=== PATIENT | male | born 1960 | race Caucasian/White ===

== ENCOUNTER 2017-10-24 06:40 | Inpatient (IN) | payer MEDICAID ==
--- NOTE | 2017-10-24 07:06 | EDM.PDOC ---
ED HPI GENERAL MEDICAL PROBLEM - General Chief Complaint: Abdominal Pain Stated Complaint: INFECTION ON LEFT FOOT Time Seen by Provider: 10/24/17 06:55 Source of Information: Reports: Patient History Limitations: Reports: No Limitations - History of Present Illness INITIAL COMMENTS - FREE TEXT/NARRATIVE: History of present illness: []Patient was started on Augmentin for diabetic foot ulcer one week ago he days he developed severe abdominal pain, diarrhea and vomiting and stopped all his meds. Foot ulcer is now worse when he feels hot and cold intermittently. He has not measured a fever. Patient was scheduled for surgery on his foot tomorrow. Review of systems: As per history of present illness and below otherwise all systems reviewed and negative. Past medical history: As per history of present illness and as reviewed below otherwise noncontributory. Surgical history: As per history of present illness and as reviewed below otherwise noncontributory. Social history: No reported history of drug or alcohol abuse. Family history: As per history of present illness and as reviewed below otherwise noncontributory. Physical exam: General: Well developed, well nourished in NAD HEENT: Atraumatic, normocephalic, pupils reactive, negative for conjunctival pallor or scleral icterus, mucous membranes dry, throat clear, neck supple, nontender, trachea midline. Lungs: Clear to auscultation, breath sounds equal bilaterally, chest nontender. Heart: S1S2, regular, negative for clicks, rubs, or JVD. Abdomen: Soft, nondistended, diffuse tenderness without rebound or guarding. Negative for masses or hepatosplenomegaly. Negative for costovertebral tenderness. Pelvis: Stable nontender. Genitourinary: Deferred. Rectal: Deferred. Extremities: Left foot-with 2 ulcerations on the dorsal and plantar surfaces the plantar surface has purulent drainage, approximately 2 cm x 1 cm in size, the dorsal ulceration of the base of the second toe is approximately 2 cm x 2 cm and is erythematous with skin erythema spreading proximally to the ankle. negative for cords or calf pain. Neurovascular unremarkable. Neuro: Awake, alert, oriented. Cranial nerves II through XII unremarkable. Cerebellum unremarkable. Motor and sensory unremarkable throughout. Exam nonfocal. Diagnostics: []CBC shows white count of 19,000 with a shift, chemistry shows BUN/creatinine of 61 and 2.6, CO2 is 26, lactate is 1.9, blood cultures drawn, Therapeutics: []IV hydrated, vancomycin given after blood cultures, Protonix bolus and drip started in the ED Impression: []Diabetic foot ulcer, uncontrolled diabetes, GI bleed, Plan: []Admit to ICU to Dr. Ferro Definitive disposition and diagnosis as appropriate pending reevaluation and review of above. Abdomen Pain Score (Numeric/FACES): 8 Left Feet Pain Score (Numeric/FACES): 7 - Related Data Allergies Allergy/AdvReac Type Severity Reaction Status Date / Time No Known Allergies Allergy Verified 10/24/17 06:51 Home Meds: Home Meds oxyCODONE HCl/Acetaminophen [Percocet 5-325 mg Tablet] 1 each PO Q4HR PRN [History] Acetaminophen [Tylenol] 650 mg PO Q4H PRN #30 tablet 02/01/16 [Rx] Amoxicillin/Clavulanate K [Augmentin 875 MG/125 MG] 1 tab PO Q12HR #28 tablet [Rx] Ibuprofen [Advil] 2 tab PO ASDIRECTED PRN 02/24/16 [History] Insulin Aspart [NovoLOG] See Protocol SUBCUT ASDIRECTED PRN 02/24/16 [History] Insulin Glargine,Hum.Rec.Anlog [Lantus Solostar] 38 unit SQ BEDTIME 02/24/16 [ History] Past Medical History - Past Health History Medical/Surgical History: Denies Medical/Surgical History HEENT History: Reports: Cataract, Other (See Below) Other HEENT History: Wears prescribed eyeglasses. Has cataract to the left eye. Cardiovascular History: Reports: None Respiratory History: Reports: None Gastrointestinal History: Reports: None Genitourinary History: Reports: None Musculoskeletal History: Reports: None Neurological History: Reports: None Psychiatric History: Reports: None Endocrine/Metabolic History: Reports: Diabetes, Type II Other Endocrine/Metabolic History: Ankit Miranda MD pt is a non compliant type 2 diabetic Hematologic History: Reports: None Immunologic History: Reports: None Oncologic (Cancer) History: Reports: None Dermatologic History: Reports: None - Infectious Disease History Infectious Disease History: Reports: None - Past Surgical History Head Surgeries/Procedures: Reports: None Cardiovascular Surgical History: Reports: None Respiratory Surgical History: Reports: None GI Surgical History: Reports: None Male Surgical History: Reports: None Neurological Surgical History: Reports: None Musculoskeletal Surgical History: Reports: Other (See Below) Other Musculoskeletal Surgeries/Procedures:: ankle surgery Oncologic Surgical History: Reports: None Dermatological Surgical History: Reports: None Social & Family History - Family History Family Medical History: Noncontributory HEENT: Reports: None Cardiac: Reports: None Respiratory: Reports: None GI: Reports: None : Reports: None OBGYN: Reports: None Musculoskeletal: Reports: None Neurological: Reports: None Psychiatric: Reports: None Endocrine/Metabolic: Reports: Diabetes, type II Hematologic: Reports: None Immunologic: Reports: None Dermatologic: Reports: None Oncologic: Reports: None - Tobacco Use Smoking Status *Q: Never Smoker - Caffeine Use Caffeine Use: Reports: None - Recreational Drug Use Recreational Drug Use: No ED ROS GENERAL - Review of Systems Review Of Systems: See Below (See history of present illness) ED EXAM, GI/ABD - Physical Exam Exam: See Below (See history of present illness) Course - Vital Signs Last Recorded V/S: Last Vital Signs Temp 97.2 F 10/24/17 12:00 Pulse 71 10/24/17 13:00 Resp 20 10/24/17 13:00 BP 105/57 L 10/24/17 13:00 Pulse Ox 96 10/24/17 13:00 - Orders/Labs/Meds Orders: Active Orders 24 hr Category Date Time Status CULTURE BLOOD [BC] Stat Lab 10/24/17 Ordered CULTURE BLOOD [BC] Stat Lab 10/24/17 Ordered Clostridium Difficile [CDIFF TOX A+B] [OP] Stat Lab 10/24/17 07:20 Ordered Sodium Chloride 0.9% [Saline Flush] Med 10/24/17 07:07 Active 10 ml FLUSH ASDIRECTED PRN Sodium Chloride 0.9% [Saline Flush] Med 10/24/17 07:07 Active 2.5 ml FLUSH ASDIRECTED PRN Blood Culture x2 Reflex Set [OM.PC] Stat Oth 10/24/17 07:07 Ordered Saline Lock Insert [OM.PC] Stat Oth 10/24/17 07:07 Ordered Medication Orders Albuterol/Ipratropium (Duoneb 3.0-0.5 Mg/3 Ml) 3 ml NEB Q4HRRT PRN PRN Reason: Shortness Of Breath/wheezing Lactated Ringer's (Ringers, Lactated) 1,000 mls @ 150 mls/hr IV ASDIRECTED [facility] Vancomycin HCl 500 mg/ Sodium (Chloride) 100 mls @ 100 mls/hr IV ONETIME [facility] Last Admin: 10/24/17 12:11 Dose: 100 mls/hr Vancomycin HCl 1,500 mg/ (Sodium Chloride) 500 mls @ 333.333 mls/hr IV Q24H [facility] Sodium Chloride (Normal Saline) 1,000 mls @ 999 mls/hr IV ASDIRECTED [facility] Last Admin: 10/24/17 11:09 Dose: 999 mls/hr Piperacillin Sod/Tazobactam (Sod 4.5 gm/ Sodium Chloride) 100 mls @ 100 mls/hr IV Q6H [facility] Insulin Aspart (Novolog) 0 unit SUBCUT Q6H [facility]; Protocol Last Admin: 10/24/17 11:10 Dose: 8 units Metoclopramide HCl (Reglan) 5 mg IVPUSH Q6H PRN PRN Reason: nausea and vomiting Morphine Sulfate (Morphine) 2 mg IVPUSH Q2H PRN PRN Reason: Pain (severe 7-10) Stop: 10/25/17 10:42 Last Admin: 10/24/17 11:01 Dose: 2 mg Pantoprazole Sodium (Protonix Iv) 40 mg IV Q12H [facility] Last Admin: 10/24/17 11:10 Dose: 40 mg Sodium Chloride (Saline Flush) 10 ml FLUSH ASDIRECTED PRN PRN Reason: Keep Vein Open Sodium Chloride (Saline Flush) 2.5 ml FLUSH ASDIRECTED PRN PRN Reason: Keep Vein Open Sodium Chloride (Saline Flush) 10 ml FLUSH ASDIRECTED PRN PRN Reason: Keep Vein Open Sodium Chloride (Saline Flush) 2.5 ml FLUSH ASDIRECTED PRN PRN Reason: Keep Vein Open Sucralfate (Carafate) 1 gm PO Q6H [facility] Last Admin: 10/24/17 11:39 Dose: 1 gm Temazepam (Restoril) 15 mg PO BEDTIME PRN PRN Reason: Sleep Vancomycin HCl (Pharmacy To Dose - Vancomycin) 0 dose .XX ASDIRECTED [facility] Labs: Laboratory Tests 10/24/17 10/24/17 10/24/17 Range/Units 07:13 07:13 07:13 WBC 19.80 H (4.0-11.0) K/uL RBC 4.62 (4.50-5.90) M/uL Hgb 13.3 (13.0-17.0) g/dL Hct 38.1 (38.0-50.0) % MCV 82.5 (80.0-98.0) fL MCH 28.8 (27.0-32.0) pg MCHC 34.9 (31.0-37.0) g/dL RDW Std Deviation 37.9 (28.0-62.0) fl RDW Coeff of Krunal 13 (11.0-15.0) % Plt Count 410 H (150-400) K/uL MPV 10.50 (7.40-12.00) fL Neut % (Auto) 88.9 H (48.0-80.0) % Lymph % (Auto) 5.6 L (16.0-40.0) % [place] % (Auto) 5.1 (0.0-15.0) % Eos % (Auto) 0.3 (0.0-7.0) % Baso % (Auto) 0.1 (0.0-1.5) % Neut # (Auto) 17.6 H (1.4-5.7) K/uL Lymph # (Auto) 1.1 (0.6-2.4) K/uL [place] # (Auto) 1.0 H (0.0-0.8) K/uL Eos # (Auto) 0.1 (0.0-0.7) K/uL Baso # (Auto) 0.0 (0.0-0.1) K/uL Nucleated RBC % 0.0 /100WBC Nucleated RBCs # 0 K/uL Lactate 1.9 (0.20-2.00) mmol/L Sodium 132 L (136-148) mmol/L Potassium 4.5 (3.5-5.1) mmol/L Chloride 93 L (98-107) mmol/L Carbon Dioxide 25.6 (21.0-32.0) mmol/L BUN 61 H (7.0-18.0) mg/dL Creatinine 2.6 H (0.8-1.3) mg/dL Est Cr Clr Drug Dosing 33.39 mL/min Estimated GFR (MDRD) 25.6 ml/min Glucose 326 H (74-106) mg/dL Calcium 8.1 L (8.5-10.1) mg/dL Total Bilirubin 0.5 (0.2-1.0) mg/dL AST 8 L (15-37) IU/L ALT 11 L (14-63) IU/L Alkaline Phosphatase 125 H (46-116) U/L Total Protein 6.5 (6.4-8.2) g/dL Albumin 2.4 L (3.4-5.0) g/dL Globulin 4.1 H (2.0-3.5) g/dL Albumin/Globulin Ratio 0.6 L (1.3-2.8) Lipase 58 L (73-393) U/L Meds: Medications Generic Name Dose Route Start Last Admin Trade Name Freq PRN Reason Stop Dose Admin Albuterol/Ipratropium 3 ml 10/24/17 10:39 Duoneb 3.0-0.5 Mg/3 Ml NEB Q4HRRT PRN Shortness Of Breath/wheezing Lactated Ringer's 1,000 mls @ 150 mls/hr 10/24/17 10:45 Ringers, Lactated IV ASDIRECTED [facility] Vancomycin HCl 500 mg/ Sodium 100 mls @ 100 mls/hr 10/24/17 12:00 10/24/17 12 :11 Chloride IV 100 mls/hr ONETIME [facility] Administration Vancomycin HCl 1,500 mg/ 500 mls @ 333.333 mls/hr 10/25/17 09:00 Sodium Chloride IV Q24H [facility] Sodium Chloride 1,000 mls @ 999 mls/hr 10/24/17 11:15 10/24/17 11:09 Normal Saline IV 999 mls/hr ASDIRECTED [facility] Administration Piperacillin Sod/Tazobactam 100 mls @ 100 mls/hr 10/24/17 15:00 Sod 4.5 gm/ Sodium Chloride IV Q6H [facility] Insulin Aspart 0 unit 10/24/17 11:00 10/24/17 11:10 Novolog SUBCUT 8 units Q6H [facility] Administration Protocol Metoclopramide HCl 5 mg 10/24/17 11:01 Reglan IVPUSH Q6H PRN nausea and vomiting Morphine Sulfate 2 mg 10/24/17 10:39 10/24/17 11:01 Morphine IVPUSH 10/25/17 10:42 2 mg Q2H PRN Administration Pain (severe 7-10) Pantoprazole Sodium 40 mg 10/24/17 11:00 10/24/17 11:10 Protonix Iv IV 40 mg Q12H [facility] Administration Sodium Chloride 10 ml 10/24/17 07:07 Saline Flush FLUSH ASDIRECTED PRN Keep Vein Open Sodium Chloride 2.5 ml 10/24/17 07:07 Saline Flush FLUSH ASDIRECTED PRN Keep Vein Open Sodium Chloride 10 ml 10/24/17 10:39 Saline Flush FLUSH ASDIRECTED PRN Keep Vein Open Sodium Chloride 2.5 ml 10/24/17 10:39 Saline Flush FLUSH ASDIRECTED PRN Keep Vein Open Sucralfate 1 gm 10/24/17 11:15 10/24/17 11:39 Carafate PO 1 gm Q6H [facility] Administration Temazepam 15 mg 10/24/17 10:39 Restoril PO BEDTIME PRN Sleep Vancomycin HCl 0 dose 10/24/17 11:00 Pharmacy To Dose - Vancomycin .XX ASDIRECTED [facility] Discontinued Medications Generic Name Dose Route Start Last Admin Trade Name Freq PRN Reason Stop Dose Admin Sodium Chloride 1,000 mls @ 999 mls/hr 10/24/17 07:08 10/24/17 08:22 Normal Saline IV 10/24/17 08:08 Infused .Bolus ONE Infusion Vancomycin HCl 1 gm/ Sodium 250 mls @ 250 mls/hr 10/24/17 08:09 10/24/17 08: 14 Chloride IV 10/24/17 09:08 250 mls/hr ONETIME ONE Administration Sodium Chloride 1,000 mls @ 999 mls/hr 10/24/17 09:00 10/24/17 09:31 Normal Saline IV 10/24/17 10:00 999 mls/hr .Bolus ONE Infusion Piperacillin Sod/Tazobactam 50 mls @ 100 mls/hr 10/24/17 10:50 10/24/17 11:08 Sod 3.375 gm/ Sodium Chloride IV 10/24/17 11:19 100 mls/hr ONETIME ONE Administration Insulin Glargine 10 units 10/24/17 12:00 10/24/17 12:51 Lantus Solostar SUBCUT 10/24/17 12:01 10 units ONETIME ONE Administration Morphine Sulfate 4 mg 10/24/17 07:15 10/24/17 07:42 Morphine IVPUSH 10/24/17 07:16 Not Given ONETIME ONE Morphine Sulfate Confirm 10/24/17 07:19 10/24/17 07:33 Morphine Administered 10/24/17 07:20 Not Given Dose 4 mg .ROUTE .STK-MED ONE Morphine Sulfate 4 mg 10/24/17 07:20 10/24/17 07:33 Morphine IVPUSH 10/24/17 07:21 4 mg ONETIME ONE Administration Ondansetron HCl 4 mg 10/24/17 07:15 10/24/17 07:21 Zofran IVPUSH 10/24/17 07:16 4 mg ONETIME ONE Administration Pantoprazole Sodium 80 mg 10/24/17 07:40 10/24/17 07:57 Protonix Iv IVPUSH 10/24/17 07:41 80 mg .BOLUS ONE Administration Departure - Departure Time of Disposition: 09:35 Disposition: Admitted As Inpatient 66 Condition: Fair Clinical Impression: Diabetic foot ulcer Qualifiers: Diabetic foot ulcer location: midfoot Diabetes mellitus type: type 2 Laterality : unspecified laterality Non-pressure ulcer stage: unspecified non-pressure ulcer stage Qualified Code(s): E11.621 - Type 2 diabetes mellitus with foot ulcer; L97.409 - Non-pressure chronic ulcer of unspecified heel and midfoot with unspecified severity GI bleed Qualifiers: GI bleed type/associated pathology: unspecified gastrointestinal hemorrhage type Qualified Code(s): K92.2 - Gastrointestinal hemorrhage, unspecified - Discharge Information - My Orders Last 24 Hours: My Active Orders 10/24/17 CULTURE BLOOD [BC] Stat CULTURE BLOOD [BC] Stat 10/24/17 07:07 Sodium Chloride 0.9% [Saline Flush] 10 ml FLUSH ASDIRECTED PRN Sodium Chloride 0.9% [Saline Flush] 2.5 ml FLUSH ASDIRECTED PRN Blood Culture x2 Reflex Set [OM.PC] Stat Saline Lock Insert [OM.PC] Stat 10/24/17 07:20 Clostridium Difficile [CDIFF TOX A+B] [OP] Stat - Assessment/Plan Last 24 Hours: My Active Orders 10/24/17 CULTURE BLOOD [BC] Stat CULTURE BLOOD [BC] Stat 10/24/17 07:07 Sodium Chloride 0.9% [Saline Flush] 10 ml FLUSH ASDIRECTED PRN Sodium Chloride 0.9% [Saline Flush] 2.5 ml FLUSH ASDIRECTED PRN Blood Culture x2 Reflex Set [OM.PC] Stat Saline Lock Insert [OM.PC] Stat 10/24/17 07:20 Clostridium Difficile [CDIFF TOX A+B] [OP] Stat
[2017-10-24] MEDS ORDERED: Sodium Chloride 0.9% 2.5 ML Syringe FLUSH PRN ×2 (07:07→10:39)
[2017-10-24] MEDS ORDERED: Sodium Chloride 0.9% 10 ML Syringe FLUSH PRN ×2 (07:07→10:39)
[2017-10-24] MEDS ORDERED: Sodium Chloride 0.9% 1,000 ML IV ONE ×2 (07:08→09:00)
[2017-10-24] MEDS ORDERED: Ondansetron 4 MG/2 ML SDV IVPUSH ONE (07:15)
[2017-10-24] MEDS ORDERED: Morphine 4 MG/ML Syringe IVPUSH ONE (07:15)
[2017-10-24] MEDS ORDERED: Morphine 2 MG/ML Syringe ONE (07:19)
[2017-10-24] MEDS ORDERED: Morphine 2 MG/ML Syringe IVPUSH ONE (07:20)
[2017-10-24] MEDS ORDERED: Pantoprazole 40 MG Vial IVPUSH ONE (07:40)
[2017-10-24] MEDS ORDERED: Pantoprazole 80 MG in Sodium Chloride 0.9% 100 ML IV SCH (07:45)
[2017-10-24] MEDS ORDERED: Albuterol/Ipratropium 3.0-0.5 MG/3 ML Neb Soln NEB PRN (10:39)
[2017-10-24] MEDS ORDERED: Piperacillin/Tazobactam 3.375 GM in Sodium Chloride 0.9% 50 ML IV ONE (10:50)
[2017-10-24] MEDS: Morphine 2 MG/ML Syringe IVPUSH PRN (11:01)
[2017-10-24] MEDS: Pantoprazole 40 MG Vial IV SCH (11:10)
[2017-10-24] MEDS: Insulin Aspart 100 Units/ML 3 ML Pen SUBCUT SCH ×2 (11:10→17:01)
[2017-10-24] MEDS ORDERED: Sodium Chloride 0.9% 1,000 ML IV SCH (11:15)
[2017-10-24] MEDS: Sucralfate Suspension 1 GM/10 ML Cup PO SCH ×2 (11:39→17:01)
[2017-10-24] MEDS ORDERED: Insulin Glargine,Human Rec. Analog 100 Units/ML 3 ML Pen SUBCUT ONE (12:00)
[2017-10-24] MEDS: Lactated Ringers 1,000 ML IV SCH ×2 (13:36→21:44)
[2017-10-24] MEDS: Metoclopramide 10 MG/2 ML SDV IVPUSH PRN (15:47)
--- NOTE | 2017-10-24 15:48 | PCM.HP ---
H&P History of Present Illness - General Date of Service: 10/24/17 Admit Problem/Dx: Admission Diagnosis/Problem Admission Diagnosis/Problem Diabetic foot infection, nausea , coffee ground vomiting , abdominal pain , black diarrhea - History of Present Illness Onset of Symptoms: Reports: Gradual Abdomen Pain Score (Numeric/FACES): 8 Left Feet Pain Score (Numeric/FACES): 7 - Related Data Allergies/Adverse Reactions: Allergies Allergy/AdvReac Type Severity Reaction Status Date / Time No Known Allergies Allergy Verified 10/24/17 06:51 Home Medications: Home Meds oxyCODONE HCl/Acetaminophen [Percocet 5-325 mg Tablet] 1 each PO Q4HR PRN [History] Acetaminophen [Tylenol] 650 mg PO Q4H PRN #30 tablet 02/01/16 [Rx] Amoxicillin/Clavulanate K [Augmentin 875 MG/125 MG] 1 tab PO Q12HR #28 tablet [Rx] Ibuprofen [Advil] 2 tab PO ASDIRECTED PRN 02/24/16 [History] Insulin Aspart [NovoLOG] See Protocol SUBCUT ASDIRECTED PRN 02/24/16 [History] Insulin Glargine,Hum.Rec.Anlog [Lantus Solostar] 38 unit SQ BEDTIME 02/24/16 [ History] Past Medical History - Past Health History Medical/Surgical History: Denies Medical/Surgical History HEENT History: Reports: Cataract, Other (See Below) Other HEENT History: Wears prescribed eyeglasses. Has cataract to the left eye. Cardiovascular History: Reports: None Respiratory History: Reports: None Gastrointestinal History: Reports: None Genitourinary History: Reports: None Musculoskeletal History: Reports: None Neurological History: Reports: None Psychiatric History: Reports: None Endocrine/Metabolic History: Reports: Diabetes, Type II Other Endocrine/Metabolic History: Per Ruben BRUNER pt is a non compliant type 2 diabetic Hematologic History: Reports: None Immunologic History: Reports: None Oncologic (Cancer) History: Reports: None Dermatologic History: Reports: None - Infectious Disease History Infectious Disease History: Reports: None - Past Surgical History Head Surgeries/Procedures: Reports: None Cardiovascular Surgical History: Reports: None Respiratory Surgical History: Reports: None GI Surgical History: Reports: None Male Surgical History: Reports: None Neurological Surgical History: Reports: None Musculoskeletal Surgical History: Reports: Other (See Below) Other Musculoskeletal Surgeries/Procedures:: ankle surgery Oncologic Surgical History: Reports: None Dermatological Surgical History: Reports: None Social & Family History - Family History Family Medical History: Noncontributory HEENT: Reports: None Cardiac: Reports: None Respiratory: Reports: None GI: Reports: None : Reports: None OBGYN: Reports: None Musculoskeletal: Reports: None Neurological: Reports: None Psychiatric: Reports: None Endocrine/Metabolic: Reports: Diabetes, type II Hematologic: Reports: None Immunologic: Reports: None Dermatologic: Reports: None Oncologic: Reports: None - Tobacco Use Smoking Status *Q: Never Smoker - Caffeine Use Caffeine Use: Reports: None - Recreational Drug Use Recreational Drug Use: No Exam - Vital Signs Vital Signs: Last Vital Signs Temp 97.2 F 10/24/17 12:00 Pulse 81 10/24/17 15:00 Resp 18 10/24/17 15:00 BP 98/68 10/24/17 15:00 Pulse Ox 98 10/24/17 15:00 Weight: 214 lb 4 oz - Patient Data Lab Results Last 24 hrs: Laboratory Results - last 24 hr 10/24/17 10/24/17 10/24/17 Range/Units 07:13 07:13 07:13 WBC 19.80 H (4.0-11.0) K/uL RBC 4.62 (4.50-5.90) M/uL Hgb 13.3 (13.0-17.0) g/dL Hct 38.1 (38.0-50.0) % MCV 82.5 (80.0-98.0) fL MCH 28.8 (27.0-32.0) pg MCHC 34.9 (31.0-37.0) g/dL RDW Std Deviation 37.9 (28.0-62.0) fl RDW Coeff of Krunal 13 (11.0-15.0) % Plt Count 410 H (150-400) K/uL MPV 10.50 (7.40-12.00) fL Neut % (Auto) 88.9 H (48.0-80.0) % Lymph % (Auto) 5.6 L (16.0-40.0) % [place]ie % (Auto) 5.1 (0.0-15.0) % Eos % (Auto) 0.3 (0.0-7.0) % Baso % (Auto) 0.1 (0.0-1.5) % Neut # (Auto) 17.6 H (1.4-5.7) K/uL Lymph # (Auto) 1.1 (0.6-2.4) K/uL [place] # (Auto) 1.0 H (0.0-0.8) K/uL Eos # (Auto) 0.1 (0.0-0.7) K/uL Baso # (Auto) 0.0 (0.0-0.1) K/uL Nucleated RBC % 0.0 /100WBC Nucleated RBCs # 0 K/uL ESR (0-19) mm/hr ABG pH (7.35-7.45) ABG pCO2 (35-45) mmHG ABG pO2 (75-100) mmHG ABG HCO3 (22-26) mEq/L ABG Total CO2 ABG Base Excess (-2.0-2.0) Lactate 1.9 (0.20-2.00) mmol/L Sodium 132 L (136-148) mmol/L Potassium 4.5 (3.5-5.1) mmol/L Chloride 93 L (98-107) mmol/L Carbon Dioxide 25.6 (21.0-32.0) mmol/L BUN 61 H (7.0-18.0) mg/dL Creatinine 2.6 H (0.8-1.3) mg/dL Est Cr Clr Drug Dosing 33.39 mL/min Estimated GFR (MDRD) 25.6 ml/min Glucose 326 H (74-106) mg/dL POC Glucose (60-110) mg/dL Hemoglobin A1c (4.5-6.2) % Calcium 8.1 L (8.5-10.1) mg/dL Total Bilirubin 0.5 (0.2-1.0) mg/dL AST 8 L (15-37) IU/L ALT 11 L (14-63) IU/L Alkaline Phosphatase 125 H (46-116) U/L C-Reactive Protein (0.00-0.90) mg/dL Total Protein 6.5 (6.4-8.2) g/dL Albumin 2.4 L (3.4-5.0) g/dL Globulin 4.1 H (2.0-3.5) g/dL Albumin/Globulin Ratio 0.6 L (1.3-2.8) Lipase 58 L (73-393) U/L Blood Type Antibody Screen 10/24/17 10/24/17 10/24/17 Range/Units 08:20 09:12 10:01 WBC (4.0-11.0) K/uL RBC (4.50-5.90) M/uL Hgb (13.0-17.0) g/dL Hct (38.0-50.0) % MCV (80.0-98.0) fL MCH (27.0-32.0) pg MCHC (31.0-37.0) g/dL RDW Std Deviation (28.0-62.0) fl RDW Coeff of Krunla (11.0-15.0) % Plt Count (150-400) K/uL MPV (7.40-12.00) fL Neut % (Auto) (48.0-80.0) % Lymph % (Auto) (16.0-40.0) % [place]ie % (Auto) (0.0-15.0) % Eos % (Auto) (0.0-7.0) % Baso % (Auto) (0.0-1.5) % Neut # (Auto) (1.4-5.7) K/uL Lymph # (Auto) (0.6-2.4) K/uL [place] # (Auto) (0.0-0.8) K/uL Eos # (Auto) (0.0-0.7) K/uL Baso # (Auto) (0.0-0.1) K/uL Nucleated RBC % /100WBC Nucleated RBCs # K/uL ESR (0-19) mm/hr ABG pH 7.366 (7.35-7.45) ABG pCO2 35 (35-45) mmHG ABG pO2 72 L (75-100) mmHG ABG HCO3 20 L (22-26) mEq/L ABG Total CO2 18.3 ABG Base Excess -4.7 L (-2.0-2.0) Lactate (0.20-2.00) mmol/L Sodium (136-148) mmol/L Potassium (3.5-5.1) mmol/L Chloride (98-107) mmol/L Carbon Dioxide (21.0-32.0) mmol/L BUN (7.0-18.0) mg/dL Creatinine (0.8-1.3) mg/dL Est Cr Clr Drug Dosing mL/min Estimated GFR (MDRD) ml/min Glucose (74-106) mg/dL POC Glucose 330 H (60-110) mg/dL Hemoglobin A1c (4.5-6.2) % Calcium (8.5-10.1) mg/dL Total Bilirubin (0.2-1.0) mg/dL AST (15-37) IU/L ALT (14-63) IU/L Alkaline Phosphatase (46-116) U/L C-Reactive Protein (0.00-0.90) mg/dL Total Protein (6.4-8.2) g/dL Albumin (3.4-5.0) g/dL Globulin (2.0-3.5) g/dL Albumin/Globulin Ratio (1.3-2.8) Lipase (73-393) U/L Blood Type O POSITIVE Antibody Screen NEGATIVE 10/24/17 10/24/17 10/24/17 Range/Units 11:03 11:03 11:03 WBC 17.35 H (4.0-11.0) K/uL RBC 3.91 L (4.50-5.90) M/uL Hgb 11.2 L (13.0-17.0) g/dL Hct 32.7 L (38.0-50.0) % MCV 83.6 (80.0-98.0) fL MCH 28.6 (27.0-32.0) pg MCHC 34.3 (31.0-37.0) g/dL RDW Std Deviation 38.5 (28.0-62.0) fl RDW Coeff of Krunal 13 (11.0-15.0) % Plt Count 337 (150-400) K/uL MPV 10.20 (7.40-12.00) fL Neut % (Auto) (48.0-80.0) % Lymph % (Auto) (16.0-40.0) % [place] % (Auto) (0.0-15.0) % Eos % (Auto) (0.0-7.0) % Baso % (Auto) (0.0-1.5) % Neut # (Auto) (1.4-5.7) K/uL Lymph # (Auto) (0.6-2.4) K/uL [place] # (Auto) (0.0-0.8) K/uL Eos # (Auto) (0.0-0.7) K/uL Baso # (Auto) (0.0-0.1) K/uL Nucleated RBC % 0.0 /100WBC Nucleated RBCs # 0 K/uL ESR 36 H (0-19) mm/hr ABG pH (7.35-7.45) ABG pCO2 (35-45) mmHG ABG pO2 (75-100) mmHG ABG HCO3 (22-26) mEq/L ABG Total CO2 ABG Base Excess (-2.0-2.0) Lactate (0.20-2.00) mmol/L Sodium 132 L (136-148) mmol/L Potassium 4.7 (3.5-5.1) mmol/L Chloride 99 (98-107) mmol/L Carbon Dioxide 23.7 (21.0-32.0) mmol/L BUN 59 H (7.0-18.0) mg/dL Creatinine 2.1 H (0.8-1.3) mg/dL Est Cr Clr Drug Dosing 41.34 mL/min Estimated GFR (MDRD) 32.7 ml/min Glucose 305 H (74-106) mg/dL POC Glucose (60-110) mg/dL Hemoglobin A1c (4.5-6.2) % Calcium 7.3 L (8.5-10.1) mg/dL Total Bilirubin (0.2-1.0) mg/dL AST (15-37) IU/L ALT (14-63) IU/L Alkaline Phosphatase (46-116) U/L C-Reactive Protein 15.90 H (0.00-0.90) mg/dL Total Protein (6.4-8.2) g/dL Albumin (3.4-5.0) g/dL Globulin (2.0-3.5) g/dL Albumin/Globulin Ratio (1.3-2.8) Lipase (73-393) U/L Blood Type Antibody Screen 10/24/17 10/24/17 Range/Units 11:03 14:15 WBC (4.0-11.0) K/uL RBC (4.50-5.90) M/uL Hgb 10.8 L (13.0-17.0) g/dL Hct 31.6 L (38.0-50.0) % MCV (80.0-98.0) fL MCH (27.0-32.0) pg MCHC (31.0-37.0) g/dL RDW Std Deviation (28.0-62.0) fl RDW Coeff of Krunal (11.0-15.0) % Plt Count (150-400) K/uL MPV (7.40-12.00) fL Neut % (Auto) (48.0-80.0) % Lymph % (Auto) (16.0-40.0) % [place] % (Auto) (0.0-15.0) % Eos % (Auto) (0.0-7.0) % Baso % (Auto) (0.0-1.5) % Neut # (Auto) (1.4-5.7) K/uL Lymph # (Auto) (0.6-2.4) K/uL [place] # (Auto) (0.0-0.8) K/uL Eos # (Auto) (0.0-0.7) K/uL Baso # (Auto) (0.0-0.1) K/uL Nucleated RBC % /100WBC Nucleated RBCs # K/uL ESR (0-19) mm/hr ABG pH (7.35-7.45) ABG pCO2 (35-45) mmHG ABG pO2 (75-100) mmHG ABG HCO3 (22-26) mEq/L ABG Total CO2 ABG Base Excess (-2.0-2.0) Lactate (0.20-2.00) mmol/L Sodium (136-148) mmol/L Potassium (3.5-5.1) mmol/L Chloride (98-107) mmol/L Carbon Dioxide (21.0-32.0) mmol/L BUN (7.0-18.0) mg/dL Creatinine (0.8-1.3) mg/dL Est Cr Clr Drug Dosing mL/min Estimated GFR (MDRD) ml/min Glucose (74-106) mg/dL POC Glucose (60-110) mg/dL Hemoglobin A1c 9.3 H (4.5-6.2) % Calcium (8.5-10.1) mg/dL Total Bilirubin (0.2-1.0) mg/dL AST (15-37) IU/L ALT (14-63) IU/L Alkaline Phosphatase (46-116) U/L C-Reactive Protein (0.00-0.90) mg/dL Total Protein (6.4-8.2) g/dL Albumin (3.4-5.0) g/dL Globulin (2.0-3.5) g/dL Albumin/Globulin Ratio (1.3-2.8) Lipase (73-393) U/L Blood Type Antibody Screen Result Diagrams: 10/24/17 14:15 10/24/17 11:03 Robert Results Last 24 hrs: Microbiology 10/24/17 07:20 Stool for WBCs - Final Stool / Feces POSITIVE FOR WBC'S 10/24/17 07:20 Campylobacter Antigen Assay - Final Stool / Feces NEGATIVE CAMPYLOBACTER AG 10/24/17 07:20 Clostridium difficile Toxin A & B - Final Stool / Feces Negative for C.Diff Toxin/AG Orders Last 24hrs: Active Orders 24 hr Category Date Time Status Patient Status [ADT] Stat ADT 10/24/17 08:09 Active Blood Glucose Check, Bedside [RC] Q6HR Care 10/24/17 17:00 Active Fecal Occult Blood Collection [RC] ASDIRECTED Care 10/24/17 15:23 Active Oxygen Therapy [RC] PRN Care 10/24/17 10:33 Active RT Aerosol Therapy [RC] ASDIRECTED Care 10/24/17 10:46 Active Up ad Ramonita [RC] ASDIRECTED Care 10/24/17 10:33 Active VTE/DVT Education [RC] PER UNIT ROUTINE Care 10/24/17 10:33 Active Vital Signs [RC] Q1H Care 10/24/17 10:33 Active Consult to Wound Care Services [CONS] Routine Cons 10/24/17 11:04 Active Nothing per Oral Now Diet [DIET] Diet 10/24/17 Breakfast Active Foot Comp Min 3V Lt [CR] Routine Exams 10/24/17 10:57 Taken Foot wo Cont Lt [MR] Routine Exams 10/24/17 10:59 Ordered BASIC METABOLIC PANEL,BMP [CHEM] AM Lab 10/25/17 05:11 Ordered BASIC METABOLIC PANEL,BMP [CHEM] AM Lab 10/26/17 05:11 Ordered BASIC METABOLIC PANEL,BMP [CHEM] AM Lab 10/27/17 05:11 Ordered BASIC METABOLIC PANEL,BMP [CHEM] AM Lab 10/28/17 05:11 Ordered BASIC METABOLIC PANEL,BMP [CHEM] AM Lab 10/29/17 05:11 Ordered CULTURE BLOOD [BC] Stat Lab 10/24/17 Ordered CULTURE BLOOD [BC] Stat Lab 10/24/17 Ordered CULTURE STOOL + CAMPY+SHIGATOX [RM] Routine Lab 10/24/17 07:20 Ordered CULTURE WOUND [RM] Routine Lab 10/24/17 12:15 Received Clostridium Difficile [CDIFF TOX A+B] [OP] Stat Lab 10/24/17 07:20 Ordered HEMOGLOBIN/HEMATOCRIT,HH [HEME] Q6H Lab 10/24/17 20:05 Ordered MAGNESIUM [CHEM] AM Lab 10/25/17 05:11 Ordered Albuterol/Ipratropium [DuoNeb 3.0-0.5 MG/3 ML] Med 10/24/17 10:39 Active 3 ml NEB Q4HRRT PRN Insulin Aspart [NovoLOG] Med 10/24/17 11:00 Active See Protocol SUBCUT Q6H Lactated Ringers [Ringers, Lactated] 1,000 ml Med 10/24/17 10:45 Active IV ASDIRECTED Metoclopramide [Reglan] Med 10/24/17 11:01 Active 5 mg IVPUSH Q6H PRN Morphine Med 10/24/17 10:39 Active 2 mg IVPUSH Q2H PRN Pantoprazole [ProTONIX IV] Med 10/24/17 11:00 Active 40 mg IV Q12H Piperacillin/Tazobactam [Piperacil-Tazobact] 4.5 gm Med 10/24/17 17:00 Active Sodium Chloride 0.9% [Normal Saline] 100 ml IV Q6H Sodium Chloride 0.9% [Normal Saline] 1,000 ml Med 10/24/17 11:15 Active IV ASDIRECTED Sodium Chloride 0.9% [Saline Flush] Med 10/24/17 07:07 Active 10 ml FLUSH ASDIRECTED PRN Sodium Chloride 0.9% [Saline Flush] Med 10/24/17 10:39 Active 10 ml FLUSH ASDIRECTED PRN Sodium Chloride 0.9% [Saline Flush] Med 10/24/17 07:07 Active 2.5 ml FLUSH ASDIRECTED PRN Sodium Chloride 0.9% [Saline Flush] Med 10/24/17 10:39 Active 2.5 ml FLUSH ASDIRECTED PRN Sucralfate [Carafate] Med 10/24/17 11:15 Active 1 gm PO Q6H Temazepam [Restoril] Med 10/24/17 10:39 Active 15 mg PO BEDTIME PRN Vancomycin 1,500 mg Med 10/25/17 09:00 Active Sodium Chloride 0.9% [Normal Saline] 500 ml IV Q24H Vancomycin 500 mg Med 10/24/17 12:00 Active Sodium Chloride 0.9% [Normal Saline] 100 ml IV ONETIME Vancomycin Pharmacy to Dose [Pharmacy to Dose - Med 10/24/17 11:00 Active Vancomycin] See Dose Instructions .XX ASDIRECTED Blood Culture x2 Reflex Set [OM.PC] Stat Ot 10/24/17 07:07 Ordered Peripheral IV Insertion Adult [OM.PC] Routine Ot 10/24/17 10:39 Ordered Saline Lock Insert [OM.PC] Stat Ot 10/24/17 07:07 Ordered Resuscitation Status Routine Resus Stat 10/24/17 10:33 Ordered Medication Orders Albuterol/Ipratropium (Duoneb 3.0-0.5 Mg/3 Ml) 3 ml NEB Q4HRRT PRN PRN Reason: Shortness Of Breath/wheezing Lactated Ringer's (Ringers, Lactated) 1,000 mls @ 150 mls/hr IV ASDIRECTED BOB Last Admin: 10/24/17 13:36 Dose: 150 mls/hr Vancomycin HCl 500 mg/ Sodium (Chloride) 100 mls @ 100 mls/hr IV ONETIME BOB Last Admin: 10/24/17 12:11 Dose: 100 mls/hr Vancomycin HCl 1,500 mg/ (Sodium Chloride) 500 mls @ 333.333 mls/hr IV Q24H BOB Sodium Chloride (Normal Saline) 1,000 mls @ 999 mls/hr IV ASDIRECTED BOB Last Admin: 10/24/17 11:09 Dose: 999 mls/hr Piperacillin Sod/Tazobactam (Sod 4.5 gm/ Sodium Chloride) 100 mls @ 100 mls/hr IV Q6H [facility] Insulin Aspart (Novolog) 0 unit SUBCUT Q6H [facility]; Protocol Last Admin: 10/24/17 11:10 Dose: 8 units Metoclopramide HCl (Reglan) 5 mg IVPUSH Q6H PRN PRN Reason: nausea and vomiting Morphine Sulfate (Morphine) 2 mg IVPUSH Q2H PRN PRN Reason: Pain (severe 7-10) Stop: 10/25/17 10:42 Last Admin: 10/24/17 11:01 Dose: 2 mg Pantoprazole Sodium (Protonix Iv) 40 mg IV Q12H [facility] Last Admin: 10/24/17 11:10 Dose: 40 mg Sodium Chloride (Saline Flush) 10 ml FLUSH ASDIRECTED PRN PRN Reason: Keep Vein Open Sodium Chloride (Saline Flush) 2.5 ml FLUSH ASDIRECTED PRN PRN Reason: Keep Vein Open Sodium Chloride (Saline Flush) 10 ml FLUSH ASDIRECTED PRN PRN Reason: Keep Vein Open Sodium Chloride (Saline Flush) 2.5 ml FLUSH ASDIRECTED PRN PRN Reason: Keep Vein Open Sucralfate (Carafate) 1 gm PO Q6H [facility] Last Admin: 10/24/17 11:39 Dose: 1 gm Temazepam (Restoril) 15 mg PO BEDTIME PRN PRN Reason: Sleep Vancomycin HCl (Pharmacy To Dose - Vancomycin) 0 dose .XX ASDIRECTED [facility]
--- NOTE | 2017-10-24 16:10 | PCM.SN ---
- Free Text/Narrative Note: Anne Marie Copeland dictated#[id number]
[2017-10-24] MEDS: Piperacillin/Tazobactam 4.5 GM in Sodium Chloride 0.9% 100 ML IV SCH (17:01)
--- NOTE | 2017-10-24 19:26 | PCM.SN ---
- Free Text/Narrative Note: Patient with no more active hematemesis in the past 12 h , was downgraded to telemetry
--- NOTE | 2017-10-24 23:08 | HP ---
DATE OF : 1960 PRIMARY CARE PHYSICIAN: None PCP CHIEF COMPLAINT: Abdominal pain, nausea, vomiting, diarrhea, and coffee-ground vomiting, and streaks of red blood, also black and red diarrhea, and left foot pain, unable to tolerate p.o. HISTORY OF PRESENT ILLNESS: The patient is a 57-year-old man presented to emergency room today because of nausea, vomiting, and bloody diarrhea. This started on , three days ago, and today he had coffee-ground vomiting, and also he has vomit was streaked with blood. He had black diarrhea that started since . He had an infection in the left foot that started two weeks ago as a sore, and on Wednesday this week, he so Dr. Indio Toribio, [employer] C[employer] Attendant, who recommended him to start Augmentin 1 tab p.o. b.i.d. On Wednesday, he saw his primary care physician, Dr. Miranda, and he had blood work done. His blood work was good and soon after he started having fever and chills. The chills were throughout the next three days. The patient has diabetes mellitus and he is insulin dependent, complicated with neuropathy. His diabetes is not well controlled. His last hemoglobin A1c was 10, and today on his blood work his hemoglobin A1c was 9.3. He had a previous foot ulcer on the right foot about a year ago and was treated by the sales technician home theater. On Wednesday, Dr. Toribio removed a piece of glass from his left foot and the patient was told that he stepped on a glass which he was not aware. PAST MEDICAL HISTORY: The patient has diabetes mellitus, insulin dependent, uncontrolled with complication of neuropathy. Hx of right foot ulcer PAST SURGICAL HISTORY: The patient had 5 surgeries on the right ankle. Also, he had surgery of the left hand. SOCIAL HISTORY: The patient never smoked. Alcohol use occasionally, little amount. No drug use. 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 FAMILY HISTORY: His mom of old age at 92. Father at age 72 because he had a motor vehicle accident. He has one brother who has diabetes. VITAL SIGNS: At admission, his temperature 97.5, pulse 92, blood pressure 112/74, and oxygen saturation 98%. PHYSICAL EXAMINATION: HEENT: His head is atraumatic and normocephalic. Pupils equal, round, reactive to light. NECK: Supple. No thyromegaly. No lymphadenopathy. Dry oral mucosa. HEART: S1 and S2. Regular rhythm and rate. No murmurs. LUNGS: Clear to auscultation bilaterally. ABDOMEN: Soft. Tenderness to palpation in the left lower quadrant. Positive bowel sounds. No masses felt. No guarding or rebound. EXTREMITIES: There is a plantar ulceration on the left foot which is about to 1 inch surrounded by a denudation of skin plantar and dorsal aspect of the forefoot The second toe, it is blue in color, and there is redness on the dorsal aspect of the left forefoot. No drainage observed. Palpable pulses dorsalis pedis b/l LABORATORY DATA: At admission WBC 19.8, hemoglobin 13.3, hematocrit 38.1, and platelet count 410. Neutrophils 38.9, lymphocytes 5.6. ESR 36. ABGs show a pH of 7.36 pCO2 of 35, pO2 of 72, and bicarb 20, lactate 1.9. Sodium is 132, potassium 4.5, chloride 93, CO2 of 25.6, BUN 61, creatinine 2.6. Estimated GFR 33.39. Glucose 326, calcium 8.1, total bilirubin 0.5. AST 8, ALT 11, alkaline phosphatase is 125. C-reactive protein 15.9, total protein 6.5, albumin 2.4, globulin 4.1, lipase 58. Repeat blood work after 3 hours, his creatinine clearance improved to 41.34. ASSESSMENT: 1. Hematemesis. 2. Intractable vomiting. 3. Diarrhea. 4. Melena. 5. Sepsis secondary to infected left foot ulcer with toe necrosis. 6. Diabetes mellitus, uncontrolled, insulin dependent. 7. Left lower abdominal pain- probable secondary to colitis/diarrhea PLAN: For Gi bleed: We will admit patient to ICU, and we will start the patient on Protonix 40 mg IV q.12 hours, Carafate 1 g p.o. q.6 hours, and make the patient n.p.o. For diabetes mellitus, uncontrolled, we will give the patient Lantus 10 units one dose and we will put patient on insulin sliding scale medium coverage every 6 hours. We will continue patient with IV fluids, Ringer's lactate is 150 mL/h . We will monitor hemoglobin and hematocrit every 6 hours and we will transfuse if hemoglobin and hematocrit less than 8. We will order a type and cross, and we will call Surgery consult to evaluate for EGD/Colonoscopy. For bloody diarrhea and infected foot ulcer,left lower quadrant pain we will start the patient on Zosyn 4.5 g q.6 hours and coverage with vancomycin for foot infection , Stool culture , stool for wbc , stool for occult blood. dosing as per pharmacy. We will order wound culture. Blood culture was done in the emergency room, and we will consult Podiatry tomorrow. Also, we will order MRI and x-ray, three views of the left foot. For DVT prophylaxis, the patient cannot have heparin because he has a GI bleed, and we will put patient on SCDs. Stool for C. diff was done in emergency room and it was negative. GÓMEZ / TITO /[id number] MTDD
[2017-10-25] MEDS: Piperacillin/Tazobactam 4.5 GM in Sodium Chloride 0.9% 100 ML IV SCH ×5 (00:05→22:26)
[2017-10-25] MEDS: Sucralfate Suspension 1 GM/10 ML Cup PO SCH ×5 (00:10→22:28)
[2017-10-25] MEDS: Metoclopramide 10 MG/2 ML SDV IVPUSH PRN ×2 (03:20→09:29)
[2017-10-25] MEDS: Morphine 2 MG/ML Syringe IVPUSH PRN ×2 (03:22→09:42)
[2017-10-25] MEDS: Lactated Ringers 1,000 ML IV SCH ×2 (05:47→18:33)
[2017-10-25] MEDS: Insulin Aspart 100 Units/ML 3 ML Pen SUBCUT SCH ×4 (05:50→17:41)
--- NOTE | 2017-10-25 07:43 | PCM.PN ---
Addendum entered and electronically signed by Augusta Tatum NP 10/25/17 10:15 : Spoke with Dr Reese. Continue Protonix and Carafate. Due to sepsis and bacteremia and stable hgb he advises outpatient evaluation for EGD and colonoscopy. Will arrange outpatient follow up with Dr Reese. Original Note: <Augusta Tatum - Last Filed: 10/25/17 09:35> - General Info Date of Service: 10/25/17 Admission Dx/Problem (Free Text): N/V, foot pain, sepsis Subjective Update: Feel blah this morning, having some lower abdominal pain. No further diarrhea or black or bloody BMs. He is passing gas, pain is cramping in nature. Starting to feel hungry. NO chest pain or SOB. Pain to foot is tolerable. Hoping to speak with Dr Toribio today. Functional Status: Reports: Pain Controlled, Ambulating, Urinating - Review of Systems General: Reports: Weakness (generalized), Malaise. Denies: Fever HEENT: Reports: No Symptoms. Denies: Glasses, Headaches, Sore Throat, Visual Changes Pulmonary: Reports: No Symptoms. Denies: Shortness of Breath, Cough, Sputum Cardiovascular: Reports: No Symptoms. Denies: Chest Pain, Orthopnea, Edema Gastrointestinal: Reports: Abdominal Pain, Flatus, Nausea. Denies: Melena, Vomiting Genitourinary: Reports: No Symptoms. Denies: Dysuria, Frequency, Burning, Pain Musculoskeletal: Reports: Foot Pain (L foot pain, tolerable. ) Skin: Reports: Other (ulcer to L foot ) Neurological: Reports: No Symptoms Psychiatric: Reports: No Symptoms - Patient Data Vitals - Most Recent: Last Vital Signs Temp 97.4 F 10/25/17 03:32 Pulse 79 10/25/17 03:32 Resp 18 10/25/17 03:32 BP 122/59 L 10/25/17 03:32 Pulse Ox 97 10/25/17 03:32 Weight - Most Recent: 214 lb 4 oz I&O - Last 24 Hours: Intake & Output 10/24/17 10/25/17 10/25/17 22:59 06:59 14:59 Intake Total 1150 1210 Output Total 400 750 Balance 750 460 Lab Results Last 24 Hours: Laboratory Results - last 24 hr 10/24/17 10/24/1718 Range/Units 07:13 07:13 08:20 WBC (4.0-11.0) K/uL RBC (4.50-5.90) M/uL Hgb (13.0-17.0) g/dL Hct (38.0-50.0) % MCV (80.0-98.0) fL MCH (27.0-32.0) pg MCHC (31.0-37.0) g/dL RDW Std Deviation (28.0-62.0) fl RDW Coeff of Krunal (11.0-15.0) % Plt Count (150-400) K/uL MPV (7.40-12.00) fL Neut % (Auto) (48.0-80.0) % Lymph % (Auto) (16.0-40.0) % [place] % (Auto) (0.0-15.0) % Eos % (Auto) (0.0-7.0) % Baso % (Auto) (0.0-1.5) % Neut # (Auto) (1.4-5.7) K/uL Lymph # (Auto) (0.6-2.4) K/uL [place] # (Auto) (0.0-0.8) K/uL Eos # (Auto) (0.0-0.7) K/uL Baso # (Auto) (0.0-0.1) K/uL Nucleated RBC % /100WBC Nucleated RBCs # K/uL ESR (0-19) mm/hr ABG pH 7.366 (7.35-7.45) ABG pCO2 35 (35-45) mmHG ABG pO2 72 L (75-100) mmHG ABG HCO3 20 L (22-26) mEq/L ABG Total CO2 18.3 ABG Base Excess -4.7 L (-2.0-2.0) Lactate 1.9 (0.20-2.00) mmol/L Sodium 132 L (136-148) mmol/L Potassium 4.5 (3.5-5.1) mmol/L Chloride 93 L (98-107) mmol/L Carbon Dioxide 25.6 (21.0-32.0) mmol/L BUN 61 H (7.0-18.0) mg/dL Creatinine 2.6 H (0.8-1.3) mg/dL Est Cr Clr Drug Dosing 33.39 mL/min Estimated GFR (MDRD) 25.6 ml/min Glucose 326 H (74-106) mg/dL POC Glucose (60-110) mg/dL Hemoglobin A1c (4.5-6.2) % Calcium 8.1 L (8.5-10.1) mg/dL Magnesium (1.8-2.4) mg/dL Total Bilirubin 0.5 (0.2-1.0) mg/dL AST 8 L (15-37) IU/L ALT 11 L (14-63) IU/L Alkaline Phosphatase 125 H (46-116) U/L C-Reactive Protein (0.00-0.90) mg/dL Total Protein 6.5 (6.4-8.2) g/dL Albumin 2.4 L (3.4-5.0) g/dL Globulin 4.1 H (2.0-3.5) g/dL Albumin/Globulin Ratio 0.6 L (1.3-2.8) Lipase 58 L (73-393) U/L Blood Type Antibody Screen 10/24/17 10/24/17 10/24/17 Range/Units 09:12 10:01 11:03 WBC (4.0-11.0) K/uL RBC (4.50-5.90) M/uL Hgb (13.0-17.0) g/dL Hct (38.0-50.0) % MCV (80.0-98.0) fL MCH (27.0-32.0) pg MCHC (31.0-37.0) g/dL RDW Std Deviation (28.0-62.0) fl RDW Coeff of Krunal (11.0-15.0) % Plt Count (150-400) K/uL MPV (7.40-12.00) fL Neut % (Auto) (48.0-80.0) % Lymph % (Auto) (16.0-40.0) % [place] % (Auto) (0.0-15.0) % Eos % (Auto) (0.0-7.0) % Baso % (Auto) (0.0-1.5) % Neut # (Auto) (1.4-5.7) K/uL Lymph # (Auto) (0.6-2.4) K/uL [place] # (Auto) (0.0-0.8) K/uL Eos # (Auto) (0.0-0.7) K/uL Baso # (Auto) (0.0-0.1) K/uL Nucleated RBC % /100WBC Nucleated RBCs # K/uL ESR (0-19) mm/hr ABG pH (7.35-7.45) ABG pCO2 (35-45) mmHG ABG pO2 (75-100) mmHG ABG HCO3 (22-26) mEq/L ABG Total CO2 ABG Base Excess (-2.0-2.0) Lactate (0.20-2.00) mmol/L Sodium 132 L (136-148) mmol/L Potassium 4.7 (3.5-5.1) mmol/L Chloride 99 (98-107) mmol/L Carbon Dioxide 23.7 (21.0-32.0) mmol/L BUN 59 H (7.0-18.0) mg/dL Creatinine 2.1 H (0.8-1.3) mg/dL Est Cr Clr Drug Dosing 41.34 mL/min Estimated GFR (MDRD) 32.7 ml/min Glucose 305 H (74-106) mg/dL POC Glucose 330 H (60-110) mg/dL Hemoglobin A1c (4.5-6.2) % Calcium 7.3 L (8.5-10.1) mg/dL Magnesium (1.8-2.4) mg/dL Total Bilirubin (0.2-1.0) mg/dL AST (15-37) IU/L ALT (14-63) IU/L Alkaline Phosphatase (46-116) U/L C-Reactive Protein 15.90 H (0.00-0.90) mg/dL Total Protein (6.4-8.2) g/dL Albumin (3.4-5.0) g/dL Globulin (2.0-3.5) g/dL Albumin/Globulin Ratio (1.3-2.8) Lipase (73-393) U/L Blood Type O POSITIVE Antibody Screen NEGATIVE 06/24/18 06/24/18 06/24/18 Range/Units 11:03 11:03 11:03 WBC 17.35 H (4.0-11.0) K/uL RBC 3.91 L (4.50-5.90) M/uL Hgb 11.2 L (13.0-17.0) g/dL Hct 32.7 L (38.0-50.0) % MCV 83.6 (80.0-98.0) fL MCH 28.6 (27.0-32.0) pg MCHC 34.3 (31.0-37.0) g/dL RDW Std Deviation 38.5 (28.0-62.0) fl RDW Coeff of Krunal 13 (11.0-15.0) % Plt Count 337 (150-400) K/uL MPV 10.20 (7.40-12.00) fL Neut % (Auto) (48.0-80.0) % Lymph % (Auto) (16.0-40.0) % [place] % (Auto) (0.0-15.0) % Eos % (Auto) (0.0-7.0) % Baso % (Auto) (0.0-1.5) % Neut # (Auto) (1.4-5.7) K/uL Lymph # (Auto) (0.6-2.4) K/uL [place] # (Auto) (0.0-0.8) K/uL Eos # (Auto) (0.0-0.7) K/uL Baso # (Auto) (0.0-0.1) K/uL Nucleated RBC % 0.0 /100WBC Nucleated RBCs # 0 K/uL ESR 36 H (0-19) mm/hr ABG pH (7.35-7.45) ABG pCO2 (35-45) mmHG ABG pO2 (75-100) mmHG ABG HCO3 (22-26) mEq/L ABG Total CO2 ABG Base Excess (-2.0-2.0) Lactate (0.20-2.00) mmol/L Sodium (136-148) mmol/L Potassium (3.5-5.1) mmol/L Chloride (98-107) mmol/L Carbon Dioxide (21.0-32.0) mmol/L BUN (7.0-18.0) mg/dL Creatinine (0.8-1.3) mg/dL Est Cr Clr Drug Dosing mL/min Estimated GFR (MDRD) ml/min Glucose (74-106) mg/dL POC Glucose (60-110) mg/dL Hemoglobin A1c 9.3 H (4.5-6.2) % Calcium (8.5-10.1) mg/dL Magnesium (1.8-2.4) mg/dL Total Bilirubin (0.2-1.0) mg/dL AST (15-37) IU/L ALT (14-63) IU/L Alkaline Phosphatase (46-116) U/L C-Reactive Protein (0.00-0.90) mg/dL Total Protein (6.4-8.2) g/dL Albumin (3.4-5.0) g/dL Globulin (2.0-3.5) g/dL Albumin/Globulin Ratio (1.3-2.8) Lipase (73-393) U/L Blood Type Antibody Screen 10/24/17 10/24/17 10/24/17 Range/Units 14:15 16:51 20:09 WBC (4.0-11.0) K/uL RBC (4.50-5.90) M/uL Hgb 10.8 L 11.2 L (13.0-17.0) g/dL Hct 31.6 L 32.7 L (38.0-50.0) % MCV (80.0-98.0) fL MCH (27.0-32.0) pg MCHC (31.0-37.0) g/dL RDW Std Deviation (28.0-62.0) fl RDW Coeff of Krunal (11.0-15.0) % Plt Count (150-400) K/uL MPV (7.40-12.00) fL Neut % (Auto) (48.0-80.0) % Lymph % (Auto) (16.0-40.0) % [place] % (Auto) (0.0-15.0) % Eos % (Auto) (0.0-7.0) % Baso % (Auto) (0.0-1.5) % Neut # (Auto) (1.4-5.7) K/uL Lymph # (Auto) (0.6-2.4) K/uL [place] # (Auto) (0.0-0.8) K/uL Eos # (Auto) (0.0-0.7) K/uL Baso # (Auto) (0.0-0.1) K/uL Nucleated RBC % /100WBC Nucleated RBCs # K/uL ESR (0-19) mm/hr ABG pH (7.35-7.45) ABG pCO2 (35-45) mmHG ABG pO2 (75-100) mmHG ABG HCO3 (22-26) mEq/L ABG Total CO2 ABG Base Excess (-2.0-2.0) Lactate (0.20-2.00) mmol/L Sodium (136-148) mmol/L Potassium (3.5-5.1) mmol/L Chloride (98-107) mmol/L Carbon Dioxide (21.0-32.0) mmol/L BUN (7.0-18.0) mg/dL Creatinine (0.8-1.3) mg/dL Est Cr Clr Drug Dosing mL/min Estimated GFR (MDRD) ml/min Glucose (74-106) mg/dL POC Glucose 204 H (60-110) mg/dL Hemoglobin A1c (4.5-6.2) % Calcium (8.5-10.1) mg/dL Magnesium (1.8-2.4) mg/dL Total Bilirubin (0.2-1.0) mg/dL AST (15-37) IU/L ALT (14-63) IU/L Alkaline Phosphatase (46-116) U/L C-Reactive Protein (0.00-0.90) mg/dL Total Protein (6.4-8.2) g/dL Albumin (3.4-5.0) g/dL Globulin (2.0-3.5) g/dL Albumin/Globulin Ratio (1.3-2.8) Lipase (73-393) U/L Blood Type Antibody Screen 10/25/17 10/25/17 10/25/17 Range/Units 00:02 03:41 05:41 WBC 13.84 H (4.0-11.0) K/uL RBC 3.64 L (4.50-5.90) M/uL Hgb 10.4 L (13.0-17.0) g/dL Hct 30.6 L (38.0-50.0) % MCV 84.1 (80.0-98.0) fL MCH 28.6 (27.0-32.0) pg MCHC 34.0 (31.0-37.0) g/dL RDW Std Deviation 39.2 (28.0-62.0) fl RDW Coeff of Krunal 13 (11.0-15.0) % Plt Count 328 (150-400) K/uL MPV 10.00 (7.40-12.00) fL Neut % (Auto) 85.2 H (48.0-80.0) % Lymph % (Auto) 7.8 L (16.0-40.0) % [place] % (Auto) 5.7 (0.0-15.0) % Eos % (Auto) 1.2 (0.0-7.0) % Baso % (Auto) 0.1 (0.0-1.5) % Neut # (Auto) 11.8 H (1.4-5.7) K/uL Lymph # (Auto) 1.1 (0.6-2.4) K/uL [place] # (Auto) 0.8 (0.0-0.8) K/uL Eos # (Auto) 0.2 (0.0-0.7) K/uL Baso # (Auto) 0.0 (0.0-0.1) K/uL Nucleated RBC % 0.0 /100WBC Nucleated RBCs # 0 K/uL ESR (0-19) mm/hr ABG pH (7.35-7.45) ABG pCO2 (35-45) mmHG ABG pO2 (75-100) mmHG ABG HCO3 (22-26) mEq/L ABG Total CO2 ABG Base Excess (-2.0-2.0) Lactate (0.20-2.00) mmol/L Sodium 138 (136-148) mmol/L Potassium 3.9 (3.5-5.1) mmol/L Chloride 105 (98-107) mmol/L Carbon Dioxide 25.9 (21.0-32.0) mmol/L BUN 41 H (7.0-18.0) mg/dL Creatinine 1.5 H (0.8-1.3) mg/dL Est Cr Clr Drug Dosing 57.87 mL/min Estimated GFR (MDRD) 48.2 ml/min Glucose 146 H (74-106) mg/dL POC Glucose 134 H (60-110) mg/dL Hemoglobin A1c (4.5-6.2) % Calcium 7.4 L (8.5-10.1) mg/dL Magnesium 2.2 (1.8-2.4) mg/dL Total Bilirubin (0.2-1.0) mg/dL AST (15-37) IU/L ALT (14-63) IU/L Alkaline Phosphatase (46-116) U/L C-Reactive Protein (0.00-0.90) mg/dL Total Protein (6.4-8.2) g/dL Albumin (3.4-5.0) g/dL Globulin (2.0-3.5) g/dL Albumin/Globulin Ratio (1.3-2.8) Lipase (73-393) U/L Blood Type Antibody Screen 10/25/17 Range/Units 05:45 WBC (4.0-11.0) K/uL RBC (4.50-5.90) M/uL Hgb (13.0-17.0) g/dL Hct (38.0-50.0) % MCV (80.0-98.0) fL MCH (27.0-32.0) pg MCHC (31.0-37.0) g/dL RDW Std Deviation (28.0-62.0) fl RDW Coeff of Krunal (11.0-15.0) % Plt Count (150-400) K/uL MPV (7.40-12.00) fL Neut % (Auto) (48.0-80.0) % Lymph % (Auto) (16.0-40.0) % [place] % (Auto) (0.0-15.0) % Eos % (Auto) (0.0-7.0) % Baso % (Auto) (0.0-1.5) % Neut # (Auto) (1.4-5.7) K/uL Lymph # (Auto) (0.6-2.4) K/uL [place] # (Auto) (0.0-0.8) K/uL Eos # (Auto) (0.0-0.7) K/uL Baso # (Auto) (0.0-0.1) K/uL Nucleated RBC % /100WBC Nucleated RBCs # K/uL ESR (0-19) mm/hr ABG pH (7.35-7.45) ABG pCO2 (35-45) mmHG ABG pO2 (75-100) mmHG ABG HCO3 (22-26) mEq/L ABG Total CO2 ABG Base Excess (-2.0-2.0) Lactate (0.20-2.00) mmol/L Sodium (136-148) mmol/L Potassium (3.5-5.1) mmol/L Chloride (98-107) mmol/L Carbon Dioxide (21.0-32.0) mmol/L BUN (7.0-18.0) mg/dL Creatinine (0.8-1.3) mg/dL Est Cr Clr Drug Dosing mL/min Estimated GFR (MDRD) ml/min Glucose (74-106) mg/dL POC Glucose 136 H (60-110) mg/dL Hemoglobin A1c (4.5-6.2) % Calcium (8.5-10.1) mg/dL Magnesium (1.8-2.4) mg/dL Total Bilirubin (0.2-1.0) mg/dL AST (15-37) IU/L ALT (14-63) IU/L Alkaline Phosphatase (46-116) U/L C-Reactive Protein (0.00-0.90) mg/dL Total Protein (6.4-8.2) g/dL Albumin (3.4-5.0) g/dL Globulin (2.0-3.5) g/dL Albumin/Globulin Ratio (1.3-2.8) Lipase (73-393) U/L Blood Type Antibody Screen Robert Results Last 24 Hours: Microbiology 10/24/17 07:42 Anaerobic Blood Culture - Preliminary Blood - Venous 10/24/17 07:52 Anaerobic Blood Culture - Preliminary Blood - Venous - Lab Draw 10/24/17 07:20 Stool Occult Blood (ROBERT) - Final Stool / Feces POSITIVE OCCULT BLOOD 10/24/17 07:20 Stool for WBCs - Final Stool / Feces POSITIVE FOR WBC'S 10/24/17 07:20 Campylobacter Antigen Assay - Final Stool / Feces NEGATIVE CAMPYLOBACTER AG 10/24/17 07:20 Clostridium difficile Toxin A & B - Final Stool / Feces Negative for C.Diff Toxin/AG Med Orders - Current: Current Medications Albuterol/Ipratropium (Duoneb 3.0-0.5 Mg/3 Ml) 3 ml NEB Q4HRRT PRN PRN Reason: Shortness Of Breath/wheezing Lactated Ringer's (Ringers, Lactated) 1,000 mls @ 150 mls/hr IV ASDIRECTED [facility] Last Admin: 10/25/17 05:47 Dose: 150 mls/hr Vancomycin HCl 500 mg/ Sodium (Chloride) 100 mls @ 100 mls/hr IV ONETIME [facility] Last Admin: 10/24/17 12:11 Dose: 100 mls/hr Vancomycin HCl 1,500 mg/ (Sodium Chloride) 500 mls @ 333.333 mls/hr IV Q24H [facility] Piperacillin Sod/Tazobactam (Sod 4.5 gm/ Sodium Chloride) 100 mls @ 100 mls/hr IV Q6H [facility] Last Infusion: 10/25/17 06:50 Dose: Infused Insulin Aspart (Novolog) 0 unit SUBCUT Q6H [facility]; Protocol Last Admin: 10/25/17 05:50 Dose: Not Given Metoclopramide HCl (Reglan) 5 mg IVPUSH Q6H PRN PRN Reason: nausea and vomiting Last Admin: 10/25/17 03:20 Dose: 5 mg Morphine Sulfate (Morphine) 2 mg IVPUSH Q2H PRN PRN Reason: Pain (severe 7-10) Stop: 10/25/17 10:42 Last Admin: 10/25/17 03:22 Dose: 2 mg Pantoprazole Sodium (Protonix Iv) 40 mg IV Q12H [facility] Last Admin: 10/25/17 00:00 Dose: 40 mg Sodium Chloride (Saline Flush) 10 ml FLUSH ASDIRECTED PRN PRN Reason: Keep Vein Open Sodium Chloride (Saline Flush) 2.5 ml FLUSH ASDIRECTED PRN PRN Reason: Keep Vein Open Sucralfate (Carafate) 1 gm PO Q6H [facility] Last Admin: 10/25/17 05:48 Dose: 1 gm Temazepam (Restoril) 15 mg PO BEDTIME PRN PRN Reason: Sleep Vancomycin HCl (Pharmacy To Dose - Vancomycin) 0 dose .XX ASDIRECTED BOB Discontinued Medications Sodium Chloride (Normal Saline) 1,000 mls @ 999 mls/hr IV .Bolus ONE Stop: 10/24/17 08:08 Last Infusion: 10/24/17 08:22 Dose: Infused Vancomycin HCl 1 gm/ Sodium (Chloride) 250 mls @ 250 mls/hr IV ONETIME ONE Stop: 10/24/17 09:08 Last Admin: 10/24/17 08:14 Dose: 250 mls/hr Sodium Chloride (Normal Saline) 1,000 mls @ 999 mls/hr IV .Bolus ONE Stop: 10/24/17 10:00 Last Infusion: 10/24/17 09:31 Dose: 999 mls/hr Piperacillin Sod/Tazobactam (Sod 3.375 gm/ Sodium Chloride) 50 mls @ 100 mls/ hr IV ONETIME ONE Stop: 10/24/17 11:19 Last Admin: 10/24/17 11:08 Dose: 100 mls/hr Sodium Chloride (Normal Saline) 1,000 mls @ 999 mls/hr IV ASDIRECTED [facility] Last Admin: 10/24/17 11:09 Dose: 999 mls/hr Insulin Glargine (Lantus Solostar) 10 units SUBCUT ONETIME ONE Stop: 10/24/17 12:01 Last Admin: 10/24/17 12:51 Dose: 10 units Morphine Sulfate (Morphine) 4 mg IVPUSH ONETIME ONE Stop: 10/24/17 07:16 Last Admin: 10/24/17 07:42 Dose: Not Given Morphine Sulfate (Morphine) Confirm Administered Dose 4 mg .ROUTE .STK-MED ONE Stop: 10/24/17 07:20 Last Admin: 10/24/17 07:33 Dose: Not Given Morphine Sulfate (Morphine) 4 mg IVPUSH ONETIME ONE Stop: 10/24/17 07:21 Last Admin: 10/24/17 07:33 Dose: 4 mg Ondansetron HCl (Zofran) 4 mg IVPUSH ONETIME ONE Stop: 10/24/17 07:16 Last Admin: 10/24/17 07:21 Dose: 4 mg Pantoprazole Sodium (Protonix Iv) 80 mg IVPUSH .BOLUS ONE Stop: 10/24/17 07:41 Last Admin: 10/24/17 07:57 Dose: 80 mg Sodium Chloride (Saline Flush) 10 ml FLUSH ASDIRECTED PRN PRN Reason: Keep Vein Open Sodium Chloride (Saline Flush) 2.5 ml FLUSH ASDIRECTED PRN PRN Reason: Keep Vein Open - Exam Quality Assessment: DVT Prophylaxis General: Alert, Oriented, Cooperative, No Acute Distress Neck: Supple Lungs: Clear to Auscultation, Normal Respiratory Effort Cardiovascular: Regular Rate, Regular Rhythm, No Murmurs GI/Abdominal Exam: Normal Bowel Sounds, Soft, Tender (lower abd, cramping pain in nature. comes and goes) Extremities: Normal Inspection, Normal Range of Motion, Non-Tender, No Pedal Edema Wound/Incisions: Drainage (scant drainage. Ulcer noted to plantar surface of foot, with scant purulent drainage. Erythem to dorsum of foot, below second toe. Second toe is cyanotic, cool to touch, no feeling. He reports this is how it has looked for awhile. ), Erythema Neurological: No New Focal Deficit Psy/Mental Status: Alert, Normal Affect, Normal Mood - Problem List & Annotations (1) Sepsis SNOMED Code(s): 67427883 Code(s): A41.9 - SEPSIS, UNSPECIFIED ORGANISM Status: Acute Current Visit : Yes Qualifiers: Sepsis type: sepsis due to unspecified organism Qualified Code(s): A41.9 - Sepsis, unspecified organism (2) Bacteremia SNOMED Code(s): 3646515 Code(s): R78.81 - BACTEREMIA Status: Acute Current Visit: Yes (3) Diabetic foot ulcer SNOMED Code(s): 975309992 Code(s): E11.621 - TYPE 2 DIABETES MELLITUS WITH FOOT ULCER; L97.509 - NON- PRESSURE CHRONIC ULCER OTH PRT UNSP FOOT W UNSP SEVERITY Status: Acute Current Visit: Yes Qualifiers: Diabetic foot ulcer location: midfoot Diabetes mellitus type: type 2 Laterality: unspecified laterality Non-pressure ulcer stage: unspecified non- pressure ulcer stage Qualified Code(s): E11.621 - Type 2 diabetes mellitus with foot ulcer; L97.409 - Non-pressure chronic ulcer of unspecified heel and midfoot with unspecified severity (4) GI bleed SNOMED Code(s): 26509314 Code(s): K92.2 - GASTROINTESTINAL HEMORRHAGE, UNSPECIFIED Status: Acute Current Visit: Yes Qualifiers: GI bleed type/associated pathology: unspecified gastrointestinal hemorrhage type Qualified Code(s): K92.2 - Gastrointestinal hemorrhage, unspecified (5) Heme + stool SNOMED Code(s): 68246251, 950142148 Code(s): R19.5 - OTHER FECAL ABNORMALITIES Status: Acute Current Visit: Yes (6) DM type 2 (diabetes mellitus, type 2) SNOMED Code(s): 75991930 Code(s): E11.9 - TYPE 2 DIABETES MELLITUS WITHOUT COMPLICATIONS Status: Chronic Current Visit: Yes Qualifiers: Diabetes mellitus buttermaker helper insulin use: with senior care use Diabetes mellitus complication status: with skin complications Diabetes mellitus complication detail: with foot ulcer Qualified Code(s): E11.621 - Type 2 diabetes mellitus with foot ulcer; L97.509 - Non-pressure chronic ulcer of other part of unspecified foot with unspecified severity; Z79.4 - intermodal dispatcher ( current) use of insulin (7) Non compliance w medication regimen SNOMED Code(s): 700974609 Code(s): Z91.14 - PATIENT'S OTHER NONCOMPLIANCE WITH MEDICATION REGIMEN Status: Chronic Current Visit: No - Problem List Review Problem List Initiated/Reviewed/Updated: Yes - Plan Plan:: This 57 year old male admitted with sepsis, bacteremia, diabetic L foot ulcer, and suspected GI bleed 1. Sepsis/bacteremia and L diabetic L ulcer: 2/4 blood cultures returned with gram positive cocci in anaerobic bottles. VS stable, no tachycardia or hypotension after fluid resuscitation. Afebrile. Will continue IVFs LR 150 for now. Continue Vancomycin and Zosyn for diabetic foot ulcer and bacteremia. Leukocytosis improving. Repeat blood cultures today. MRI obtained this morning reveals, "findings compatible with cellulitis in the midfoot, forefoot, and toes. Plantar forefoot wound with complex fluid or phlegmon extending from the wound between the 1st and 2nd metatarsals, dorsal to the 1st and 2nd MTP joints , and into the proximal 2nd toe, Findings suspicious for osteomyelitis of the 2nd metatarsal head and 3rd toe distal phalanx". Spoke with Dr Toribio regarding this patient his condition and MRI findings. He will come by this evening and plan for possible to OR for I&D vs amputation. He will decide once he sees patient and foot. 2. Upper GI bleed: Hemeoccult positive stools. Hgb 10.4 today, but was given IVFs overnight. No further black diarrhea or coffee ground emesis. Remain NPO until I speak with General surgeon. GI bleed stable now. If anything will need follow up as outpatient for EGD. Continue Protonix 40 mg Q12hr IV and Carafate PO. Stool cultures negative for C diff and Campylobacter 3: NYA: Likely secondary to sepsis. Improved with IV fluids. Will continue to monitor. Baseline BUN near 9, Cr 0.8. 4. DM type 2: Non complaint with medication regimen. A1c 9.3. Continue Novolog SSI q6 hrs while NPO. When eating will restart Lantus dosing. BS this am 130- 140s. VTE prophylaxis: SCDs only due to GI bleed Dispo: 3-5 days. <Myranda Ferro - Last Filed: 10/25/17 10:30> - Patient Data Vitals - Most Recent: Last Vital Signs Temp 97.4 F 10/25/17 09:00 Pulse 85 10/25/17 09:00 Resp 16 10/25/17 09:00 BP 113/62 10/25/17 09:00 Pulse Ox 97 10/25/17 09:00 I&O - Last 24 Hours: Intake & Output 10/24/17 10/25/17 10/25/17 22:59 06:59 14:59 Intake Total 1150 1210 Output Total 400 750 Balance 750 460 Lab Results Last 24 Hours: Laboratory Results - last 24 hr 10/24/17 10/24/17 10/24/17 Range/Units 11:03 11:03 11:03 WBC 17.35 H (4.0-11.0) K/uL RBC 3.91 L (4.50-5.90) M/uL Hgb 11.2 L (13.0-17.0) g/dL Hct 32.7 L (38.0-50.0) % MCV 83.6 (80.0-98.0) fL MCH 28.6 (27.0-32.0) pg MCHC 34.3 (31.0-37.0) g/dL RDW Std Deviation 38.5 (28.0-62.0) fl RDW Coeff of Krunal 13 (11.0-15.0) % Plt Count 337 (150-400) K/uL MPV 10.20 (7.40-12.00) fL Neut % (Auto) (48.0-80.0) % Lymph % (Auto) (16.0-40.0) % [place] % (Auto) (0.0-15.0) % Eos % (Auto) (0.0-7.0) % Baso % (Auto) (0.0-1.5) % Neut # (Auto) (1.4-5.7) K/uL Lymph # (Auto) (0.6-2.4) K/uL [place] # (Auto) (0.0-0.8) K/uL Eos # (Auto) (0.0-0.7) K/uL Baso # (Auto) (0.0-0.1) K/uL Nucleated RBC % 0.0 /100WBC Nucleated RBCs # 0 K/uL ESR 36 H (0-19) mm/hr Sodium 132 L (136-148) mmol/L Potassium 4.7 (3.5-5.1) mmol/L Chloride 99 (98-107) mmol/L Carbon Dioxide 23.7 (21.0-32.0) mmol/L BUN 59 H (7.0-18.0) mg/dL Creatinine 2.1 H (0.8-1.3) mg/dL Est Cr Clr Drug Dosing 41.34 mL/min Estimated GFR (MDRD) 32.7 ml/min Glucose 305 H (74-106) mg/dL POC Glucose (60-110) mg/dL Hemoglobin A1c (4.5-6.2) % Calcium 7.3 L (8.5-10.1) mg/dL Magnesium (1.8-2.4) mg/dL C-Reactive Protein 15.90 H (0.00-0.90) mg/dL 10/24/17 10/24/17 10/24/17 Range/Units 11:03 14:15 16:51 WBC (4.0-11.0) K/uL RBC (4.50-5.90) M/uL Hgb 10.8 L (13.0-17.0) g/dL Hct 31.6 L (38.0-50.0) % MCV (80.0-98.0) fL MCH (27.0-32.0) pg MCHC (31.0-37.0) g/dL RDW Std Deviation (28.0-62.0) fl RDW Coeff of Krunal (11.0-15.0) % Plt Count (150-400) K/uL MPV (7.40-12.00) fL Neut % (Auto) (48.0-80.0) % Lymph % (Auto) (16.0-40.0) % [place] % (Auto) (0.0-15.0) % Eos % (Auto) (0.0-7.0) % Baso % (Auto) (0.0-1.5) % Neut # (Auto) (1.4-5.7) K/uL Lymph # (Auto) (0.6-2.4) K/uL [place] # (Auto) (0.0-0.8) K/uL Eos # (Auto) (0.0-0.7) K/uL Baso # (Auto) (0.0-0.1) K/uL Nucleated RBC % /100WBC Nucleated RBCs # K/uL ESR (0-19) mm/hr Sodium (136-148) mmol/L Potassium (3.5-5.1) mmol/L Chloride (98-107) mmol/L Carbon Dioxide (21.0-32.0) mmol/L BUN (7.0-18.0) mg/dL Creatinine (0.8-1.3) mg/dL Est Cr Clr Drug Dosing mL/min Estimated GFR (MDRD) ml/min Glucose (74-106) mg/dL POC Glucose 204 H (60-110) mg/dL Hemoglobin A1c 9.3 H (4.5-6.2) % Calcium (8.5-10.1) mg/dL Magnesium (1.8-2.4) mg/dL C-Reactive Protein (0.00-0.90) mg/dL 10/24/17 10/25/17 10/25/17 Range/Units 20:09 00:02 03:41 WBC 13.84 H (4.0-11.0) K/uL RBC 3.64 L (4.50-5.90) M/uL Hgb 11.2 L 10.4 L (13.0-17.0) g/dL Hct 32.7 L 30.6 L (38.0-50.0) % MCV 84.1 (80.0-98.0) fL MCH 28.6 (27.0-32.0) pg MCHC 34.0 (31.0-37.0) g/dL RDW Std Deviation 39.2 (28.0-62.0) fl RDW Coeff of Krunal 13 (11.0-15.0) % Plt Count 328 (150-400) K/uL MPV 10.00 (7.40-12.00) fL Neut % (Auto) 85.2 H (48.0-80.0) % Lymph % (Auto) 7.8 L (16.0-40.0) % [place] % (Auto) 5.7 (0.0-15.0) % Eos % (Auto) 1.2 (0.0-7.0) % Baso % (Auto) 0.1 (0.0-1.5) % Neut # (Auto) 11.8 H (1.4-5.7) K/uL Lymph # (Auto) 1.1 (0.6-2.4) K/uL [place] # (Auto) 0.8 (0.0-0.8) K/uL Eos # (Auto) 0.2 (0.0-0.7) K/uL Baso # (Auto) 0.0 (0.0-0.1) K/uL Nucleated RBC % 0.0 /100WBC Nucleated RBCs # 0 K/uL ESR (0-19) mm/hr Sodium (136-148) mmol/L Potassium (3.5-5.1) mmol/L Chloride (98-107) mmol/L Carbon Dioxide (21.0-32.0) mmol/L BUN (7.0-18.0) mg/dL Creatinine (0.8-1.3) mg/dL Est Cr Clr Drug Dosing mL/min Estimated GFR (MDRD) ml/min Glucose (74-106) mg/dL POC Glucose 134 H (60-110) mg/dL Hemoglobin A1c (4.5-6.2) % Calcium (8.5-10.1) mg/dL Magnesium (1.8-2.4) mg/dL C-Reactive Protein (0.00-0.90) mg/dL 10/25/17 10/25/17 Range/Units 05:41 05:45 WBC (4.0-11.0) K/uL RBC (4.50-5.90) M/uL Hgb (13.0-17.0) g/dL Hct (38.0-50.0) % MCV (80.0-98.0) fL MCH (27.0-32.0) pg MCHC (31.0-37.0) g/dL RDW Std Deviation (28.0-62.0) fl RDW Coeff of Krunal (11.0-15.0) % Plt Count (150-400) K/uL MPV (7.40-12.00) fL Neut % (Auto) (48.0-80.0) % Lymph % (Auto) (16.0-40.0) % [place] % (Auto) (0.0-15.0) % Eos % (Auto) (0.0-7.0) % Baso % (Auto) (0.0-1.5) % Neut # (Auto) (1.4-5.7) K/uL Lymph # (Auto) (0.6-2.4) K/uL [place] # (Auto) (0.0-0.8) K/uL Eos # (Auto) (0.0-0.7) K/uL Baso # (Auto) (0.0-0.1) K/uL Nucleated RBC % /100WBC Nucleated RBCs # K/uL ESR (0-19) mm/hr Sodium 138 (136-148) mmol/L Potassium 3.9 (3.5-5.1) mmol/L Chloride 105 (98-107) mmol/L Carbon Dioxide 25.9 (21.0-32.0) mmol/L BUN 41 H (7.0-18.0) mg/dL Creatinine 1.5 H (0.8-1.3) mg/dL Est Cr Clr Drug Dosing 57.87 mL/min Estimated GFR (MDRD) 48.2 ml/min Glucose 146 H (74-106) mg/dL POC Glucose 136 H (60-110) mg/dL Hemoglobin A1c (4.5-6.2) % Calcium 7.4 L (8.5-10.1) mg/dL Magnesium 2.2 (1.8-2.4) mg/dL C-Reactive Protein (0.00-0.90) mg/dL Robert Results Last 24 Hours: Microbiology 10/24/17 07:20 Campylobacter Antigen Assay - Final Stool / Feces NEGATIVE CAMPYLOBACTER AG - Final NEGATIVE FOR SHIGA TOXIN 1 - Final NEGATIVE FOR SHIGA TOXIN 2 10/24/17 07:52 Aerobic Blood Culture - Preliminary Blood - Venous - Lab Draw NO GROWTH AFTER 1 DAY Anaerobic Blood Culture - Preliminary 10/24/17 07:42 Aerobic Blood Culture - Preliminary Blood - Venous NO GROWTH AFTER 1 DAY Anaerobic Blood Culture - Preliminary 10/24/17 07:20 Stool Occult Blood (ROBERT) - Final Stool / Feces POSITIVE OCCULT BLOOD 10/24/17 07:20 Stool for WBCs - Final Stool / Feces POSITIVE FOR WBC'S 10/24/17 07:20 Clostridium difficile Toxin A & B - Final Stool / Feces Negative for C.Diff Toxin/AG Med Orders - Current: Current Medications Albuterol/Ipratropium (Duoneb 3.0-0.5 Mg/3 Ml) 3 ml NEB Q4HRRT PRN PRN Reason: Shortness Of Breath/wheezing Lactated Ringer's (Ringers, Lactated) 1,000 mls @ 150 mls/hr IV ASDIRECTED [facility] Last Admin: 10/25/17 05:47 Dose: 150 mls/hr Vancomycin HCl 1,500 mg/ (Sodium Chloride) 500 mls @ 333.333 mls/hr IV Q24H [facility] Last Admin: 10/25/17 09:28 Dose: 333.333 mls/hr Piperacillin Sod/Tazobactam (Sod 4.5 gm/ Sodium Chloride) 100 mls @ 100 mls/hr IV Q6H [facility] Last Infusion: 10/25/17 06:50 Dose: Infused Insulin Aspart (Novolog) 0 unit SUBCUT Q6H [facility]; Protocol Last Admin: 10/25/17 05:50 Dose: Not Given Metoclopramide HCl (Reglan) 5 mg IVPUSH Q6H PRN PRN Reason: nausea and vomiting Last Admin: 10/25/17 09:29 Dose: 5 mg Morphine Sulfate (Morphine) 2 mg IVPUSH Q2H PRN PRN Reason: Pain (severe 7-10) Stop: 10/25/17 10:42 Last Admin: 10/25/17 09:42 Dose: 2 mg Pantoprazole Sodium (Protonix Iv) 40 mg IV Q12H [facility] Last Admin: 10/25/17 00:00 Dose: 40 mg Sodium Chloride (Saline Flush) 10 ml FLUSH ASDIRECTED PRN PRN Reason: Keep Vein Open Sodium Chloride (Saline Flush) 2.5 ml FLUSH ASDIRECTED PRN PRN Reason: Keep Vein Open Sucralfate (Carafate) 1 gm PO Q6H [facility] Last Admin: 10/25/17 05:48 Dose: 1 gm Temazepam (Restoril) 15 mg PO BEDTIME PRN PRN Reason: Sleep Vancomycin HCl (Pharmacy To Dose - Vancomycin) 0 dose .XX ASDIRECTED [facility] Discontinued Medications Sodium Chloride (Normal Saline) 1,000 mls @ 999 mls/hr IV .Bolus ONE Stop: 10/24/17 08:08 Last Infusion: 10/24/17 08:22 Dose: Infused Vancomycin HCl 1 gm/ Sodium (Chloride) 250 mls @ 250 mls/hr IV ONETIME ONE Stop: 10/24/17 09:08 Last Admin: 10/24/17 08:14 Dose: 250 mls/hr Sodium Chloride (Normal Saline) 1,000 mls @ 999 mls/hr IV .Bolus ONE Stop: 10/24/17 10:00 Last Infusion: 10/24/17 09:31 Dose: 999 mls/hr Piperacillin Sod/Tazobactam (Sod 3.375 gm/ Sodium Chloride) 50 mls @ 100 mls/ hr IV ONETIME ONE Stop: 10/24/17 11:19 Last Admin: 10/24/17 11:08 Dose: 100 mls/hr Vancomycin HCl 500 mg/ Sodium (Chloride) 100 mls @ 100 mls/hr IV ONETIME [facility] Last Admin: 10/24/17 12:11 Dose: 100 mls/hr Sodium Chloride (Normal Saline) 1,000 mls @ 999 mls/hr IV ASDIRECTED [facility] Last Admin: 10/24/17 11:09 Dose: 999 mls/hr Insulin Glargine (Lantus Solostar) 10 units SUBCUT ONETIME ONE Stop: 10/24/17 12:01 Last Admin: 10/24/17 12:51 Dose: 10 units Morphine Sulfate (Morphine) 4 mg IVPUSH ONETIME ONE Stop: 10/24/17 07:16 Last Admin: 10/24/17 07:42 Dose: Not Given Morphine Sulfate (Morphine) Confirm Administered Dose 4 mg .ROUTE .STK-MED ONE Stop: 10/24/17 07:20 Last Admin: 10/24/17 07:33 Dose: Not Given Morphine Sulfate (Morphine) 4 mg IVPUSH ONETIME ONE Stop: 10/24/17 07:21 Last Admin: 10/24/17 07:33 Dose: 4 mg Ondansetron HCl (Zofran) 4 mg IVPUSH ONETIME ONE Stop: 10/24/17 07:16 Last Admin: 10/24/17 07:21 Dose: 4 mg Pantoprazole Sodium (Protonix Iv) 80 mg IVPUSH .BOLUS ONE Stop: 10/24/17 07:41 Last Admin: 10/24/17 07:57 Dose: 80 mg Sodium Chloride (Saline Flush) 10 ml FLUSH ASDIRECTED PRN PRN Reason: Keep Vein Open Sodium Chloride (Saline Flush) 2.5 ml FLUSH ASDIRECTED PRN PRN Reason: Keep Vein Open - Problem List & Annotations (1) Acute kidney insufficiency SNOMED Code(s): 551006003 Code(s): N28.9 - DISORDER OF KIDNEY AND URETER, UNSPECIFIED Status: Acute Current Visit: Yes - Problem List Review Problem List Initiated/Reviewed/Updated: Yes - My Orders Last 24 Hours: My Active Orders 10/24/17 10:33 Oxygen Therapy [RC] PRN Up ad Ramonita [RC] ASDIRECTED Vital Signs [RC] Q4H Resuscitation Status Routine 10/24/17 10:39 Albuterol/Ipratropium [DuoNeb 3.0-0.5 MG/3 ML] 3 ml NEB Q4HRRT PRN Morphine 2 mg IVPUSH Q2H PRN Sodium Chloride 0.9% [Saline Flush] 10 ml FLUSH ASDIRECTED PRN Sodium Chloride 0.9% [Saline Flush] 2.5 ml FLUSH ASDIRECTED PRN Temazepam [Restoril] 15 mg PO BEDTIME PRN Peripheral IV Insertion Adult [OM.PC] Routine 10/24/17 10:45 Lactated Ringers [Ringers, Lactated] 1,000 ml IV ASDIRECTED 10/24/17 10:46 RT Aerosol Therapy [RC] ASDIRECTED 10/24/17 10:57 Foot Comp Min 3V Lt [CR] Routine 10/24/17 10:59 Foot wo Cont Lt [MR] Routine 10/24/17 11:00 Insulin Aspart [NovoLOG] See Protocol SUBCUT Q6H Pantoprazole [ProTONIX IV] 40 mg IV Q12H Vancomycin Pharmacy to Dose [Pharmacy to Dose - Vancomycin] See Dose Instructions .XX ASDIRECTED 10/24/17 11:01 Metoclopramide [Reglan] 5 mg IVPUSH Q6H PRN 10/24/17 11:04 Consult to Wound Care Services [CONS] Routine 10/24/17 11:15 Sucralfate [Carafate] 1 gm PO Q6H 10/24/17 12:15 CULTURE WOUND [RM] Routine 10/24/17 17:00 Blood Glucose Check, Bedside [RC] Q6HR Piperacillin/Tazobactam [Piperacil-Tazobact] 4.5 gm Sodium Chloride 0.9% [ Normal Saline] 100 ml IV Q6H 10/24/17 19:00 Transfer Patient (Change bed) [ADT] Routine 10/24/17 19:26 Telemetry Monitoring [Cardiac Monitoring] [RC] . DIRECTED 10/25/17 09:00 Vancomycin 1,500 mg Sodium Chloride 0.9% [Normal Saline] 500 ml IV Q24H 10/26/17 05:11 BASIC METABOLIC PANEL,BMP [CHEM] AM 10/27/17 05:11 BASIC METABOLIC PANEL,BMP [CHEM] AM 10/28/17 05:11 BASIC METABOLIC PANEL,BMP [CHEM] AM 10/29/17 05:11 BASIC METABOLIC PANEL,BMP [CHEM] AM
--- NOTE | 2017-10-25 10:59 | PCM.CONS ---
H&P History of Present Illness - General Date of Service: 10/25/17 Admit Problem/Dx: diabetic ulcer left foot Source of Information: Patient History Limitations: Reports: No Limitations - History of Present Illness Initial Comments - Free Text/Narative: Patient is an established patient of [facility] with a history of uncontrolled diabetes and noncompliance. He presented in my office for the first time in over a year one week ago today with a diabetic ulcer to left foot which tunneled from one opening to another and probed to deep tissue. Swab cultures taken in office on 10/18/17 and resulted 10/22/17 showed heavy growth of S. aureus , not MRSA. Patient was placed on Bactrim DS on 10/18 and instructed to proceed directly to hospital if condition of lower extremity worsened or other symptoms began. Onset of Symptoms: Reports: Gradual Symptom Onset Date: 10/04/17 Duration of Symptoms: Reports: Week(s): Location: Reports: Lower Extremity, Left Quality: Reports: Dull, Throbbing Improves with: Reports: None Worsens with: Reports: None Context: Reports: Other (uncontrolled diabetes - patient does not take his medications consistently or at all at times) Associated Symptoms: Reports: Nausea/Vomiting Abdomen Pain Score (Numeric/FACES): 2 Left Feet Pain Score (Numeric/FACES): 4 - Related Data Allergies/Adverse Reactions: Allergies Allergy/AdvReac Type Severity Reaction Status Date / Time No Known Allergies Allergy Verified 10/24/17 06:51 Home Medications: Home Meds oxyCODONE HCl/Acetaminophen [Percocet 5-325 mg Tablet] 1 each PO Q4HR PRN [History] Acetaminophen [Tylenol] 650 mg PO Q4H PRN #30 tablet 02/01/16 [Rx] Amoxicillin/Clavulanate K [Augmentin 875 MG/125 MG] 1 tab PO Q12HR #28 tablet [Rx] Ibuprofen [Advil] 2 tab PO ASDIRECTED PRN 02/24/16 [History] Insulin Aspart [NovoLOG] See Protocol SUBCUT ASDIRECTED PRN 02/24/16 [History] Insulin Glargine,Hum.Rec.Anlog [Lantus Solostar] 38 unit SQ BEDTIME 02/24/16 [ History] Past Medical History - Past Health History Medical/Surgical History: Denies Medical/Surgical History HEENT History: Reports: Cataract, Other (See Below) Other HEENT History: Wears prescribed eyeglasses. Has cataract to the left eye. Cardiovascular History: Reports: None Respiratory History: Reports: None Gastrointestinal History: Reports: None Genitourinary History: Reports: None Musculoskeletal History: Reports: None Neurological History: Reports: None Psychiatric History: Reports: None Endocrine/Metabolic History: Reports: Diabetes, Type II Other Endocrine/Metabolic History: Ankit Miranda MD pt is a non compliant type 2 diabetic Hematologic History: Reports: None Immunologic History: Reports: None Oncologic (Cancer) History: Reports: None Dermatologic History: Reports: None - Infectious Disease History Infectious Disease History: Reports: None - Past Surgical History Head Surgeries/Procedures: Reports: None Cardiovascular Surgical History: Reports: None Respiratory Surgical History: Reports: None GI Surgical History: Reports: None Male Surgical History: Reports: None Neurological Surgical History: Reports: None Musculoskeletal Surgical History: Reports: Other (See Below) Other Musculoskeletal Surgeries/Procedures:: ankle surgery Oncologic Surgical History: Reports: None Dermatological Surgical History: Reports: None Social & Family History - Family History Family Medical History: Noncontributory HEENT: Reports: None Cardiac: Reports: None Respiratory: Reports: None GI: Reports: None : Reports: None OBGYN: Reports: None Musculoskeletal: Reports: None Neurological: Reports: None Psychiatric: Reports: None Endocrine/Metabolic: Reports: Diabetes, type II Hematologic: Reports: None Immunologic: Reports: None Dermatologic: Reports: None Oncologic: Reports: None - Tobacco Use Smoking Status *Q: Never Smoker - Caffeine Use Caffeine Use: Reports: None - Recreational Drug Use Recreational Drug Use: No H&P Review of Systems - Review of Systems: Review Of Systems: See Below Free Text/Narrative: When asked how he is doing, patient responds: "Shitty". General: Reports: Fatigue HEENT: Reports: Sore Throat Pulmonary: Reports: No Symptoms Cardiovascular: Reports: No Symptoms Gastrointestinal: Reports: Black Stool Genitourinary: Reports: No Symptoms Musculoskeletal: Reports: No Symptoms Skin: Reports: No Symptoms Psychiatric: Reports: No Symptoms Neurological: Reports: No Symptoms Hematologic/Lymphatic: Reports: No Symptoms Immunologic: Reports: No Symptoms Exam - Exam Exam: See Below - Vital Signs Vital Signs: Last Vital Signs Temp 36.3 C 10/25/17 09:00 Pulse 85 10/25/17 09:00 Resp 16 10/25/17 09:00 BP 113/62 10/25/17 09:00 Pulse Ox 97 10/25/17 09:00 Weight: 97.182 kg - Exam Extremities: Increased Warmth, Mottled, Redness, Other (Left foot plantar ulceration over distal half, edematous left 2nd toe with dusky appearance) Peripheral Pulses: 2+: Posterior Tibial (L), Dorsalis Pedis (L) Physical Exam Comments:: based on prior exam, this is a diabetic ulcer that has tunneling and is at least to level of tendon - Patient Data Lab Results Last 24 hrs: Laboratory Results - last 24 hr 10/24/17 10/24/17 10/24/17 Range/Units 11:03 11:03 11:03 WBC 17.35 H (4.0-11.0) K/uL RBC 3.91 L (4.50-5.90) M/uL Hgb 11.2 L (13.0-17.0) g/dL Hct 32.7 L (38.0-50.0) % MCV 83.6 (80.0-98.0) fL MCH 28.6 (27.0-32.0) pg MCHC 34.3 (31.0-37.0) g/dL RDW Std Deviation 38.5 (28.0-62.0) fl RDW Coeff of Krunal 13 (11.0-15.0) % Plt Count 337 (150-400) K/uL MPV 10.20 (7.40-12.00) fL Neut % (Auto) (48.0-80.0) % Lymph % (Auto) (16.0-40.0) % [place] % (Auto) (0.0-15.0) % Eos % (Auto) (0.0-7.0) % Baso % (Auto) (0.0-1.5) % Neut # (Auto) (1.4-5.7) K/uL Lymph # (Auto) (0.6-2.4) K/uL [place] # (Auto) (0.0-0.8) K/uL Eos # (Auto) (0.0-0.7) K/uL Baso # (Auto) (0.0-0.1) K/uL Nucleated RBC % 0.0 /100WBC Nucleated RBCs # 0 K/uL ESR 36 H (0-19) mm/hr Sodium 132 L (136-148) mmol/L Potassium 4.7 (3.5-5.1) mmol/L Chloride 99 (98-107) mmol/L Carbon Dioxide 23.7 (21.0-32.0) mmol/L BUN 59 H (7.0-18.0) mg/dL Creatinine 2.1 H (0.8-1.3) mg/dL Est Cr Clr Drug Dosing 41.34 mL/min Estimated GFR (MDRD) 32.7 ml/min Glucose 305 H (74-106) mg/dL POC Glucose (60-110) mg/dL Hemoglobin A1c (4.5-6.2) % Calcium 7.3 L (8.5-10.1) mg/dL Magnesium (1.8-2.4) mg/dL C-Reactive Protein 15.90 H (0.00-0.90) mg/dL 10/24/17 10/24/17 10/24/17 Range/Units 11:03 14:15 16:51 WBC (4.0-11.0) K/uL RBC (4.50-5.90) M/uL Hgb 10.8 L (13.0-17.0) g/dL Hct 31.6 L (38.0-50.0) % MCV (80.0-98.0) fL MCH (27.0-32.0) pg MCHC (31.0-37.0) g/dL RDW Std Deviation (28.0-62.0) fl RDW Coeff of Krunal (11.0-15.0) % Plt Count (150-400) K/uL MPV (7.40-12.00) fL Neut % (Auto) (48.0-80.0) % Lymph % (Auto) (16.0-40.0) % [place] % (Auto) (0.0-15.0) % Eos % (Auto) (0.0-7.0) % Baso % (Auto) (0.0-1.5) % Neut # (Auto) (1.4-5.7) K/uL Lymph # (Auto) (0.6-2.4) K/uL [place] # (Auto) (0.0-0.8) K/uL Eos # (Auto) (0.0-0.7) K/uL Baso # (Auto) (0.0-0.1) K/uL Nucleated RBC % /100WBC Nucleated RBCs # K/uL ESR (0-19) mm/hr Sodium (136-148) mmol/L Potassium (3.5-5.1) mmol/L Chloride (98-107) mmol/L Carbon Dioxide (21.0-32.0) mmol/L BUN (7.0-18.0) mg/dL Creatinine (0.8-1.3) mg/dL Est Cr Clr Drug Dosing mL/min Estimated GFR (MDRD) ml/min Glucose (74-106) mg/dL POC Glucose 204 H (60-110) mg/dL Hemoglobin A1c 9.3 H (4.5-6.2) % Calcium (8.5-10.1) mg/dL Magnesium (1.8-2.4) mg/dL C-Reactive Protein (0.00-0.90) mg/dL 10/24/17 10/25/17 10/25/17 Range/Units 20:09 00:02 03:41 WBC 13.84 H (4.0-11.0) K/uL RBC 3.64 L (4.50-5.90) M/uL Hgb 11.2 L 10.4 L (13.0-17.0) g/dL Hct 32.7 L 30.6 L (38.0-50.0) % MCV 84.1 (80.0-98.0) fL MCH 28.6 (27.0-32.0) pg MCHC 34.0 (31.0-37.0) g/dL RDW Std Deviation 39.2 (28.0-62.0) fl RDW Coeff of Krunal 13 (11.0-15.0) % Plt Count 328 (150-400) K/uL MPV 10.00 (7.40-12.00) fL Neut % (Auto) 85.2 H (48.0-80.0) % Lymph % (Auto) 7.8 L (16.0-40.0) % [place] % (Auto) 5.7 (0.0-15.0) % Eos % (Auto) 1.2 (0.0-7.0) % Baso % (Auto) 0.1 (0.0-1.5) % Neut # (Auto) 11.8 H (1.4-5.7) K/uL Lymph # (Auto) 1.1 (0.6-2.4) K/uL [place] # (Auto) 0.8 (0.0-0.8) K/uL Eos # (Auto) 0.2 (0.0-0.7) K/uL Baso # (Auto) 0.0 (0.0-0.1) K/uL Nucleated RBC % 0.0 /100WBC Nucleated RBCs # 0 K/uL ESR (0-19) mm/hr Sodium (136-148) mmol/L Potassium (3.5-5.1) mmol/L Chloride (98-107) mmol/L Carbon Dioxide (21.0-32.0) mmol/L BUN (7.0-18.0) mg/dL Creatinine (0.8-1.3) mg/dL Est Cr Clr Drug Dosing mL/min Estimated GFR (MDRD) ml/min Glucose (74-106) mg/dL POC Glucose 134 H (60-110) mg/dL Hemoglobin A1c (4.5-6.2) % Calcium (8.5-10.1) mg/dL Magnesium (1.8-2.4) mg/dL C-Reactive Protein (0.00-0.90) mg/dL 10/25/17 10/25/17 Range/Units 05:41 05:45 WBC (4.0-11.0) K/uL RBC (4.50-5.90) M/uL Hgb (13.0-17.0) g/dL Hct (38.0-50.0) % MCV (80.0-98.0) fL MCH (27.0-32.0) pg MCHC (31.0-37.0) g/dL RDW Std Deviation (28.0-62.0) fl RDW Coeff of Krunal (11.0-15.0) % Plt Count (150-400) K/uL MPV (7.40-12.00) fL Neut % (Auto) (48.0-80.0) % Lymph % (Auto) (16.0-40.0) % [place] % (Auto) (0.0-15.0) % Eos % (Auto) (0.0-7.0) % Baso % (Auto) (0.0-1.5) % Neut # (Auto) (1.4-5.7) K/uL Lymph # (Auto) (0.6-2.4) K/uL [place] # (Auto) (0.0-0.8) K/uL Eos # (Auto) (0.0-0.7) K/uL Baso # (Auto) (0.0-0.1) K/uL Nucleated RBC % /100WBC Nucleated RBCs # K/uL ESR (0-19) mm/hr Sodium 138 (136-148) mmol/L Potassium 3.9 (3.5-5.1) mmol/L Chloride 105 (98-107) mmol/L Carbon Dioxide 25.9 (21.0-32.0) mmol/L BUN 41 H (7.0-18.0) mg/dL Creatinine 1.5 H (0.8-1.3) mg/dL Est Cr Clr Drug Dosing 57.87 mL/min Estimated GFR (MDRD) 48.2 ml/min Glucose 146 H (74-106) mg/dL POC Glucose 136 H (60-110) mg/dL Hemoglobin A1c (4.5-6.2) % Calcium 7.4 L (8.5-10.1) mg/dL Magnesium 2.2 (1.8-2.4) mg/dL C-Reactive Protein (0.00-0.90) mg/dL Result Diagrams: 10/25/17 03:41 10/25/17 05:41 Robert Results Last 24 hrs: Microbiology 10/24/17 07:20 Campylobacter Antigen Assay - Final Stool / Feces NEGATIVE CAMPYLOBACTER AG - Final NEGATIVE FOR SHIGA TOXIN 1 - Final NEGATIVE FOR SHIGA TOXIN 2 10/24/17 07:52 Aerobic Blood Culture - Preliminary Blood - Venous - Lab Draw NO GROWTH AFTER 1 DAY Anaerobic Blood Culture - Preliminary 10/24/17 07:42 Aerobic Blood Culture - Preliminary Blood - Venous NO GROWTH AFTER 1 DAY Anaerobic Blood Culture - Preliminary 10/24/17 07:20 Stool Occult Blood (ROBERT) - Final Stool / Feces POSITIVE OCCULT BLOOD 10/24/17 07:20 Stool for WBCs - Final Stool / Feces POSITIVE FOR WBC'S 10/24/17 07:20 Clostridium difficile Toxin A & B - Final Stool / Feces Negative for C.Diff Toxin/AG Consult PN Assessment/Plan Procedures: Procedures CULTR BACTERIA EXCEPT BLOOD (02/25/16) CULTURE OTHR SPECIMN AEROBIC (02/25/16) EMERGENCY DEPT VISIT (08/22/14) SMEAR GRAM STAIN (02/25/16) THER/PROPH/DIAG INJ SC/IM (08/22/14) TREAT FOOT BONE LESION (02/25/16) X-RAY EXAM OF SHOULDER (08/22/14) (1) Diabetic foot ulcer SNOMED Code(s): 186368186 Code(s): E11.621 - TYPE 2 DIABETES MELLITUS WITH FOOT ULCER; L97.509 - NON- PRESSURE CHRONIC ULCER OTH PRT UNSP FOOT W UNSP SEVERITY Priority: High Current Visit: Yes Onset Date: ~10/04/17 Qualifiers: Diabetic foot ulcer location: midfoot Diabetes mellitus type: type 2 Laterality: left Non-pressure ulcer stage: unspecified non-pressure ulcer stage Qualified Code(s): E11.621 - Type 2 diabetes mellitus with foot ulcer; L97.429 - Non-pressure chronic ulcer of left heel and midfoot with unspecified severity Problem List Initiated/Reviewed/Updated: Yes Plan: 1. Patient scheduled for incision and drainage of left foot ulcer with possible amputation of left 2nd toe, tomorrow, 10/26, 8 a.m. 2. Continue IV Antibiotics 3. NPO past midnight. 4. Will follow.
[2017-10-25] MEDS: Pantoprazole 40 MG Vial IV SCH ×3 (11:15→22:23)
--- NOTE | 2017-10-25 11:25 | PCM.PREANE ---
Preanesthetic Assessment - Anesthesia/Transfusion/Family Hx Anesthesia History: Prior Anesthesia Without Reaction Family History of Anesthesia Reaction: No Transfusion History: No Prior Transfusion(s) - Review of Systems General: No Symptoms Pulmonary: No Symptoms Cardiovascular: No Symptoms Neurological: No Symptoms - Physical Assessment O2 Sat by Pulse Oximetry: 97 Respiratory Rate: 16 Vital Signs: Last Vital Signs Temp 36.3 C 10/25/17 09:00 Pulse 85 10/25/17 09:00 Resp 16 10/25/17 09:00 BP 113/62 10/25/17 09:00 Pulse Ox 97 10/25/17 09:00 Height: 1.8 m Weight: 97.182 kg ASA Class: 2 Mental Status: Alert & Oriented x3 Airway Class: Mallampati = 1 Dentition: Reports: Normal Dentition ROM/Head Extension: Full Lungs: Clear to Auscultation, Normal Respiratory Effort Cardiovascular: Regular Rate, Regular Rhythm - Lab Values: Laboratory Last Values WBC 13.84 K/uL (4.0-11.0) H 10/25/17 03:41 RBC 3.64 M/uL (4.50-5.90) L 10/25/17 03:41 Hgb 10.4 g/dL (13.0-17.0) L 10/25/17 03:41 Hct 30.6 % (38.0-50.0) L 10/25/17 03:41 MCV 84.1 fL (80.0-98.0) 10/25/17 03:41 MCH 28.6 pg (27.0-32.0) 10/25/17 03:41 MCHC 34.0 g/dL (31.0-37.0) 10/25/17 03:41 RDW Std Deviation 39.2 fl (28.0-62.0) 10/25/17 03:41 RDW Coeff of Krunal 13 % (11.0-15.0) 10/25/17 03:41 Plt Count 328 K/uL (150-400) 10/25/17 03:41 MPV 10.00 fL (7.40-12.00) 10/25/17 03:41 Neut % (Auto) 85.2 % (48.0-80.0) H 10/25/17 03:41 Lymph % (Auto) 7.8 % (16.0-40.0) L 10/25/17 03:41 [facility] % (Auto) 5.7 % (0.0-15.0) 10/25/17 03:41 Eos % (Auto) 1.2 % (0.0-7.0) 10/25/17 03:41 Baso % (Auto) 0.1 % (0.0-1.5) 10/25/17 03:41 Neut # (Auto) 11.8 K/uL (1.4-5.7) H 10/25/17 03:41 Lymph # (Auto) 1.1 K/uL (0.6-2.4) 10/25/17 03:41 [facility] # (Auto) 0.8 K/uL (0.0-0.8) 10/25/17 03:41 Eos # (Auto) 0.2 K/uL (0.0-0.7) 10/25/17 03:41 Baso # (Auto) 0.0 K/uL (0.0-0.1) 10/25/17 03:41 Nucleated RBC % 0.0 /100WBC 10/25/17 03:41 Nucleated RBCs # 0 K/uL 10/25/17 03:41 ESR 36 mm/hr (0-19) H 10/24/17 11:03 ABG pH 7.366 (7.35-7.45) 10/24/17 08:20 ABG pCO2 35 mmHG (35-45) 10/24/17 08:20 ABG pO2 72 mmHG (75-100) L 10/24/17 08:20 ABG HCO3 20 mEq/L (22-26) L 10/24/17 08:20 ABG Total CO2 18.3 10/24/17 08:20 ABG Base Excess -4.7 (-2.0-2.0) L 10/24/17 08:20 Lactate 1.9 mmol/L (0.20-2.00) 10/24/17 07:13 Sodium 138 mmol/L (136-148) 10/25/17 05:41 Potassium 3.9 mmol/L (3.5-5.1) 10/25/17 05:41 Chloride 105 mmol/L (98-107) 10/25/17 05:41 Carbon Dioxide 25.9 mmol/L (21.0-32.0) 10/25/17 05:41 BUN 41 mg/dL (7.0-18.0) H 10/25/17 05:41 Creatinine 1.5 mg/dL (0.8-1.3) H 10/25/17 05:41 Est Cr Clr Drug Dosing 57.87 mL/min 10/25/17 05:41 Estimated GFR (MDRD) 48.2 ml/min 10/25/17 05:41 Glucose 146 mg/dL (74-106) H 10/25/17 05:41 POC Glucose 148 mg/dL (60-110) H 10/25/17 11:09 Hemoglobin A1c 9.3 % (4.5-6.2) H 10/24/17 11:03 Calcium 7.4 mg/dL (8.5-10.1) L 10/25/17 05:41 Magnesium 2.2 mg/dL (1.8-2.4) 10/25/17 05:41 Total Bilirubin 0.5 mg/dL (0.2-1.0) 10/24/17 07:13 AST 8 IU/L (15-37) L 10/24/17 07:13 ALT 11 IU/L (14-63) L 10/24/17 07:13 Alkaline Phosphatase 125 U/L (46-116) H 10/24/17 07:13 C-Reactive Protein 15.90 mg/dL (0.00-0.90) H 10/24/17 11:03 Total Protein 6.5 g/dL (6.4-8.2) 10/24/17 07:13 Albumin 2.4 g/dL (3.4-5.0) L 10/24/17 07:13 Globulin 4.1 g/dL (2.0-3.5) H 10/24/17 07:13 Albumin/Globulin Ratio 0.6 (1.3-2.8) L 10/24/17 07:13 Lipase 58 U/L (73-393) L 10/24/17 07:13 Blood Type O POSITIVE 10/24/17 09:12 Antibody Screen NEGATIVE 10/24/17 09:12 - Allergies Allergies/Adverse Reactions: Allergies Allergy/AdvReac Type Severity Reaction Status Date / Time No Known Allergies Allergy Verified 10/24/17 06:51 - Acknowledgements Anesthesia Type Planned: General Anesthesia Pt an Appropriate Candidate for the Planned Anesthesia: Yes Alternatives and Risks of Anesthesia Discussed w Pt/Guardian: Yes Pt/Guardian Understands and Agrees with Anesthesia Plan: Yes Additional Comments: PMH: admitted with infected foot ulcer lnc=[id number], r/o sepsis. also diarrhea r/ o antibiotic associated diarrhea/c diff, NYA/CKD# creat down from 2.5 to 1.5 GFR =48 today, dehydration, also hemetemesia and melena, has DM@ on metformin and hs insulin, hx of poor compliance, has diabetic peripheral neuropathy PLAN: GA-LMA PreAnesthesia Questionnaire - Past Health History Medical/Surgical History: Denies Medical/Surgical History HEENT History: Reports: Cataract, Other (See Below) Other HEENT History: Wears prescribed eyeglasses. Has cataract to the left eye. Cardiovascular History: Reports: None Respiratory History: Reports: None Gastrointestinal History: Reports: None Genitourinary History: Reports: None Musculoskeletal History: Reports: None Neurological History: Reports: None Psychiatric History: Reports: None Endocrine/Metabolic History: Reports: Diabetes, Type II Other Endocrine/Metabolic History: Per Ruben BRUNER pt is a non compliant type 2 diabetic Hematologic History: Reports: None Immunologic History: Reports: None Oncologic (Cancer) History: Reports: None Dermatologic History: Reports: None - Infectious Disease History Infectious Disease History: Reports: None - Past Surgical History Head Surgeries/Procedures: Reports: None Cardiovascular Surgical History: Reports: None Respiratory Surgical History: Reports: None GI Surgical History: Reports: None Male Surgical History: Reports: None Neurological Surgical History: Reports: None Musculoskeletal Surgical History: Reports: Other (See Below) Other Musculoskeletal Surgeries/Procedures:: ankle surgery Oncologic Surgical History: Reports: None Dermatological Surgical History: Reports: None - SUBSTANCE USE Smoking Status *Q: Never Smoker Recreational Drug Use History: No - HOME MEDS Home Medications: Home Meds oxyCODONE HCl/Acetaminophen [Percocet 5-325 mg Tablet] 1 each PO Q4HR PRN [History] Acetaminophen [Tylenol] 650 mg PO Q4H PRN #30 tablet 02/01/16 [Rx] Amoxicillin/Clavulanate K [Augmentin 875 MG/125 MG] 1 tab PO Q12HR #28 tablet [Rx] Ibuprofen [Advil] 2 tab PO ASDIRECTED PRN 02/24/16 [History] Insulin Aspart [NovoLOG] See Protocol SUBCUT ASDIRECTED PRN 02/24/16 [History] Insulin Glargine,Hum.Rec.Anlog [Lantus Solostar] 38 unit SQ BEDTIME 02/24/16 [ History] - CURRENT (IN HOUSE) MEDS Current Meds: Current Medications Albuterol/Ipratropium (Duoneb 3.0-0.5 Mg/3 Ml) 3 ml NEB Q4HRRT PRN PRN Reason: Shortness Of Breath/wheezing Lactated Ringer's (Ringers, Lactated) 1,000 mls @ 150 mls/hr IV ASDIRECTED BOB Last Admin: 10/25/17 05:47 Dose: 150 mls/hr Vancomycin HCl 1,500 mg/ (Sodium Chloride) 500 mls @ 333.333 mls/hr IV Q24H [facility] Last Admin: 10/25/17 09:28 Dose: 333.333 mls/hr Piperacillin Sod/Tazobactam (Sod 4.5 gm/ Sodium Chloride) 100 mls @ 100 mls/hr IV Q6H [facility] Last Infusion: 10/25/17 06:50 Dose: Infused Insulin Aspart (Novolog) 0 unit SUBCUT TIDAC BOB; Protocol Insulin Glargine (Lantus Solostar) 10 units SUBCUT BEDTIME BOB Metoclopramide HCl (Reglan) 5 mg IVPUSH Q6H PRN PRN Reason: nausea and vomiting Last Admin: 10/25/17 09:29 Dose: 5 mg Morphine Sulfate (Morphine) 4 mg IVPUSH Q4H PRN PRN Reason: Pain Pantoprazole Sodium (Protonix Iv) 40 mg IV Q12H BOB Last Admin: 10/25/17 11:15 Dose: 40 mg Sodium Chloride (Saline Flush) 10 ml FLUSH ASDIRECTED PRN PRN Reason: Keep Vein Open Sodium Chloride (Saline Flush) 2.5 ml FLUSH ASDIRECTED PRN PRN Reason: Keep Vein Open Sucralfate (Carafate) 1 gm PO Q6H [facility] Last Admin: 10/25/17 05:48 Dose: 1 gm Temazepam (Restoril) 15 mg PO BEDTIME PRN PRN Reason: Sleep Vancomycin HCl (Pharmacy To Dose - Vancomycin) 0 dose .XX ASDIRECTED BOB Discontinued Medications Sodium Chloride (Normal Saline) 1,000 mls @ 999 mls/hr IV .Bolus ONE Stop: 10/24/17 08:08 Last Infusion: 10/24/17 08:22 Dose: Infused Vancomycin HCl 1 gm/ Sodium (Chloride) 250 mls @ 250 mls/hr IV ONETIME ONE Stop: 10/24/17 09:08 Last Admin: 10/24/17 08:14 Dose: 250 mls/hr Sodium Chloride (Normal Saline) 1,000 mls @ 999 mls/hr IV .Bolus ONE Stop: 10/24/17 10:00 Last Infusion: 10/24/17 09:31 Dose: 999 mls/hr Piperacillin Sod/Tazobactam (Sod 3.375 gm/ Sodium Chloride) 50 mls @ 100 mls/ hr IV ONETIME ONE Stop: 10/24/17 11:19 Last Admin: 10/24/17 11:08 Dose: 100 mls/hr Vancomycin HCl 500 mg/ Sodium (Chloride) 100 mls @ 100 mls/hr IV ONETIME [facility] Last Admin: 10/24/17 12:11 Dose: 100 mls/hr Sodium Chloride (Normal Saline) 1,000 mls @ 999 mls/hr IV ASDIRECTED [facility] Last Admin: 10/24/17 11:09 Dose: 999 mls/hr Insulin Aspart (Novolog) 0 unit SUBCUT Q6H BOB; Protocol Last Admin: 10/25/17 05:50 Dose: Not Given Insulin Glargine (Lantus Solostar) 10 units SUBCUT ONETIME ONE Stop: 10/24/17 12:01 Last Admin: 10/24/17 12:51 Dose: 10 units Insulin Glargine (Lantus Solostar) 38 units SUBCUT BEDTIME [facility] Morphine Sulfate (Morphine) 4 mg IVPUSH ONETIME ONE Stop: 10/24/17 07:16 Last Admin: 10/24/17 07:42 Dose: Not Given Morphine Sulfate (Morphine) Confirm Administered Dose 4 mg .ROUTE .STK-MED ONE Stop: 10/24/17 07:20 Last Admin: 10/24/17 07:33 Dose: Not Given Morphine Sulfate (Morphine) 4 mg IVPUSH ONETIME ONE Stop: 10/24/17 07:21 Last Admin: 10/24/17 07:33 Dose: 4 mg Morphine Sulfate (Morphine) 2 mg IVPUSH Q2H PRN PRN Reason: Pain (severe 7-10) Stop: 10/25/17 10:42 Last Admin: 10/25/17 09:42 Dose: 2 mg Ondansetron HCl (Zofran) 4 mg IVPUSH ONETIME ONE Stop: 10/24/17 07:16 Last Admin: 10/24/17 07:21 Dose: 4 mg Pantoprazole Sodium (Protonix Iv) 80 mg IVPUSH .BOLUS ONE Stop: 10/24/17 07:41 Last Admin: 10/24/17 07:57 Dose: 80 mg Sodium Chloride (Saline Flush) 10 ml FLUSH ASDIRECTED PRN PRN Reason: Keep Vein Open Sodium Chloride (Saline Flush) 2.5 ml FLUSH ASDIRECTED PRN PRN Reason: Keep Vein Open
[2017-10-25] MEDS: Morphine 4 MG/ML Syringe IVPUSH PRN ×3 (13:02→21:16)
--- NOTE | 2017-10-25 15:26 | CR ---
EXAM DATE: 10/24/17 PATIENT'S AGE: 57 Patient: UZAIR CHAIDEZ Facility: [place], [place] Site . Site : 1960 Study: XRay Extremity Left foot [id number]/[id number] 12:51:45 PM Ordering Physician: Kasie Whitmore Final Report: INDICATION: Foot wound. FINDINGS: Three views of the left foot were obtained. There is no fracture seen or dislocation. The joint space compartments appear maintained. There is a posterior calcaneal spur. There is no bone erosion seen to suggest an osteomyelitis. There is soft tissue swelling with air in the soft tissue by the 2nd toe. IMPRESSION: No acute bone abnormality. Soft tissue swelling with air in the soft tissue by the 2nd toe which may be related to the patient`s foot wound. Dictated by Wil Cuevas MD @ 10/24/2017 1:05:12 PM Dictated by: Wil Cuevas MD @ 10/24/2017 13:07:52 (Electronic Signature) Report Signed by Proxy. NAVARRO
--- NOTE | 2017-10-25 15:32 | CR ---
EXAMINATION: Portable chest radiograph. HISTORY: Medical clearance. FINDINGS: The trachea is midline. Low lung volumes. The cardiomediastinal silhouette is within normal limits. N o pulmonary infiltrates, effusions or pneumothorax. Osseous structures appear unremarkable. IMPRESSION: No acute cardiopulmonary process.
[2017-10-25] MEDS ORDERED: Insulin Glargine,Human Rec. Analog 100 Units/ML 3 ML Pen SUBCUT SCH (21:00)
[2017-10-25] MEDS: Insulin Glargine,Human Rec. Analog 100 Units/ML 3 ML Pen SUBCUT SCH (21:23)
[2017-10-26] MEDS: Lactated Ringers 1,000 ML IV SCH ×2 (01:39→20:14)
[2017-10-26] MEDS: Sucralfate Suspension 1 GM/10 ML Cup PO SCH ×4 (05:28→22:16)
[2017-10-26] MEDS: Piperacillin/Tazobactam 4.5 GM in Sodium Chloride 0.9% 100 ML IV SCH (05:30)
[2017-10-26 06:05] LABS: CHLORIDE,CL 107 mmol/L (98-107); SODIUM,NA 141 mmol/L (136-148)
[2017-10-26] MEDS: Insulin Aspart 100 Units/ML 3 ML Pen SUBCUT SCH ×3 (06:43→18:09)
[2017-10-26] MEDS ORDERED: fentaNYL 100 MCG/2 ML SDV ONE (07:17)
[2017-10-26] MEDS ORDERED: Midazolam 1 MG/ML 2 ML SDV ONE (07:18)
[2017-10-26] MEDS ORDERED: Propofol 200 MG/20 ML SDV ONE (07:18)
[2017-10-26] MEDS ORDERED: Lidocaine 1% 20 ML MDV ONE (07:24)
[2017-10-26] MEDS ORDERED: Bupivacaine 0.5% 30 ML SDV ONE (07:24)
--- NOTE | 2017-10-26 07:27 | PCM.SN ---
- Free Text/Narrative Note: pt seen examined and chart reviewed this am prior to surgery. Pt co persistant epigastric pain lower abdominal pain, and persistant melanotic loose stools. Does not appear dehydrated, but will treat as possibly hypovolemic. Will plan replacinc current antecubital iv with 2 18g ivs not in the flexor surface of a joint.
--- NOTE | 2017-10-26 08:02 | PCM.PN ---
- General Info Date of Service: 10/26/17 Admission Dx/Problem (Free Text): diabetic ulcer left foot Subjective Update: Feeling ok this morning, ready to have surgery. Complains of lower abdominal pain having black stools this morning. NO chest pain or shortness of breath. Functional Status: Reports: Pain Controlled, Ambulating, Urinating - Review of Systems General: Reports: No Symptoms. Denies: Fever, Weakness, Fatigue HEENT: Reports: No Symptoms. Denies: Headaches, Sore Throat, Visual Changes Pulmonary: Reports: No Symptoms. Denies: Shortness of Breath, Cough, Sputum Cardiovascular: Reports: No Symptoms. Denies: Chest Pain, Palpitations, Edema Gastrointestinal: Reports: Abdominal Pain (lower, cramping in nature, intermittent), Diarrhea (melanotic), Nausea. Denies: Vomiting Genitourinary: Reports: No Symptoms. Denies: Dysuria, Frequency, Burning Musculoskeletal: Reports: Foot Pain (L foot pain, tolerable.) Neurological: Reports: No Symptoms Psychiatric: Reports: No Symptoms - Patient Data Vitals - Most Recent: Last Vital Signs Temp 98.1 F 10/26/17 04:00 Pulse 86 10/26/17 04:00 Resp 17 10/26/17 04:00 BP 142/77 H 10/26/17 04:00 Pulse Ox 97 10/26/17 04:00 Weight - Most Recent: 97.182 kg I&O - Last 24 Hours: Intake & Output 10/25/17 10/26/17 10/26/17 22:59 06:59 14:59 Intake Total 1276 1010 Output Total 150 0 Balance 1126 1010 Lab Results Last 24 Hours: Laboratory Results - last 24 hr 10/25/17 10/25/17 10/25/17 Range/Units 11:09 14:47 16:31 WBC (4.0-11.0) K/uL RBC (4.50-5.90) M/uL Hgb (13.0-17.0) g/dL Hct (38.0-50.0) % MCV (80.0-98.0) fL MCH (27.0-32.0) pg MCHC (31.0-37.0) g/dL RDW Std Deviation (28.0-62.0) fl RDW Coeff of Krunal (11.0-15.0) % Plt Count (150-400) K/uL MPV (7.40-12.00) fL Neut % (Auto) (48.0-80.0) % Lymph % (Auto) (16.0-40.0) % Emmet % (Auto) (0.0-15.0) % Eos % (Auto) (0.0-7.0) % Baso % (Auto) (0.0-1.5) % Neut # (Auto) (1.4-5.7) K/uL Lymph # (Auto) (0.6-2.4) K/uL Emmet # (Auto) (0.0-0.8) K/uL Eos # (Auto) (0.0-0.7) K/uL Baso # (Auto) (0.0-0.1) K/uL Nucleated RBC % /100WBC Nucleated RBCs # K/uL INR Sodium 139 (136-148) mmol/L Potassium 4.3 (3.5-5.1) mmol/L Chloride 106 (98-107) mmol/L Carbon Dioxide 25.3 (21.0-32.0) mmol/L BUN 33 H (7.0-18.0) mg/dL Creatinine 1.3 (0.8-1.3) mg/dL Est Cr Clr Drug Dosing 66.77 mL/min Estimated GFR (MDRD) 56.9 ml/min Glucose 159 H (74-106) mg/dL POC Glucose 148 H 136 H (60-110) mg/dL Calcium 7.6 L (8.5-10.1) mg/dL 10/25/17 10/25/17 10/25/17 Range/Units 16:34 21:14 23:42 WBC (4.0-11.0) K/uL RBC (4.50-5.90) M/uL Hgb (13.0-17.0) g/dL Hct (38.0-50.0) % MCV (80.0-98.0) fL MCH (27.0-32.0) pg MCHC (31.0-37.0) g/dL RDW Std Deviation (28.0-62.0) fl RDW Coeff of Krunal (11.0-15.0) % Plt Count (150-400) K/uL MPV (7.40-12.00) fL Neut % (Auto) (48.0-80.0) % Lymph % (Auto) (16.0-40.0) % Emmet % (Auto) (0.0-15.0) % Eos % (Auto) (0.0-7.0) % Baso % (Auto) (0.0-1.5) % Neut # (Auto) (1.4-5.7) K/uL Lymph # (Auto) (0.6-2.4) K/uL Emmet # (Auto) (0.0-0.8) K/uL Eos # (Auto) (0.0-0.7) K/uL Baso # (Auto) (0.0-0.1) K/uL Nucleated RBC % /100WBC Nucleated RBCs # K/uL INR 1.26 Sodium (136-148) mmol/L Potassium (3.5-5.1) mmol/L Chloride (98-107) mmol/L Carbon Dioxide (21.0-32.0) mmol/L BUN (7.0-18.0) mg/dL Creatinine (0.8-1.3) mg/dL Est Cr Clr Drug Dosing mL/min Estimated GFR (MDRD) ml/min Glucose (74-106) mg/dL POC Glucose 167 H 149 H (60-110) mg/dL Calcium (8.5-10.1) mg/dL 10/26/17 10/26/17 Range/Units 05:12 05:12 WBC 14.59 H (4.0-11.0) K/uL RBC 4.09 L (4.50-5.90) M/uL Hgb 11.4 L (13.0-17.0) g/dL Hct 34.6 L (38.0-50.0) % MCV 84.6 (80.0-98.0) fL MCH 27.9 (27.0-32.0) pg MCHC 32.9 (31.0-37.0) g/dL RDW Std Deviation 39.7 (28.0-62.0) fl RDW Coeff of Krunal 13 (11.0-15.0) % Plt Count 380 (150-400) K/uL MPV 9.80 (7.40-12.00) fL Neut % (Auto) 83.1 H (48.0-80.0) % Lymph % (Auto) 8.2 L (16.0-40.0) % Emmet % (Auto) 7.1 (0.0-15.0) % Eos % (Auto) 1.3 (0.0-7.0) % Baso % (Auto) 0.3 (0.0-1.5) % Neut # (Auto) 12.1 H (1.4-5.7) K/uL Lymph # (Auto) 1.2 (0.6-2.4) K/uL Emmet # (Auto) 1.0 H (0.0-0.8) K/uL Eos # (Auto) 0.2 (0.0-0.7) K/uL Baso # (Auto) 0.0 (0.0-0.1) K/uL Nucleated RBC % 0.0 /100WBC Nucleated RBCs # 0 K/uL INR Sodium 141 (136-148) mmol/L Potassium 4.1 (3.5-5.1) mmol/L Chloride 107 (98-107) mmol/L Carbon Dioxide 23.7 (21.0-32.0) mmol/L BUN 27 H (7.0-18.0) mg/dL Creatinine 1.2 (0.8-1.3) mg/dL Est Cr Clr Drug Dosing 72.34 mL/min Estimated GFR (MDRD) > 60.0 ml/min Glucose 155 H (74-106) mg/dL POC Glucose (60-110) mg/dL Calcium 7.2 L (8.5-10.1) mg/dL Robert Results Last 24 Hours: Microbiology 10/24/17 07:52 Aerobic Blood Culture - Preliminary Blood - Venous - Lab Draw NO GROWTH AFTER 2 DAYS Anaerobic Blood Culture - Preliminary 10/24/17 07:42 Aerobic Blood Culture - Preliminary Blood - Venous NO GROWTH AFTER 2 DAYS Anaerobic Blood Culture - Preliminary 10/24/17 07:20 Campylobacter Antigen Assay - Final Stool / Feces NEGATIVE CAMPYLOBACTER AG - Final NEGATIVE FOR SHIGA TOXIN 1 - Final NEGATIVE FOR SHIGA TOXIN 2 Med Orders - Current: Current Medications Albuterol/Ipratropium (Duoneb 3.0-0.5 Mg/3 Ml) 3 ml NEB Q4HRRT PRN PRN Reason: Shortness Of Breath/wheezing Lactated Ringer's (Ringers, Lactated) 1,000 mls @ 150 mls/hr IV ASDIRECTED [facility] Last Admin: 10/26/17 01:39 Dose: 150 mls/hr Vancomycin HCl 1,500 mg/ (Sodium Chloride) 500 mls @ 333.333 mls/hr IV Q24H [facility] Stop: 10/26/17 10:31 Last Admin: 10/25/17 09:28 Dose: 333.333 mls/hr Piperacillin Sod/Tazobactam (Sod 4.5 gm/ Sodium Chloride) 100 mls @ 100 mls/hr IV Q6H [facility] Last Admin: 10/26/17 05:30 Dose: 100 mls/hr Vancomycin HCl 1,500 mg/ (Sodium Chloride) 500 mls @ 333.333 mls/hr IV Q12H [facility] Insulin Aspart (Novolog) 0 unit SUBCUT TIDAC [facility]; Protocol Last Admin: 10/26/17 06:43 Dose: Not Given Insulin Glargine (Lantus Solostar) 10 units SUBCUT BEDTIME [facility] Last Admin: 10/25/17 21:23 Dose: 10 units Metoclopramide HCl (Reglan) 5 mg IVPUSH Q6H PRN PRN Reason: nausea and vomiting Last Admin: 10/25/17 09:29 Dose: 5 mg Morphine Sulfate (Morphine) 4 mg IVPUSH Q4H PRN PRN Reason: Pain Last Admin: 10/25/17 21:16 Dose: 4 mg Pantoprazole Sodium (Protonix Iv) 40 mg IV Q12H [facility] Last Admin: 10/25/17 22:23 Dose: 40 mg Sodium Chloride (Saline Flush) 10 ml FLUSH ASDIRECTED PRN PRN Reason: Keep Vein Open Sodium Chloride (Saline Flush) 2.5 ml FLUSH ASDIRECTED PRN PRN Reason: Keep Vein Open Sucralfate (Carafate) 1 gm PO Q6H [facility] Last Admin: 10/26/17 05:28 Dose: 1 gm Temazepam (Restoril) 15 mg PO BEDTIME PRN PRN Reason: Sleep Vancomycin HCl (Pharmacy To Dose - Vancomycin) 0 dose .XX ASDIRECTED [facility] Discontinued Medications Bupivacaine HCl (Marcaine 0.5%) Confirm Administered Dose 30 ml .ROUTE .STK-MED ONE Stop: 10/26/17 07:25 Fentanyl (Sublimaze) Confirm Administered Dose 100 mcg .ROUTE .STK-MED ONE Stop: 10/26/17 07:18 Sodium Chloride (Normal Saline) 1,000 mls @ 999 mls/hr IV .Bolus ONE Stop: 10/24/17 08:08 Last Infusion: 10/24/17 08:22 Dose: Infused Vancomycin HCl 1 gm/ Sodium (Chloride) 250 mls @ 250 mls/hr IV ONETIME ONE Stop: 10/24/17 09:08 Last Admin: 10/24/17 08:14 Dose: 250 mls/hr Sodium Chloride (Normal Saline) 1,000 mls @ 999 mls/hr IV .Bolus ONE Stop: 10/24/17 10:00 Last Infusion: 10/24/17 09:31 Dose: 999 mls/hr Piperacillin Sod/Tazobactam (Sod 3.375 gm/ Sodium Chloride) 50 mls @ 100 mls/ hr IV ONETIME ONE Stop: 10/24/17 11:19 Last Admin: 10/24/17 11:08 Dose: 100 mls/hr Vancomycin HCl 500 mg/ Sodium (Chloride) 100 mls @ 100 mls/hr IV ONETIME [facility] Last Admin: 10/24/17 12:11 Dose: 100 mls/hr Sodium Chloride (Normal Saline) 1,000 mls @ 999 mls/hr IV ASDIRECTED [facility] Last Admin: 10/24/17 11:09 Dose: 999 mls/hr Insulin Aspart (Novolog) 0 unit SUBCUT Q6H [facility]; Protocol Last Admin: 10/25/17 05:50 Dose: Not Given Insulin Glargine (Lantus Solostar) 10 units SUBCUT ONETIME ONE Stop: 10/24/17 12:01 Last Admin: 10/24/17 12:51 Dose: 10 units Insulin Glargine (Lantus Solostar) 38 units SUBCUT BEDTIME [facility] Lidocaine HCl (Xylocaine 1%) Confirm Administered Dose 20 ml .ROUTE .STK-MED ONE Stop: 10/26/17 07:25 Midazolam HCl (Versed 1 Mg/Ml) Confirm Administered Dose 2 mg .ROUTE .STK-MED ONE Stop: 10/26/17 07:19 Morphine Sulfate (Morphine) 4 mg IVPUSH ONETIME ONE Stop: 10/24/17 07:16 Last Admin: 10/24/17 07:42 Dose: Not Given Morphine Sulfate (Morphine) Confirm Administered Dose 4 mg .ROUTE .STK-MED ONE Stop: 10/24/17 07:20 Last Admin: 10/24/17 07:33 Dose: Not Given Morphine Sulfate (Morphine) 4 mg IVPUSH ONETIME ONE Stop: 10/24/17 07:21 Last Admin: 10/24/17 07:33 Dose: 4 mg Morphine Sulfate (Morphine) 2 mg IVPUSH Q2H PRN PRN Reason: Pain (severe 7-10) Stop: 10/25/17 10:42 Last Admin: 10/25/17 09:42 Dose: 2 mg Ondansetron HCl (Zofran) 4 mg IVPUSH ONETIME ONE Stop: 10/24/17 07:16 Last Admin: 10/24/17 07:21 Dose: 4 mg Pantoprazole Sodium (Protonix Iv) 80 mg IVPUSH .BOLUS ONE Stop: 10/24/17 07:41 Last Admin: 10/24/17 07:57 Dose: 80 mg Propofol (Diprivan 20 Ml) Confirm Administered Dose 200 mg .ROUTE .STK-MED ONE Stop: 10/26/17 07:19 Sodium Chloride (Saline Flush) 10 ml FLUSH ASDIRECTED PRN PRN Reason: Keep Vein Open Sodium Chloride (Saline Flush) 2.5 ml FLUSH ASDIRECTED PRN PRN Reason: Keep Vein Open - Exam General: Alert, Oriented, Cooperative Neck: Supple Lungs: Clear to Auscultation, Normal Respiratory Effort Cardiovascular: Regular Rate, Regular Rhythm, No Murmurs GI/Abdominal Exam: Normal Bowel Sounds, Soft. No: Distended, Guarding, Rigid Extremities: Normal Range of Motion Wound/Incisions: Drainage (serosang to L foot. Dressing intact. To surgery this am. ), Erythema Neurological: No New Focal Deficit Psy/Mental Status: Alert, Normal Affect, Normal Mood - Problem List & Annotations (1) Sepsis SNOMED Code(s): 95876326 Code(s): A41.9 - SEPSIS, UNSPECIFIED ORGANISM Status: Acute Current Visit : Yes Qualifiers: Sepsis type: sepsis due to unspecified organism Qualified Code(s): A41.9 - Sepsis, unspecified organism (2) Bacteremia SNOMED Code(s): 3015833 Code(s): R78.81 - BACTEREMIA Status: Acute Current Visit: Yes (3) Diabetic foot ulcer SNOMED Code(s): 860789108 Code(s): E11.621 - TYPE 2 DIABETES MELLITUS WITH FOOT ULCER; L97.509 - NON- PRESSURE CHRONIC ULCER OTH PRT UNSP FOOT W UNSP SEVERITY Status: Acute Priority: High Current Visit: Yes Onset Date: ~10/04/17 Qualifiers: Diabetic foot ulcer location: midfoot Diabetes mellitus type: type 2 Laterality: left Non-pressure ulcer stage: unspecified non-pressure ulcer stage Qualified Code(s): E11.621 - Type 2 diabetes mellitus with foot ulcer; L97.429 - Non-pressure chronic ulcer of left heel and midfoot with unspecified severity (4) GI bleed SNOMED Code(s): 35192885 Code(s): K92.2 - GASTROINTESTINAL HEMORRHAGE, UNSPECIFIED Status: Acute Current Visit: Yes Qualifiers: GI bleed type/associated pathology: unspecified gastrointestinal hemorrhage type Qualified Code(s): K92.2 - Gastrointestinal hemorrhage, unspecified (5) Heme + stool SNOMED Code(s): 81695866, 237230620 Code(s): R19.5 - OTHER FECAL ABNORMALITIES Status: Acute Current Visit: Yes (6) DM type 2 (diabetes mellitus, type 2) SNOMED Code(s): 02143695 Code(s): E11.9 - TYPE 2 DIABETES MELLITUS WITHOUT COMPLICATIONS Status: Chronic Current Visit: Yes Qualifiers: Diabetes mellitus halfway insulin use: with terminal computer operator use Diabetes mellitus complication status: with skin complications Diabetes mellitus complication detail: with foot ulcer Qualified Code(s): E11.621 - Type 2 diabetes mellitus with foot ulcer; L97.509 - Non-pressure chronic ulcer of other part of unspecified foot with unspecified severity; Z79.4 - assisted ( current) use of insulin (7) Non compliance w medication regimen SNOMED Code(s): 396658398 Code(s): Z91.14 - PATIENT'S OTHER NONCOMPLIANCE WITH MEDICATION REGIMEN Status: Chronic Current Visit: No - Problem List Review Problem List Initiated/Reviewed/Updated: Yes - My Orders Last 24 Hours: My Active Orders 10/25/17 09:29 Notify Provider Consults [RC] ASDIRECTED 10/25/17 10:39 Communication Order [RC] ROUTINE 10/25/17 10:54 Morphine 4 mg IVPUSH Q4H PRN 10/25/17 11:19 Blood Culture x2 Reflex Set [OM.PC] Stat 10/25/17 11:28 CULTURE BLOOD [BC] Stat 10/25/17 11:30 Insulin Aspart [NovoLOG] See Protocol SUBCUT TIDAC 10/25/17 11:39 CULTURE BLOOD [BC] Stat 10/25/17 21:00 Insulin Glarg,Human.Rec.Analog [LantUS Solostar] 10 units SUBCUT BEDTIME 10/27/17 05:11 CBC WITH AUTO DIFF [HEME] AM 10/28/17 05:11 CBC WITH AUTO DIFF [HEME] AM 10/29/17 05:11 CBC WITH AUTO DIFF [HEME] AM - Plan Plan:: This 57 year old male admitted with sepsis, bacteremia, diabetic L foot ulcer, and suspected GI bleed 1. Sepsis/bacteremia and L diabetic foot ulcer: 2/ blood cultures returned with gram positive cocci in anaerobic bottles, ROBERT still pending. Repeat BC obtained yesterday. VS stable this morning. Afebrile. LR 150 continued overnight. Continue Vancomycin and Zosyn for diabetic foot ulcer and bacteremia. Leukocytosis up slightly this morning to 14,000. Repeat blood cultures today. Dr Toribio consulted and is taking to OR this morning for I&D and possible amputation of 2nd toe. May need terminal computer operator IV antibiotics for osteomyelitis. 2. Upper GI bleed: Hemeoccult positive stools. Hgb 11.4. Had some black diarrhea this morning. Continue Protonix 40 mg Q12hr IV and Carafate PO. Follow up outpatient for dual scopes with Dr Reese. 3: NYA: Continues to improved with IV fluids. Baseline BUN near 9, Cr 0.8. 4. DM type 2: Non complaint with medication regimen. A1c 9.3. Continue Novolog SSI q6 hrs while NPO. When eating will restart Lantus dosing. BS this am 130- 160s. VTE prophylaxis: SCDs only due to GI bleed Dispo: 3-5 days.
[2017-10-26] MEDS ORDERED: Albumin 25% 12.5 GM/50 ML BAG IV ONE ×3 (08:49→10:45)
--- NOTE | 2017-10-26 09:48 | PCM.POSTAN ---
POST ANESTHESIA ASSESSMENT - MENTAL STATUS Mental Status: Alert, Oriented - RESPIRATORY Respiratory Status: Respiratory Rate WNL, Airway Patent, O2 Saturation Stable - CARDIOVASCULAR CV Status: Pulse Rate WNL, Blood Pressure Stable - GASTROINTESTINAL GI Status: No Symptoms - POST OP HYDRATION Hydration Status: Adequate & Stable - OBSERVATIONS Free Text/Narrative:: comfortable no pain, alert appropriate, BP stable.
--- NOTE | 2017-10-26 10:10 | PCM.OPNOTE ---
- General Post-Op/Procedure Note Date of Surgery/Procedure: 10/26/17 Operative Procedure(s): inicision and drainage diabetic ulcer left foot Findings: consistent with diagnosis Pre Op Diagnosis: diabetic ulcer left foot Post-Op Diagnosis: diabetic ulcer left foot Anesthesia Technique: General LMA Primary Surgeon: Indio Toribio Pathology: swab cultures taken before and after procedure EBL in mLs: 60 Drain/Tube Comments:: iodoform 1 inch packing Complications: none Condition: Stable Free Text/Narrative:: Intake & Output 10/25/17 10/26/17 10/26/17 22:59 06:59 14:59 Intake Total 1276 1010 Output Total 150 0 Balance 1126 1010 materials: 2-0 vicryl, 2-0 nylon, iodoform packing injectables: none hemostasis: none
--- NOTE | 2017-10-26 10:51 | PCM.SN ---
- Free Text/Narrative Note: Patient returned from OR. Doing well. Denies any pain and eager to have CL. He denies any further nausea or abdominal pain currently. Will monitor. VS stable. Continue to monitor.
[2017-10-26] MEDS ORDERED: Levofloxacin/Dextrose 5%-Water 750 MG in Premix Bag 1 BAG IV ONE (12:01)
[2017-10-26] MEDS: ceFAZolin 2 GM in Premix Bag 1 BAG IV SCH ×2 (12:14→18:16)
[2017-10-26] MEDS: Pantoprazole 40 MG Vial IV SCH ×2 (12:15→22:14)
--- NOTE | 2017-10-26 12:16 | PN ---
HISTORY OF PRESENT ILLNESS: The patient is a 57-year-old male admitted on October 24, 2017, with complaints of abdominal pain, nausea, vomiting, diarrhea, and diabetic ulcer to the left foot. Planned procedure today is incision and drainage of diabetic ulcer, left foot and possible amputation of 2nd toe, left foot. The patient has a well established medical history for insulin-dependent diabetes, uncontrolled and complicating neuropathy with noncompliance. The patient had been off his medications for an unknown period of time prior to admission. Active medical issues include hematemesis, intractable vomiting, diarrhea, melena, sepsis secondary to infected ulcer of the left foot with necrosis of the left 2nd toe, diabetes uncontrolled insulin dependent, and abdominal pain. CURRENT MEDICATIONS: 1. Albuterol/ipratropium 3 mL nebulizer every 4 hours as needed. 2. Insulin glargine 10 units subcutaneously at bedtime. 3. Reglan 5 mg IV push every 6 hours as needed. 4. Morphine sulfate 4 mg IV push every 4 hours as needed. 5. Protonix IV 40 mg IV every 12 hours. 6. Zosyn 4.5 g, 100 mL at 100 mL/hour IV every 6 hours. 7. Carafate 1 g p.o. q.6h. 8. Restoril 15 mg p.o. at bedtime as needed. 9. Vancomycin 1500 mg at 500 mL at 333 mL/hour IV every 24 hours. 10.Vancomycin 1500 mg at 500 mL of 333 mL/hour IV every 12 hours. LABORATORY DATA: White blood cell 14.59, red blood cell 4.09, hemoglobin 11.4, hematocrit 34.6, and platelets 380. INR 1.26. Sodium 141, potassium 4.1, chloride 107, CO2 of 23.7, BUN 27.0, creatinine 1.2, glucose 155, and calcium 7.2. EKG shows sinus rhythm. The patient cleared for surgery by Dr. Ferro. The patient does have significant upper GI bleed issues; however, necessity of surgery justified the proceeding. The patient consent form signed and in chart. No guarantees expressed or implied. LESLIE FRANCIS /[id number]
[2017-10-26] MEDS: Levofloxacin/Dextrose 5%-Water 750 MG in Premix Bag 1 BAG IV SCH (13:00)
--- NOTE | 2017-10-26 14:46 | MR ---
EXAM DATE: 10/24/17 PATIENT'S AGE: 57 Patient: UZAIR CHAIDEZ Facility: [facility] Site . Site : [id number] Study: MRI-Extremity Left [id number]/25/2018 8:28:03 AM Ordering Physician: Kasie Whitmore Final Report: HISTORY: Foot wound. Necrosis of toe. Stepped on a piece of glass. TECHNIQUE: MRI left foot without contrast. Additional axial T1, sagittal STIR, coronal PD, and coronal PD FS sequences of the ankle and hindfoot. COMPARISON: Radiographs 10/24/2017. FINDINGS: Soft tissue edema throughout the midfoot and forefoot. Soft tissue edema in the toes, greatest in the seconds and 3rd toes but Wound in the plantar forefoot medially. Irregularity of the skin of the dorsum of the distal forefoot may be additional wound or blister formation. Complex fluid extending from the plantar wound into the subcutaneous and deep soft tissues. Fluid extends dorsally in the 1st intermetatarsal space and over the dorsal aspect of the 1st and 2nd MTP joints. Fluid extends into the proximal 2nd toe (short axis series 501 images 20 -34). Fluid extends proximally but the 1st and 2nd metatarsals. Area of fluid e measures approximately 5.5 cm plantar to dorsal and 9 cm proximal to distal. Edema like marrow signal in the heads of the 2nd and 3rd metatarsals. Edema like marrow signal in the 3rd toe distal phalanx. Milder edema like marrow signal in the 3rd middle and proximal phalanges and in the phalanges of the 4th toe. Mildly decreased T1 marrow signal in the plantar 2nd metatarsal head and in the 3rd toe distal phalanx. No fracture. Mild degenerative arthrosis of the 1st MTP joint. Small 1st MTP joint effusion. Mild degenerative arthrosis of the 1st tarsometatarsal joint. Small area of high -grade cartilage loss in the medial talar dome with small subchondral cysts and focal thinning of the subchondral bone plate. No osteochondral fragment. Small area of high-grade cartilage loss in the posterior tibial plafond with small subchondral cysts and subchondral marrow edema. Small subtalar joint effusion. Mild edema like marrow signal in the talus and calcaneus. Physiologic quantity of fluid in the tendon sheaths. Flexor and extensor tendons appear intact. Diffuse edema of the intrinsic foot musculature. Plantar aponeurosis is unremarkable. Lisfranc ligament is intact. Ankle ligaments are incompletely evaluated. IMPRESSION: 1. Findings compatible with cellulitis in the midfoot, forefoot, and toes. Plantar forefoot wound with complex fluid or phlegmon extending from the wound between the 1st and 2nd metatarsals, dorsal to the 1st and 2nd MTP joints, and into the proximal 2nd toe. 2. Findings suspicious for osteomyelitis of the 2nd metatarsal head and 3rd toe distal phalanx. 3. Myositis or denervation changes of the foot musculature. 4. Mild degenerative arthrosis. Small talar dome osteochondral lesion. Dictated by Elvis Garrett MD @ Oct 25 2017 8:28AM Signed by: Elvis Garrett MD @10/25/2017 8:48:27 AM (Electronic Signature) Report Signed by Proxy. [email or web address]
--- NOTE | 2017-10-26 16:08 | PCM48HPAN ---
Post Anesthesia Note - EVALUATION WITHIN 48HRS OF ANESTHETIC Vital Signs in Normal Range: Yes Patient Participated in Evaluation: Yes Respiratory Function Stable: Yes Airway Patent: Yes Cardiovascular Function Stable: Yes Hydration Status Stable: Yes Pain Control Satisfactory: Yes Nausea and Vomiting Control Satisfactory: Yes Mental Status Recovered: Yes Resp Rate: 17
[2017-10-26] MEDS: Morphine 4 MG/ML Syringe IVPUSH PRN ×2 (18:13→22:23)
[2017-10-26] MEDS: Insulin Glargine,Human Rec. Analog 100 Units/ML 3 ML Pen SUBCUT SCH (22:12)
[2017-10-26] MEDS: Acetaminophen 325 MG Tab PO PRN (23:49)
[2017-10-27] MEDS: Morphine 4 MG/ML Syringe IVPUSH PRN ×2 (02:44→07:51)
[2017-10-27] MEDS: ceFAZolin 2 GM in Premix Bag 1 BAG IV SCH ×3 (02:49→17:46)
[2017-10-27] MEDS: Lactated Ringers 1,000 ML IV SCH ×3 (02:56→21:15)
--- NOTE | 2017-10-27 02:56 | OR ---
SURGEON: Indio Toribio DPM DATE OF PROCEDURE: October 26, 2017 IDENTIFICATION: A 57-year-old male. PREOPERATIVE DIAGNOSIS: Diabetic ulcer, left foot. POSTOPERATIVE DIAGNOSIS: Diabetic ulcer, left foot. OPERATIVE PROCEDURE: Incision and drainage of diabetic ulcer, left foot. ANESTHESIA: General. HEMOSTASIS: None. ESTIMATED BLOOD LOSS: 60 mL. MATERIALS: 2-0 Vicryl, 2-0 nylon, 1-inch iodoform packing. INJECTABLES: None. PATHOLOGY: None. MICROBIOLOGY: Swab cultures were taken before and after the procedure. JUSTIFICATION FOR THE PROCEDURE: The patient was admitted to the hospital two days ago with upper GI bleed and associated symptoms as well as a worsening infected diabetic ulcer, left foot, with significant cellulitis of the left foot. Prior to that, the patient, one week ago, presented in my office after having not been seen by me for approximately one and half years, and was placed on oral antibiotics and told that if conditions worsen, he must immediately be seen in the emergency room and be admitted. This is indeed what has happened to the patient. The patient has a long history of noncompliance, failure to consistently take his medications and to follow up with healthcare providers including myself. The patient has been informed that I will do everything possible to help him heal up and to save his foot. However, I can make no guarantees, and the consent was signed with no guarantees expressed or implied. Consent was also given for possible amputation of the 2nd toe of the left foot, however, that was not performed or deemed necessary by me today during surgery. DESCRIPTION OF PROCEDURE: The patient was brought to the operating room from his room in the hospital. He was placed on the operating table in supine position, at which time, an aseptic scrub and drape was performed about the patient's left lower extremity. An above ankle pneumatic tourniquet was placed, however, it was not inflated as it was not needed during the procedure. Incisions were made, primarily a long incision running from the metatarsal head area, proximal to the 3rd toe, and terminating in the mid foot area. Two additional incisions were made on the dorsal aspect of the foot, proximal to the medial and lateral base of the 2nd toe of the left foot. All incisions were deepened with combination of sharp and blunt dissection with care being taken to cut, clamp, ligate, and/or retract away any neurologic and vascular structures as appropriate. The area was exsanguinated repeatedly. Copious amounts of purulent drainage were exsanguinated. The area was flushed repeatedly with copious amounts of normal sterile saline and exsanguinated, resulting in more purulent drainage being removed. Necrotic tissue was removed as identified from all incision sites. Probing was done and tunneling was noted from the dorsal ulcerated areas to the plantar ulcerated areas. Particularly on the plantar aspect, there was significant tunneling throughout the plantar, mid, and distal foot in multiple planes. After repeated removal of necrotic tissue and repeated flushing of copious amounts of normal sterile saline, the incision sites were partially closed with 2-0 Vicryl and 2-0 nylon suture with the deeper tissue and subcutaneous tissue reapproximated with the Vicryl and superficial skin with the nylon, however, large openings were left open to enable further drainage, and these openings were used to insert 1-inch iodoform packing. Wound care orders have been given for dressing change by wound care nursing tomorrow and I will be in touch with Dr. Ferro and with Augusta Tatum as needed to follow the patient, though I will not be available to see the patient tomorrow due to the commitment out of town at another medical center. The patient is to remain on IV antibiotics and to remain nonweightbearing to the left lower extremity, and will be followed in-house as long as he remains in-house. LESLIE / TITO /[id number] MTDDaniel
[2017-10-27] MEDS: Sucralfate Suspension 1 GM/10 ML Cup PO SCH ×4 (05:11→22:18)
[2017-10-27 05:40] LABS: CHLORIDE,CL 108 mmol/L (98-107); SODIUM,NA 141 mmol/L (136-148)
[2017-10-27] MEDS: Acetaminophen 325 MG Tab PO PRN (05:40)
[2017-10-27] MEDS: Insulin Aspart 100 Units/ML 3 ML Pen SUBCUT SCH ×3 (07:49→17:42)
--- NOTE | 2017-10-27 08:01 | PCM.PN ---
- General Info Date of Service: 10/27/17 Admission Dx/Problem (Free Text): diabetic ulcer left foot Subjective Update: Reports migraine this morning and all night. Tylenol has not helped at all. Abdominal pain is better, diarrhea is improving. Would like to try toast. No chest pain or SOB. Foot pain is tolerable. Functional Status: Reports: Pain Controlled, Tolerating Diet, Ambulating, Urinating - Review of Systems General: Reports: No Symptoms. Denies: Fever, Weakness HEENT: Reports: Headaches. Denies: Sore Throat, Visual Changes Pulmonary: Reports: No Symptoms. Denies: Shortness of Breath, Cough, Hemoptysis Cardiovascular: Reports: No Symptoms. Denies: Chest Pain, Edema Gastrointestinal: Reports: No Symptoms. Denies: Abdominal Pain, Nausea, Vomiting Genitourinary: Reports: No Symptoms. Denies: Dysuria, Frequency, Burning Musculoskeletal: Reports: Foot Pain (tolerable currently. ) Neurological: Reports: No Symptoms. Denies: Confusion Psychiatric: Reports: No Symptoms. Denies: Confusion - Patient Data Vitals - Most Recent: Last Vital Signs Temp 97.8 F 10/27/17 04:00 Pulse 78 10/27/17 04:00 Resp 20 10/27/17 04:00 BP 115/65 10/27/17 04:00 Pulse Ox 92 L 10/27/17 04:00 Weight - Most Recent: 97.182 kg I&O - Last 24 Hours: Intake & Output 10/26/17 10/27/17 10/27/17 22:59 06:59 14:59 Intake Total 1771 2323 Output Total 500 Balance 1271 2323 Lab Results Last 24 Hours: Laboratory Results - last 24 hr 10/26/17 10/26/17 10/26/17 Range/Units 05:21 05:58 12:09 WBC (4.0-11.0) K/uL RBC (4.50-5.90) M/uL Hgb (13.0-17.0) g/dL Hct (38.0-50.0) % MCV (80.0-98.0) fL MCH (27.0-32.0) pg MCHC (31.0-37.0) g/dL RDW Std Deviation (28.0-62.0) fl RDW Coeff of Krunal (11.0-15.0) % Plt Count (150-400) K/uL MPV (7.40-12.00) fL Neut % (Auto) (48.0-80.0) % Lymph % (Auto) (16.0-40.0) % [place] % (Auto) (0.0-15.0) % Eos % (Auto) (0.0-7.0) % Baso % (Auto) (0.0-1.5) % Neut # (Auto) (1.4-5.7) K/uL Lymph # (Auto) (0.6-2.4) K/uL [place] # (Auto) (0.0-0.8) K/uL Eos # (Auto) (0.0-0.7) K/uL Baso # (Auto) (0.0-0.1) K/uL Nucleated RBC % /100WBC Nucleated RBCs # K/uL Sodium (136-148) mmol/L Potassium (3.5-5.1) mmol/L Chloride (98-107) mmol/L Carbon Dioxide (21.0-32.0) mmol/L BUN (7.0-18.0) mg/dL Creatinine (0.8-1.3) mg/dL Est Cr Clr Drug Dosing mL/min Estimated GFR (MDRD) ml/min Glucose (74-106) mg/dL POC Glucose 157 H 145 H (60-110) mg/dL Calcium (8.5-10.1) mg/dL Albumin 1.6 L (3.4-5.0) g/dL 10/26/17 10/26/17 10/27/17 Range/Units 16:36 22:08 05:05 WBC (4.0-11.0) K/uL RBC (4.50-5.90) M/uL Hgb (13.0-17.0) g/dL Hct (38.0-50.0) % MCV (80.0-98.0) fL MCH (27.0-32.0) pg MCHC (31.0-37.0) g/dL RDW Std Deviation (28.0-62.0) fl RDW Coeff of Krunal (11.0-15.0) % Plt Count (150-400) K/uL MPV (7.40-12.00) fL Neut % (Auto) (48.0-80.0) % Lymph % (Auto) (16.0-40.0) % [place] % (Auto) (0.0-15.0) % Eos % (Auto) (0.0-7.0) % Baso % (Auto) (0.0-1.5) % Neut # (Auto) (1.4-5.7) K/uL Lymph # (Auto) (0.6-2.4) K/uL [place] # (Auto) (0.0-0.8) K/uL Eos # (Auto) (0.0-0.7) K/uL Baso # (Auto) (0.0-0.1) K/uL Nucleated RBC % /100WBC Nucleated RBCs # K/uL Sodium 141 (136-148) mmol/L Potassium 3.9 (3.5-5.1) mmol/L Chloride 108 H (98-107) mmol/L Carbon Dioxide 27.7 (21.0-32.0) mmol/L BUN 19 H (7.0-18.0) mg/dL Creatinine 1.2 (0.8-1.3) mg/dL Est Cr Clr Drug Dosing 72.34 mL/min Estimated GFR (MDRD) > 60.0 ml/min Glucose 143 H (74-106) mg/dL POC Glucose 193 H 168 H (60-110) mg/dL Calcium 7.3 L (8.5-10.1) mg/dL Albumin (3.4-5.0) g/dL 10/27/17 Range/Units 05:05 WBC 9.98 (4.0-11.0) K/uL RBC 3.11 L (4.50-5.90) M/uL Hgb 8.6 L (13.0-17.0) g/dL Hct 26.6 L (38.0-50.0) % MCV 85.5 (80.0-98.0) fL MCH 27.7 (27.0-32.0) pg MCHC 32.3 (31.0-37.0) g/dL RDW Std Deviation 41.0 (28.0-62.0) fl RDW Coeff of Krunal 13 (11.0-15.0) % Plt Count 272 (150-400) K/uL MPV 9.00 (7.40-12.00) fL Neut % (Auto) 76.4 (48.0-80.0) % Lymph % (Auto) 12.6 L (16.0-40.0) % [place] % (Auto) 7.9 (0.0-15.0) % Eos % (Auto) 2.9 (0.0-7.0) % Baso % (Auto) 0.2 (0.0-1.5) % Neut # (Auto) 7.6 H (1.4-5.7) K/uL Lymph # (Auto) 1.3 (0.6-2.4) K/uL [place] # (Auto) 0.8 (0.0-0.8) K/uL Eos # (Auto) 0.3 (0.0-0.7) K/uL Baso # (Auto) 0.0 (0.0-0.1) K/uL Nucleated RBC % 0.0 /100WBC Nucleated RBCs # 0 K/uL Sodium (136-148) mmol/L Potassium (3.5-5.1) mmol/L Chloride (98-107) mmol/L Carbon Dioxide (21.0-32.0) mmol/L BUN (7.0-18.0) mg/dL Creatinine (0.8-1.3) mg/dL Est Cr Clr Drug Dosing mL/min Estimated GFR (MDRD) ml/min Glucose (74-106) mg/dL POC Glucose (60-110) mg/dL Calcium (8.5-10.1) mg/dL Albumin (3.4-5.0) g/dL Robert Results Last 24 Hours: Microbiology 10/24/17 07:52 Aerobic Blood Culture - Preliminary Blood - Venous - Lab Draw NO GROWTH AFTER 3 DAYS Anaerobic Blood Culture - Final 10/24/17 07:42 Aerobic Blood Culture - Preliminary Blood - Venous NO GROWTH AFTER 3 DAYS Anaerobic Blood Culture - Final Staphylococcus Aureus 10/26/17 09:10 Gram Stain - Preliminary Foot, Left 10/26/17 08:50 Gram Stain - Preliminary Foot, Left 10/25/17 11:39 Aerobic Blood Culture - Preliminary Blood - Venous - Lab Draw NO GROWTH AFTER 1 DAY Anaerobic Blood Culture - Preliminary NO GROWTH AFTER 1 DAY 10/25/17 11:28 Aerobic Blood Culture - Preliminary Blood - Venous NO GROWTH AFTER 1 DAY Anaerobic Blood Culture - Preliminary NO GROWTH AFTER 1 DAY 10/24/17 12:15 Wound Culture - Preliminary Foot, Left Staphylococcus Aureus 10/24/17 07:20 Stool Culture - Final Stool / Feces Campylobacter Antigen Assay - Final NEGATIVE CAMPYLOBACTER AG - Final NEGATIVE FOR SHIGA TOXIN 1 - Final NEGATIVE FOR SHIGA TOXIN 2 Med Orders - Current: Current Medications Acetaminophen (Tylenol) 650 mg PO Q6H PRN PRN Reason: Headache/Pain Last Admin: 10/27/17 05:40 Dose: 650 mg Albuterol/Ipratropium (Duoneb 3.0-0.5 Mg/3 Ml) 3 ml NEB Q4HRRT PRN PRN Reason: Shortness Of Breath/wheezing Lactated Ringer's (Ringers, Lactated) 1,000 mls @ 150 mls/hr IV ASDIRECTED BOB Last Admin: 10/27/17 02:56 Dose: 150 mls/hr Cefazolin Sodium/Dextrose 2 gm (/ Premix) 50 mls @ 100 mls/hr IV Q8H [facility] Last Admin: 10/27/17 02:49 Dose: 100 mls/hr Levofloxacin/Dextrose 750 mg/ (Premix) 150 mls @ 100 mls/hr IV Q24H [facility] Last Admin: 10/26/17 13:00 Dose: 100 mls/hr Insulin Aspart (Novolog) 0 unit SUBCUT TIDAC [facility]; Protocol Last Admin: 10/27/17 07:49 Dose: Not Given Insulin Glargine (Lantus Solostar) 10 units SUBCUT BEDTIME [facility] Last Admin: 10/26/17 22:12 Dose: 10 units Metoclopramide HCl (Reglan) 5 mg IVPUSH Q6H PRN PRN Reason: nausea and vomiting Last Admin: 10/25/17 09:29 Dose: 5 mg Morphine Sulfate (Morphine) 4 mg IVPUSH Q4H PRN PRN Reason: Pain Last Admin: 10/27/17 07:51 Dose: 4 mg Pantoprazole Sodium (Protonix Iv) 40 mg IV Q12H [facility] Last Admin: 10/26/17 22:14 Dose: 40 mg Sodium Chloride (Saline Flush) 10 ml FLUSH ASDIRECTED PRN PRN Reason: Keep Vein Open Sodium Chloride (Saline Flush) 2.5 ml FLUSH ASDIRECTED PRN PRN Reason: Keep Vein Open Sucralfate (Carafate) 1 gm PO Q6H [facility] Last Admin: 10/27/17 05:11 Dose: 1 gm Temazepam (Restoril) 15 mg PO BEDTIME PRN PRN Reason: Sleep Discontinued Medications Bupivacaine HCl (Marcaine 0.5%) Confirm Administered Dose 30 ml .ROUTE .STK-MED ONE Stop: 10/26/17 07:25 Fentanyl (Sublimaze) Confirm Administered Dose 100 mcg .ROUTE .STK-MED ONE Stop: 10/26/17 07:18 Sodium Chloride (Normal Saline) 1,000 mls @ 999 mls/hr IV .Bolus ONE Stop: 10/24/17 08:08 Last Infusion: 10/24/17 08:22 Dose: Infused Vancomycin HCl 1 gm/ Sodium (Chloride) 250 mls @ 250 mls/hr IV ONETIME ONE Stop: 10/24/17 09:08 Last Admin: 10/24/17 08:14 Dose: 250 mls/hr Sodium Chloride (Normal Saline) 1,000 mls @ 999 mls/hr IV .Bolus ONE Stop: 10/24/17 10:00 Last Infusion: 10/24/17 09:31 Dose: 999 mls/hr Piperacillin Sod/Tazobactam (Sod 3.375 gm/ Sodium Chloride) 50 mls @ 100 mls/ hr IV ONETIME ONE Stop: 10/24/17 11:19 Last Admin: 10/24/17 11:08 Dose: 100 mls/hr Vancomycin HCl 500 mg/ Sodium (Chloride) 100 mls @ 100 mls/hr IV ONETIME [facility] Last Admin: 10/24/17 12:11 Dose: 100 mls/hr Vancomycin HCl 1,500 mg/ (Sodium Chloride) 500 mls @ 333.333 mls/hr IV Q24H [facility] Stop: 10/26/17 10:31 Last Admin: 10/26/17 10:42 Dose: Not Given Sodium Chloride (Normal Saline) 1,000 mls @ 999 mls/hr IV ASDIRECTED [facility] Last Admin: 10/24/17 11:09 Dose: 999 mls/hr Piperacillin Sod/Tazobactam (Sod 4.5 gm/ Sodium Chloride) 100 mls @ 100 mls/hr IV Q6H [facility] Last Admin: 10/26/17 05:30 Dose: 100 mls/hr Vancomycin HCl 1,500 mg/ (Sodium Chloride) 500 mls @ 333.333 mls/hr IV Q12H [facility] Albumin Human (Flexbumin 25%) 12.5 gm in 50 mls @ 100 mls/hr IV ONETIME ONE Stop: 10/26/17 09:18 Last Admin: 10/26/17 11:42 Dose: Not Given Albumin Human (Flexbumin 25%) 12.5 gm in 50 mls @ 100 mls/hr IV ONETIME ONE Stop: 10/26/17 10:44 Last Admin: 10/26/17 11:33 Dose: 100 mls/hr Albumin Human (Flexbumin 25%) 12.5 gm in 50 mls @ 100 mls/hr IV ONETIME ONE Stop: 10/26/17 11:14 Last Admin: 10/26/17 10:54 Dose: 100 mls/hr Levofloxacin/Dextrose 750 mg/ (Premix) 150 mls @ 100 mls/hr IV ONETIME ONE Stop: 10/26/17 13:30 Last Admin: 10/26/17 13:46 Dose: Not Given Insulin Aspart (Novolog) 0 unit SUBCUT Q6H [facility]; Protocol Last Admin: 10/25/17 05:50 Dose: Not Given Insulin Glargine (Lantus Solostar) 10 units SUBCUT ONETIME ONE Stop: 10/24/17 12:01 Last Admin: 10/24/17 12:51 Dose: 10 units Insulin Glargine (Lantus Solostar) 38 units SUBCUT BEDTIME [facility] Lidocaine HCl (Xylocaine 1%) Confirm Administered Dose 20 ml .ROUTE .STK-MED ONE Stop: 10/26/17 07:25 Midazolam HCl (Versed 1 Mg/Ml) Confirm Administered Dose 2 mg .ROUTE .STK-MED ONE Stop: 10/26/17 07:19 Morphine Sulfate (Morphine) 4 mg IVPUSH ONETIME ONE Stop: 10/24/17 07:16 Last Admin: 10/24/17 07:42 Dose: Not Given Morphine Sulfate (Morphine) Confirm Administered Dose 4 mg .ROUTE .STK-MED ONE Stop: 10/24/17 07:20 Last Admin: 06/24/18 07:33 Dose: Not Given Morphine Sulfate (Morphine) 4 mg IVPUSH ONETIME ONE Stop: 10/24/17 07:21 Last Admin: 10/24/17 07:33 Dose: 4 mg Morphine Sulfate (Morphine) 2 mg IVPUSH Q2H PRN PRN Reason: Pain (severe 7-10) Stop: 10/25/17 10:42 Last Admin: 10/25/17 09:42 Dose: 2 mg Ondansetron HCl (Zofran) 4 mg IVPUSH ONETIME ONE Stop: 10/24/17 07:16 Last Admin: 10/24/17 07:21 Dose: 4 mg Pantoprazole Sodium (Protonix Iv) 80 mg IVPUSH .BOLUS ONE Stop: 10/24/17 07:41 Last Admin: 10/24/17 07:57 Dose: 80 mg Propofol (Diprivan 20 Ml) Confirm Administered Dose 200 mg .ROUTE .STK-MED ONE Stop: 10/26/17 07:19 Sodium Chloride (Saline Flush) 10 ml FLUSH ASDIRECTED PRN PRN Reason: Keep Vein Open Sodium Chloride (Saline Flush) 2.5 ml FLUSH ASDIRECTED PRN PRN Reason: Keep Vein Open Vancomycin HCl (Pharmacy To Dose - Vancomycin) 0 dose .XX ASDIRECTED BOB - Exam General: Alert, Oriented, Cooperative, No Acute Distress HEENT: Pupils Equal, Pupils Reactive Neck: Supple. No: No JVD Lungs: Clear to Auscultation, Normal Respiratory Effort Cardiovascular: Regular Rate, Regular Rhythm GI/Abdominal Exam: Normal Bowel Sounds, Soft, Non-Tender Extremities: Normal Inspection, Normal Range of Motion Wound/Incisions: Dressing Dry and Intact (Nursing changed dressing. Erythema much improved after surgery. second toe remains necrotic and cool to touch. packing removed and replaced per nursing, some serousang. drainage. ) Neurological: No New Focal Deficit, Normal Speech, Strength Equal Bilateral Psy/Mental Status: Alert, Normal Affect, Normal Mood - Problem List & Annotations (1) Sepsis SNOMED Code(s): 89967600 Code(s): A41.9 - SEPSIS, UNSPECIFIED ORGANISM Status: Acute Current Visit : Yes Qualifiers: Sepsis type: sepsis due to unspecified organism Qualified Code(s): A41.9 - Sepsis, unspecified organism (2) Bacteremia SNOMED Code(s): 8786193 Code(s): R78.81 - BACTEREMIA Status: Acute Current Visit: Yes (3) Diabetic foot ulcer SNOMED Code(s): 640471212 Code(s): E11.621 - TYPE 2 DIABETES MELLITUS WITH FOOT ULCER; L97.509 - NON- PRESSURE CHRONIC ULCER OTH PRT UNSP FOOT W UNSP SEVERITY Status: Acute Priority: High Current Visit: Yes Onset Date: ~10/04/17 Qualifiers: Diabetic foot ulcer location: midfoot Diabetes mellitus type: type 2 Laterality: left Non-pressure ulcer stage: unspecified non-pressure ulcer stage Qualified Code(s): E11.621 - Type 2 diabetes mellitus with foot ulcer; L97.429 - Non-pressure chronic ulcer of left heel and midfoot with unspecified severity (4) GI bleed SNOMED Code(s): 85917674 Code(s): K92.2 - GASTROINTESTINAL HEMORRHAGE, UNSPECIFIED Status: Acute Current Visit: Yes Qualifiers: GI bleed type/associated pathology: unspecified gastrointestinal hemorrhage type Qualified Code(s): K92.2 - Gastrointestinal hemorrhage, unspecified (5) Heme + stool SNOMED Code(s): 98917289, 794896305 Code(s): R19.5 - OTHER FECAL ABNORMALITIES Status: Acute Current Visit: Yes (6) DM type 2 (diabetes mellitus, type 2) SNOMED Code(s): 72639806 Code(s): E11.9 - TYPE 2 DIABETES MELLITUS WITHOUT COMPLICATIONS Status: Chronic Current Visit: Yes Qualifiers: Diabetes mellitus ad terminal makeup operator insulin use: with senior care use Diabetes mellitus complication status: with skin complications Diabetes mellitus complication detail: with foot ulcer Qualified Code(s): E11.621 - Type 2 diabetes mellitus with foot ulcer; L97.509 - Non-pressure chronic ulcer of other part of unspecified foot with unspecified severity; Z79.4 - superintendent container terminal ( current) use of insulin (7) Non compliance w medication regimen SNOMED Code(s): 950040490 Code(s): Z91.14 - PATIENT'S OTHER NONCOMPLIANCE WITH MEDICATION REGIMEN Status: Chronic Current Visit: No (8) Migraine SNOMED Code(s): 88453311 Code(s): G43.909 - MIGRAINE, UNSP, NOT INTRACTABLE, WITHOUT STATUS MIGRAINOSUS Status: Acute Current Visit: Yes - Problem List Review Problem List Initiated/Reviewed/Updated: Yes - My Orders Last 24 Hours: My Active Orders 10/26/17 10:45 ceFAZolin [Ancef] 2 gm Premix Bag 1 bag IV Q8H 10/26/17 12:15 Levofloxacin/Dextrose 5%-Water [Levaquin in D5W 750 MG/150 ML] 750 mg Premix Bag 1 bag IV Q24H 10/26/17 17:13 CDIFF TOX A+B [OP] Routine CULTURE STOOL + CAMPY+SHIGATOX [RM] Routine 10/26/17 Lunch Clear Liquid Diet [DIET] 10/28/17 05:11 CBC WITH AUTO DIFF [HEME] AM 10/29/17 05:11 CBC WITH AUTO DIFF [HEME] AM - Plan Plan:: This 57 year old male admitted with sepsis, bacteremia, diabetic L foot ulcer, and suspected GI bleed 1. Sepsis/bacteremia and L diabetic foot ulcer: 2/4 blood cultures returned with Staph aureus. Repeat BC negative x 1 day. VS stable this morning. Afebrile. Secondary to MSSA Vancomycin stopped, Cefazolin 2 gm IV Q8hrs started. Wound cultures also show MSSA plus 2 gram negative organisms, ROBERT still pending. Levaquin 750 mg IV daily added. Leukocytosis, resolved, WBC 9, 000 this morning. Will need to plan for PICC line due to osteomyelitis and the need for senior care antibiotics. Remain NWB. Dr Toribio to be around tomorrow to reassess foot for further surgical intervention. 2. Upper GI bleed: Hemoccult positive stools. Hgb 8.6, he did get 5 L of IVF in the OR, will recheck HH this afternoon. No hypotension or tachycardia. Diarrhea is improving, black diarrhea yesterday. Continue Protonix 40 mg Q12hr IV and Carafate PO. Follow up outpatient for dual scopes with Dr Reese. 3: NYA: Continues to improved with IV fluids. Baseline BUN near 9, Cr 0.8. 4. DM type 2: Non complaint with medication regimen. A1c 9.3. Continue Novolog SSI TIDAC. BS controlled. Will advance diet to bland this morning per patient request. Lantus 10 units at bedtime. 5. Migraine: Reports getting migraines intermittently. Pain to R side of head. No neurological deficits. Discussed with Dr Antohi, Will give Dexamethasone 4 mg IV, Reglan 10 mg IV, and Benadryl 25 mg IV. Monitor migraine VTE prophylaxis: SCDs only due to GI bleed Dispo: 3-5 days.
[2017-10-27] MEDS ORDERED: Ketorolac 30 MG/ML SDV IVPUSH ONE (08:32)
[2017-10-27] MEDS ORDERED: Metoclopramide 10 MG/2 ML SDV IVPUSH ONE (08:32)
[2017-10-27] MEDS ORDERED: diphenhydrAMINE 50 MG/ML SDV IVPUSH ONE (08:32)
[2017-10-27] MEDS ORDERED: Dexamethasone 10 MG/ML SDV IVPUSH ONE (08:37)
[2017-10-27] MEDS: Pantoprazole 40 MG Vial IV SCH ×2 (10:47→22:17)
[2017-10-27] MEDS: Levofloxacin/Dextrose 5%-Water 750 MG in Premix Bag 1 BAG IV SCH (11:50)
[2017-10-27] MEDS ORDERED: Acetaminophen 1,000 MG in Premix Bag 1 BAG IV ONE ×2 (13:32→21:23)
[2017-10-27] MEDS: Ferrous Sulfate 325 MG Tab PO SCH (17:44)
[2017-10-27] MEDS ORDERED: SUMAtriptan 6 MG/0.5 ML SDV SUBCUT ONE (21:24)
[2017-10-27] MEDS: Insulin Glargine,Human Rec. Analog 100 Units/ML 3 ML Pen SUBCUT SCH (21:30)
[2017-10-27] MEDS: oxyCODONE 5 MG Tab PO PRN (23:39)
[2017-10-28] MEDS: ceFAZolin 2 GM in Premix Bag 1 BAG IV SCH ×3 (02:35→18:18)
[2017-10-28] MEDS: oxyCODONE 5 MG Tab PO PRN ×2 (04:12→20:42)
[2017-10-28] MEDS: Sucralfate Suspension 1 GM/10 ML Cup PO SCH ×4 (04:14→22:14)
[2017-10-28 06:02] LABS: CHLORIDE,CL 107 mmol/L (98-107); SODIUM,NA 140 mmol/L (136-148)
[2017-10-28] MEDS: Insulin Aspart 100 Units/ML 3 ML Pen SUBCUT SCH ×3 (07:48→16:51)
[2017-10-28] MEDS: Ferrous Sulfate 325 MG Tab PO SCH ×3 (07:50→16:51)
--- NOTE | 2017-10-28 08:18 | PCM.PN ---
- General Info Date of Service: 10/28/17 Admission Dx/Problem (Free Text): diabetic ulcer left foot Subjective Update: Very tired today, reports he didn't sleep well all night, too many interruptions. Reports watery diarrhea all night, intermittent stomach cramping. No chest pain or SOB. Foot pain is tolerable. Functional Status: Reports: Pain Controlled, Tolerating Diet, Ambulating, Urinating - Review of Systems General: Reports: No Symptoms. Denies: Fever, Weakness, Fatigue, Malaise HEENT: Reports: No Symptoms. Denies: Sore Throat, Visual Changes Pulmonary: Reports: No Symptoms. Denies: Shortness of Breath, Cough, Sputum Cardiovascular: Reports: No Symptoms. Denies: Chest Pain, Palpitations, Edema Gastrointestinal: Reports: Abdominal Pain (cramping), Decreased Appetite, Diarrhea, Flatus. Denies: Nausea, Vomiting Genitourinary: Reports: No Symptoms Musculoskeletal: Reports: Foot Pain (very tolerable. ) Skin: Reports: No Symptoms Neurological: Reports: No Symptoms Psychiatric: Reports: No Symptoms - Patient Data Vitals - Most Recent: Last Vital Signs Temp 97.6 F 10/28/17 04:00 Pulse 70 10/28/17 04:00 Resp 20 10/28/17 04:00 BP 148/84 H 10/28/17 04:00 Pulse Ox 94 L 10/28/17 04:00 Weight - Most Recent: 97.182 kg I&O - Last 24 Hours: Intake & Output 10/27/17 10/28/17 10/28/17 22:59 06:59 14:59 Intake Total 1775 1548 Output Total 0 Balance 1775 1548 Lab Results Last 24 Hours: Laboratory Results - last 24 hr 10/27/17 10/27/17 10/27/17 Range/Units 06:16 10:01 10:01 WBC (4.0-11.0) K/uL RBC (4.50-5.90) M/uL Hgb (13.0-17.0) g/dL Hct (38.0-50.0) % MCV (80.0-98.0) fL MCH (27.0-32.0) pg MCHC (31.0-37.0) g/dL RDW Std Deviation (28.0-62.0) fl RDW Coeff of Krunal (11.0-15.0) % Plt Count (150-400) K/uL MPV (7.40-12.00) fL Add Manual Diff Neutrophils % (Manual) (48.0-80.0) % Band Neutrophils % % Lymphocytes % (Manual) (16.0-40.0) % Monocytes % (Manual) (0.0-15.0) % Absolute Seg Neuts (1.4-5.7) Band Neutrophils # Lymphocytes # (Manual) (0.6-2.4) Monocytes # (Manual) (0.0-0.8) Sodium (136-148) mmol/L Potassium (3.5-5.1) mmol/L Chloride (98-107) mmol/L Carbon Dioxide (21.0-32.0) mmol/L BUN (7.0-18.0) mg/dL Creatinine (0.8-1.3) mg/dL Est Cr Clr Drug Dosing mL/min Estimated GFR (MDRD) ml/min Glucose (74-106) mg/dL POC Glucose 128 H (60-110) mg/dL Calcium (8.5-10.1) mg/dL Iron 20 L (50-175) ug/dL TIBC 147 L (250-450) ug/dL % Saturation 13.61 L (20-55) % Ferritin 462 H (26-388) ng/mL Albumin 1.5 L (3.4-5.0) g/dL 10/27/17 10/27/17 10/27/17 Range/Units 11:20 14:14 16:40 WBC (4.0-11.0) K/uL RBC (4.50-5.90) M/uL Hgb 9.3 L (13.0-17.0) g/dL Hct 27.6 L (38.0-50.0) % MCV (80.0-98.0) fL MCH (27.0-32.0) pg MCHC (31.0-37.0) g/dL RDW Std Deviation (28.0-62.0) fl RDW Coeff of Krunal (11.0-15.0) % Plt Count (150-400) K/uL MPV (7.40-12.00) fL Add Manual Diff Neutrophils % (Manual) (48.0-80.0) % Band Neutrophils % % Lymphocytes % (Manual) (16.0-40.0) % Monocytes % (Manual) (0.0-15.0) % Absolute Seg Neuts (1.4-5.7) Band Neutrophils # Lymphocytes # (Manual) (0.6-2.4) Monocytes # (Manual) (0.0-0.8) Sodium (136-148) mmol/L Potassium (3.5-5.1) mmol/L Chloride (98-107) mmol/L Carbon Dioxide (21.0-32.0) mmol/L BUN (7.0-18.0) mg/dL Creatinine (0.8-1.3) mg/dL Est Cr Clr Drug Dosing mL/min Estimated GFR (MDRD) ml/min Glucose (74-106) mg/dL POC Glucose 130 H 171 H (60-110) mg/dL Calcium (8.5-10.1) mg/dL Iron (50-175) ug/dL TIBC (250-450) ug/dL % Saturation (20-55) % Ferritin (26-388) ng/mL Albumin (3.4-5.0) g/dL 10/27/17 10/28/17 10/28/17 Range/Units 21:28 04:55 04:55 WBC 16.19 H (4.0-11.0) K/uL RBC 3.60 L (4.50-5.90) M/uL Hgb 10.4 L (13.0-17.0) g/dL Hct 31.4 L (38.0-50.0) % MCV 87.2 (80.0-98.0) fL MCH 28.9 (27.0-32.0) pg MCHC 33.1 (31.0-37.0) g/dL RDW Std Deviation 37.5 (28.0-62.0) fl RDW Coeff of Krunal 12 (11.0-15.0) % Plt Count 425 H (150-400) K/uL MPV 10.10 (7.40-12.00) fL Add Manual Diff YES Neutrophils % (Manual) 86 H (48.0-80.0) % Band Neutrophils % 1 % Lymphocytes % (Manual) 7 L (16.0-40.0) % Monocytes % (Manual) 6 (0.0-15.0) % Absolute Seg Neuts 13.9 H (1.4-5.7) Band Neutrophils # 0.2 Lymphocytes # (Manual) 1.1 (0.6-2.4) Monocytes # (Manual) 1.0 H (0.0-0.8) Sodium 140 (136-148) mmol/L Potassium 3.7 (3.5-5.1) mmol/L Chloride 107 (98-107) mmol/L Carbon Dioxide 25.5 (21.0-32.0) mmol/L BUN 19 H (7.0-18.0) mg/dL Creatinine 1.2 (0.8-1.3) mg/dL Est Cr Clr Drug Dosing 72.34 mL/min Estimated GFR (MDRD) > 60.0 ml/min Glucose 213 H (74-106) mg/dL POC Glucose 231 H (60-110) mg/dL Calcium 7.4 L (8.5-10.1) mg/dL Iron (50-175) ug/dL TIBC (250-450) ug/dL % Saturation (20-55) % Ferritin (26-388) ng/mL Albumin (3.4-5.0) g/dL Robert Results Last 24 Hours: Microbiology 10/26/17 09:10 Gram Stain - Preliminary Foot, Left Wound Culture - Preliminary Staphylococcus Aureus 10/24/17 12:15 Wound Culture - Final Foot, Left Staphylococcus Aureus Alcaligenes Species Stenotrophomonas Maltophilia 10/26/17 08:50 Gram Stain - Preliminary Foot, Left Wound Culture - Preliminary Staphylococcus Aureus 10/24/17 07:52 Aerobic Blood Culture - Preliminary Blood - Venous - Lab Draw NO GROWTH AFTER 4 DAYS Anaerobic Blood Culture - Final 10/24/17 07:42 Aerobic Blood Culture - Preliminary Blood - Venous NO GROWTH AFTER 4 DAYS Anaerobic Blood Culture - Final Staphylococcus Aureus 10/27/17 11:45 Clostridium difficile Toxin A & B - Final Stool / Feces Negative for C.Diff Toxin/AG 10/27/17 11:45 Campylobacter Antigen Assay - Final Stool / Feces NEGATIVE CAMPYLOBACTER AG 10/25/17 11:39 Aerobic Blood Culture - Preliminary Blood - Venous - Lab Draw NO GROWTH AFTER 2 DAYS Anaerobic Blood Culture - Preliminary NO GROWTH AFTER 2 DAYS 10/25/17 11:28 Aerobic Blood Culture - Preliminary Blood - Venous NO GROWTH AFTER 2 DAYS Anaerobic Blood Culture - Preliminary NO GROWTH AFTER 2 DAYS Med Orders - Current: Current Medications Acetaminophen (Tylenol) 650 mg PO Q6H PRN PRN Reason: Headache/Pain Last Admin: 10/27/17 05:40 Dose: 650 mg Albuterol/Ipratropium (Duoneb 3.0-0.5 Mg/3 Ml) 3 ml NEB Q4HRRT PRN PRN Reason: Shortness Of Breath/wheezing Ferrous Sulfate (Ferrous Sulfate) 325 mg PO TIDMEALS [facility] Last Admin: 10/28/17 07:50 Dose: 325 mg Lactated Ringer's (Ringers, Lactated) 1,000 mls @ 150 mls/hr IV ASDIRECTED [facility] Last Admin: 10/27/17 21:15 Dose: 150 mls/hr Cefazolin Sodium/Dextrose 2 gm (/ Premix) 50 mls @ 100 mls/hr IV Q8H [facility] Last Admin: 10/28/17 02:35 Dose: 100 mls/hr Levofloxacin/Dextrose 750 mg/ (Premix) 150 mls @ 100 mls/hr IV Q24H [facility] Last Admin: 10/27/17 11:50 Dose: 100 mls/hr Insulin Aspart (Novolog) 0 unit SUBCUT TIDAC [facility]; Protocol Last Admin: 10/28/17 07:48 Dose: 2 units Insulin Glargine (Lantus Solostar) 10 units SUBCUT BEDTIME [facility] Last Admin: 10/27/17 21:30 Dose: 10 units Metoclopramide HCl (Reglan) 5 mg IVPUSH Q6H PRN PRN Reason: nausea and vomiting Last Admin: 10/25/17 09:29 Dose: 5 mg Morphine Sulfate (Morphine) 4 mg IVPUSH Q4H PRN PRN Reason: Pain Last Admin: 10/27/17 07:51 Dose: 4 mg Oxycodone HCl (Oxycodone) 5 mg PO Q4H PRN PRN Reason: Pain Last Admin: 10/28/17 04:12 Dose: 5 mg Pantoprazole Sodium (Protonix Iv) 40 mg IV Q12H [facility] Last Admin: 10/27/17 22:17 Dose: 40 mg Sodium Chloride (Saline Flush) 10 ml FLUSH ASDIRECTED PRN PRN Reason: Keep Vein Open Sodium Chloride (Saline Flush) 2.5 ml FLUSH ASDIRECTED PRN PRN Reason: Keep Vein Open Sucralfate (Carafate) 1 gm PO Q6H [facility] Last Admin: 10/28/17 04:14 Dose: 1 gm Temazepam (Restoril) 15 mg PO BEDTIME PRN PRN Reason: Sleep Discontinued Medications Bupivacaine HCl (Marcaine 0.5%) Confirm Administered Dose 30 ml .ROUTE .STK-MED ONE Stop: 10/26/17 07:25 Dexamethasone (Dexamethasone) 4 mg IVPUSH ONETIME ONE Stop: 10/27/17 08:38 Last Admin: 10/27/17 09:12 Dose: 4 mg Diphenhydramine HCl (Benadryl) 25 mg IVPUSH ONETIME ONE Stop: 10/27/17 08:33 Last Admin: 10/27/17 09:15 Dose: 25 mg Fentanyl (Sublimaze) Confirm Administered Dose 100 mcg .ROUTE .STK-MED ONE Stop: 10/26/17 07:18 Sodium Chloride (Normal Saline) 1,000 mls @ 999 mls/hr IV .Bolus ONE Stop: 10/24/17 08:08 Last Infusion: 10/24/17 08:22 Dose: Infused Vancomycin HCl 1 gm/ Sodium (Chloride) 250 mls @ 250 mls/hr IV ONETIME ONE Stop: 10/24/17 09:08 Last Admin: 10/24/17 08:14 Dose: 250 mls/hr Sodium Chloride (Normal Saline) 1,000 mls @ 999 mls/hr IV .Bolus ONE Stop: 10/24/17 10:00 Last Infusion: 10/24/17 09:31 Dose: 999 mls/hr Piperacillin Sod/Tazobactam (Sod 3.375 gm/ Sodium Chloride) 50 mls @ 100 mls/ hr IV ONETIME ONE Stop: 10/24/17 11:19 Last Admin: 10/24/17 11:08 Dose: 100 mls/hr Vancomycin HCl 500 mg/ Sodium (Chloride) 100 mls @ 100 mls/hr IV ONETIME [facility] Last Admin: 10/24/17 12:11 Dose: 100 mls/hr Vancomycin HCl 1,500 mg/ (Sodium Chloride) 500 mls @ 333.333 mls/hr IV Q24H [facility] Stop: 10/26/17 10:31 Last Admin: 10/26/17 10:42 Dose: Not Given Sodium Chloride (Normal Saline) 1,000 mls @ 999 mls/hr IV ASDIRECTED [facility] Last Admin: 10/24/17 11:09 Dose: 999 mls/hr Piperacillin Sod/Tazobactam (Sod 4.5 gm/ Sodium Chloride) 100 mls @ 100 mls/hr IV Q6H [facility] Last Admin: 10/26/17 05:30 Dose: 100 mls/hr Vancomycin HCl 1,500 mg/ (Sodium Chloride) 500 mls @ 333.333 mls/hr IV Q12H [facility] Albumin Human (Flexbumin 25%) 12.5 gm in 50 mls @ 100 mls/hr IV ONETIME ONE Stop: 10/26/17 09:18 Last Admin: 10/26/17 11:42 Dose: Not Given Albumin Human (Flexbumin 25%) 12.5 gm in 50 mls @ 100 mls/hr IV ONETIME ONE Stop: 10/26/17 10:44 Last Admin: 10/26/17 11:33 Dose: 100 mls/hr Albumin Human (Flexbumin 25%) 12.5 gm in 50 mls @ 100 mls/hr IV ONETIME ONE Stop: 10/26/17 11:14 Last Admin: 10/26/17 10:54 Dose: 100 mls/hr Levofloxacin/Dextrose 750 mg/ (Premix) 150 mls @ 100 mls/hr IV ONETIME ONE Stop: 10/26/17 13:30 Last Admin: 10/26/17 13:46 Dose: Not Given Acetaminophen 1,000 mg/ Premix 100 mls @ 400 mls/hr IV NOW ONE Stop: 10/27/17 13:46 Last Admin: 10/27/17 14:02 Dose: 400 mls/hr Acetaminophen 1,000 mg/ Premix 100 mls @ 400 mls/hr IV NOW ONE Stop: 10/27/17 21:37 Last Admin: 10/27/17 21:35 Dose: 400 mls/hr Insulin Aspart (Novolog) 0 unit SUBCUT Q6H [facility]; Protocol Last Admin: 10/25/17 05:50 Dose: Not Given Insulin Glargine (Lantus Solostar) 10 units SUBCUT ONETIME ONE Stop: 10/24/17 12:01 Last Admin: 10/24/17 12:51 Dose: 10 units Insulin Glargine (Lantus Solostar) 38 units SUBCUT BEDTIME [facility] Ketorolac Tromethamine (Toradol) 30 mg IVPUSH ONETIME ONE Stop: 10/27/17 08:33 Last Admin: 10/27/17 12:05 Dose: Not Given Lidocaine HCl (Xylocaine 1%) Confirm Administered Dose 20 ml .ROUTE .STK-MED ONE Stop: 10/26/17 07:25 Metoclopramide HCl (Reglan) 10 mg IVPUSH ONETIME ONE Stop: 10/27/17 08:33 Last Admin: 10/27/17 09:13 Dose: 10 mg Midazolam HCl (Versed 1 Mg/Ml) Confirm Administered Dose 2 mg .ROUTE .STK-MED ONE Stop: 10/26/17 07:19 Morphine Sulfate (Morphine) 4 mg IVPUSH ONETIME ONE Stop: 10/24/17 07:16 Last Admin: 10/24/17 07:42 Dose: Not Given Morphine Sulfate (Morphine) Confirm Administered Dose 4 mg .ROUTE .STK-MED ONE Stop: 10/24/17 07:20 Last Admin: 10/24/17 07:33 Dose: Not Given Morphine Sulfate (Morphine) 4 mg IVPUSH ONETIME ONE Stop: 10/24/17 07:21 Last Admin: 10/24/17 07:33 Dose: 4 mg Morphine Sulfate (Morphine) 2 mg IVPUSH Q2H PRN PRN Reason: Pain (severe 7-10) Stop: 10/25/17 10:42 Last Admin: 10/25/17 09:42 Dose: 2 mg Ondansetron HCl (Zofran) 4 mg IVPUSH ONETIME ONE Stop: 10/24/17 07:16 Last Admin: 10/24/17 07:21 Dose: 4 mg Pantoprazole Sodium (Protonix Iv) 80 mg IVPUSH .BOLUS ONE Stop: 10/24/17 07:41 Last Admin: 10/24/17 07:57 Dose: 80 mg Propofol (Diprivan 20 Ml) Confirm Administered Dose 200 mg .ROUTE .STK-MED ONE Stop: 10/26/17 07:19 Sodium Chloride (Saline Flush) 10 ml FLUSH ASDIRECTED PRN PRN Reason: Keep Vein Open Sodium Chloride (Saline Flush) 2.5 ml FLUSH ASDIRECTED PRN PRN Reason: Keep Vein Open Sumatriptan Succinate (Imitrex) 6 mg SUBCUT ONETIME ONE Stop: 10/27/17 21:25 Last Admin: 10/27/17 22:15 Dose: 6 mg Vancomycin HCl (Pharmacy To Dose - Vancomycin) 0 dose .XX ASDIRECTED [facility] - Exam General: Alert, Oriented, Cooperative, No Acute Distress Neck: Supple Lungs: Clear to Auscultation, Normal Respiratory Effort Cardiovascular: Regular Rate, Regular Rhythm GI/Abdominal Exam: Normal Bowel Sounds, Soft, No Distention, Tender (LLQ). No: Rigid Extremities: Normal Range of Motion, No Pedal Edema Neurological: No New Focal Deficit Psy/Mental Status: Alert, Normal Affect, Normal Mood - Problem List & Annotations (1) Sepsis SNOMED Code(s): 51560800 Code(s): A41.9 - SEPSIS, UNSPECIFIED ORGANISM Status: Acute Current Visit : Yes Qualifiers: Sepsis type: sepsis due to unspecified organism Qualified Code(s): A41.9 - Sepsis, unspecified organism (2) Bacteremia SNOMED Code(s): 2094792 Code(s): R78.81 - BACTEREMIA Status: Acute Current Visit: Yes (3) Diabetic foot ulcer SNOMED Code(s): 262096090 Code(s): E11.621 - TYPE 2 DIABETES MELLITUS WITH FOOT ULCER; L97.509 - NON- PRESSURE CHRONIC ULCER OTH PRT UNSP FOOT W UNSP SEVERITY Status: Acute Priority: High Current Visit: Yes Onset Date: ~10/04/17 Qualifiers: Diabetic foot ulcer location: midfoot Diabetes mellitus type: type 2 Laterality: left Non-pressure ulcer stage: unspecified non-pressure ulcer stage Qualified Code(s): E11.621 - Type 2 diabetes mellitus with foot ulcer; L97.429 - Non-pressure chronic ulcer of left heel and midfoot with unspecified severity (4) GI bleed SNOMED Code(s): 39793443 Code(s): K92.2 - GASTROINTESTINAL HEMORRHAGE, UNSPECIFIED Status: Acute Current Visit: Yes Qualifiers: GI bleed type/associated pathology: unspecified gastrointestinal hemorrhage type Qualified Code(s): K92.2 - Gastrointestinal hemorrhage, unspecified (5) Heme + stool SNOMED Code(s): 51792078, 193393087 Code(s): R19.5 - OTHER FECAL ABNORMALITIES Status: Acute Current Visit: Yes (6) DM type 2 (diabetes mellitus, type 2) SNOMED Code(s): 77381448 Code(s): E11.9 - TYPE 2 DIABETES MELLITUS WITHOUT COMPLICATIONS Status: Chronic Current Visit: Yes Qualifiers: Diabetes mellitus intermediate manager insulin use: with intermediate manager use Diabetes mellitus complication status: with skin complications Diabetes mellitus complication detail: with foot ulcer Qualified Code(s): E11.621 - Type 2 diabetes mellitus with foot ulcer; L97.509 - Non-pressure chronic ulcer of other part of unspecified foot with unspecified severity; Z79.4 - [facility]FP ( current) use of insulin (7) Non compliance w medication regimen SNOMED Code(s): 757010439 Code(s): Z91.14 - PATIENT'S OTHER NONCOMPLIANCE WITH MEDICATION REGIMEN Status: Chronic Current Visit: No (8) Migraine SNOMED Code(s): 78500832 Code(s): G43.909 - MIGRAINE, UNSP, NOT INTRACTABLE, WITHOUT STATUS MIGRAINOSUS Status: Acute Current Visit: Yes - Problem List Review Problem List Initiated/Reviewed/Updated: Yes - My Orders Last 24 Hours: My Active Orders 10/27/17 09:32 Weight bearing status [OM.PC] Routine 10/27/17 10:20 oxyCODONE 5 mg PO Q4H PRN 10/27/17 11:45 CDIFF TOX A+B [OP] Routine CULTURE STOOL + CAMPY+SHIGATOX [RM] Routine 10/27/17 Lunch [place] [Soft Diet] [DIET] 10/29/17 05:11 CBC WITH AUTO DIFF [HEME] AM - Plan Plan:: This 57 year old male admitted with sepsis, bacteremia, diabetic L foot ulcer, and suspected GI bleed 1. MSSA bacteremia with L diabetic foot ulcer: First set of BC revealed MSSA bacteremia, Repeat BC negative x 2 day. Continue Cefazolin 2 gm IV Q8hrs. Initial wound cultures show MSSA along with Alcaligenes species and stenotrophomonas maltophilia both gram neg species sensitive to le[place]qu[place]. Continue Levaquin 750 mg IV daily. Leukocytosisincreased to 16,000 today, but he was given dose of Dexamethasone yesterday for headache. Foot appeared much improved yesterday, will monitor leukocytosisi, elevated likely secondary to Solumedrol. Order PICC line placement placed today, spoke with Dr Feliz. PICC line is needed due to osteomyelitis and the [facility] antibiotics. Remain NWB. Dr Toribio to be here today to reassess foot for further surgical intervention. 2. Upper GI bleed: Hemoccult positive stools. Hgb 10.4. Iron deficiency anemia, Iron added orally. Stools longer black. Continue Protonix 40 mg Q12hr IV and Carafate PO. Follow up outpatient for dual scopes with Dr Reese. 3: NYA: Resolved. 4. DM type 2: Non complaint with medication regimen. A1c 9.3. Continue Novolog SSI TIDAC. BS controlled. Will advance diet to bland this morning per patient request. Lantus 10 units at bedtime. 5. Migraine: Reports this is slightly better, but is very fatigued and wants to just sleep. He feels like he hasn't slept much. GIven Tylenol IV and Imitrex last night which helped. Currently feeling ok. VTE prophylaxis: SCDs only due to GI bleed Dispo: 3 days.
[2017-10-28] MEDS ORDERED: Loperamide 2 MG Cap PO PRN (08:52)
[2017-10-28] MEDS: Lactated Ringers 1,000 ML IV SCH (09:36)
[2017-10-28] MEDS: Pantoprazole 40 MG Vial IV SCH ×2 (11:51→22:13)
[2017-10-28] MEDS: Levofloxacin/Dextrose 5%-Water 750 MG in Premix Bag 1 BAG IV SCH (12:46)
[2017-10-28] MEDS: SUMAtriptan 50 MG Tab PO PRN ×2 (16:39→20:41)
[2017-10-28] MEDS: Morphine 4 MG/ML Syringe IVPUSH PRN (17:02)
[2017-10-28] MEDS: Pregabalin 50 MG Cap PO SCH ×2 (17:03→20:42)
--- NOTE | 2017-10-28 17:24 | US ---
EXAMINATION: Fluoro and ultrasound guided left-sided PICC line placement. HISTORY: Long-term antibiotics. TECHNIQUE/FINDINGS: After written informed consent was obtained from the patient using ultrasound an d Fluoro guidance under aseptic conditions utilizing 1% lidocaine as local anesthesia left basilic ve in was accessed and 5 [place] PICC catheter was noted with its tip in the superior vena cava. The cath eter flushes and withdraws blood well. The catheter is flushed with the diluted heparin. The cathete r secured well. IMPRESSION: 1. Successful Fluoro and ultrasound guided PICC line placement. 2. The PICC line was noted within the SVC however the PICC line is not not demonstrated on the saved image. Follow-up with a portable chest radiograph may be beneficial.
--- NOTE | 2017-10-28 18:10 | PCM.CONSN ---
- General Info Date of Service: 10/28/17 Functional Status: Reports: Pain Controlled - Review of Systems General: Reports: No Symptoms HEENT: Reports: No Symptoms Pulmonary: Reports: No Symptoms Cardiovascular: Reports: No Symptoms Gastrointestinal: Reports: No Symptoms Genitourinary: Reports: No Symptoms Musculoskeletal: Reports: No Symptoms Skin: Reports: No Symptoms Neurological: Reports: No Symptoms Psychiatric: Reports: No Symptoms - Patient Data Vitals - Most Recent: Last Vital Signs Temp 36.3 C 10/28/17 15:35 Pulse 79 10/28/17 15:35 Resp 20 10/28/17 15:35 BP 137/74 10/28/17 15:35 Pulse Ox 97 10/28/17 15:35 Weight - Most Recent: 97.182 kg I&O - Last 24 Hours: Intake & Output 10/28/17 10/28/17 10/28/17 06:59 14:59 22:59 Intake Total 1548 240 Balance 1548 240 Lab Results Last 24 Hours: Laboratory Results - last 24 hr 10/27/17 10/28/17 10/28/17 Range/Units 21:28 04:55 04:55 WBC 16.19 H (4.0-11.0) K/uL RBC 3.60 L (4.50-5.90) M/uL Hgb 10.4 L (13.0-17.0) g/dL Hct 31.4 L (38.0-50.0) % MCV 87.2 (80.0-98.0) fL MCH 28.9 (27.0-32.0) pg MCHC 33.1 (31.0-37.0) g/dL RDW Std Deviation 37.5 (28.0-62.0) fl RDW Coeff of Krunal 12 (11.0-15.0) % Plt Count 425 H (150-400) K/uL MPV 10.10 (7.40-12.00) fL Add Manual Diff YES Neutrophils % (Manual) 86 H (48.0-80.0) % Band Neutrophils % 1 % Lymphocytes % (Manual) 7 L (16.0-40.0) % Monocytes % (Manual) 6 (0.0-15.0) % Absolute Seg Neuts 13.9 H (1.4-5.7) Band Neutrophils # 0.2 Lymphocytes # (Manual) 1.1 (0.6-2.4) Monocytes # (Manual) 1.0 H (0.0-0.8) Sodium 140 (136-148) mmol/L Potassium 3.7 (3.5-5.1) mmol/L Chloride 107 (98-107) mmol/L Carbon Dioxide 25.5 (21.0-32.0) mmol/L BUN 19 H (7.0-18.0) mg/dL Creatinine 1.2 (0.8-1.3) mg/dL Est Cr Clr Drug Dosing 72.34 mL/min Estimated GFR (MDRD) > 60.0 ml/min Glucose 213 H (74-106) mg/dL POC Glucose 231 H (60-110) mg/dL Calcium 7.4 L (8.5-10.1) mg/dL Albumin (3.4-5.0) g/dL 10/28/17 10/28/17 10/28/17 Range/Units 04:55 06:24 11:50 WBC (4.0-11.0) K/uL RBC (4.50-5.90) M/uL Hgb (13.0-17.0) g/dL Hct (38.0-50.0) % MCV (80.0-98.0) fL MCH (27.0-32.0) pg MCHC (31.0-37.0) g/dL RDW Std Deviation (28.0-62.0) fl RDW Coeff of Krunal (11.0-15.0) % Plt Count (150-400) K/uL MPV (7.40-12.00) fL Add Manual Diff Neutrophils % (Manual) (48.0-80.0) % Band Neutrophils % % Lymphocytes % (Manual) (16.0-40.0) % Monocytes % (Manual) (0.0-15.0) % Absolute Seg Neuts (1.4-5.7) Band Neutrophils # Lymphocytes # (Manual) (0.6-2.4) Monocytes # (Manual) (0.0-0.8) Sodium (136-148) mmol/L Potassium (3.5-5.1) mmol/L Chloride (98-107) mmol/L Carbon Dioxide (21.0-32.0) mmol/L BUN (7.0-18.0) mg/dL Creatinine (0.8-1.3) mg/dL Est Cr Clr Drug Dosing mL/min Estimated GFR (MDRD) ml/min Glucose (74-106) mg/dL POC Glucose 203 H 197 H (60-110) mg/dL Calcium (8.5-10.1) mg/dL Albumin 1.9 L (3.4-5.0) g/dL Robert Results Last 24 Hours: Microbiology 10/25/17 11:39 Aerobic Blood Culture - Preliminary Blood - Venous - Lab Draw NO GROWTH AFTER 3 DAYS Anaerobic Blood Culture - Preliminary NO GROWTH AFTER 3 DAYS 10/25/17 11:28 Aerobic Blood Culture - Preliminary Blood - Venous NO GROWTH AFTER 3 DAYS Anaerobic Blood Culture - Preliminary NO GROWTH AFTER 3 DAYS 10/26/17 09:10 Gram Stain - Preliminary Foot, Left Wound Culture - Preliminary Staphylococcus Aureus Anaerobic Culture - Final NO ANAEROBES ISOLATED 10/26/17 08:50 Gram Stain - Preliminary Foot, Left Wound Culture - Preliminary Staphylococcus Aureus Anaerobic Culture - Final NO ANAEROBES ISOLATED 10/27/17 11:45 Campylobacter Antigen Assay - Final Stool / Feces NEGATIVE CAMPYLOBACTER AG - Final NEGATIVE FOR SHIGA TOXIN 1 - Final NEGATIVE FOR SHIGA TOXIN 2 10/24/17 12:15 Wound Culture - Final Foot, Left Staphylococcus Aureus Alcaligenes Species Stenotrophomonas Maltophilia 10/24/17 07:52 Aerobic Blood Culture - Preliminary Blood - Venous - Lab Draw NO GROWTH AFTER 4 DAYS Anaerobic Blood Culture - Final 10/24/17 07:42 Aerobic Blood Culture - Preliminary Blood - Venous NO GROWTH AFTER 4 DAYS Anaerobic Blood Culture - Final Staphylococcus Aureus Med Orders - Current: Current Medications Acetaminophen (Tylenol) 650 mg PO Q6H PRN PRN Reason: Headache/Pain Last Admin: 10/27/17 05:40 Dose: 650 mg Albuterol/Ipratropium (Duoneb 3.0-0.5 Mg/3 Ml) 3 ml NEB Q4HRRT PRN PRN Reason: Shortness Of Breath/wheezing Ferrous Sulfate (Ferrous Sulfate) 325 mg PO TIDMEALS [facility] Last Admin: 10/28/17 16:51 Dose: 325 mg Cefazolin Sodium/Dextrose 2 gm (/ Premix) 50 mls @ 100 mls/hr IV Q8H [facility] Last Admin: 10/28/17 11:52 Dose: 100 mls/hr Levofloxacin/Dextrose 750 mg/ (Premix) 150 mls @ 100 mls/hr IV Q24H [facility] Last Admin: 10/28/17 12:46 Dose: 100 mls/hr Lactated Ringer's (Ringers, Lactated) 1,000 mls @ 100 mls/hr IV ASDIRECTED [facility] Last Admin: 10/28/17 09:36 Dose: 100 mls/hr Insulin Aspart (Novolog) 0 unit SUBCUT TIDAC [facility]; Protocol Last Admin: 10/28/17 16:51 Dose: 2 units Insulin Glargine (Lantus Solostar) 10 units SUBCUT BEDTIME [facility] Last Admin: 10/27/17 21:30 Dose: 10 units Loperamide HCl (Imodium) 0 mg PO ASDIRECTED PRN PRN Reason: Diarrhea Last Admin: 10/28/17 09:36 Dose: 4 mg Metoclopramide HCl (Reglan) 5 mg IVPUSH Q6H PRN PRN Reason: nausea and vomiting Last Admin: 10/25/17 09:29 Dose: 5 mg Morphine Sulfate (Morphine) 4 mg IVPUSH Q4H PRN PRN Reason: Pain Last Admin: 10/28/17 17:02 Dose: 4 mg Oxycodone HCl (Oxycodone) 5 mg PO Q4H PRN PRN Reason: Pain Last Admin: 10/28/17 04:12 Dose: 5 mg Pantoprazole Sodium (Protonix Iv) 40 mg IV Q12H [facility] Last Admin: 10/28/17 11:51 Dose: 40 mg Pregabalin (Lyrica) 50 mg PO BID [facility] Last Admin: 10/28/17 17:03 Dose: 50 mg Sodium Chloride (Saline Flush) 10 ml FLUSH ASDIRECTED PRN PRN Reason: Keep Vein Open Sodium Chloride (Saline Flush) 2.5 ml FLUSH ASDIRECTED PRN PRN Reason: Keep Vein Open Sucralfate (Carafate) 1 gm PO Q6H [facility] Last Admin: 10/28/17 16:51 Dose: 1 gm Sumatriptan Succinate (Imitrex) 50 mg PO Q2H PRN PRN Reason: Headache Last Admin: 10/28/17 16:39 Dose: 50 mg Temazepam (Restoril) 15 mg PO BEDTIME PRN PRN Reason: Sleep Discontinued Medications Bupivacaine HCl (Marcaine 0.5%) Confirm Administered Dose 30 ml .ROUTE .STK-MED ONE Stop: 10/26/17 07:25 Dexamethasone (Dexamethasone) 4 mg IVPUSH ONETIME ONE Stop: 10/27/17 08:38 Last Admin: 10/27/17 09:12 Dose: 4 mg Diphenhydramine HCl (Benadryl) 25 mg IVPUSH ONETIME ONE Stop: 10/27/17 08:33 Last Admin: 10/27/17 09:15 Dose: 25 mg Fentanyl (Sublimaze) Confirm Administered Dose 100 mcg .ROUTE .STK-MED ONE Stop: 10/26/17 07:18 Sodium Chloride (Normal Saline) 1,000 mls @ 999 mls/hr IV .Bolus ONE Stop: 10/24/17 08:08 Last Infusion: 10/24/17 08:22 Dose: Infused Vancomycin HCl 1 gm/ Sodium (Chloride) 250 mls @ 250 mls/hr IV ONETIME ONE Stop: 10/24/17 09:08 Last Admin: 10/24/17 08:14 Dose: 250 mls/hr Sodium Chloride (Normal Saline) 1,000 mls @ 999 mls/hr IV .Bolus ONE Stop: 10/24/17 10:00 Last Infusion: 10/24/17 09:31 Dose: 999 mls/hr Lactated Ringer's (Ringers, Lactated) 1,000 mls @ 150 mls/hr IV ASDIRECTED [facility] Last Admin: 10/27/17 21:15 Dose: 150 mls/hr Piperacillin Sod/Tazobactam (Sod 3.375 gm/ Sodium Chloride) 50 mls @ 100 mls/ hr IV ONETIME ONE Stop: 10/24/17 11:19 Last Admin: 10/24/17 11:08 Dose: 100 mls/hr Vancomycin HCl 500 mg/ Sodium (Chloride) 100 mls @ 100 mls/hr IV ONETIME [facility] Last Admin: 10/24/17 12:11 Dose: 100 mls/hr Vancomycin HCl 1,500 mg/ (Sodium Chloride) 500 mls @ 333.333 mls/hr IV Q24H [facility] Stop: 10/26/17 10:31 Last Admin: 10/26/17 10:42 Dose: Not Given Sodium Chloride (Normal Saline) 1,000 mls @ 999 mls/hr IV ASDIRECTED [facility] Last Admin: 10/24/17 11:09 Dose: 999 mls/hr Piperacillin Sod/Tazobactam (Sod 4.5 gm/ Sodium Chloride) 100 mls @ 100 mls/hr IV Q6H [facility] Last Admin: 10/26/17 05:30 Dose: 100 mls/hr Vancomycin HCl 1,500 mg/ (Sodium Chloride) 500 mls @ 333.333 mls/hr IV Q12H [facility] Albumin Human (Flexbumin 25%) 12.5 gm in 50 mls @ 100 mls/hr IV ONETIME ONE Stop: 10/26/17 09:18 Last Admin: 10/26/17 11:42 Dose: Not Given Albumin Human (Flexbumin 25%) 12.5 gm in 50 mls @ 100 mls/hr IV ONETIME ONE Stop: 10/26/17 10:44 Last Admin: 10/26/17 11:33 Dose: 100 mls/hr Albumin Human (Flexbumin 25%) 12.5 gm in 50 mls @ 100 mls/hr IV ONETIME ONE Stop: 10/26/17 11:14 Last Admin: 10/26/17 10:54 Dose: 100 mls/hr Levofloxacin/Dextrose 750 mg/ (Premix) 150 mls @ 100 mls/hr IV ONETIME ONE Stop: 10/26/17 13:30 Last Admin: 10/26/17 13:46 Dose: Not Given Acetaminophen 1,000 mg/ Premix 100 mls @ 400 mls/hr IV NOW ONE Stop: 10/27/17 13:46 Last Admin: 10/27/17 14:02 Dose: 400 mls/hr Acetaminophen 1,000 mg/ Premix 100 mls @ 400 mls/hr IV NOW ONE Stop: 10/27/17 21:37 Last Admin: 10/27/17 21:35 Dose: 400 mls/hr Insulin Aspart (Novolog) 0 unit SUBCUT Q6H [facility]; Protocol Last Admin: 10/25/17 05:50 Dose: Not Given Insulin Glargine (Lantus Solostar) 10 units SUBCUT ONETIME ONE Stop: 10/24/17 12:01 Last Admin: 10/24/17 12:51 Dose: 10 units Insulin Glargine (Lantus Solostar) 38 units SUBCUT BEDTIME [facility] Ketorolac Tromethamine (Toradol) 30 mg IVPUSH ONETIME ONE Stop: 10/27/17 08:33 Last Admin: 10/27/17 12:05 Dose: Not Given Lidocaine HCl (Xylocaine 1%) Confirm Administered Dose 20 ml .ROUTE .STK-MED ONE Stop: 10/26/17 07:25 Metoclopramide HCl (Reglan) 10 mg IVPUSH ONETIME ONE Stop: 10/27/17 08:33 Last Admin: 10/27/17 09:13 Dose: 10 mg Midazolam HCl (Versed 1 Mg/Ml) Confirm Administered Dose 2 mg .ROUTE .STK-MED ONE Stop: 10/26/17 07:19 Morphine Sulfate (Morphine) 4 mg IVPUSH ONETIME ONE Stop: 10/24/17 07:16 Last Admin: 10/24/17 07:42 Dose: Not Given Morphine Sulfate (Morphine) Confirm Administered Dose 4 mg .ROUTE .STK-MED ONE Stop: 10/24/17 07:20 Last Admin: 10/24/17 07:33 Dose: Not Given Morphine Sulfate (Morphine) 4 mg IVPUSH ONETIME ONE Stop: 10/24/17 07:21 Last Admin: 10/24/17 07:33 Dose: 4 mg Morphine Sulfate (Morphine) 2 mg IVPUSH Q2H PRN PRN Reason: Pain (severe 7-10) Stop: 10/25/17 10:42 Last Admin: 10/25/17 09:42 Dose: 2 mg Ondansetron HCl (Zofran) 4 mg IVPUSH ONETIME ONE Stop: 10/24/17 07:16 Last Admin: 10/24/17 07:21 Dose: 4 mg Pantoprazole Sodium (Protonix Iv) 80 mg IVPUSH .BOLUS ONE Stop: 10/24/17 07:41 Last Admin: 10/24/17 07:57 Dose: 80 mg Propofol (Diprivan 20 Ml) Confirm Administered Dose 200 mg .ROUTE .STK-MED ONE Stop: 10/26/17 07:19 Sodium Chloride (Saline Flush) 10 ml FLUSH ASDIRECTED PRN PRN Reason: Keep Vein Open Sodium Chloride (Saline Flush) 2.5 ml FLUSH ASDIRECTED PRN PRN Reason: Keep Vein Open Sumatriptan Succinate (Imitrex) 6 mg SUBCUT ONETIME ONE Stop: 10/27/17 21:25 Last Admin: 10/27/17 22:15 Dose: 6 mg Vancomycin HCl (Pharmacy To Dose - Vancomycin) 0 dose .XX ASDIRECTED [facility] - Exam Peripheral Pulses: 2+: Posterior Tibial (L), Dorsalis Pedis (L) Skin: Warm Wound/Incisions: Drainage, Erythema Improving Neurological: No New Focal Deficit Psy/Mental Status: Alert, Normal Affect, Normal Mood Physical Findings Comments:: Left foot incision sites remain partially open as intended. Sutures placed in surgery 2 days ago are intact. Drainage is moderate and there is minimal purulence noted. Left 2nd toe is increasingly necrotic in appearance. Consult PN Assessment/Plan POD#: 2 Procedures: Procedures CULTR BACTERIA EXCEPT BLOOD (02/25/16) CULTURE OTHR SPECIMN AEROBIC (02/25/16) EMERGENCY DEPT VISIT (08/22/14) SMEAR GRAM STAIN (02/25/16) THER/PROPH/DIAG INJ SC/IM (08/22/14) TREAT FOOT BONE LESION (02/25/16) X-RAY EXAM OF SHOULDER (08/22/14) 2 days status post incision and drainage of diabetic ulcer left foot (1) Diabetic foot ulcer SNOMED Code(s): 566589135 Code(s): E11.621 - TYPE 2 DIABETES MELLITUS WITH FOOT ULCER; L97.509 - NON- PRESSURE CHRONIC ULCER OT PRT UNSP FOOT W UNSP SEVERITY Priority: High Current Visit: Yes Onset Date: ~10/04/17 Qualifiers: Diabetic foot ulcer location: midfoot Diabetes mellitus type: type 2 Laterality: left Non-pressure ulcer stage: unspecified non-pressure ulcer stage Qualified Code(s): E11.621 - Type 2 diabetes mellitus with foot ulcer; L97.429 - Non-pressure chronic ulcer of left heel and midfoot with unspecified severity Assessment:: Left foot ulcer continues to have purulence, though it is not minimal. The 2nd toe appears more necrotic and non-viable. The ulcer probes and tunnels as it did in surgery to deep tissue. Problem List Initiated/Reviewed/Updated: Yes Plan: 1. Patient scheduled for 2nd incision and drainage of left foot and amputation of left 2nd toe. 2. Continue Antibiotics, now via PICC line. 3. NPO past midnight. 4. Once infection is resolved, patient will need to utilize a wound vac. 5. Plan discussed with Dr. Donovan and Augusta Tatum NP. 6. Will follow.
[2017-10-28] MEDS: Metoclopramide 10 MG/2 ML SDV IVPUSH PRN (18:56)
[2017-10-28] MEDS ORDERED: Albumin 25% 12.5 GM/50 ML BAG IV ONE (20:08)
[2017-10-28] MEDS: Insulin Glargine,Human Rec. Analog 100 Units/ML 3 ML Pen SUBCUT SCH (20:40)
[2017-10-28] MEDS: Temazepam 15 MG Cap PO PRN (20:42)
[2017-10-28] MEDS ORDERED: SUMAtriptan 50 MG Tab ONE (20:50)
[2017-10-29] MEDS: ceFAZolin 2 GM in Premix Bag 1 BAG IV SCH ×3 (03:14→18:22)
[2017-10-29] MEDS: Lactated Ringers 1,000 ML IV SCH (03:14)
[2017-10-29] MEDS: Morphine 4 MG/ML Syringe IVPUSH PRN (03:29)
[2017-10-29 05:46] LABS: CHLORIDE,CL 110 mmol/L (98-107); SODIUM,NA 143 mmol/L (136-148)
[2017-10-29] MEDS: Sucralfate Suspension 1 GM/10 ML Cup PO SCH ×4 (05:46→22:17)
[2017-10-29] MEDS: Insulin Aspart 100 Units/ML 3 ML Pen SUBCUT SCH ×4 (06:31→20:28)
--- NOTE | 2017-10-29 08:03 | PCM.PN ---
- General Info Date of Service: 10/29/17 Admission Dx/Problem (Free Text): diabetic ulcer left foot Subjective Update: Abdominal pain better, no further diarrhea. Having some burning pain to foot intermittently. Reports waxing and waning headache, nothing has seemed to drastically improve it. No chest pain or SOB. Nervous for surgery today for amputation of toe. Functional Status: Reports: Pain Controlled, Tolerating Diet, Ambulating, Urinating - Review of Systems General: Reports: No Symptoms. Denies: Fever, Weakness HEENT: Reports: Headaches (waxes and wanes currently 5/10 to L eye and head. ) Pulmonary: Reports: No Symptoms. Denies: Shortness of Breath Cardiovascular: Reports: No Symptoms. Denies: Chest Pain Gastrointestinal: Reports: No Symptoms. Denies: Abdominal Pain, Diarrhea, Nausea, Vomiting Genitourinary: Reports: No Symptoms. Denies: Dysuria, Frequency, Burning Musculoskeletal: Reports: Foot Pain (L foot pain, burning in nature) Skin: Reports: No Symptoms Neurological: Reports: No Symptoms Psychiatric: Reports: No Symptoms - Patient Data Vitals - Most Recent: Last Vital Signs Temp 97.9 F 10/29/17 04:00 Pulse 81 10/29/17 04:00 Resp 18 10/29/17 04:00 BP 149/86 H 10/29/17 04:00 Pulse Ox 96 10/29/17 04:00 Weight - Most Recent: 97.182 kg I&O - Last 24 Hours: Intake & Output 10/28/17 10/29/17 10/29/17 22:59 06:59 14:59 Intake Total 290 1410 Balance 290 1410 Lab Results Last 24 Hours: Laboratory Results - last 24 hr 10/28/17 10/28/17 10/28/17 Range/Units 04:55 06:24 11:50 WBC (4.0-11.0) K/uL RBC (4.50-5.90) M/uL Hgb (13.0-17.0) g/dL Hct (38.0-50.0) % MCV (80.0-98.0) fL MCH (27.0-32.0) pg MCHC (31.0-37.0) g/dL RDW Std Deviation (28.0-62.0) fl RDW Coeff of Krunal (11.0-15.0) % Plt Count (150-400) K/uL MPV (7.40-12.00) fL Neut % (Auto) (48.0-80.0) % Lymph % (Auto) (16.0-40.0) % Ferry % (Auto) (0.0-15.0) % Eos % (Auto) (0.0-7.0) % Baso % (Auto) (0.0-1.5) % Neut # (Auto) (1.4-5.7) K/uL Lymph # (Auto) (0.6-2.4) K/uL Ferry # (Auto) (0.0-0.8) K/uL Eos # (Auto) (0.0-0.7) K/uL Baso # (Auto) (0.0-0.1) K/uL Nucleated RBC % /100WBC Nucleated RBCs # K/uL Sodium (136-148) mmol/L Potassium (3.5-5.1) mmol/L Chloride (98-107) mmol/L Carbon Dioxide (21.0-32.0) mmol/L BUN (7.0-18.0) mg/dL Creatinine (0.8-1.3) mg/dL Est Cr Clr Drug Dosing mL/min Estimated GFR (MDRD) ml/min Glucose (74-106) mg/dL POC Glucose 203 H 197 H (60-110) mg/dL Calcium (8.5-10.1) mg/dL Albumin 1.9 L (3.4-5.0) g/dL 10/28/17 10/28/17 10/29/17 Range/Units 16:33 20:38 00:23 WBC (4.0-11.0) K/uL RBC (4.50-5.90) M/uL Hgb (13.0-17.0) g/dL Hct (38.0-50.0) % MCV (80.0-98.0) fL MCH (27.0-32.0) pg MCHC (31.0-37.0) g/dL RDW Std Deviation (28.0-62.0) fl RDW Coeff of Krunal (11.0-15.0) % Plt Count (150-400) K/uL MPV (7.40-12.00) fL Neut % (Auto) (48.0-80.0) % Lymph % (Auto) (16.0-40.0) % Ferry % (Auto) (0.0-15.0) % Eos % (Auto) (0.0-7.0) % Baso % (Auto) (0.0-1.5) % Neut # (Auto) (1.4-5.7) K/uL Lymph # (Auto) (0.6-2.4) K/uL Ferry # (Auto) (0.0-0.8) K/uL Eos # (Auto) (0.0-0.7) K/uL Baso # (Auto) (0.0-0.1) K/uL Nucleated RBC % /100WBC Nucleated RBCs # K/uL Sodium (136-148) mmol/L Potassium (3.5-5.1) mmol/L Chloride (98-107) mmol/L Carbon Dioxide (21.0-32.0) mmol/L BUN (7.0-18.0) mg/dL Creatinine (0.8-1.3) mg/dL Est Cr Clr Drug Dosing mL/min Estimated GFR (MDRD) ml/min Glucose (74-106) mg/dL POC Glucose 181 H 154 H 135 H (60-110) mg/dL Calcium (8.5-10.1) mg/dL Albumin (3.4-5.0) g/dL 10/29/17 10/29/17 10/29/17 Range/Units 05:00 05:00 05:48 WBC 7.49 (4.0-11.0) K/uL RBC 3.16 L (4.50-5.90) M/uL Hgb 9.0 L (13.0-17.0) g/dL Hct 26.7 L (38.0-50.0) % MCV 84.5 (80.0-98.0) fL MCH 28.5 (27.0-32.0) pg MCHC 33.7 (31.0-37.0) g/dL RDW Std Deviation 39.9 (28.0-62.0) fl RDW Coeff of Krunal 13 (11.0-15.0) % Plt Count 293 (150-400) K/uL MPV 8.90 (7.40-12.00) fL Neut % (Auto) 67.0 (48.0-80.0) % Lymph % (Auto) 21.9 (16.0-40.0) % Ferry % (Auto) 6.1 (0.0-15.0) % Eos % (Auto) 4.9 (0.0-7.0) % Baso % (Auto) 0.1 (0.0-1.5) % Neut # (Auto) 5.0 (1.4-5.7) K/uL Lymph # (Auto) 1.6 (0.6-2.4) K/uL Ferry # (Auto) 0.5 (0.0-0.8) K/uL Eos # (Auto) 0.4 (0.0-0.7) K/uL Baso # (Auto) 0.0 (0.0-0.1) K/uL Nucleated RBC % 0.0 /100WBC Nucleated RBCs # 0 K/uL Sodium 143 (136-148) mmol/L Potassium 3.3 L (3.5-5.1) mmol/L Chloride 110 H (98-107) mmol/L Carbon Dioxide 25.8 (21.0-32.0) mmol/L BUN 15 (7.0-18.0) mg/dL Creatinine 1.2 (0.8-1.3) mg/dL Est Cr Clr Drug Dosing 72.34 mL/min Estimated GFR (MDRD) > 60.0 ml/min Glucose 117 H (74-106) mg/dL POC Glucose 108 (60-110) mg/dL Calcium 7.2 L (8.5-10.1) mg/dL Albumin (3.4-5.0) g/dL Robert Results Last 24 Hours: Microbiology 10/24/17 07:52 Aerobic Blood Culture - Final Blood - Venous - Lab Draw NO GROWTH AFTER 5 DAYS Anaerobic Blood Culture - Final 10/24/17 07:42 Aerobic Blood Culture - Final Blood - Venous NO GROWTH AFTER 5 DAYS Anaerobic Blood Culture - Final Staphylococcus Aureus 10/25/17 11:39 Aerobic Blood Culture - Preliminary Blood - Venous - Lab Draw NO GROWTH AFTER 3 DAYS Anaerobic Blood Culture - Preliminary NO GROWTH AFTER 3 DAYS 10/25/17 11:28 Aerobic Blood Culture - Preliminary Blood - Venous NO GROWTH AFTER 3 DAYS Anaerobic Blood Culture - Preliminary NO GROWTH AFTER 3 DAYS 10/26/17 09:10 Gram Stain - Preliminary Foot, Left Wound Culture - Preliminary Staphylococcus Aureus Anaerobic Culture - Final NO ANAEROBES ISOLATED 10/26/17 08:50 Gram Stain - Preliminary Foot, Left Wound Culture - Preliminary Staphylococcus Aureus Anaerobic Culture - Final NO ANAEROBES ISOLATED 10/27/17 11:45 Campylobacter Antigen Assay - Final Stool / Feces NEGATIVE CAMPYLOBACTER AG - Final NEGATIVE FOR SHIGA TOXIN 1 - Final NEGATIVE FOR SHIGA TOXIN 2 10/24/17 12:15 Wound Culture - Final Foot, Left Staphylococcus Aureus Alcaligenes Species Stenotrophomonas Maltophilia Med Orders - Current: Current Medications Acetaminophen (Tylenol) 650 mg PO Q6H PRN PRN Reason: Headache/Pain Last Admin: 10/27/17 05:40 Dose: 650 mg Albuterol/Ipratropium (Duoneb 3.0-0.5 Mg/3 Ml) 3 ml NEB Q4HRRT PRN PRN Reason: Shortness Of Breath/wheezing Ferrous Sulfate (Ferrous Sulfate) 325 mg PO TIDMEALS [facility] Last Admin: 10/28/17 16:51 Dose: 325 mg Cefazolin Sodium/Dextrose 2 gm (/ Premix) 50 mls @ 100 mls/hr IV Q8H [facility] Last Admin: 10/29/17 03:14 Dose: 100 mls/hr Levofloxacin/Dextrose 750 mg/ (Premix) 150 mls @ 100 mls/hr IV Q24H [facility] Last Admin: 10/28/17 12:46 Dose: 100 mls/hr Lactated Ringer's (Ringers, Lactated) 1,000 mls @ 100 mls/hr IV ASDIRECTED [facility] Last Admin: 10/29/17 03:14 Dose: 100 mls/hr Insulin Aspart (Novolog) 0 unit SUBCUT TIDAC [facility]; Protocol Last Admin: 10/29/17 06:31 Dose: Not Given Insulin Glargine (Lantus Solostar) 10 units SUBCUT BEDTIME [facility] Last Admin: 10/28/17 20:40 Dose: 10 units Loperamide HCl (Imodium) 0 mg PO ASDIRECTED PRN PRN Reason: Diarrhea Last Admin: 10/28/17 09:36 Dose: 4 mg Metoclopramide HCl (Reglan) 5 mg IVPUSH Q6H PRN PRN Reason: nausea and vomiting Last Admin: 10/28/17 18:56 Dose: 5 mg Morphine Sulfate (Morphine) 4 mg IVPUSH Q4H PRN PRN Reason: Pain Last Admin: 10/29/17 03:29 Dose: 4 mg Oxycodone HCl (Oxycodone) 5 mg PO Q4H PRN PRN Reason: Pain Last Admin: 10/28/17 20:42 Dose: 5 mg Pantoprazole Sodium (Protonix Iv) 40 mg IV Q12H [facility] Last Admin: 10/28/17 22:13 Dose: 40 mg Pregabalin (Lyrica) 50 mg PO BID [facility] Last Admin: 10/28/17 20:42 Dose: 50 mg Sodium Chloride (Saline Flush) 10 ml FLUSH ASDIRECTED PRN PRN Reason: Keep Vein Open Sodium Chloride (Saline Flush) 2.5 ml FLUSH ASDIRECTED PRN PRN Reason: Keep Vein Open Sucralfate (Carafate) 1 gm PO Q6H [facility] Last Admin: 10/29/17 05:46 Dose: 1 gm Temazepam (Restoril) 15 mg PO BEDTIME PRN PRN Reason: Sleep Last Admin: 10/28/17 20:42 Dose: 15 mg Discontinued Medications Bupivacaine HCl (Marcaine 0.5%) Confirm Administered Dose 30 ml .ROUTE .STK-MED ONE Stop: 10/26/17 07:25 Dexamethasone (Dexamethasone) 4 mg IVPUSH ONETIME ONE Stop: 10/27/17 08:38 Last Admin: 10/27/17 09:12 Dose: 4 mg Diphenhydramine HCl (Benadryl) 25 mg IVPUSH ONETIME ONE Stop: 10/27/17 08:33 Last Admin: 10/27/17 09:15 Dose: 25 mg Fentanyl (Sublimaze) Confirm Administered Dose 100 mcg .ROUTE .STK-MED ONE Stop: 10/26/17 07:18 Sodium Chloride (Normal Saline) 1,000 mls @ 999 mls/hr IV .Bolus ONE Stop: 10/24/17 08:08 Last Infusion: 10/24/17 08:22 Dose: Infused Vancomycin HCl 1 gm/ Sodium (Chloride) 250 mls @ 250 mls/hr IV ONETIME ONE Stop: 10/24/17 09:08 Last Admin: 10/24/17 08:14 Dose: 250 mls/hr Sodium Chloride (Normal Saline) 1,000 mls @ 999 mls/hr IV .Bolus ONE Stop: 10/24/17 10:00 Last Infusion: 10/24/17 09:31 Dose: 999 mls/hr Lactated Ringer's (Ringers, Lactated) 1,000 mls @ 150 mls/hr IV ASDIRECTED [facility] Last Admin: 10/27/17 21:15 Dose: 150 mls/hr Piperacillin Sod/Tazobactam (Sod 3.375 gm/ Sodium Chloride) 50 mls @ 100 mls/ hr IV ONETIME ONE Stop: 10/24/17 11:19 Last Admin: 10/24/17 11:08 Dose: 100 mls/hr Vancomycin HCl 500 mg/ Sodium (Chloride) 100 mls @ 100 mls/hr IV ONETIME [facility] Last Admin: 10/24/17 12:11 Dose: 100 mls/hr Vancomycin HCl 1,500 mg/ (Sodium Chloride) 500 mls @ 333.333 mls/hr IV Q24H [facility] Stop: 10/26/17 10:31 Last Admin: 10/26/17 10:42 Dose: Not Given Sodium Chloride (Normal Saline) 1,000 mls @ 999 mls/hr IV ASDIRECTED [facility] Last Admin: 10/24/17 11:09 Dose: 999 mls/hr Piperacillin Sod/Tazobactam (Sod 4.5 gm/ Sodium Chloride) 100 mls @ 100 mls/hr IV Q6H [facility] Last Admin: 10/26/17 05:30 Dose: 100 mls/hr Vancomycin HCl 1,500 mg/ (Sodium Chloride) 500 mls @ 333.333 mls/hr IV Q12H [facility] Albumin Human (Flexbumin 25%) 12.5 gm in 50 mls @ 100 mls/hr IV ONETIME ONE Stop: 10/26/17 09:18 Last Admin: 10/26/17 11:42 Dose: Not Given Albumin Human (Flexbumin 25%) 12.5 gm in 50 mls @ 100 mls/hr IV ONETIME ONE Stop: 10/26/17 10:44 Last Admin: 10/26/17 11:33 Dose: 100 mls/hr Albumin Human (Flexbumin 25%) 12.5 gm in 50 mls @ 100 mls/hr IV ONETIME ONE Stop: 10/26/17 11:14 Last Admin: 10/26/17 10:54 Dose: 100 mls/hr Levofloxacin/Dextrose 750 mg/ (Premix) 150 mls @ 100 mls/hr IV ONETIME ONE Stop: 10/26/17 13:30 Last Admin: 10/26/17 13:46 Dose: Not Given Acetaminophen 1,000 mg/ Premix 100 mls @ 400 mls/hr IV NOW ONE Stop: 10/27/17 13:46 Last Admin: 10/27/17 14:02 Dose: 400 mls/hr Acetaminophen 1,000 mg/ Premix 100 mls @ 400 mls/hr IV NOW ONE Stop: 10/27/17 21:37 Last Admin: 10/27/17 21:35 Dose: 400 mls/hr Albumin Human (Flexbumin 25%) 12.5 gm in 50 mls @ 100 mls/hr IV ONETIME ONE Stop: 10/28/17 20:37 Last Admin: 10/28/17 21:06 Dose: 100 mls/hr Insulin Aspart (Novolog) 0 unit SUBCUT Q6H [facility]; Protocol Last Admin: 10/25/17 05:50 Dose: Not Given Insulin Glargine (Lantus Solostar) 10 units SUBCUT ONETIME ONE Stop: 10/24/17 12:01 Last Admin: 10/24/17 12:51 Dose: 10 units Insulin Glargine (Lantus Solostar) 38 units SUBCUT BEDTIME [facility] Ketorolac Tromethamine (Toradol) 30 mg IVPUSH ONETIME ONE Stop: 10/27/17 08:33 Last Admin: 10/27/17 12:05 Dose: Not Given Lidocaine HCl (Xylocaine 1%) Confirm Administered Dose 20 ml .ROUTE .STK-MED ONE Stop: 10/26/17 07:25 Metoclopramide HCl (Reglan) 10 mg IVPUSH ONETIME ONE Stop: 10/27/17 08:33 Last Admin: 10/27/17 09:13 Dose: 10 mg Midazolam HCl (Versed 1 Mg/Ml) Confirm Administered Dose 2 mg .ROUTE .STK-MED ONE Stop: 10/26/17 07:19 Morphine Sulfate (Morphine) 4 mg IVPUSH ONETIME ONE Stop: 10/24/17 07:16 Last Admin: 10/24/17 07:42 Dose: Not Given Morphine Sulfate (Morphine) Confirm Administered Dose 4 mg .ROUTE .STK-MED ONE Stop: 10/24/17 07:20 Last Admin: 10/24/17 07:33 Dose: Not Given Morphine Sulfate (Morphine) 4 mg IVPUSH ONETIME ONE Stop: 10/24/17 07:21 Last Admin: 10/24/17 07:33 Dose: 4 mg Morphine Sulfate (Morphine) 2 mg IVPUSH Q2H PRN PRN Reason: Pain (severe 7-10) Stop: 10/25/17 10:42 Last Admin: 10/25/17 09:42 Dose: 2 mg Ondansetron HCl (Zofran) 4 mg IVPUSH ONETIME ONE Stop: 10/24/17 07:16 Last Admin: 10/24/17 07:21 Dose: 4 mg Pantoprazole Sodium (Protonix Iv) 80 mg IVPUSH .BOLUS ONE Stop: 10/24/17 07:41 Last Admin: 10/24/17 07:57 Dose: 80 mg Propofol (Diprivan 20 Ml) Confirm Administered Dose 200 mg .ROUTE .STK-MED ONE Stop: 10/26/17 07:19 Sodium Chloride (Saline Flush) 10 ml FLUSH ASDIRECTED PRN PRN Reason: Keep Vein Open Sodium Chloride (Saline Flush) 2.5 ml FLUSH ASDIRECTED PRN PRN Reason: Keep Vein Open Sumatriptan Succinate (Imitrex) 6 mg SUBCUT ONETIME ONE Stop: 10/27/17 21:25 Last Admin: 10/27/17 22:15 Dose: 6 mg Sumatriptan Succinate (Imitrex) 50 mg PO Q2H PRN PRN Reason: Headache Last Admin: 10/28/17 20:41 Dose: 50 mg Sumatriptan Succinate (Imitrex) Confirm Administered Dose 50 mg .ROUTE .STK-MED ONE Stop: 10/28/17 20:51 Last Admin: 10/28/17 21:10 Dose: Not Given Vancomycin HCl (Pharmacy To Dose - Vancomycin) 0 dose .XX ASDIRECTED [facility] - Exam General: Alert, Oriented, Cooperative, No Acute Distress Neck: Supple, Other (no nuchal rigidity, no neck pain no blurred vision.) Lungs: Clear to Auscultation, Normal Respiratory Effort Cardiovascular: Regular Rate, Regular Rhythm, No Murmurs GI/Abdominal Exam: Normal Bowel Sounds, Soft, Non-Tender Back Exam: Normal Inspection, Full Range of Motion Extremities: Normal Range of Motion, Non-Tender, No Pedal Edema Wound/Incisions: Dressing Dry and Intact (to L foot.) Neurological: No New Focal Deficit Psy/Mental Status: Alert, Normal Affect, Normal Mood - Problem List & Annotations (1) MSSA bacteremia SNOMED Code(s): 087917905, 702642792 Code(s): R78.81 - BACTEREMIA Status: Acute Current Visit: Yes (2) Diabetic foot ulcer SNOMED Code(s): 692704324 Code(s): E11.621 - TYPE 2 DIABETES MELLITUS WITH FOOT ULCER; L97.509 - NON- PRESSURE CHRONIC ULCER OTH PRT UNSP FOOT W UNSP SEVERITY Status: Acute Priority: High Current Visit: Yes Onset Date: ~10/04/17 Qualifiers: Diabetic foot ulcer location: midfoot Diabetes mellitus type: type 2 Laterality: left Non-pressure ulcer stage: with bone involvement without evidence of necrosis Qualified Code(s): E11.621 - Type 2 diabetes mellitus with foot ulcer; L97.426 - Non-pressure chronic ulcer of left heel and midfoot with bone involvement without evidence of necrosis (3) GI bleed SNOMED Code(s): 30427972 Code(s): K92.2 - GASTROINTESTINAL HEMORRHAGE, UNSPECIFIED Status: Resolved Current Visit: Yes Qualifiers: GI bleed type/associated pathology: unspecified gastrointestinal hemorrhage type Qualified Code(s): K92.2 - Gastrointestinal hemorrhage, unspecified (4) Heme + stool SNOMED Code(s): 39246246, 977391612 Code(s): R19.5 - OTHER FECAL ABNORMALITIES Status: Acute Current Visit: Yes (5) DM type 2 (diabetes mellitus, type 2) SNOMED Code(s): 96899745 Code(s): E11.9 - TYPE 2 DIABETES MELLITUS WITHOUT COMPLICATIONS Status: Chronic Current Visit: Yes Qualifiers: Diabetes mellitus assisted insulin use: with assisted use Diabetes mellitus complication status: with skin complications Diabetes mellitus complication detail: with foot ulcer Qualified Code(s): E11.621 - Type 2 diabetes mellitus with foot ulcer; L97.509 - Non-pressure chronic ulcer of other part of unspecified foot with unspecified severity; Z79.4 - ferry terminal agent ( current) use of insulin (6) Non compliance w medication regimen SNOMED Code(s): 777518517 Code(s): Z91.14 - PATIENT'S OTHER NONCOMPLIANCE WITH MEDICATION REGIMEN Status: Chronic Current Visit: No (7) Migraine SNOMED Code(s): 62320248 Code(s): G43.909 - MIGRAINE, UNSP, NOT INTRACTABLE, WITHOUT STATUS MIGRAINOSUS Status: Acute Current Visit: Yes (8) Sepsis SNOMED Code(s): 08207747 Code(s): A41.9 - SEPSIS, UNSPECIFIED ORGANISM Status: Resolved Current Visit: Yes Qualifiers: Sepsis type: sepsis due to unspecified organism Qualified Code(s): A41.9 - Sepsis, unspecified organism - Problem List Review Problem List Initiated/Reviewed/Updated: Yes - My Orders Last 24 Hours: My Active Orders 10/28/17 08:52 Loperamide [Imodium] See Dose Instructions PO ASDIRECTED PRN 10/28/17 08:59 Lactated Ringers [Ringers, Lactated] 1,000 ml IV ASDIRECTED 10/28/17 17:00 Pregabalin [Lyrica] 50 mg PO BID 10/28/17 Dinner NPO After Midnight [Nothing per Oral After Midnight Diet] [DIET] 10/29/17 08:00 MAGNESIUM [CHEM] Routine - Plan Plan:: This 57 year old male admitted with sepsis, bacteremia, diabetic L foot ulcer, and suspected GI bleed 1. MSSA bacteremia: Improving. First set of BC revealed MSSA bacteremia, Repeat BC negative x 3 day. Continue Cefazolin 2 gm IV Q8hrs. Leukocytosis resolved. PICC line placement placed yesterday, spoke with Dr Feliz. 2. Infected L diabetic foot ulcer: Back to OR today with Dr Toribio for more debridement and amputation of L 2nd toe. Continue Cefazolin and Levaquin. Initial wound cultures show MSSA along with Alcaligenes species and stenotrophomonas maltophilia both gram neg species sensitive to Levaquin. Wound culture from OR reveal MSSA plus one gram neg species, ROBERT still pending. Remain NWB. 3. Upper GI bleed: Hemoccult positive stools. Hgb 9.0. Iron deficiency anemia, Iron added orally. Continue Protonix 40 mg Q12hr IV and Carafate PO. Follow up outpatient for dual scopes with Dr Reese. 4. DM type 2: Non complaint with medication regimen. A1c 9.3. Continue Novolog SSI TIDAC. BS controlled. Will advance diet to bland this morning per patient request. Lantus 10 units at bedtime. 5. Migraine: Reports this is slightly better, but it waxes and wanes. Nothing seems to help much. Continues to complaint of not sleeping well. VTE prophylaxis: SCDs only due to GI bleed Dispo: 3 days.
[2017-10-29] MEDS ORDERED: Potassium Chloride 20 MEQ Tab.ER PO ONE (08:47)
[2017-10-29] MEDS: Ferrous Sulfate 325 MG Tab PO SCH ×3 (09:25→18:22)
[2017-10-29] MEDS ORDERED: Sodium Chloride 0.9% with KCl 500 ML IV SCH (10:00)
[2017-10-29] MEDS ORDERED: Magnesium Sulfate 2 GM, Potassium Chloride 40 MEQ in Sodium Chloride 0.9% 500 ML IV SCH (10:02)
[2017-10-29] MEDS ORDERED: ceFAZolin 1 GM Vial ONE (10:08)
[2017-10-29] MEDS ORDERED: Bupivacaine 0.5% 30 ML SDV ONE (10:09)
[2017-10-29] MEDS ORDERED: Lidocaine 1% 20 ML MDV ONE (10:09)
[2017-10-29] MEDS ORDERED: SUMAtriptan 6 MG/0.5 ML SDV SUBCUT ONE (10:27)
[2017-10-29] MEDS: Pregabalin 50 MG Cap PO SCH ×2 (10:33→20:24)
[2017-10-29] MEDS: Pantoprazole 40 MG Vial IV SCH ×2 (10:33→22:17)
[2017-10-29] MEDS ORDERED: Dexamethasone 10 MG/ML SDV IVPUSH ONE (10:35)
[2017-10-29] MEDS ORDERED: Metoclopramide 10 MG/2 ML SDV IVPUSH ONE (10:36)
[2017-10-29] MEDS: Levofloxacin/Dextrose 5%-Water 750 MG in Premix Bag 1 BAG IV SCH (12:02)
[2017-10-29] MEDS ORDERED: Albumin 25% 12.5 GM/50 ML BAG IV ONE ×2 (12:30→13:00)
[2017-10-29] MEDS ORDERED: Midazolam 1 MG/ML 2 ML SDV ONE (13:06)
[2017-10-29] MEDS ORDERED: fentaNYL 250 MCG/5 ML SDV ONE (13:06)
[2017-10-29] MEDS ORDERED: Propofol 200 MG/20 ML SDV ONE ×2 (13:06→14:48)
[2017-10-29] MEDS ORDERED: fentaNYL 100 MCG/2 ML SDV ONE (13:06)
[2017-10-29] MEDS ORDERED: Lidocaine 2% 5 ML SDV ONE (13:06)
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
[2017-10-29] MEDS ORDERED: ePHEDrine 50 MG/ML SDV ONE (13:57)
[2017-10-29] MEDS ORDERED: fentaNYL 100 MCG/2 ML SDV IVPUSH PRN (14:02)
--- NOTE | 2017-10-29 16:30 | PN ---
DATE OF SURGERY: 10/29/2017 SURGEON: Indio Toribio DPM PREOPERATIVE DIAGNOSES: 1. Gangrenous second toe, left foot. 2. Infected diabetic ulcer, left foot. PLANNED PROCEDURES: 1. Amputation second toe, left foot. 2. Incision and drainage of infected ulcer, left foot. ANESTHESIA: General ALLERGIES: The patient has no known allergies. In addition to the diabetic foot ulcer, patient is here for resolved GI bleed and resolved sepsis, bacteremia, heme in the stool, kidney insufficiency, migraine headaches, and methicillin sensitive Staph aureus bacteremia. CURRENT MEDICATIONS: 1. Acetaminophen 650 mg p.o. q.6 h. p.r.n. headache/pain. 2. Albumin Human 12.5 g in 50 mL at 100 mL/hour IV, given earlier today 1 time. 3. Albuterol/ipratropium 3 mL nebulizer every 4 hours for shortness of breath. 4. Cefazolin sodium/dextrose 2 g in a mixture of 50 mL at 100 mL/hour IV q.8 h. 5. Ferrous sulfate 325 mg p.o. t.i.d. 6. NovoLog, was not given at the last check earlier today. 7. Lantus SoloSTAR 10 units subcutaneously at bedtime. 8. Levofloxacin/dextrose 750 mg in premix 150 mL at 100 mL/hour IV every 24 hours. 9. Imodium as needed for diarrhea. 10.Magnesium sulfate 2 g with potassium chloride 40 mEq given earlier today. 11.Reglan 5 mg IV push q.6 h. as needed for nausea. 12.Morphine sulfate 4 mg IV push every 4 hours as needed for pain. 13.Oxycodone 5 mg p.o. q.4 h. p.r.n. pain. 14.Protonix 40 mg IV q.12 h. 15.Lyrica 50 mg p.o. b.i.d. 16.Restoril 15 mg p.o. bedtime as needed for sleep. LATEST LABS: White blood cells 7.49, red blood cells 3.16, hemoglobin 9.0, hematocrit 26.7, platelets 293. Sodium 143, potassium 3.3, chloride 110, CO2 of 25.8, BUN 15, creatinine 1.2, glucose 117. Albumin was 1.7. The patient has been cleared for surgery by Dr. Ferro. All patient questions answered. Consent has been signed. No guarantees given or implied. The patient to proceed with surgical amputation of left 2nd toe. Incision and drainage today is 3 days after original incision and drainage. LESLIE FRANCIS /[id number] MTDD
--- NOTE | 2017-10-29 16:36 | PCM.OPNOTE ---
- General Post-Op/Procedure Note Date of Surgery/Procedure: 10/29/17 Operative Procedure(s): 1. amputation second toe left foot. 2. incision and drainage left foot ulcer Findings: consistent with diagnosis Pre Op Diagnosis: 1. gangrene left second toe. 2. diabetic ulcer left foot Post-Op Diagnosis: 1. gangrene left second toe. 2. diabetic ulcer left foot Anesthesia Technique: General LMA Primary Surgeon: Indio Toribio Anesthesia Provider: Mike Miranda Pathology: second toe left foot in toto swab cultures taken bone biopsy of 2nd metatarsal head left foot EBL in mLs: 40 Complications: none Condition: Stable Free Text/Narrative:: Intake & Output 10/29/17 10/29/17 10/29/17 06:59 14:59 22:59 Intake Total 1410 400 Balance 1410 400 injectables: none materials: 2-0 vicryl, 2-0 nylon, 1 " iodoform packing
--- NOTE | 2017-10-29 17:26 | PCM48HPAN ---
Post Anesthesia Note - EVALUATION WITHIN 48HRS OF ANESTHETIC Vital Signs in Normal Range: Yes Respiratory Function Stable: Yes Airway Patent: Yes Cardiovascular Function Stable: Yes Hydration Status Stable: Yes Pain Control Satisfactory: Yes Nausea and Vomiting Control Satisfactory: Yes Mental Status Recovered: Yes Resp Rate: 13
[2017-10-29] MEDS: Insulin Glargine,Human Rec. Analog 100 Units/ML 3 ML Pen SUBCUT SCH (20:27)
--- NOTE | 2017-10-30 00:27 | OR ---
SURGEON: Indio Toribio DPM DATE OF PROCEDURE: 10/29/2017 IDENTIFICATION: The patient is a 57-year-old male. PREOPERATIVE DIAGNOSES: 1. Gangrene, 2nd toe, left foot. 2. Diabetic ulcer, left foot. POSTOPERATIVE DIAGNOSES: 1. Gangrene, 2nd toe, left foot. 2. Diabetic ulcer, left foot. OPERATIVE PROCEDURE: 1. Amputation, 2nd toe, left foot. 2. Incision and drainage, diabetic ulcer, left foot. ANESTHESIA: General. HEMOSTASIS: None. ESTIMATED BLOOD LOSS: 40 mL. MATERIALS: 2-0 Vicryl, 2-0 nylon, 1-inch iodoform packing. INJECTABLES: None. PATHOLOGY: 1. Second toe, left foot, submitted in toto. 2. Bone biopsy, 2nd metatarsal head, left foot. MICROBIOLOGY: Swab cultures were taken at the conclusion of the procedure. JUSTIFICATION FOR PROCEDURE: The patient was admitted to the hospital 5 days ago with upper GI bleed and associated symptoms as well as a severe and worsening infected diabetic ulcer, left foot, with significant cellulitis of the left foot. Prior to that, a week earlier, the patient had presented to my office after not having followed up with me for approximately 1-1/2 years, at which time I removed a piece of glass from his left foot plantar aspect, flushed out his ulcer, took swab culture, placed him on oral antibiotics and told him if conditions worsen, he must be seen in the emergency room and be admitted, and that is exactly what has happened. The patient also has a long history of noncompliance, failure to take his medications consistently, failure to followup with healthcare providers including myself. The patient underwent an incision and drainage three days earlier by me, and followup incision and drainage along with amputation of the now necrotic gangrenous 2nd toe of the left foot is required. The patient understands the need for surgery. Everything has been explained. All questions have been answered. No guarantees expressed or implied. Consent form has been signed. Additional surgery may be necessary, the patient understands this as well. DESCRIPTION OF PROCEDURE: Procedure #1: Amputation 2nd toe, left foot. The patient was brought to the operating room, placed on the operating table in a supine position. Anesthesia was induced. An aseptic scrub and drape was performed about the patient's left lower extremity. An above ankle pneumatic tourniquet was placed, however, was not inflated as it was not necessary during the procedures. A racket mouth-type incision was made about the left 2nd toe after being planned with a marking pen, deepened to the level of bone, and the left 2nd toe was disarticulated at the 2nd metatarsophalangeal joint location. The area was flushed with normal sterile saline. Procedure #2: Incision and drainage, infected diabetic ulcer, left foot. Utilizing the opening created from the amputation performed in procedure #1, purulence was exsanguinated from the opening in the left foot and significant amount of necrotic tissue was identified and removed from the area of what had been the 2nd metatarsophalangeal joint of the left foot. Sutures that had temporarily held the skin and soft tissue together on the plantar aspect of the foot from prior incision and drainage three days ago were removed, and the area was again flushed out and necrotic tissue removed, although there was a very small amount of necrotic tissue noted on the plantar aspect. The skin quality and tissue quality are considered very poor overall. Additional probing was done to look for any pockets of pus. No further pockets were identified. However, small additional mild necrotic tissue was and it was removed with sharp dissection. The extensor and flexor tendons that had extended to the 2nd toe were transected over the distal portion of the 2nd metatarsal. The 2nd metatarsal head having been exposed by the amputation and by the loss of skin and tissue due to the infection was then sampled with a bone rongeur on the medial and lateral sides, and only small amounts of metatarsal head were then placed in a sterile specimen container for gross and histologic evaluation and culture if possible by pathology and microbiology. The entire area was flushed with a total of 3 L of normal sterile saline and reapproximation of deep subcutaneous and superficial skin levels on the plantar aspect of the foot were performed using Vicryl for the deep and subcutaneous tissue and using nylon for the superficial skin, both 2-0 Vicryl and 2-0 nylon were used. An area on the plantar aspect in the center of the foot where there is no viable skin was packed with 1-inch iodoform packing. On the dorsal aspect of the foot, at the location of the 2nd metatarsal head surrounding tissue, no closure was possible, only one 2-0 nylon suture was utilized at the most proximal aspect of the incision to reapproximate some viable skin, however, there was no viable skin and soft tissue allowing closure distal to that, and the entire area was packed with 1-inch iodoform packing, and the plantar and dorsal aspects of foot were then covered with 4x4, fluff gauze, Kerlix roll, and secured with an Reanldo bandage. Prior to applying the Renaldo bandage, x-ray was taken to document the removal of the 2nd toe of the left foot. I have communicated the results of surgery with Dr. Ferro and will be placing wound care orders for any days that I am not able to follow the patient. The patient is to remain in-house and I will see patient and perform dressing change tomorrow The patient will remain on IV antibiotics. Further amputation may be necessary. Pending microbiology and pathology results , the patient will be a candidate for a wound VAC early next week and if not, the patient may require either additional resection of the 2nd metatarsal bone or possibly a transmetatarsal amputation depending on progress. LESLIE / TITO /[id number] MTDDaniel
[2017-10-30] MEDS: ceFAZolin 2 GM in Premix Bag 1 BAG IV SCH ×3 (01:55→17:45)
[2017-10-30] MEDS: oxyCODONE 5 MG Tab PO PRN (01:55)
[2017-10-30] MEDS: Lactated Ringers 1,000 ML IV SCH ×2 (03:26→16:26)
[2017-10-30] MEDS: Sucralfate Suspension 1 GM/10 ML Cup PO SCH ×4 (04:16→22:33)
[2017-10-30] MEDS: Acetaminophen 325 MG Tab PO PRN (04:21)
[2017-10-30 06:58] LABS: CHLORIDE,CL 108 mmol/L (98-107); SODIUM,NA 141 mmol/L (136-148)
[2017-10-30] MEDS ORDERED: Insulin Aspart 100 Units/ML 3 ML Pen SUBCUT SCH (07:30)
[2017-10-30] MEDS: Insulin Aspart 100 Units/ML 3 ML Pen SUBCUT SCH ×4 (07:37→21:10)
[2017-10-30] MEDS: Ferrous Sulfate 325 MG Tab PO SCH ×3 (08:17→16:35)
[2017-10-30] MEDS: Pregabalin 50 MG Cap PO SCH ×2 (08:17→21:11)
[2017-10-30] MEDS ORDERED: Dihydroergotamine 1 MG/ML SDV SUBCUT ONE (10:08)
[2017-10-30] MEDS ORDERED: chlorproMAZINE 50 MG Tab PO ONE (10:12)
[2017-10-30] MEDS: Pantoprazole 40 MG Vial IV SCH ×2 (10:41→22:33)
[2017-10-30] MEDS: Levofloxacin/Dextrose 5%-Water 750 MG in Premix Bag 1 BAG IV SCH (11:57)
--- NOTE | 2017-10-30 12:40 | PCM.CONSN ---
- General Info Date of Service: 10/30/17 Admission Dx/Problem (Free Text): diabetic ulcer left foot Subjective Update: Patient states he has a headache and has not slept last night. He does not complain of any pain to the left foot. Functional Status: Reports: Pain Controlled - Review of Systems General: Reports: No Symptoms, Fatigue HEENT: Reports: No Symptoms Pulmonary: Reports: No Symptoms Cardiovascular: Reports: No Symptoms Gastrointestinal: Reports: No Symptoms Genitourinary: Reports: No Symptoms Musculoskeletal: Reports: No Symptoms Skin: Reports: No Symptoms Neurological: Reports: No Symptoms Psychiatric: Reports: No Symptoms - Patient Data Vitals - Most Recent: Last Vital Signs Temp 36.2 C 10/30/17 08:00 Pulse 79 10/30/17 08:00 Resp 18 10/30/17 08:00 BP 183/86 H 10/30/17 08:00 Pulse Ox 95 10/30/17 08:00 Weight - Most Recent: 97.182 kg I&O - Last 24 Hours: Intake & Output 10/29/17 10/30/17 10/30/17 22:59 06:59 14:59 Intake Total 450 900 Balance 450 900 Lab Results Last 24 Hours: Laboratory Results - last 24 hr 10/29/17 10/29/17 10/29/17 Range/Units 12:45 15:24 18:09 WBC (4.0-11.0) K/uL RBC (4.50-5.90) M/uL Hgb (13.0-17.0) g/dL Hct (38.0-50.0) % MCV (80.0-98.0) fL MCH (27.0-32.0) pg MCHC (31.0-37.0) g/dL RDW Std Deviation (28.0-62.0) fl RDW Coeff of Krunal (11.0-15.0) % Plt Count (150-400) K/uL MPV (7.40-12.00) fL Neut % (Auto) (48.0-80.0) % Lymph % (Auto) (16.0-40.0) % [place] % (Auto) (0.0-15.0) % Eos % (Auto) (0.0-7.0) % Baso % (Auto) (0.0-1.5) % Neut # (Auto) (1.4-5.7) K/uL Lymph # (Auto) (0.6-2.4) K/uL Ad[place] # (Auto) (0.0-0.8) K/uL Eos # (Auto) (0.0-0.7) K/uL Baso # (Auto) (0.0-0.1) K/uL Nucleated RBC % /100WBC Nucleated RBCs # K/uL Sodium (136-148) mmol/L Potassium 4.0 (3.5-5.1) mmol/L Chloride (98-107) mmol/L Carbon Dioxide (21.0-32.0) mmol/L BUN (7.0-18.0) mg/dL Creatinine (0.8-1.3) mg/dL Est Cr Clr Drug Dosing mL/min Estimated GFR (MDRD) ml/min Glucose (74-106) mg/dL POC Glucose 159 H 245 H (60-110) mg/dL Calcium (8.5-10.1) mg/dL Magnesium 2.0 (1.8-2.4) mg/dL Total Bilirubin (0.2-1.0) mg/dL AST (15-37) IU/L ALT (14-63) IU/L Alkaline Phosphatase (46-116) U/L Total Protein (6.4-8.2) g/dL Albumin (3.4-5.0) g/dL Globulin (2.0-3.5) g/dL Albumin/Globulin Ratio (1.3-2.8) 10/29/17 10/30/17 10/30/17 Range/Units 20:26 06:15 06:15 WBC 8.46 (4.0-11.0) K/uL RBC 2.94 L (4.50-5.90) M/uL Hgb 8.2 L (13.0-17.0) g/dL Hct 24.8 L (38.0-50.0) % MCV 84.4 (80.0-98.0) fL MCH 27.9 (27.0-32.0) pg MCHC 33.1 (31.0-37.0) g/dL RDW Std Deviation 40.2 (28.0-62.0) fl RDW Coeff of Krunal 13 (11.0-15.0) % Plt Count 258 (150-400) K/uL MPV 8.90 (7.40-12.00) fL Neut % (Auto) 80.2 H (48.0-80.0) % Lymph % (Auto) 13.1 L (16.0-40.0) % [place] % (Auto) 5.9 (0.0-15.0) % Eos % (Auto) 0.8 (0.0-7.0) % Baso % (Auto) 0.0 (0.0-1.5) % Neut # (Auto) 6.8 H (1.4-5.7) K/uL Lymph # (Auto) 1.1 (0.6-2.4) K/uL [place] # (Auto) 0.5 (0.0-0.8) K/uL Eos # (Auto) 0.1 (0.0-0.7) K/uL Baso # (Auto) 0.0 (0.0-0.1) K/uL Nucleated RBC % 0.0 /100WBC Nucleated RBCs # 0 K/uL Sodium 141 (136-148) mmol/L Potassium 3.7 (3.5-5.1) mmol/L Chloride 108 H (98-107) mmol/L Carbon Dioxide 26.5 (21.0-32.0) mmol/L BUN 16 (7.0-18.0) mg/dL Creatinine 1.2 (0.8-1.3) mg/dL Est Cr Clr Drug Dosing 72.34 mL/min Estimated GFR (MDRD) > 60.0 ml/min Glucose 251 H (74-106) mg/dL POC Glucose 267 H (60-110) mg/dL Calcium 7.3 L (8.5-10.1) mg/dL Magnesium (1.8-2.4) mg/dL Total Bilirubin 0.2 (0.2-1.0) mg/dL AST 15 (15-37) IU/L ALT 10 L (14-63) IU/L Alkaline Phosphatase 63 (46-116) U/L Total Protein 4.6 L (6.4-8.2) g/dL Albumin 2.0 L (3.4-5.0) g/dL Globulin 2.6 (2.0-3.5) g/dL Albumin/Globulin Ratio 0.8 L (1.3-2.8) 10/30/17 10/30/17 Range/Units 06:51 11:06 WBC (4.0-11.0) K/uL RBC (4.50-5.90) M/uL Hgb (13.0-17.0) g/dL Hct (38.0-50.0) % MCV (80.0-98.0) fL MCH (27.0-32.0) pg MCHC (31.0-37.0) g/dL RDW Std Deviation (28.0-62.0) fl RDW Coeff of Krunal (11.0-15.0) % Plt Count (150-400) K/uL MPV (7.40-12.00) fL Neut % (Auto) (48.0-80.0) % Lymph % (Auto) (16.0-40.0) % [place] % (Auto) (0.0-15.0) % Eos % (Auto) (0.0-7.0) % Baso % (Auto) (0.0-1.5) % Neut # (Auto) (1.4-5.7) K/uL Lymph # (Auto) (0.6-2.4) K/uL [place] # (Auto) (0.0-0.8) K/uL Eos # (Auto) (0.0-0.7) K/uL Baso # (Auto) (0.0-0.1) K/uL Nucleated RBC % /100WBC Nucleated RBCs # K/uL Sodium (136-148) mmol/L Potassium (3.5-5.1) mmol/L Chloride (98-107) mmol/L Carbon Dioxide (21.0-32.0) mmol/L BUN (7.0-18.0) mg/dL Creatinine (0.8-1.3) mg/dL Est Cr Clr Drug Dosing mL/min Estimated GFR (MDRD) ml/min Glucose (74-106) mg/dL POC Glucose 256 H 202 H (60-110) mg/dL Calcium (8.5-10.1) mg/dL Magnesium (1.8-2.4) mg/dL Total Bilirubin (0.2-1.0) mg/dL AST (15-37) IU/L ALT (14-63) IU/L Alkaline Phosphatase (46-116) U/L Total Protein (6.4-8.2) g/dL Albumin (3.4-5.0) g/dL Globulin (2.0-3.5) g/dL Albumin/Globulin Ratio (1.3-2.8) Robert Results Last 24 Hours: Microbiology 10/25/17 11:39 Aerobic Blood Culture - Final Blood - Venous - Lab Draw NO GROWTH AFTER 5 DAYS Anaerobic Blood Culture - Final NO GROWTH AFTER 5 DAYS 10/25/17 11:28 Aerobic Blood Culture - Final Blood - Venous NO GROWTH AFTER 5 DAYS Anaerobic Blood Culture - Final NO GROWTH AFTER 5 DAYS 10/26/17 09:10 Gram Stain - Final Foot, Left Wound Culture - Final Staphylococcus Aureus Alcaligenes Species Anaerobic Culture - Final NO ANAEROBES ISOLATED 10/26/17 08:50 Gram Stain - Final Foot, Left Wound Culture - Final Staphylococcus Aureus Alcaligenes Species Stenotrophomonas Maltophilia Anaerobic Culture - Final NO ANAEROBES ISOLATED 10/29/17 14:30 Gram Stain - Preliminary Foot, Left 10/27/17 11:45 Stool Culture - Final Stool / Feces Campylobacter Antigen Assay - Final NEGATIVE CAMPYLOBACTER AG - Final NEGATIVE FOR SHIGA TOXIN 1 - Final NEGATIVE FOR SHIGA TOXIN 2 10/24/17 07:52 Aerobic Blood Culture - Final Blood - Venous - Lab Draw NO GROWTH AFTER 5 DAYS Anaerobic Blood Culture - Final 10/24/17 07:42 Aerobic Blood Culture - Final Blood - Venous NO GROWTH AFTER 5 DAYS Anaerobic Blood Culture - Final Staphylococcus Aureus Med Orders - Current: Current Medications Acetaminophen (Tylenol) 650 mg PO Q6H PRN PRN Reason: Headache/Pain Last Admin: 10/30/17 04:21 Dose: 650 mg Albuterol/Ipratropium (Duoneb 3.0-0.5 Mg/3 Ml) 3 ml NEB Q4HRRT PRN PRN Reason: Shortness Of Breath/wheezing Fentanyl (Sublimaze) 50 mcg IVPUSH Q5M PRN PRN Reason: Pain (severe 7-10) Stop: 10/30/17 14:03 Ferrous Sulfate (Ferrous Sulfate) 325 mg PO TIDMEALS BOB Last Admin: 10/30/17 11:56 Dose: 325 mg Cefazolin Sodium/Dextrose 2 gm (/ Premix) 50 mls @ 100 mls/hr IV Q8H [facility] Last Admin: 10/30/17 10:51 Dose: 100 mls/hr Levofloxacin/Dextrose 750 mg/ (Premix) 150 mls @ 100 mls/hr IV Q24H [facility] Last Admin: 10/30/17 11:57 Dose: 100 mls/hr Lactated Ringer's (Ringers, Lactated) 1,000 mls @ 100 mls/hr IV ASDIRECTED [facility] Last Admin: 10/30/17 03:26 Dose: 100 mls/hr Insulin Aspart (Novolog) 0 unit SUBCUT ACBED [facility]; Protocol Last Admin: 10/30/17 11:47 Dose: 4 unit Insulin Glargine (Lantus Solostar) 10 units SUBCUT BEDTIME [facility] Last Admin: 10/29/17 20:27 Dose: 10 units Lisinopril (Prinivil) 10 mg PO DAILY [facility] Loperamide HCl (Imodium) 0 mg PO ASDIRECTED PRN PRN Reason: Diarrhea Last Admin: 10/28/17 09:36 Dose: 4 mg Metoclopramide HCl (Reglan) 5 mg IVPUSH Q6H PRN PRN Reason: nausea and vomiting Last Admin: 10/28/17 18:56 Dose: 5 mg Morphine Sulfate (Morphine) 4 mg IVPUSH Q4H PRN PRN Reason: Pain Last Admin: 10/29/17 03:29 Dose: 4 mg Oxycodone HCl (Oxycodone) 5 mg PO Q4H PRN PRN Reason: Pain Last Admin: 10/30/17 01:55 Dose: 5 mg Pantoprazole Sodium (Protonix Iv) 40 mg IV Q12H [facility] Last Admin: 10/30/17 10:41 Dose: 40 mg Pregabalin (Lyrica) 50 mg PO BID [facility] Last Admin: 10/30/17 08:17 Dose: 50 mg Sodium Chloride (Saline Flush) 10 ml FLUSH ASDIRECTED PRN PRN Reason: Keep Vein Open Sodium Chloride (Saline Flush) 2.5 ml FLUSH ASDIRECTED PRN PRN Reason: Keep Vein Open Sucralfate (Carafate) 1 gm PO Q6H [facility] Last Admin: 10/30/17 10:44 Dose: 1 gm Temazepam (Restoril) 15 mg PO BEDTIME PRN PRN Reason: Sleep Last Admin: 10/28/17 20:42 Dose: 15 mg Discontinued Medications Bupivacaine HCl (Marcaine 0.5%) Confirm Administered Dose 30 ml .ROUTE .STK-MED ONE Stop: 10/26/17 07:25 Bupivacaine HCl (Marcaine 0.5%) Confirm Administered Dose 30 ml .ROUTE .STK-MED ONE Stop: 10/29/17 10:10 Cefazolin Sodium (Ancef) Confirm Administered Dose 1 gm .ROUTE .STK-MED ONE Stop: 10/29/17 10:09 Chlorpromazine HCl (Chlorpromazine) 50 mg PO ONETIME ONE Stop: 10/30/17 10:13 Last Admin: 10/30/17 10:45 Dose: 50 mg Dexamethasone (Dexamethasone) 4 mg IVPUSH ONETIME ONE Stop: 10/27/17 08:38 Last Admin: 10/27/17 09:12 Dose: 4 mg Dexamethasone (Dexamethasone) 10 mg IVPUSH ONETIME ONE Stop: 10/29/17 10:36 Last Admin: 10/29/17 10:59 Dose: 10 mg Dihydroergotamine Mesylate (Dhe 45) 1 mg SUBCUT ONETIME ONE Stop: 10/30/17 10:09 Last Admin: 10/30/17 11:00 Dose: 1 mg Diphenhydramine HCl (Benadryl) 25 mg IVPUSH ONETIME ONE Stop: 10/27/17 08:33 Last Admin: 10/27/17 09:15 Dose: 25 mg Ephedrine Sulfate (Ephedrine Sulfate) Confirm Administered Dose 50 mg .ROUTE .STK-MED ONE Stop: 10/29/17 13:58 Fentanyl (Sublimaze) Confirm Administered Dose 100 mcg .ROUTE .STK-MED ONE Stop: 10/26/17 07:18 Fentanyl (Sublimaze) Confirm Administered Dose 100 mcg .ROUTE .STK-MED ONE Stop: 10/29/17 13:07 Fentanyl (Sublimaze) Confirm Administered Dose 250 mcg .ROUTE .STK-MED ONE Stop: 10/29/17 13:07 Sodium Chloride (Normal Saline) 1,000 mls @ 999 mls/hr IV .Bolus ONE Stop: 10/24/17 08:08 Last Infusion: 10/24/17 08:22 Dose: Infused Vancomycin HCl 1 gm/ Sodium (Chloride) 250 mls @ 250 mls/hr IV ONETIME ONE Stop: 10/24/17 09:08 Last Admin: 10/24/17 08:14 Dose: 250 mls/hr Sodium Chloride (Normal Saline) 1,000 mls @ 999 mls/hr IV .Bolus ONE Stop: 10/24/17 10:00 Last Infusion: 10/24/17 09:31 Dose: 999 mls/hr Lactated Ringer's (Ringers, Lactated) 1,000 mls @ 150 mls/hr IV ASDIRECTED [facility] Last Admin: 10/27/17 21:15 Dose: 150 mls/hr Piperacillin Sod/Tazobactam (Sod 3.375 gm/ Sodium Chloride) 50 mls @ 100 mls/ hr IV ONETIME ONE Stop: 10/24/17 11:19 Last Admin: 10/24/17 11:08 Dose: 100 mls/hr Vancomycin HCl 500 mg/ Sodium (Chloride) 100 mls @ 100 mls/hr IV ONETIME [facility] Last Admin: 10/24/17 12:11 Dose: 100 mls/hr Vancomycin HCl 1,500 mg/ (Sodium Chloride) 500 mls @ 333.333 mls/hr IV Q24H [facility] Stop: 10/26/17 10:31 Last Admin: 10/26/17 10:42 Dose: Not Given Sodium Chloride (Normal Saline) 1,000 mls @ 999 mls/hr IV ASDIRECTED [facility] Last Admin: 10/24/17 11:09 Dose: 999 mls/hr Piperacillin Sod/Tazobactam (Sod 4.5 gm/ Sodium Chloride) 100 mls @ 100 mls/hr IV Q6H [facility] Last Admin: 10/26/17 05:30 Dose: 100 mls/hr Vancomycin HCl 1,500 mg/ (Sodium Chloride) 500 mls @ 333.333 mls/hr IV Q12H [facility] Albumin Human (Flexbumin 25%) 12.5 gm in 50 mls @ 100 mls/hr IV ONETIME ONE Stop: 10/26/17 09:18 Last Admin: 10/26/17 11:42 Dose: Not Given Albumin Human (Flexbumin 25%) 12.5 gm in 50 mls @ 100 mls/hr IV ONETIME ONE Stop: 10/26/17 10:44 Last Admin: 10/26/17 11:33 Dose: 100 mls/hr Albumin Human (Flexbumin 25%) 12.5 gm in 50 mls @ 100 mls/hr IV ONETIME ONE Stop: 10/26/17 11:14 Last Admin: 10/26/17 10:54 Dose: 100 mls/hr Levofloxacin/Dextrose 750 mg/ (Premix) 150 mls @ 100 mls/hr IV ONETIME ONE Stop: 10/26/17 13:30 Last Admin: 10/26/17 13:46 Dose: Not Given Acetaminophen 1,000 mg/ Premix 100 mls @ 400 mls/hr IV NOW ONE Stop: 10/27/17 13:46 Last Admin: 10/27/17 14:02 Dose: 400 mls/hr Acetaminophen 1,000 mg/ Premix 100 mls @ 400 mls/hr IV NOW ONE Stop: 10/27/17 21:37 Last Admin: 10/27/17 21:35 Dose: 400 mls/hr Albumin Human (Flexbumin 25%) 12.5 gm in 50 mls @ 100 mls/hr IV ONETIME ONE Stop: 10/28/17 20:37 Last Admin: 10/28/17 21:06 Dose: 100 mls/hr Potassium Chloride/Sodium Chloride (Normal Saline With 40 Meq Kcl) 500 mls @ 125 mls/hr IV ASDIRECTED [facility] Stop: 10/29/17 13:59 Last Admin: 10/29/17 11:16 Dose: Not Given Magnesium Sulfate 2 gm/Potassium Chloride 40 meq/Sodium Chloride 524 mls @ 131 mls/hr IV ASDIRECTED [facility] Stop: 10/29/17 14:01 Last Admin: 10/29/17 10:57 Dose: 131 mls/hr Albumin Human (Flexbumin 25%) 12.5 gm in 50 mls @ 100 mls/hr IV ONETIME ONE Stop: 10/29/17 12:59 Last Admin: 10/29/17 16:35 Dose: 100 mls/hr Albumin Human (Flexbumin 25%) 12.5 gm in 50 mls @ 100 mls/hr IV ONETIME ONE Stop: 10/29/17 13:29 Last Admin: 10/29/17 17:19 Dose: 100 mls/hr Insulin Aspart (Novolog) 0 unit SUBCUT Q6H [facility]; Protocol Last Admin: 10/25/17 05:50 Dose: Not Given Insulin Aspart (Novolog) 0 unit SUBCUT TIDAC [facility]; Protocol Last Admin: 10/29/17 18:14 Dose: 4 units Insulin Aspart (Novolog) 0 unit SUBCUT TIDAC [facility]; Protocol Insulin Glargine (Lantus Solostar) 10 units SUBCUT ONETIME ONE Stop: 10/24/17 12:01 Last Admin: 10/24/17 12:51 Dose: 10 units Insulin Glargine (Lantus Solostar) 38 units SUBCUT BEDTIME [facility] Ketorolac Tromethamine (Toradol) 30 mg IVPUSH ONETIME ONE Stop: 10/27/17 08:33 Last Admin: 10/27/17 12:05 Dose: Not Given Lidocaine (Xylocaine-Mpf 2%) Confirm Administered Dose 10 ml .ROUTE .STK-MED ONE Stop: 10/29/17 13:07 Lidocaine HCl (Xylocaine 1%) Confirm Administered Dose 20 ml .ROUTE .STK-MED ONE Stop: 10/26/17 07:25 Lidocaine HCl (Xylocaine 1%) Confirm Administered Dose 20 ml .ROUTE .STK-MED ONE Stop: 10/29/17 10:10 Metoclopramide HCl (Reglan) 10 mg IVPUSH ONETIME ONE Stop: 10/27/17 08:33 Last Admin: 10/27/17 09:13 Dose: 10 mg Metoclopramide HCl (Reglan) 10 mg IVPUSH ONETIME ONE Stop: 10/29/17 10:37 Last Admin: 10/29/17 10:58 Dose: 10 mg Midazolam HCl (Versed 1 Mg/Ml) Confirm Administered Dose 2 mg .ROUTE .STK-MED ONE Stop: 10/26/17 07:19 Midazolam HCl (Versed 1 Mg/Ml) Confirm Administered Dose 2 mg .ROUTE .STK-MED ONE Stop: 10/29/17 13:07 Morphine Sulfate (Morphine) 4 mg IVPUSH ONETIME ONE Stop: 10/24/17 07:16 Last Admin: 10/24/17 07:42 Dose: Not Given Morphine Sulfate (Morphine) Confirm Administered Dose 4 mg .ROUTE .STK-MED ONE Stop: 10/24/17 07:20 Last Admin: 10/24/17 07:33 Dose: Not Given Morphine Sulfate (Morphine) 4 mg IVPUSH ONETIME ONE Stop: 10/24/17 07:21 Last Admin: 10/24/17 07:33 Dose: 4 mg Morphine Sulfate (Morphine) 2 mg IVPUSH Q2H PRN PRN Reason: Pain (severe 7-10) Stop: 10/25/17 10:42 Last Admin: 10/25/17 09:42 Dose: 2 mg Ondansetron HCl (Zofran) 4 mg IVPUSH ONETIME ONE Stop: 10/24/17 07:16 Last Admin: 10/24/17 07:21 Dose: 4 mg Pantoprazole Sodium (Protonix Iv) 80 mg IVPUSH .BOLUS ONE Stop: 10/24/17 07:41 Last Admin: 10/24/17 07:57 Dose: 80 mg Potassium Chloride (Klor-Con M20) 40 meq PO ONETIME ONE Stop: 10/29/17 08:48 Last Admin: 10/29/17 11:15 Dose: Not Given Propofol (Diprivan 20 Ml) Confirm Administered Dose 200 mg .ROUTE .STK-MED ONE Stop: 10/26/17 07:19 Propofol (Diprivan 20 Ml) Confirm Administered Dose 400 mg .ROUTE .STK-MED ONE Stop: 10/29/17 13:07 Propofol (Diprivan 20 Ml) Confirm Administered Dose 200 mg .ROUTE .STK-MED ONE Stop: 10/29/17 14:49 Sodium Chloride (Saline Flush) 10 ml FLUSH ASDIRECTED PRN PRN Reason: Keep Vein Open Sodium Chloride (Saline Flush) 2.5 ml FLUSH ASDIRECTED PRN PRN Reason: Keep Vein Open Sumatriptan Succinate (Imitrex) 6 mg SUBCUT ONETIME ONE Stop: 10/27/17 21:25 Last Admin: 10/27/17 22:15 Dose: 6 mg Sumatriptan Succinate (Imitrex) 50 mg PO Q2H PRN PRN Reason: Headache Last Admin: 10/28/17 20:41 Dose: 50 mg Sumatriptan Succinate (Imitrex) Confirm Administered Dose 50 mg .ROUTE .STK-MED ONE Stop: 10/28/17 20:51 Last Admin: 10/28/17 21:10 Dose: Not Given Sumatriptan Succinate (Imitrex) 6 mg SUBCUT ONETIME ONE Stop: 10/29/17 10:28 Last Admin: 10/29/17 10:42 Dose: 6 mg Vancomycin HCl (Pharmacy To Dose - Vancomycin) 0 dose .XX ASDIRECTED [facility] - Exam General: Alert, Oriented Extremities: Other (right anterior mid suazo area patient has a superficial ulcer with periwound erythema) Peripheral Pulses: 2+: Posterior Tibial (L), Posterior Tibial (R), Dorsalis Pedis (L), Dorsalis Pedis (R) Skin: Warm Wound/Incisions: Dressing Dry and Intact, Drainage Physical Findings Comments:: On left foot, there is minimal periwound erythema at area over 2nd metatarsal head. Drainage is serous and minimal at this time, though moderate drainage was present on dressings and packing from yesterday's surgery. 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 and incision and drainage of left foot diabetic ulcer on 10/29/17 (1) Diabetic foot ulcer SNOMED Code(s): 329629853 Code(s): E11.621 - TYPE 2 DIABETES MELLITUS WITH FOOT ULCER; L97.509 - NON- PRESSURE CHRONIC ULCER OTH PRT UNSP FOOT W UNSP SEVERITY Priority: High Current Visit: Yes Onset Date: ~10/04/17 Qualifiers: Diabetic foot ulcer location: midfoot Diabetes mellitus type: type 2 Laterality: left Non-pressure ulcer stage: with bone involvement without evidence of necrosis Qualified Code(s): E11.621 - Type 2 diabetes mellitus with foot ulcer; L97.426 - 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 Ulceration on plantar aspect at mid foot, along incision line. Sutures on plantar aspect and single suture at proximal aspect of ulcer on dorsal foot are intact and skin at those sites is well coapted. No malodor, minimal active serous drainage, minimal fibrotic tissue returning to open dorsal wound. Problem List Initiated/Reviewed/Updated: Yes My Orders Last 24 Hours: My Active Orders Daily wound care with dressing change. Plan: 1. Continue Antibiotics, now via PICC line. 2. Dressing change performed today, left foot ulcer flushed and packed with iodoform gauze, covered with betadine soaked gauze, and dry sterile dressing. Orders are in place for daily wound care. 3. Once infection is resolved, patient will need to utilize a wound vac. 4. I will monitor results of labs and pathology and daily labs to determine whether to begin use of wound vac or to return patient to OR for further amputation. 5. Will follow.
--- NOTE | 2017-10-30 14:28 | PCM.PN ---
- General Info Date of Service: 10/30/17 Admission Dx/Problem (Free Text): diabetic ulcer left foot Subjective Update: Patient continue to have pain left orbital. Ergotamine and chlorpromazine was given with some relief. Ct head shows he has chronic sinusitis b/l maxillary.White count normal . Culture shows the bacterias grown are sensitive to current ntibiotics. has HTn u/c and was started on lisinopril 20 mg po daily. - Review of Systems General: Reports: No Symptoms HEENT: Reports: Sinus Congestion Pulmonary: Reports: No Symptoms Cardiovascular: Reports: No Symptoms Gastrointestinal: Reports: No Symptoms Genitourinary: Reports: No Symptoms Musculoskeletal: Reports: Foot Pain Skin: Denies: Cyanosis (left foot surgical wound , d/p amputation middle toe), Jaundice, Pruritis, Rash Neurological: Reports: No Symptoms Psychiatric: Reports: No Symptoms - Patient Data Vitals - Most Recent: Last Vital Signs Temp 97.5 F 10/30/17 12:00 Pulse 85 10/30/17 12:00 Resp 16 10/30/17 12:00 BP 165/87 H 10/30/17 12:00 Pulse Ox 98 10/30/17 12:00 Weight - Most Recent: 214 lb 4 oz I&O - Last 24 Hours: Intake & Output 10/29/17 10/30/17 10/30/17 22:59 06:59 14:59 Intake Total 450 900 Balance 450 900 Lab Results Last 24 Hours: Laboratory Results - last 24 hr 10/29/17 10/29/17 10/29/17 Range/Units 15:24 18:09 20:26 WBC (4.0-11.0) K/uL RBC (4.50-5.90) M/uL Hgb (13.0-17.0) g/dL Hct (38.0-50.0) % MCV (80.0-98.0) fL MCH (27.0-32.0) pg MCHC (31.0-37.0) g/dL RDW Std Deviation (28.0-62.0) fl RDW Coeff of Krunal (11.0-15.0) % Plt Count (150-400) K/uL MPV (7.40-12.00) fL Neut % (Auto) (48.0-80.0) % Lymph % (Auto) (16.0-40.0) % Chase % (Auto) (0.0-15.0) % Eos % (Auto) (0.0-7.0) % Baso % (Auto) (0.0-1.5) % Neut # (Auto) (1.4-5.7) K/uL Lymph # (Auto) (0.6-2.4) K/uL Chase # (Auto) (0.0-0.8) K/uL Eos # (Auto) (0.0-0.7) K/uL Baso # (Auto) (0.0-0.1) K/uL Nucleated RBC % /100WBC Nucleated RBCs # K/uL Sodium (136-148) mmol/L Potassium (3.5-5.1) mmol/L Chloride (98-107) mmol/L Carbon Dioxide (21.0-32.0) mmol/L BUN (7.0-18.0) mg/dL Creatinine (0.8-1.3) mg/dL Est Cr Clr Drug Dosing mL/min Estimated GFR (MDRD) ml/min Glucose (74-106) mg/dL POC Glucose 159 H 245 H 267 H (60-110) mg/dL Calcium (8.5-10.1) mg/dL Total Bilirubin (0.2-1.0) mg/dL AST (15-37) IU/L ALT (14-63) IU/L Alkaline Phosphatase (46-116) U/L Total Protein (6.4-8.2) g/dL Albumin (3.4-5.0) g/dL Globulin (2.0-3.5) g/dL Albumin/Globulin Ratio (1.3-2.8) 10/30/17 10/30/17 10/30/17 Range/Units 06:15 06:15 06:51 WBC 8.46 (4.0-11.0) K/uL RBC 2.94 L (4.50-5.90) M/uL Hgb 8.2 L (13.0-17.0) g/dL Hct 24.8 L (38.0-50.0) % MCV 84.4 (80.0-98.0) fL MCH 27.9 (27.0-32.0) pg MCHC 33.1 (31.0-37.0) g/dL RDW Std Deviation 40.2 (28.0-62.0) fl RDW Coeff of Krunal 13 (11.0-15.0) % Plt Count 258 (150-400) K/uL MPV 8.90 (7.40-12.00) fL Neut % (Auto) 80.2 H (48.0-80.0) % Lymph % (Auto) 13.1 L (16.0-40.0) % Chase % (Auto) 5.9 (0.0-15.0) % Eos % (Auto) 0.8 (0.0-7.0) % Baso % (Auto) 0.0 (0.0-1.5) % Neut # (Auto) 6.8 H (1.4-5.7) K/uL Lymph # (Auto) 1.1 (0.6-2.4) K/uL Chase # (Auto) 0.5 (0.0-0.8) K/uL Eos # (Auto) 0.1 (0.0-0.7) K/uL Baso # (Auto) 0.0 (0.0-0.1) K/uL Nucleated RBC % 0.0 /100WBC Nucleated RBCs # 0 K/uL Sodium 141 (136-148) mmol/L Potassium 3.7 (3.5-5.1) mmol/L Chloride 108 H (98-107) mmol/L Carbon Dioxide 26.5 (21.0-32.0) mmol/L BUN 16 (7.0-18.0) mg/dL Creatinine 1.2 (0.8-1.3) mg/dL Est Cr Clr Drug Dosing 72.34 mL/min Estimated GFR (MDRD) > 60.0 ml/min Glucose 251 H (74-106) mg/dL POC Glucose 256 H (60-110) mg/dL Calcium 7.3 L (8.5-10.1) mg/dL Total Bilirubin 0.2 (0.2-1.0) mg/dL AST 15 (15-37) IU/L ALT 10 L (14-63) IU/L Alkaline Phosphatase 63 (46-116) U/L Total Protein 4.6 L (6.4-8.2) g/dL Albumin 2.0 L (3.4-5.0) g/dL Globulin 2.6 (2.0-3.5) g/dL Albumin/Globulin Ratio 0.8 L (1.3-2.8) // Range/Units 11:06 WBC (4.0-11.0) K/uL RBC (4.50-5.90) M/uL Hgb (13.0-17.0) g/dL Hct (38.0-50.0) % MCV (80.0-98.0) fL MCH (27.0-32.0) pg MCHC (31.0-37.0) g/dL RDW Std Deviation (28.0-62.0) fl RDW Coeff of Krunal (11.0-15.0) % Plt Count (150-400) K/uL MPV (7.40-12.00) fL Neut % (Auto) (48.0-80.0) % Lymph % (Auto) (16.0-40.0) % Chase % (Auto) (0.0-15.0) % Eos % (Auto) (0.0-7.0) % Baso % (Auto) (0.0-1.5) % Neut # (Auto) (1.4-5.7) K/uL Lymph # (Auto) (0.6-2.4) K/uL Chase # (Auto) (0.0-0.8) K/uL Eos # (Auto) (0.0-0.7) K/uL Baso # (Auto) (0.0-0.1) K/uL Nucleated RBC % /100WBC Nucleated RBCs # K/uL Sodium (136-148) mmol/L Potassium (3.5-5.1) mmol/L Chloride (98-107) mmol/L Carbon Dioxide (21.0-32.0) mmol/L BUN (7.0-18.0) mg/dL Creatinine (0.8-1.3) mg/dL Est Cr Clr Drug Dosing mL/min Estimated GFR (MDRD) ml/min Glucose (74-106) mg/dL POC Glucose 202 H (60-110) mg/dL Calcium (8.5-10.1) mg/dL Total Bilirubin (0.2-1.0) mg/dL AST (15-37) IU/L ALT (14-63) IU/L Alkaline Phosphatase (46-116) U/L Total Protein (6.4-8.2) g/dL Albumin (3.4-5.0) g/dL Globulin (2.0-3.5) g/dL Albumin/Globulin Ratio (1.3-2.8) Robert Results Last 24 Hours: Microbiology 10/25/17 11:39 Aerobic Blood Culture - Final Blood - Venous - Lab Draw NO GROWTH AFTER 5 DAYS Anaerobic Blood Culture - Final NO GROWTH AFTER 5 DAYS 10/25/17 11:28 Aerobic Blood Culture - Final Blood - Venous NO GROWTH AFTER 5 DAYS Anaerobic Blood Culture - Final NO GROWTH AFTER 5 DAYS 10/26/17 09:10 Gram Stain - Final Foot, Left Wound Culture - Final Staphylococcus Aureus Alcaligenes Species Anaerobic Culture - Final NO ANAEROBES ISOLATED 10/26/17 08:50 Gram Stain - Final Foot, Left Wound Culture - Final Staphylococcus Aureus Alcaligenes Species Stenotrophomonas Maltophilia Anaerobic Culture - Final NO ANAEROBES ISOLATED 10/29/17 14:30 Gram Stain - Preliminary Foot, Left 10/27/17 11:45 Stool Culture - Final Stool / Feces Campylobacter Antigen Assay - Final NEGATIVE CAMPYLOBACTER AG - Final NEGATIVE FOR SHIGA TOXIN 1 - Final NEGATIVE FOR SHIGA TOXIN 2 Med Orders - Current: Current Medications Acetaminophen (Tylenol) 650 mg PO Q6H PRN PRN Reason: Headache/Pain Last Admin: 10/30/17 04:21 Dose: 650 mg Albuterol/Ipratropium (Duoneb 3.0-0.5 Mg/3 Ml) 3 ml NEB Q4HRRT PRN PRN Reason: Shortness Of Breath/wheezing Ferrous Sulfate (Ferrous Sulfate) 325 mg PO TIDMEALS [facility] Last Admin: 10/30/17 11:56 Dose: 325 mg Cefazolin Sodium/Dextrose 2 gm (/ Premix) 50 mls @ 100 mls/hr IV Q8H [facility] Last Admin: 10/30/17 10:51 Dose: 100 mls/hr Levofloxacin/Dextrose 750 mg/ (Premix) 150 mls @ 100 mls/hr IV Q24H [facility] Last Admin: 10/30/17 11:57 Dose: 100 mls/hr Lactated Ringer's (Ringers, Lactated) 1,000 mls @ 100 mls/hr IV ASDIRECTED [facility] Last Admin: 10/30/17 03:26 Dose: 100 mls/hr Insulin Aspart (Novolog) 0 unit SUBCUT ACBED [facility]; Protocol Last Admin: 10/30/17 11:47 Dose: 4 unit Insulin Glargine (Lantus Solostar) 10 units SUBCUT BEDTIME [facility] Last Admin: 10/29/17 20:27 Dose: 10 units Lisinopril (Prinivil) 10 mg PO DAILY [facility] Loperamide HCl (Imodium) 0 mg PO ASDIRECTED PRN PRN Reason: Diarrhea Last Admin: 10/28/17 09:36 Dose: 4 mg Metoclopramide HCl (Reglan) 5 mg IVPUSH Q6H PRN PRN Reason: nausea and vomiting Last Admin: 10/28/17 18:56 Dose: 5 mg Morphine Sulfate (Morphine) 4 mg IVPUSH Q4H PRN PRN Reason: Pain Last Admin: 10/29/17 03:29 Dose: 4 mg Oxycodone HCl (Oxycodone) 5 mg PO Q4H PRN PRN Reason: Pain Last Admin: 10/30/17 01:55 Dose: 5 mg Pantoprazole Sodium (Protonix Iv) 40 mg IV Q12H [facility] Last Admin: 10/30/17 10:41 Dose: 40 mg Pregabalin (Lyrica) 50 mg PO BID [facility] Last Admin: 10/30/17 08:17 Dose: 50 mg Sodium Chloride (Saline Flush) 10 ml FLUSH ASDIRECTED PRN PRN Reason: Keep Vein Open Sodium Chloride (Saline Flush) 2.5 ml FLUSH ASDIRECTED PRN PRN Reason: Keep Vein Open Sucralfate (Carafate) 1 gm PO Q6H [facility] Last Admin: 10/30/17 10:44 Dose: 1 gm Temazepam (Restoril) 15 mg PO BEDTIME PRN PRN Reason: Sleep Last Admin: 10/28/17 20:42 Dose: 15 mg Discontinued Medications Bupivacaine HCl (Marcaine 0.5%) Confirm Administered Dose 30 ml .ROUTE .STK-MED ONE Stop: 10/26/17 07:25 Bupivacaine HCl (Marcaine 0.5%) Confirm Administered Dose 30 ml .ROUTE .STK-MED ONE Stop: 10/29/17 10:10 Cefazolin Sodium (Ancef) Confirm Administered Dose 1 gm .ROUTE .STK-MED ONE Stop: 10/29/17 10:09 Chlorpromazine HCl (Chlorpromazine) 50 mg PO ONETIME ONE Stop: 10/30/17 10:13 Last Admin: 10/30/17 10:45 Dose: 50 mg Dexamethasone (Dexamethasone) 4 mg IVPUSH ONETIME ONE Stop: 10/27/17 08:38 Last Admin: 10/27/17 09:12 Dose: 4 mg Dexamethasone (Dexamethasone) 10 mg IVPUSH ONETIME ONE Stop: 10/29/17 10:36 Last Admin: 10/29/17 10:59 Dose: 10 mg Dexamethasone Sodium Phosphate (Dexamethasone Sodium Phosphate) 10 mg IVPUSH ONETIME ONE Stop: 10/30/17 14:00 Dihydroergotamine Mesylate (Dhe 45) 1 mg SUBCUT ONETIME ONE Stop: 10/30/17 10:09 Last Admin: 10/30/17 11:00 Dose: 1 mg Diphenhydramine HCl (Benadryl) 25 mg IVPUSH ONETIME ONE Stop: 10/27/17 08:33 Last Admin: 10/27/17 09:15 Dose: 25 mg Ephedrine Sulfate (Ephedrine Sulfate) Confirm Administered Dose 50 mg .ROUTE .STK-MED ONE Stop: 10/29/17 13:58 Fentanyl (Sublimaze) Confirm Administered Dose 100 mcg .ROUTE .STK-MED ONE Stop: 10/26/17 07:18 Fentanyl (Sublimaze) Confirm Administered Dose 100 mcg .ROUTE .STK-MED ONE Stop: 10/29/17 13:07 Fentanyl (Sublimaze) Confirm Administered Dose 250 mcg .ROUTE .STK-MED ONE Stop: 10/29/17 13:07 Fentanyl (Sublimaze) 50 mcg IVPUSH Q5M PRN PRN Reason: Pain (severe 7-10) Stop: 10/30/17 14:03 Sodium Chloride (Normal Saline) 1,000 mls @ 999 mls/hr IV .Bolus ONE Stop: 10/24/17 08:08 Last Infusion: 10/24/17 08:22 Dose: Infused Vancomycin HCl 1 gm/ Sodium (Chloride) 250 mls @ 250 mls/hr IV ONETIME ONE Stop: 10/24/17 09:08 Last Admin: 10/24/17 08:14 Dose: 250 mls/hr Sodium Chloride (Normal Saline) 1,000 mls @ 999 mls/hr IV .Bolus ONE Stop: 10/24/17 10:00 Last Infusion: 10/24/17 09:31 Dose: 999 mls/hr Lactated Ringer's (Ringers, Lactated) 1,000 mls @ 150 mls/hr IV ASDIRECTED [facility] Last Admin: 10/27/17 21:15 Dose: 150 mls/hr Piperacillin Sod/Tazobactam (Sod 3.375 gm/ Sodium Chloride) 50 mls @ 100 mls/ hr IV ONETIME ONE Stop: 10/24/17 11:19 Last Admin: 10/24/17 11:08 Dose: 100 mls/hr Vancomycin HCl 500 mg/ Sodium (Chloride) 100 mls @ 100 mls/hr IV ONETIME [facility] Last Admin: 10/24/17 12:11 Dose: 100 mls/hr Vancomycin HCl 1,500 mg/ (Sodium Chloride) 500 mls @ 333.333 mls/hr IV Q24H [facility] Stop: 10/26/17 10:31 Last Admin: 10/26/17 10:42 Dose: Not Given Sodium Chloride (Normal Saline) 1,000 mls @ 999 mls/hr IV ASDIRECTED [facility] Last Admin: 10/24/17 11:09 Dose: 999 mls/hr Piperacillin Sod/Tazobactam (Sod 4.5 gm/ Sodium Chloride) 100 mls @ 100 mls/hr IV Q6H [facility] Last Admin: 10/26/17 05:30 Dose: 100 mls/hr Vancomycin HCl 1,500 mg/ (Sodium Chloride) 500 mls @ 333.333 mls/hr IV Q12H [facility] Albumin Human (Flexbumin 25%) 12.5 gm in 50 mls @ 100 mls/hr IV ONETIME ONE Stop: 10/26/17 09:18 Last Admin: 10/26/17 11:42 Dose: Not Given Albumin Human (Flexbumin 25%) 12.5 gm in 50 mls @ 100 mls/hr IV ONETIME ONE Stop: 10/26/17 10:44 Last Admin: 10/26/17 11:33 Dose: 100 mls/hr Albumin Human (Flexbumin 25%) 12.5 gm in 50 mls @ 100 mls/hr IV ONETIME ONE Stop: 10/26/17 11:14 Last Admin: 10/26/17 10:54 Dose: 100 mls/hr Levofloxacin/Dextrose 750 mg/ (Premix) 150 mls @ 100 mls/hr IV ONETIME ONE Stop: 10/26/17 13:30 Last Admin: 10/26/17 13:46 Dose: Not Given Acetaminophen 1,000 mg/ Premix 100 mls @ 400 mls/hr IV NOW ONE Stop: 10/27/17 13:46 Last Admin: 10/27/17 14:02 Dose: 400 mls/hr Acetaminophen 1,000 mg/ Premix 100 mls @ 400 mls/hr IV NOW ONE Stop: 10/27/17 21:37 Last Admin: 10/27/17 21:35 Dose: 400 mls/hr Albumin Human (Flexbumin 25%) 12.5 gm in 50 mls @ 100 mls/hr IV ONETIME ONE Stop: 10/28/17 20:37 Last Admin: 10/28/17 21:06 Dose: 100 mls/hr Potassium Chloride/Sodium Chloride (Normal Saline With 40 Meq Kcl) 500 mls @ 125 mls/hr IV ASDIRECTED [facility] Stop: 10/29/17 13:59 Last Admin: 10/29/17 11:16 Dose: Not Given Magnesium Sulfate 2 gm/Potassium Chloride 40 meq/Sodium Chloride 524 mls @ 131 mls/hr IV ASDIRECTED [facility] Stop: 10/29/17 14:01 Last Admin: 10/29/17 10:57 Dose: 131 mls/hr Albumin Human (Flexbumin 25%) 12.5 gm in 50 mls @ 100 mls/hr IV ONETIME ONE Stop: 10/29/17 12:59 Last Admin: 10/29/17 16:35 Dose: 100 mls/hr Albumin Human (Flexbumin 25%) 12.5 gm in 50 mls @ 100 mls/hr IV ONETIME ONE Stop: 10/29/17 13:29 Last Admin: 10/29/17 17:19 Dose: 100 mls/hr Insulin Aspart (Novolog) 0 unit SUBCUT Q6H [facility]; Protocol Last Admin: 10/25/17 05:50 Dose: Not Given Insulin Aspart (Novolog) 0 unit SUBCUT TIDAC [facility]; Protocol Last Admin: 10/29/17 18:14 Dose: 4 units Insulin Aspart (Novolog) 0 unit SUBCUT TIDAC [facility]; Protocol Insulin Glargine (Lantus Solostar) 10 units SUBCUT ONETIME ONE Stop: 10/24/17 12:01 Last Admin: 10/24/17 12:51 Dose: 10 units Insulin Glargine (Lantus Solostar) 38 units SUBCUT BEDTIME [facility] Ketorolac Tromethamine (Toradol) 30 mg IVPUSH ONETIME ONE Stop: 10/27/17 08:33 Last Admin: 10/27/17 12:05 Dose: Not Given Lidocaine (Xylocaine-Mpf 2%) Confirm Administered Dose 10 ml .ROUTE .STK-MED ONE Stop: 10/29/17 13:07 Lidocaine HCl (Xylocaine 1%) Confirm Administered Dose 20 ml .ROUTE .STK-MED ONE Stop: 10/26/17 07:25 Lidocaine HCl (Xylocaine 1%) Confirm Administered Dose 20 ml .ROUTE .STK-MED ONE Stop: 10/29/17 10:10 Metoclopramide HCl (Reglan) 10 mg IVPUSH ONETIME ONE Stop: 10/27/17 08:33 Last Admin: 10/27/17 09:13 Dose: 10 mg Metoclopramide HCl (Reglan) 10 mg IVPUSH ONETIME ONE Stop: 10/29/17 10:37 Last Admin: 10/29/17 10:58 Dose: 10 mg Midazolam HCl (Versed 1 Mg/Ml) Confirm Administered Dose 2 mg .ROUTE .STK-MED ONE Stop: 10/26/17 07:19 Midazolam HCl (Versed 1 Mg/Ml) Confirm Administered Dose 2 mg .ROUTE .STK-MED ONE Stop: 10/29/17 13:07 Morphine Sulfate (Morphine) 4 mg IVPUSH ONETIME ONE Stop: 10/24/17 07:16 Last Admin: 10/24/17 07:42 Dose: Not Given Morphine Sulfate (Morphine) Confirm Administered Dose 4 mg .ROUTE .STK-MED ONE Stop: 10/24/17 07:20 Last Admin: 10/24/17 07:33 Dose: Not Given Morphine Sulfate (Morphine) 4 mg IVPUSH ONETIME ONE Stop: 10/24/17 07:21 Last Admin: 10/24/17 07:33 Dose: 4 mg Morphine Sulfate (Morphine) 2 mg IVPUSH Q2H PRN PRN Reason: Pain (severe 7-10) Stop: 10/25/17 10:42 Last Admin: 10/25/17 09:42 Dose: 2 mg Ondansetron HCl (Zofran) 4 mg IVPUSH ONETIME ONE Stop: 10/24/17 07:16 Last Admin: 10/24/17 07:21 Dose: 4 mg Pantoprazole Sodium (Protonix Iv) 80 mg IVPUSH .BOLUS ONE Stop: 10/24/17 07:41 Last Admin: 10/24/17 07:57 Dose: 80 mg Potassium Chloride (Klor-Con M20) 40 meq PO ONETIME ONE Stop: 10/29/17 08:48 Last Admin: 10/29/17 11:15 Dose: Not Given Propofol (Diprivan 20 Ml) Confirm Administered Dose 200 mg .ROUTE .STK-MED ONE Stop: 10/26/17 07:19 Propofol (Diprivan 20 Ml) Confirm Administered Dose 400 mg .ROUTE .STK-MED ONE Stop: 10/29/17 13:07 Propofol (Diprivan 20 Ml) Confirm Administered Dose 200 mg .ROUTE .STK-MED ONE Stop: 10/29/17 14:49 Sodium Chloride (Saline Flush) 10 ml FLUSH ASDIRECTED PRN PRN Reason: Keep Vein Open Sodium Chloride (Saline Flush) 2.5 ml FLUSH ASDIRECTED PRN PRN Reason: Keep Vein Open Sumatriptan Succinate (Imitrex) 6 mg SUBCUT ONETIME ONE Stop: 10/27/17 21:25 Last Admin: 10/27/17 22:15 Dose: 6 mg Sumatriptan Succinate (Imitrex) 50 mg PO Q2H PRN PRN Reason: Headache Last Admin: 10/28/17 20:41 Dose: 50 mg Sumatriptan Succinate (Imitrex) Confirm Administered Dose 50 mg .ROUTE .STK-MED ONE Stop: 10/28/17 20:51 Last Admin: 10/28/17 21:10 Dose: Not Given Sumatriptan Succinate (Imitrex) 6 mg SUBCUT ONETIME ONE Stop: 10/29/17 10:28 Last Admin: 10/29/17 10:42 Dose: 6 mg Vancomycin HCl (Pharmacy To Dose - Vancomycin) 0 dose .XX ASDIRECTED BOB - Exam General: Alert, Oriented HEENT: Pupils Equal, Pupils Reactive, EOMI, Other (tenderness to palpation maxillary sinuses) Neck: Supple, Trachea Midline, No JVD, No Thyromegaly Lungs: Clear to Auscultation, Normal Respiratory Effort Cardiovascular: Regular Rate, Regular Rhythm GI/Abdominal Exam: Normal Bowel Sounds, Soft, Non-Tender, No Organomegaly, No Distention, No Abnormal Bruit (Male) Exam: No Hernia, Normal Inspection Back Exam: Normal Inspection, Full Range of Motion Extremities: Normal Inspection Skin: Warm, Dry Wound/Incisions: Healing Well, Drainage (serous) Neurological: No New Focal Deficit Psy/Mental Status: Alert, Normal Affect - Problem List & Annotations (1) Hypertension, uncontrolled SNOMED Code(s): 46974447, 99868272 Code(s): I10 - ESSENTIAL (PRIMARY) HYPERTENSION Status: Acute Current Visit: Yes (2) Diabetic foot ulcer SNOMED Code(s): 834923441 Code(s): E11.621 - TYPE 2 DIABETES MELLITUS WITH FOOT ULCER; L97.509 - NON- PRESSURE CHRONIC ULCER OTH PRT UNSP FOOT W UNSP SEVERITY Status: Acute Priority: High Current Visit: Yes Onset Date: ~10/04/17 Qualifiers: Diabetic foot ulcer location: midfoot Diabetes mellitus type: type 2 Laterality: left Non-pressure ulcer stage: with bone involvement without evidence of necrosis Qualified Code(s): E11.621 - Type 2 diabetes mellitus with foot ulcer; L97.426 - Non-pressure chronic ulcer of left heel and midfoot with bone involvement without evidence of necrosis (3) MSSA bacteremia SNOMED Code(s): 435624266, 658631761 Code(s): R78.81 - BACTEREMIA Status: Acute Current Visit: Yes (4) Migraine SNOMED Code(s): 65963295 Code(s): G43.909 - MIGRAINE, UNSP, NOT INTRACTABLE, WITHOUT STATUS MIGRAINOSUS Status: Acute Current Visit: Yes (5) DM type 2 (diabetes mellitus, type 2) SNOMED Code(s): 44868276 Code(s): E11.9 - TYPE 2 DIABETES MELLITUS WITHOUT COMPLICATIONS Status: Chronic Current Visit: Yes Qualifiers: Diabetes mellitus terminal supervisor insulin use: with terminal supervisor use Diabetes mellitus complication status: with skin complications Diabetes mellitus complication detail: with foot ulcer Qualified Code(s): E11.621 - Type 2 diabetes mellitus with foot ulcer; L97.509 - Non-pressure chronic ulcer of other part of unspecified foot with unspecified severity; Z79.4 - half-way ( current) use of insulin (6) GI bleed SNOMED Code(s): 86834657 Code(s): K92.2 - GASTROINTESTINAL HEMORRHAGE, UNSPECIFIED Status: Resolved Current Visit: Yes Qualifiers: GI bleed type/associated pathology: unspecified gastrointestinal hemorrhage type Qualified Code(s): K92.2 - Gastrointestinal hemorrhage, unspecified (7) Status post amputation of toe of left foot SNOMED Code(s): 941427090, 260257480 Code(s): Z89.422 - ACQUIRED ABSENCE OF OTHER LEFT TOE(S) Status: Acute Current Visit: Yes - Problem List Review Problem List Initiated/Reviewed/Updated: Yes - My Orders Last 24 Hours: My Active Orders 10/29/17 14:52 CULTURE TISSUE [RM] Routine 10/29/17 16:55 Accu Check [Blood Glucose Check, Bedside] [RC] WITHMEALSANDBED 10/29/17 17:04 Accu Check [Blood Glucose Check, Bedside] [RC] WITHMEALSANDBED 10/29/17 21:00 Insulin Aspart [NovoLOG] See Protocol SUBCUT ACBED 10/30/17 13:47 Head wo Cont [CT] Routine 10/30/17 Dinner [employer] Diet [DIET] 10/31/17 09:00 Lisinopril [Prinivil] 10 mg PO DAILY - Plan Plan:: This 57 year old male admitted with sepsis, bacteremia, diabetic L foot ulcer, and suspected GI bleed 1. MSSA bacteremia: resolved. First set of BC revealed MSSA bacteremia, Repeat BC negative x 3 day. Continue Cefazolin 2 gm IV Q8hrs. Leukocytosis resolved. PICC line placement placed yesterday 2. Infected L diabetic foot ulcer: s/c amputation 2nd toe. Continue Cefazolin and Levaquin. Initial wound cultures show MSSA along with Alcaligenes species and stenotrophomonas maltophilia both gram neg species sensitive to Levaquin. Wound culture from [place] reveal MSSA plus one gram neg species, ROBERT shows patient is sensitive to both antibiotics.Will need wound vac when the infection clear 3. Upper GI bleed: Hemoccult positive stools. Hgb 9.0. Iron deficiency anemia, Iron added orally. Continue Protonix 40 mg Q12hr IV and Carafate PO. Follow up outpatient for dual scopes with Dr Reese. 4. DM type 2: Non complaint with medication regimen. A1c 9.3. Continue Novolog SSI TIDAC. BS controlled. Will advance diet to bland this morning per patient request. Lantus 10 units at bedtime. 5. chronic sinusitis: benadryl 50 mg iv q 6h and fluticasone nasal spray 1 puff Bid 6. HTN u/c start lisinopril 20 mg po daily VTE prophylaxis: SCDs only due to GI bleed
[2017-10-30] MEDS ORDERED: Fluticasone Propionate 220 MCG/Puff 12 GM Inhaler INH SCH (16:45)
[2017-10-30] MEDS: diphenhydrAMINE 50 MG/ML SDV IVPUSH SCH ×2 (16:56→22:34)
[2017-10-30] MEDS ORDERED: Lisinopril 10 MG Tab PO ONE (18:27)
[2017-10-30] MEDS: Fluticasone Propionate Nasal Spray 16 GM Bottle NASBOTH SCH ×2 (18:54→21:09)
[2017-10-30] MEDS: Insulin Glargine,Human Rec. Analog 100 Units/ML 3 ML Pen SUBCUT SCH (21:09)
[2017-10-30] MEDS: Bacitracin Oint 28.35 GM Tube TOP SCH (21:11)
[2017-10-30] MEDS: Temazepam 15 MG Cap PO PRN (22:34)
[2017-10-31] MEDS: Metoclopramide 10 MG/2 ML SDV IVPUSH PRN (00:42)
[2017-10-31] MEDS: Morphine 4 MG/ML Syringe IVPUSH PRN (00:42)
[2017-10-31] MEDS: Lactated Ringers 1,000 ML IV SCH ×3 (02:04→23:36)
[2017-10-31] MEDS: ceFAZolin 2 GM in Premix Bag 1 BAG IV SCH ×3 (02:04→18:11)
[2017-10-31] MEDS: diphenhydrAMINE 50 MG/ML SDV IVPUSH SCH ×4 (04:48→23:32)
[2017-10-31] MEDS: Sucralfate Suspension 1 GM/10 ML Cup PO SCH ×4 (04:48→23:31)
[2017-10-31] MEDS: Bacitracin Oint 28.35 GM Tube TOP SCH ×3 (05:41→23:31)
[2017-10-31 06:24] LABS: CHLORIDE,CL 108 mmol/L (98-107); SODIUM,NA 142 mmol/L (136-148)
[2017-10-31] MEDS: Insulin Aspart 100 Units/ML 3 ML Pen SUBCUT SCH ×4 (07:10→20:34)
[2017-10-31] MEDS: oxyCODONE 5 MG Tab PO PRN ×3 (07:10→23:31)
[2017-10-31] MEDS: Ferrous Sulfate 325 MG Tab PO SCH ×3 (07:11→16:54)
[2017-10-31] MEDS: Fluticasone Propionate Nasal Spray 16 GM Bottle NASBOTH SCH ×2 (08:27→20:32)
[2017-10-31] MEDS: Pregabalin 50 MG Cap PO SCH ×2 (08:27→20:32)
[2017-10-31] MEDS: Lisinopril 10 MG Tab PO SCH (08:30)
--- NOTE | 2017-10-31 08:50 | PCM.PN ---
- General Info Date of Service: 10/31/17 - Review of Systems Systems Review Comment:: no new complaints. - Patient Data Vitals - Most Recent: Last Vital Signs Temp 36.6 C 10/31/17 08:00 Pulse 82 10/31/17 08:00 Resp 18 10/31/17 08:00 BP 192/109 H 10/31/17 08:30 Pulse Ox 95 10/31/17 08:00 Weight - Most Recent: 97.182 kg I&O - Last 24 Hours: Intake & Output 10/30/17 10/31/17 10/31/17 22:59 06:59 14:59 Intake Total 1500 1671 Output Total 150 1350 Balance 1350 321 Lab Results Last 24 Hours: Laboratory Results - last 24 hr 10/30/17 10/30/17 10/30/17 Range/Units 06:51 11:06 17:01 WBC (4.0-11.0) K/uL RBC (4.50-5.90) M/uL Hgb (13.0-17.0) g/dL Hct (38.0-50.0) % MCV (80.0-98.0) fL MCH (27.0-32.0) pg MCHC (31.0-37.0) g/dL RDW Std Deviation (28.0-62.0) fl RDW Coeff of Krunal (11.0-15.0) % Plt Count (150-400) K/uL MPV (7.40-12.00) fL Nucleated RBC % /100WBC Nucleated RBCs # K/uL Sodium (136-148) mmol/L Potassium (3.5-5.1) mmol/L Chloride (98-107) mmol/L Carbon Dioxide (21.0-32.0) mmol/L BUN (7.0-18.0) mg/dL Creatinine (0.8-1.3) mg/dL Est Cr Clr Drug Dosing mL/min Estimated GFR (MDRD) ml/min Glucose (74-106) mg/dL POC Glucose 256 H 202 H 177 H (60-110) mg/dL Calcium (8.5-10.1) mg/dL Total Bilirubin (0.2-1.0) mg/dL AST (15-37) IU/L ALT (14-63) IU/L Alkaline Phosphatase (46-116) U/L Total Protein (6.4-8.2) g/dL Albumin (3.4-5.0) g/dL Globulin (2.0-3.5) g/dL Albumin/Globulin Ratio (1.3-2.8) 10/30/17 10/31/17 10/31/17 Range/Units 20:28 05:53 05:53 WBC 9.91 (4.0-11.0) K/uL RBC 3.21 L (4.50-5.90) M/uL Hgb 9.1 L (13.0-17.0) g/dL Hct 26.9 L (38.0-50.0) % MCV 83.8 (80.0-98.0) fL MCH 28.3 (27.0-32.0) pg MCHC 33.8 (31.0-37.0) g/dL RDW Std Deviation 39.6 (28.0-62.0) fl RDW Coeff of Krunal 13 (11.0-15.0) % Plt Count 259 (150-400) K/uL MPV 8.70 (7.40-12.00) fL Nucleated RBC % 0.0 /100WBC Nucleated RBCs # 0 K/uL Sodium 142 (136-148) mmol/L Potassium 4.1 (3.5-5.1) mmol/L Chloride 108 H (98-107) mmol/L Carbon Dioxide 27.2 (21.0-32.0) mmol/L BUN 19 H (7.0-18.0) mg/dL Creatinine 1.2 (0.8-1.3) mg/dL Est Cr Clr Drug Dosing 72.34 mL/min Estimated GFR (MDRD) > 60.0 ml/min Glucose 239 H (74-106) mg/dL POC Glucose 415 H (60-110) mg/dL Calcium 7.7 L (8.5-10.1) mg/dL Total Bilirubin 0.2 (0.2-1.0) mg/dL AST 23 (15-37) IU/L ALT 19 (14-63) IU/L Alkaline Phosphatase 105 (46-116) U/L Total Protein 5.1 L (6.4-8.2) g/dL Albumin 2.1 L (3.4-5.0) g/dL Globulin 3.0 (2.0-3.5) g/dL Albumin/Globulin Ratio 0.7 L (1.3-2.8) 10/31/17 Range/Units 06:33 WBC (4.0-11.0) K/uL RBC (4.50-5.90) M/uL Hgb (13.0-17.0) g/dL Hct (38.0-50.0) % MCV (80.0-98.0) fL MCH (27.0-32.0) pg MCHC (31.0-37.0) g/dL RDW Std Deviation (28.0-62.0) fl RDW Coeff of Krunal (11.0-15.0) % Plt Count (150-400) K/uL MPV (7.40-12.00) fL Nucleated RBC % /100WBC Nucleated RBCs # K/uL Sodium (136-148) mmol/L Potassium (3.5-5.1) mmol/L Chloride (98-107) mmol/L Carbon Dioxide (21.0-32.0) mmol/L BUN (7.0-18.0) mg/dL Creatinine (0.8-1.3) mg/dL Est Cr Clr Drug Dosing mL/min Estimated GFR (MDRD) ml/min Glucose (74-106) mg/dL POC Glucose 230 H (60-110) mg/dL Calcium (8.5-10.1) mg/dL Total Bilirubin (0.2-1.0) mg/dL AST (15-37) IU/L ALT (14-63) IU/L Alkaline Phosphatase (46-116) U/L Total Protein (6.4-8.2) g/dL Albumin (3.4-5.0) g/dL Globulin (2.0-3.5) g/dL Albumin/Globulin Ratio (1.3-2.8) Robert Results Last 24 Hours: Microbiology 10/29/17 14:30 Gram Stain - Final Foot, Left Wound Culture - Final Staphylococcus Aureus Anaerobic Culture - Final NO ANAEROBES ISOLATED 10/25/17 11:39 Aerobic Blood Culture - Final Blood - Venous - Lab Draw NO GROWTH AFTER 5 DAYS Anaerobic Blood Culture - Final NO GROWTH AFTER 5 DAYS 10/25/17 11:28 Aerobic Blood Culture - Final Blood - Venous NO GROWTH AFTER 5 DAYS Anaerobic Blood Culture - Final NO GROWTH AFTER 5 DAYS 10/26/17 09:10 Gram Stain - Final Foot, Left Wound Culture - Final Staphylococcus Aureus Alcaligenes Species Anaerobic Culture - Final NO ANAEROBES ISOLATED 10/26/17 08:50 Gram Stain - Final Foot, Left Wound Culture - Final Staphylococcus Aureus Alcaligenes Species Stenotrophomonas Maltophilia Anaerobic Culture - Final NO ANAEROBES ISOLATED Med Orders - Current: Current Medications Acetaminophen (Tylenol) 650 mg PO Q6H PRN PRN Reason: Headache/Pain Last Admin: 10/30/17 04:21 Dose: 650 mg Albuterol/Ipratropium (Duoneb 3.0-0.5 Mg/3 Ml) 3 ml NEB Q4HRRT PRN PRN Reason: Shortness Of Breath/wheezing Bacitracin (Bacitracin Oint) 1 gm TOP TID [facility] Last Admin: 10/31/17 05:41 Dose: 1 gm Diphenhydramine HCl (Benadryl) 50 mg IVPUSH Q6H [facility] Last Admin: 10/31/17 04:48 Dose: 50 mg Ferrous Sulfate (Ferrous Sulfate) 325 mg PO TIDMEALS [facility] Last Admin: 10/31/17 07:11 Dose: 325 mg Fluticasone Propionate (Flonase) 1 gm NASBOTH BID [facility] Last Admin: 10/31/17 08:27 Dose: 1 applic Cefazolin Sodium/Dextrose 2 gm (/ Premix) 50 mls @ 100 mls/hr IV Q8H [facility] Last Admin: 10/31/17 02:04 Dose: 100 mls/hr Levofloxacin/Dextrose 750 mg/ (Premix) 150 mls @ 100 mls/hr IV Q24H [facility] Last Admin: 10/30/17 11:57 Dose: 100 mls/hr Lactated Ringer's (Ringers, Lactated) 1,000 mls @ 100 mls/hr IV ASDIRECTED [facility] Last Admin: 10/31/17 02:04 Dose: 100 mls/hr Insulin Aspart (Novolog) 0 unit SUBCUT ACBED [facility]; Protocol Last Admin: 10/31/17 07:10 Dose: 4 unit Insulin Glargine (Lantus Solostar) 10 units SUBCUT BEDTIME [facility] Last Admin: 10/30/17 21:09 Dose: 10 units Lisinopril (Prinivil) 20 mg PO DAILY [facility] Last Admin: 10/31/17 08:30 Dose: 20 mg Loperamide HCl (Imodium) 0 mg PO ASDIRECTED PRN PRN Reason: Diarrhea Last Admin: 10/28/17 09:36 Dose: 4 mg Metoclopramide HCl (Reglan) 5 mg IVPUSH Q6H PRN PRN Reason: nausea and vomiting Last Admin: 10/31/17 00:42 Dose: 5 mg Morphine Sulfate (Morphine) 4 mg IVPUSH Q4H PRN PRN Reason: Pain Last Admin: 10/31/17 00:42 Dose: 4 mg Oxycodone HCl (Oxycodone) 5 mg PO Q4H PRN PRN Reason: Pain Last Admin: 10/31/17 07:10 Dose: 5 mg Pantoprazole Sodium (Protonix Iv) 40 mg IV Q12H [facility] Last Admin: 10/30/17 22:33 Dose: 40 mg Pregabalin (Lyrica) 50 mg PO BID [facility] Last Admin: 10/31/17 08:27 Dose: 50 mg Sodium Chloride (Saline Flush) 10 ml FLUSH ASDIRECTED PRN PRN Reason: Keep Vein Open Sodium Chloride (Saline Flush) 2.5 ml FLUSH ASDIRECTED PRN PRN Reason: Keep Vein Open Sucralfate (Carafate) 1 gm PO Q6H [facility] Last Admin: 10/31/17 04:48 Dose: 1 gm Temazepam (Restoril) 15 mg PO BEDTIME PRN PRN Reason: Sleep Last Admin: 10/30/17 22:34 Dose: 15 mg Discontinued Medications Bupivacaine HCl (Marcaine 0.5%) Confirm Administered Dose 30 ml .ROUTE .STK-MED ONE Stop: 10/26/17 07:25 Bupivacaine HCl (Marcaine 0.5%) Confirm Administered Dose 30 ml .ROUTE .STK-MED ONE Stop: 10/29/17 10:10 Cefazolin Sodium (Ancef) Confirm Administered Dose 1 gm .ROUTE .STK-MED ONE Stop: 10/29/17 10:09 Chlorpromazine HCl (Chlorpromazine) 50 mg PO ONETIME ONE Stop: 10/30/17 10:13 Last Admin: 10/30/17 10:45 Dose: 50 mg Dexamethasone (Dexamethasone) 4 mg IVPUSH ONETIME ONE Stop: 10/27/17 08:38 Last Admin: 10/27/17 09:12 Dose: 4 mg Dexamethasone (Dexamethasone) 10 mg IVPUSH ONETIME ONE Stop: 10/29/17 10:36 Last Admin: 10/29/17 10:59 Dose: 10 mg Dexamethasone Sodium Phosphate (Dexamethasone Sodium Phosphate) 10 mg IVPUSH ONETIME ONE Stop: 10/30/17 14:00 Last Admin: 10/30/17 15:13 Dose: 10 mg Dihydroergotamine Mesylate (Dhe 45) 1 mg SUBCUT ONETIME ONE Stop: 10/30/17 10:09 Last Admin: 10/30/17 11:00 Dose: 1 mg Diphenhydramine HCl (Benadryl) 25 mg IVPUSH ONETIME ONE Stop: 10/27/17 08:33 Last Admin: 10/27/17 09:15 Dose: 25 mg Ephedrine Sulfate (Ephedrine Sulfate) Confirm Administered Dose 50 mg .ROUTE .STK-MED ONE Stop: 10/29/17 13:58 Fentanyl (Sublimaze) Confirm Administered Dose 100 mcg .ROUTE .STK-MED ONE Stop: 10/26/17 07:18 Fentanyl (Sublimaze) Confirm Administered Dose 100 mcg .ROUTE .STK-MED ONE Stop: 10/29/17 13:07 Fentanyl (Sublimaze) Confirm Administered Dose 250 mcg .ROUTE .STK-MED ONE Stop: 10/29/17 13:07 Fentanyl (Sublimaze) 50 mcg IVPUSH Q5M PRN PRN Reason: Pain (severe 7-10) Stop: 10/30/17 14:03 Fluticasone Propionate (Flovent Hfa 220 Mcg) 1 gm INH BID [facility] Last Admin: 10/30/17 17:42 Dose: Not Given Sodium Chloride (Normal Saline) 1,000 mls @ 999 mls/hr IV .Bolus ONE Stop: 10/24/17 08:08 Last Infusion: 10/24/17 08:22 Dose: Infused Vancomycin HCl 1 gm/ Sodium (Chloride) 250 mls @ 250 mls/hr IV ONETIME ONE Stop: 10/24/17 09:08 Last Admin: 10/24/17 08:14 Dose: 250 mls/hr Sodium Chloride (Normal Saline) 1,000 mls @ 999 mls/hr IV .Bolus ONE Stop: 10/24/17 10:00 Last Infusion: 10/24/17 09:31 Dose: 999 mls/hr Lactated Ringer's (Ringers, Lactated) 1,000 mls @ 150 mls/hr IV ASDIRECTED [facility] Last Admin: 10/27/17 21:15 Dose: 150 mls/hr Piperacillin Sod/Tazobactam (Sod 3.375 gm/ Sodium Chloride) 50 mls @ 100 mls/ hr IV ONETIME ONE Stop: 10/24/17 11:19 Last Admin: 10/24/17 11:08 Dose: 100 mls/hr Vancomycin HCl 500 mg/ Sodium (Chloride) 100 mls @ 100 mls/hr IV ONETIME [facility] Last Admin: 10/24/17 12:11 Dose: 100 mls/hr Vancomycin HCl 1,500 mg/ (Sodium Chloride) 500 mls @ 333.333 mls/hr IV Q24H [facility] Stop: 10/26/17 10:31 Last Admin: 10/26/17 10:42 Dose: Not Given Sodium Chloride (Normal Saline) 1,000 mls @ 999 mls/hr IV ASDIRECTED [facility] Last Admin: 10/24/17 11:09 Dose: 999 mls/hr Piperacillin Sod/Tazobactam (Sod 4.5 gm/ Sodium Chloride) 100 mls @ 100 mls/hr IV Q6H [facility] Last Admin: 10/26/17 05:30 Dose: 100 mls/hr Vancomycin HCl 1,500 mg/ (Sodium Chloride) 500 mls @ 333.333 mls/hr IV Q12H [facility] Albumin Human (Flexbumin 25%) 12.5 gm in 50 mls @ 100 mls/hr IV ONETIME ONE Stop: 10/26/17 09:18 Last Admin: 10/26/17 11:42 Dose: Not Given Albumin Human (Flexbumin 25%) 12.5 gm in 50 mls @ 100 mls/hr IV ONETIME ONE Stop: 10/26/17 10:44 Last Admin: 10/26/17 11:33 Dose: 100 mls/hr Albumin Human (Flexbumin 25%) 12.5 gm in 50 mls @ 100 mls/hr IV ONETIME ONE Stop: 10/26/17 11:14 Last Admin: 10/26/17 10:54 Dose: 100 mls/hr Levofloxacin/Dextrose 750 mg/ (Premix) 150 mls @ 100 mls/hr IV ONETIME ONE Stop: 10/26/17 13:30 Last Admin: 10/26/17 13:46 Dose: Not Given Acetaminophen 1,000 mg/ Premix 100 mls @ 400 mls/hr IV NOW ONE Stop: 10/27/17 13:46 Last Admin: 10/27/17 14:02 Dose: 400 mls/hr Acetaminophen 1,000 mg/ Premix 100 mls @ 400 mls/hr IV NOW ONE Stop: 10/27/17 21:37 Last Admin: 10/27/17 21:35 Dose: 400 mls/hr Albumin Human (Flexbumin 25%) 12.5 gm in 50 mls @ 100 mls/hr IV ONETIME ONE Stop: 10/28/17 20:37 Last Admin: 10/28/17 21:06 Dose: 100 mls/hr Potassium Chloride/Sodium Chloride (Normal Saline With 40 Meq Kcl) 500 mls @ 125 mls/hr IV ASDIRECTED [facility] Stop: 10/29/17 13:59 Last Admin: 10/29/17 11:16 Dose: Not Given Magnesium Sulfate 2 gm/Potassium Chloride 40 meq/Sodium Chloride 524 mls @ 131 mls/hr IV ASDIRECTED [facility] Stop: 10/29/17 14:01 Last Admin: 10/29/17 10:57 Dose: 131 mls/hr Albumin Human (Flexbumin 25%) 12.5 gm in 50 mls @ 100 mls/hr IV ONETIME ONE Stop: 10/29/17 12:59 Last Admin: 10/29/17 16:35 Dose: 100 mls/hr Albumin Human (Flexbumin 25%) 12.5 gm in 50 mls @ 100 mls/hr IV ONETIME ONE Stop: 10/29/17 13:29 Last Admin: 10/29/17 17:19 Dose: 100 mls/hr Insulin Aspart (Novolog) 0 unit SUBCUT Q6H [facility]; Protocol Last Admin: 10/25/17 05:50 Dose: Not Given Insulin Aspart (Novolog) 0 unit SUBCUT TIDAC [facility]; Protocol Last Admin: 10/29/17 18:14 Dose: 4 units Insulin Aspart (Novolog) 0 unit SUBCUT TIDAC [facility]; Protocol Insulin Glargine (Lantus Solostar) 10 units SUBCUT ONETIME ONE Stop: 10/24/17 12:01 Last Admin: 10/24/17 12:51 Dose: 10 units Insulin Glargine (Lantus Solostar) 38 units SUBCUT BEDTIME [facility] Ketorolac Tromethamine (Toradol) 30 mg IVPUSH ONETIME ONE Stop: 10/27/17 08:33 Last Admin: 10/27/17 12:05 Dose: Not Given Lidocaine (Xylocaine-Mpf 2%) Confirm Administered Dose 10 ml .ROUTE .STK-MED ONE Stop: 10/29/17 13:07 Lidocaine HCl (Xylocaine 1%) Confirm Administered Dose 20 ml .ROUTE .STK-MED ONE Stop: 10/26/17 07:25 Lidocaine HCl (Xylocaine 1%) Confirm Administered Dose 20 ml .ROUTE .STK-MED ONE Stop: 10/29/17 10:10 Lisinopril (Prinivil) 10 mg PO DAILY [facility] Lisinopril (Prinivil) 10 mg PO ONETIME ONE Stop: 10/30/17 18:28 Last Admin: 10/30/17 18:54 Dose: 10 mg Metoclopramide HCl (Reglan) 10 mg IVPUSH ONETIME ONE Stop: 10/27/17 08:33 Last Admin: 10/27/17 09:13 Dose: 10 mg Metoclopramide HCl (Reglan) 10 mg IVPUSH ONETIME ONE Stop: 10/29/17 10:37 Last Admin: 10/29/17 10:58 Dose: 10 mg Midazolam HCl (Versed 1 Mg/Ml) Confirm Administered Dose 2 mg .ROUTE .STK-MED ONE Stop: 10/26/17 07:19 Midazolam HCl (Versed 1 Mg/Ml) Confirm Administered Dose 2 mg .ROUTE .STK-MED ONE Stop: 10/29/17 13:07 Morphine Sulfate (Morphine) 4 mg IVPUSH ONETIME ONE Stop: 10/24/17 07:16 Last Admin: 10/24/17 07:42 Dose: Not Given Morphine Sulfate (Morphine) Confirm Administered Dose 4 mg .ROUTE .STK-MED ONE Stop: 10/24/17 07:20 Last Admin: 10/24/17 07:33 Dose: Not Given Morphine Sulfate (Morphine) 4 mg IVPUSH ONETIME ONE Stop: 10/24/17 07:21 Last Admin: 10/24/17 07:33 Dose: 4 mg Morphine Sulfate (Morphine) 2 mg IVPUSH Q2H PRN PRN Reason: Pain (severe 7-10) Stop: 10/25/17 10:42 Last Admin: 10/25/17 09:42 Dose: 2 mg Ondansetron HCl (Zofran) 4 mg IVPUSH ONETIME ONE Stop: 10/24/17 07:16 Last Admin: 10/24/17 07:21 Dose: 4 mg Pantoprazole Sodium (Protonix Iv) 80 mg IVPUSH .BOLUS ONE Stop: 10/24/17 07:41 Last Admin: 10/24/17 07:57 Dose: 80 mg Potassium Chloride (Klor-Con M20) 40 meq PO ONETIME ONE Stop: 10/29/17 08:48 Last Admin: 10/29/17 11:15 Dose: Not Given Propofol (Diprivan 20 Ml) Confirm Administered Dose 200 mg .ROUTE .STK-MED ONE Stop: 10/26/17 07:19 Propofol (Diprivan 20 Ml) Confirm Administered Dose 400 mg .ROUTE .STK-MED ONE Stop: 10/29/17 13:07 Propofol (Diprivan 20 Ml) Confirm Administered Dose 200 mg .ROUTE .STK-MED ONE Stop: 10/29/17 14:49 Sodium Chloride (Saline Flush) 10 ml FLUSH ASDIRECTED PRN PRN Reason: Keep Vein Open Sodium Chloride (Saline Flush) 2.5 ml FLUSH ASDIRECTED PRN PRN Reason: Keep Vein Open Sumatriptan Succinate (Imitrex) 6 mg SUBCUT ONETIME ONE Stop: 10/27/17 21:25 Last Admin: 10/27/17 22:15 Dose: 6 mg Sumatriptan Succinate (Imitrex) 50 mg PO Q2H PRN PRN Reason: Headache Last Admin: 10/28/17 20:41 Dose: 50 mg Sumatriptan Succinate (Imitrex) Confirm Administered Dose 50 mg .ROUTE .STK-MED ONE Stop: 10/28/17 20:51 Last Admin: 10/28/17 21:10 Dose: Not Given Sumatriptan Succinate (Imitrex) 6 mg SUBCUT ONETIME ONE Stop: 10/29/17 10:28 Last Admin: 10/29/17 10:42 Dose: 6 mg Vancomycin HCl (Pharmacy To Dose - Vancomycin) 0 dose .XX ASDIRECTED BOB - Exam General: Alert, Oriented Lungs: Clear to Auscultation Cardiovascular: Regular Rate, Regular Rhythm Extremities: Other (s/p 2nd toe amputation, appears to be healing) - Problem List Review Problem List Initiated/Reviewed/Updated: Yes - Plan Plan:: 57 yo male with 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 We will continue antibiotic therapy and wound care.
[2017-10-31] MEDS ORDERED: Lisinopril 10 MG Tab PO SCH (09:00)
[2017-10-31] MEDS: Pantoprazole 40 MG Vial IV SCH ×2 (11:23→23:32)
[2017-10-31] MEDS: Levofloxacin/Dextrose 5%-Water 750 MG in Premix Bag 1 BAG IV SCH (11:49)
[2017-10-31] MEDS: Insulin Glargine,Human Rec. Analog 100 Units/ML 3 ML Pen SUBCUT SCH (20:31)
[2017-10-31] MEDS: Temazepam 15 MG Cap PO PRN (20:32)
[2017-11-01] MEDS: ceFAZolin 2 GM in Premix Bag 1 BAG IV SCH ×3 (01:43→18:32)
[2017-11-01] MEDS: diphenhydrAMINE 50 MG/ML SDV IVPUSH SCH ×4 (04:30→22:33)
[2017-11-01] MEDS: Sucralfate Suspension 1 GM/10 ML Cup PO SCH ×4 (04:30→22:32)
[2017-11-01] MEDS: oxyCODONE 5 MG Tab PO PRN ×3 (04:31→13:12)
[2017-11-01 06:19] LABS: CHLORIDE,CL 108 mmol/L (98-107); SODIUM,NA 143 mmol/L (136-148)
[2017-11-01] MEDS: Insulin Aspart 100 Units/ML 3 ML Pen SUBCUT SCH ×4 (06:36→20:47)
[2017-11-01] MEDS: Bacitracin Oint 28.35 GM Tube TOP SCH ×3 (06:37→22:35)
[2017-11-01] MEDS: Pregabalin 50 MG Cap PO SCH ×2 (08:18→20:45)
[2017-11-01] MEDS: Ferrous Sulfate 325 MG Tab PO SCH ×3 (08:18→16:29)
[2017-11-01] MEDS: Fluticasone Propionate Nasal Spray 16 GM Bottle NASBOTH SCH ×2 (08:19→20:45)
[2017-11-01] MEDS: Lisinopril 10 MG Tab PO SCH (08:19)
--- NOTE | 2017-11-01 08:41 | PCM.PN ---
- General Info Date of Service: 11/01/17 Admission Dx/Problem (Free Text): diabetic ulcer left foot Subjective Update: Reports headache was better overnight, now starting this morning again. NO chest pain or SOB. Foot pain is tolerable, no complaints. PICC line in place. Functional Status: Reports: Pain Controlled, Tolerating Diet, Urinating - Review of Systems HEENT: Reports: Headaches. Denies: Sore Throat, Visual Changes Pulmonary: Reports: No Symptoms. Denies: Shortness of Breath, Cough, Sputum Cardiovascular: Reports: No Symptoms. Denies: Chest Pain, Edema Gastrointestinal: Reports: No Symptoms. Denies: Abdominal Pain, Nausea, Vomiting Genitourinary: Reports: No Symptoms. Denies: Dysuria, Frequency, Burning Musculoskeletal: Denies: Neck Pain, Foot Pain Neurological: Reports: No Symptoms Psychiatric: Reports: No Symptoms - Patient Data Vitals - Most Recent: Last Vital Signs Temp 96.2 F 11/01/17 04:00 Pulse 78 11/01/17 04:00 Resp 18 11/01/17 04:00 BP 159/88 H 11/01/17 08:19 Pulse Ox 94 L 11/01/17 04:00 Weight - Most Recent: 97.182 kg I&O - Last 24 Hours: Intake & Output 10/31/17 11/01/17 11/01/17 22:59 06:59 14:59 Intake Total 750 2130 Output Total 1900 600 Balance -1150 1530 Lab Results Last 24 Hours: Laboratory Results - last 24 hr 10/31/17 10/31/17 10/31/17 Range/Units 11:54 16:42 20:28 WBC (4.0-11.0) K/uL RBC (4.50-5.90) M/uL Hgb (13.0-17.0) g/dL Hct (38.0-50.0) % MCV (80.0-98.0) fL MCH (27.0-32.0) pg MCHC (31.0-37.0) g/dL RDW Std Deviation (28.0-62.0) fl RDW Coeff of Krunal (11.0-15.0) % Plt Count (150-400) K/uL MPV (7.40-12.00) fL Nucleated RBC % /100WBC Nucleated RBCs # K/uL Sodium (136-148) mmol/L Potassium (3.5-5.1) mmol/L Chloride (98-107) mmol/L Carbon Dioxide (21.0-32.0) mmol/L BUN (7.0-18.0) mg/dL Creatinine (0.8-1.3) mg/dL Est Cr Clr Drug Dosing mL/min Estimated GFR (MDRD) ml/min Glucose (74-106) mg/dL POC Glucose 183 H 168 H 205 H (60-110) mg/dL Calcium (8.5-10.1) mg/dL Total Bilirubin (0.2-1.0) mg/dL AST (15-37) IU/L ALT (14-63) IU/L Alkaline Phosphatase (46-116) U/L Total Protein (6.4-8.2) g/dL Albumin (3.4-5.0) g/dL Globulin (2.0-3.5) g/dL Albumin/Globulin Ratio (1.3-2.8) 11/01/17 11/01/17 Range/Units 05:36 05:36 WBC 8.69 (4.0-11.0) K/uL RBC 3.07 L (4.50-5.90) M/uL Hgb 8.6 L (13.0-17.0) g/dL Hct 26.1 L (38.0-50.0) % MCV 85.0 (80.0-98.0) fL MCH 28.0 (27.0-32.0) pg MCHC 33.0 (31.0-37.0) g/dL RDW Std Deviation 39.9 (28.0-62.0) fl RDW Coeff of Krunal 13 (11.0-15.0) % Plt Count 251 (150-400) K/uL MPV 9.00 (7.40-12.00) fL Nucleated RBC % 0.0 /100WBC Nucleated RBCs # 0 K/uL Sodium 143 (136-148) mmol/L Potassium 3.8 (3.5-5.1) mmol/L Chloride 108 H (98-107) mmol/L Carbon Dioxide 29.5 (21.0-32.0) mmol/L BUN 21 H (7.0-18.0) mg/dL Creatinine 1.1 (0.8-1.3) mg/dL Est Cr Clr Drug Dosing 78.91 mL/min Estimated GFR (MDRD) > 60.0 ml/min Glucose 129 H (74-106) mg/dL POC Glucose (60-110) mg/dL Calcium 7.9 L (8.5-10.1) mg/dL Total Bilirubin 0.2 (0.2-1.0) mg/dL AST 18 (15-37) IU/L ALT 15 (14-63) IU/L Alkaline Phosphatase 88 (46-116) U/L Total Protein 4.5 L (6.4-8.2) g/dL Albumin 1.9 L (3.4-5.0) g/dL Globulin 2.6 (2.0-3.5) g/dL Albumin/Globulin Ratio 0.7 L (1.3-2.8) Robert Results Last 24 Hours: Microbiology 10/29/17 14:52 Tissue Culture - Final Bone / Bone Biopsy - Foot, Left Staphylococcus Aureus 10/29/17 14:30 Gram Stain - Final Foot, Left Wound Culture - Final Staphylococcus Aureus Anaerobic Culture - Final NO ANAEROBES ISOLATED Med Orders - Current: Current Medications Acetaminophen (Tylenol) 650 mg PO Q6H PRN PRN Reason: Headache/Pain Last Admin: 10/30/17 04:21 Dose: 650 mg Albuterol/Ipratropium (Duoneb 3.0-0.5 Mg/3 Ml) 3 ml NEB Q4HRRT PRN PRN Reason: Shortness Of Breath/wheezing Bacitracin (Bacitracin Oint) 1 gm TOP TID REPLACED BY [facility] Last Admin: 11/01/17 06:37 Dose: 1 applic Diphenhydramine HCl (Benadryl) 50 mg IVPUSH Q6H REPLACED BY [facility] Last Admin: 11/01/17 04:30 Dose: 50 mg Ferrous Sulfate (Ferrous Sulfate) 325 mg PO TIDMEALS REPLACED BY [facility] Last Admin: 11/01/17 08:18 Dose: 325 mg Fluticasone Propionate (Flonase) 1 gm NASBOTH BID REPLACED BY [facility] Last Admin: 11/01/17 08:19 Dose: 1 applic Cefazolin Sodium/Dextrose 2 gm (/ Premix) 50 mls @ 100 mls/hr IV Q8H REPLACED BY [facility] Last Admin: 11/01/17 01:43 Dose: 100 mls/hr Levofloxacin/Dextrose 750 mg/ (Premix) 150 mls @ 100 mls/hr IV Q24H REPLACED BY [facility] Last Admin: 10/31/17 11:49 Dose: 100 mls/hr Insulin Aspart (Novolog) 0 unit SUBCUT ACBED REPLACED BY [facility]; Protocol Last Admin: 11/01/17 06:36 Dose: Not Given Insulin Glargine (Lantus Solostar) 10 units SUBCUT BEDTIME REPLACED BY [facility] Last Admin: 10/31/17 20:31 Dose: 10 units Lisinopril (Prinivil) 20 mg PO DAILY REPLACED BY [facility] Last Admin: 11/01/17 08:19 Dose: 20 mg Loperamide HCl (Imodium) 0 mg PO ASDIRECTED PRN PRN Reason: Diarrhea Last Admin: 10/28/17 09:36 Dose: 4 mg Metoclopramide HCl (Reglan) 5 mg IVPUSH Q6H PRN PRN Reason: nausea and vomiting Last Admin: 10/31/17 00:42 Dose: 5 mg Morphine Sulfate (Morphine) 4 mg IVPUSH Q4H PRN PRN Reason: Pain Last Admin: 10/31/17 00:42 Dose: 4 mg Oxycodone HCl (Oxycodone) 5 mg PO Q4H PRN PRN Reason: Pain Last Admin: 11/01/17 08:18 Dose: 5 mg Pantoprazole Sodium (Protonix Iv) 40 mg IV Q12H REPLACED BY [facility] Last Admin: 10/31/17 23:32 Dose: 40 mg Pregabalin (Lyrica) 50 mg PO BID REPLACED BY [facility] Last Admin: 11/01/17 08:18 Dose: 50 mg Sodium Chloride (Saline Flush) 10 ml FLUSH ASDIRECTED PRN PRN Reason: Keep Vein Open Sodium Chloride (Saline Flush) 2.5 ml FLUSH ASDIRECTED PRN PRN Reason: Keep Vein Open Sucralfate (Carafate) 1 gm PO Q6H REPLACED BY [facility] Last Admin: 11/01/17 04:30 Dose: 1 gm Temazepam (Restoril) 15 mg PO BEDTIME PRN PRN Reason: Sleep Last Admin: 10/31/17 20:32 Dose: 15 mg Discontinued Medications Bupivacaine HCl (Marcaine 0.5%) Confirm Administered Dose 30 ml .ROUTE .[facility]-MED ONE Stop: 10/26/17 07:25 Bupivacaine HCl (Marcaine 0.5%) Confirm Administered Dose 30 ml .ROUTE .STK-MED ONE Stop: 10/29/17 10:10 Cefazolin Sodium (Ancef) Confirm Administered Dose 1 gm .ROUTE .STK-MED ONE Stop: 10/29/17 10:09 Chlorpromazine HCl (Chlorpromazine) 50 mg PO ONETIME ONE Stop: 10/30/17 10:13 Last Admin: 10/30/17 10:45 Dose: 50 mg Dexamethasone (Dexamethasone) 4 mg IVPUSH ONETIME ONE Stop: 10/27/17 08:38 Last Admin: 10/27/17 09:12 Dose: 4 mg Dexamethasone (Dexamethasone) 10 mg IVPUSH ONETIME ONE Stop: 10/29/17 10:36 Last Admin: 10/29/17 10:59 Dose: 10 mg Dexamethasone Sodium Phosphate (Dexamethasone Sodium Phosphate) 10 mg IVPUSH ONETIME ONE Stop: 10/30/17 14:00 Last Admin: 10/30/17 15:13 Dose: 10 mg Dihydroergotamine Mesylate (Dhe 45) 1 mg SUBCUT ONETIME ONE Stop: 10/30/17 10:09 Last Admin: 10/30/17 11:00 Dose: 1 mg Diphenhydramine HCl (Benadryl) 25 mg IVPUSH ONETIME ONE Stop: 10/27/17 08:33 Last Admin: 10/27/17 09:15 Dose: 25 mg Ephedrine Sulfate (Ephedrine Sulfate) Confirm Administered Dose 50 mg .ROUTE .STK-MED ONE Stop: 10/29/17 13:58 Fentanyl (Sublimaze) Confirm Administered Dose 100 mcg .ROUTE .STK-MED ONE Stop: 10/26/17 07:18 Fentanyl (Sublimaze) Confirm Administered Dose 100 mcg .ROUTE .STK-MED ONE Stop: 10/29/17 13:07 Fentanyl (Sublimaze) Confirm Administered Dose 250 mcg .ROUTE .STK-MED ONE Stop: 10/29/17 13:07 Fentanyl (Sublimaze) 50 mcg IVPUSH Q5M PRN PRN Reason: Pain (severe 7-10) Stop: 10/30/17 14:03 Fluticasone Propionate (Flovent Hfa 220 Mcg) 1 gm INH BID BOB Last Admin: 10/30/17 17:42 Dose: Not Given Sodium Chloride (Normal Saline) 1,000 mls @ 999 mls/hr IV .Bolus ONE Stop: 10/24/17 08:08 Last Infusion: 10/24/17 08:22 Dose: Infused Vancomycin HCl 1 gm/ Sodium (Chloride) 250 mls @ 250 mls/hr IV ONETIME ONE Stop: 10/24/17 09:08 Last Admin: 10/24/17 08:14 Dose: 250 mls/hr Sodium Chloride (Normal Saline) 1,000 mls @ 999 mls/hr IV .Bolus ONE Stop: 10/24/17 10:00 Last Infusion: 10/24/17 09:31 Dose: 999 mls/hr Lactated Ringer's (Ringers, Lactated) 1,000 mls @ 150 mls/hr IV ASDIRECTED REPLACED BY [facility] Last Admin: 10/27/17 21:15 Dose: 150 mls/hr Piperacillin Sod/Tazobactam (Sod 3.375 gm/ Sodium Chloride) 50 mls @ 100 mls/ hr IV ONETIME ONE Stop: 10/24/17 11:19 Last Admin: 10/24/17 11:08 Dose: 100 mls/hr Vancomycin HCl 500 mg/ Sodium (Chloride) 100 mls @ 100 mls/hr IV ONETIME REPLACED BY [facility] Last Admin: 10/24/17 12:11 Dose: 100 mls/hr Vancomycin HCl 1,500 mg/ (Sodium Chloride) 500 mls @ 333.333 mls/hr IV Q24H REPLACED BY [facility] Stop: 10/26/17 10:31 Last Admin: 10/26/17 10:42 Dose: Not Given Sodium Chloride (Normal Saline) 1,000 mls @ 999 mls/hr IV ASDIRECTED REPLACED BY [facility] Last Admin: 10/24/17 11:09 Dose: 999 mls/hr Piperacillin Sod/Tazobactam (Sod 4.5 gm/ Sodium Chloride) 100 mls @ 100 mls/hr IV Q6H REPLACED BY [facility] Last Admin: 10/26/17 05:30 Dose: 100 mls/hr Vancomycin HCl 1,500 mg/ (Sodium Chloride) 500 mls @ 333.333 mls/hr IV Q12H REPLACED BY [facility] Albumin Human (Flexbumin 25%) 12.5 gm in 50 mls @ 100 mls/hr IV ONETIME ONE Stop: 10/26/17 09:18 Last Admin: 10/26/17 11:42 Dose: Not Given Albumin Human (Flexbumin 25%) 12.5 gm in 50 mls @ 100 mls/hr IV ONETIME ONE Stop: 10/26/17 10:44 Last Admin: 10/26/17 11:33 Dose: 100 mls/hr Albumin Human (Flexbumin 25%) 12.5 gm in 50 mls @ 100 mls/hr IV ONETIME ONE Stop: 10/26/17 11:14 Last Admin: 10/26/17 10:54 Dose: 100 mls/hr Levofloxacin/Dextrose 750 mg/ (Premix) 150 mls @ 100 mls/hr IV ONETIME ONE Stop: 10/26/17 13:30 Last Admin: 10/26/17 13:46 Dose: Not Given Acetaminophen 1,000 mg/ Premix 100 mls @ 400 mls/hr IV NOW ONE Stop: 10/27/17 13:46 Last Admin: 10/27/17 14:02 Dose: 400 mls/hr Acetaminophen 1,000 mg/ Premix 100 mls @ 400 mls/hr IV NOW ONE Stop: 10/27/17 21:37 Last Admin: 10/27/17 21:35 Dose: 400 mls/hr Lactated Ringer's (Ringers, Lactated) 1,000 mls @ 100 mls/hr IV ASDIRECTED REPLACED BY [facility] Last Admin: 10/31/17 23:36 Dose: 100 mls/hr Albumin Human (Flexbumin 25%) 12.5 gm in 50 mls @ 100 mls/hr IV ONETIME ONE Stop: 10/28/17 20:37 Last Admin: 10/28/17 21:06 Dose: 100 mls/hr Potassium Chloride/Sodium Chloride (Normal Saline With 40 Meq Kcl) 500 mls @ 125 mls/hr IV ASDIRECTED REPLACED BY [facility] Stop: 10/29/17 13:59 Last Admin: 10/29/17 11:16 Dose: Not Given Magnesium Sulfate 2 gm/Potassium Chloride 40 meq/Sodium Chloride 524 mls @ 131 mls/hr IV ASDIRECTED REPLACED BY [facility] Stop: 10/29/17 14:01 Last Admin: 10/29/17 10:57 Dose: 131 mls/hr Albumin Human (Flexbumin 25%) 12.5 gm in 50 mls @ 100 mls/hr IV ONETIME ONE Stop: 10/29/17 12:59 Last Admin: 10/29/17 16:35 Dose: 100 mls/hr Albumin Human (Flexbumin 25%) 12.5 gm in 50 mls @ 100 mls/hr IV ONETIME ONE Stop: 10/29/17 13:29 Last Admin: 10/29/17 17:19 Dose: 100 mls/hr Insulin Aspart (Novolog) 0 unit SUBCUT Q6H BOB; Protocol Last Admin: 10/25/17 05:50 Dose: Not Given Insulin Aspart (Novolog) 0 unit SUBCUT TIDAC BOB; Protocol Last Admin: 10/29/17 18:14 Dose: 4 units Insulin Aspart (Novolog) 0 unit SUBCUT TIDAC BOB; Protocol Insulin Glargine (Lantus Solostar) 10 units SUBCUT ONETIME ONE Stop: 10/24/17 12:01 Last Admin: 10/24/17 12:51 Dose: 10 units Insulin Glargine (Lantus Solostar) 38 units SUBCUT BEDTIME REPLACED BY [facility] Ketorolac Tromethamine (Toradol) 30 mg IVPUSH ONETIME ONE Stop: 10/27/17 08:33 Last Admin: 10/27/17 12:05 Dose: Not Given Lidocaine (Xylocaine-Mpf 2%) Confirm Administered Dose 10 ml .ROUTE .STK-MED ONE Stop: 10/29/17 13:07 Lidocaine HCl (Xylocaine 1%) Confirm Administered Dose 20 ml .ROUTE .STK-MED ONE Stop: 10/26/17 07:25 Lidocaine HCl (Xylocaine 1%) Confirm Administered Dose 20 ml .ROUTE .STK-MED ONE Stop: 10/29/17 10:10 Lisinopril (Prinivil) 10 mg PO DAILY REPLACED BY [facility] Lisinopril (Prinivil) 10 mg PO ONETIME ONE Stop: 10/30/17 18:28 Last Admin: 10/30/17 18:54 Dose: 10 mg Metoclopramide HCl (Reglan) 10 mg IVPUSH ONETIME ONE Stop: 10/27/17 08:33 Last Admin: 10/27/17 09:13 Dose: 10 mg Metoclopramide HCl (Reglan) 10 mg IVPUSH ONETIME ONE Stop: 10/29/17 10:37 Last Admin: 10/29/17 10:58 Dose: 10 mg Midazolam HCl (Versed 1 Mg/Ml) Confirm Administered Dose 2 mg .ROUTE .STK-MED ONE Stop: 10/26/17 07:19 Midazolam HCl (Versed 1 Mg/Ml) Confirm Administered Dose 2 mg .ROUTE .STK-MED ONE Stop: 10/29/17 13:07 Morphine Sulfate (Morphine) 4 mg IVPUSH ONETIME ONE Stop: 10/24/17 07:16 Last Admin: 10/24/17 07:42 Dose: Not Given Morphine Sulfate (Morphine) Confirm Administered Dose 4 mg .ROUTE .STK-MED ONE Stop: 10/24/17 07:20 Last Admin: 10/24/17 07:33 Dose: Not Given Morphine Sulfate (Morphine) 4 mg IVPUSH ONETIME ONE Stop: 10/24/17 07:21 Last Admin: 10/24/17 07:33 Dose: 4 mg Morphine Sulfate (Morphine) 2 mg IVPUSH Q2H PRN PRN Reason: Pain (severe 7-10) Stop: 10/25/17 10:42 Last Admin: 10/25/17 09:42 Dose: 2 mg Ondansetron HCl (Zofran) 4 mg IVPUSH ONETIME ONE Stop: 10/24/17 07:16 Last Admin: 10/24/17 07:21 Dose: 4 mg Pantoprazole Sodium (Protonix Iv) 80 mg IVPUSH .BOLUS ONE Stop: 10/24/17 07:41 Last Admin: 10/24/17 07:57 Dose: 80 mg Potassium Chloride (Klor-Con M20) 40 meq PO ONETIME ONE Stop: 10/29/17 08:48 Last Admin: 10/29/17 11:15 Dose: Not Given Propofol (Diprivan 20 Ml) Confirm Administered Dose 200 mg .ROUTE .STK-MED ONE Stop: 10/26/17 07:19 Propofol (Diprivan 20 Ml) Confirm Administered Dose 400 mg .ROUTE .STK-MED ONE Stop: 10/29/17 13:07 Propofol (Diprivan 20 Ml) Confirm Administered Dose 200 mg .ROUTE .STK-MED ONE Stop: 10/29/17 14:49 Sodium Chloride (Saline Flush) 10 ml FLUSH ASDIRECTED PRN PRN Reason: Keep Vein Open Sodium Chloride (Saline Flush) 2.5 ml FLUSH ASDIRECTED PRN PRN Reason: Keep Vein Open Sumatriptan Succinate (Imitrex) 6 mg SUBCUT ONETIME ONE Stop: 10/27/17 21:25 Last Admin: 10/27/17 22:15 Dose: 6 mg Sumatriptan Succinate (Imitrex) 50 mg PO Q2H PRN PRN Reason: Headache Last Admin: 10/28/17 20:41 Dose: 50 mg Sumatriptan Succinate (Imitrex) Confirm Administered Dose 50 mg .ROUTE .STK-MED ONE Stop: 10/28/17 20:51 Last Admin: 10/28/17 21:10 Dose: Not Given Sumatriptan Succinate (Imitrex) 6 mg SUBCUT ONETIME ONE Stop: 10/29/17 10:28 Last Admin: 10/29/17 10:42 Dose: 6 mg Vancomycin HCl (Pharmacy To Dose - Vancomycin) 0 dose .XX ASDIRECTED BOB - Exam General: Alert, Oriented, Cooperative, No Acute Distress Lungs: Clear to Auscultation, Normal Respiratory Effort Cardiovascular: Regular Rate, Regular Rhythm GI/Abdominal Exam: Normal Bowel Sounds, Soft, Non-Tender Extremities: Normal Range of Motion, Non-Tender Wound/Incisions: Dressing Dry and Intact, Drainage (scant drainage to dressing of L foot. 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 SNOMED Code(s): 359429421 Code(s): M86.9 - OSTEOMYELITIS, UNSPECIFIED; A49.01 - METHICILLIN SUSCEP STAPH INFECTION, UNSP SITE Status: Acute Current Visit: Yes (2) MSSA bacteremia SNOMED Code(s): 643756124, 802715711 Code(s): R78.81 - BACTEREMIA Status: Acute Current Visit: Yes (3) Diabetic foot ulcer SNOMED Code(s): 439293880 Code(s): E11.621 - TYPE 2 DIABETES MELLITUS WITH FOOT ULCER; L97.509 - NON- PRESSURE CHRONIC ULCER OTH PRT UNSP FOOT W UNSP SEVERITY Status: Acute Priority: High Current Visit: Yes Onset Date: ~10/04/17 Qualifiers: Diabetic foot ulcer location: midfoot Diabetes mellitus type: type 2 Laterality: left Non-pressure ulcer stage: with bone involvement without evidence of necrosis Qualified Code(s): E11.621 - Type 2 diabetes mellitus with foot ulcer; L97.426 - Non-pressure chronic ulcer of left heel and midfoot with bone involvement without evidence of necrosis (4) GI bleed SNOMED Code(s): 15533461 Code(s): K92.2 - GASTROINTESTINAL HEMORRHAGE, UNSPECIFIED Status: Resolved Current Visit: Yes Qualifiers: GI bleed type/associated pathology: unspecified gastrointestinal hemorrhage type Qualified Code(s): K92.2 - Gastrointestinal hemorrhage, unspecified (5) Heme + stool SNOMED Code(s): 92160113, 136313733 Code(s): R19.5 - OTHER FECAL ABNORMALITIES Status: Acute Current Visit: Yes (6) DM type 2 (diabetes mellitus, type 2) SNOMED Code(s): 57541615 Code(s): E11.9 - TYPE 2 DIABETES MELLITUS WITHOUT COMPLICATIONS Status: Chronic Current Visit: Yes Qualifiers: Diabetes mellitus jail insulin use: with 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 exterminator 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 use Diabetes mellitus complication status: with skin complications Diabetes mellitus complication detail: with foot ulcer Qualified Code(s): E11.621 - Type 2 diabetes mellitus with foot ulcer; L97.509 - Non-pressure chronic ulcer of other part of unspecified foot with unspecified severity; Z79.4 - senior care ( current) use of insulin (7) Non compliance w medication regimen SNOMED Code(s): 419680195 Code(s): Z91.14 - PATIENT'S OTHER NONCOMPLIANCE WITH MEDICATION REGIMEN Status: Chronic Current Visit: No (8) Migraine SNOMED Code(s): 86157948 Code(s): G43.909 - MIGRAINE, UNSP, NOT INTRACTABLE, WITHOUT STATUS MIGRAINOSUS Status: Acute Current Visit: Yes (9) Sepsis SNOMED Code(s): 96691415 Code(s): A41.9 - SEPSIS, UNSPECIFIED ORGANISM Status: Resolved Current Visit: Yes Qualifiers: Sepsis type: sepsis due to unspecified organism Qualified Code(s): A41.9 - Sepsis, unspecified organism - Problem List Review Problem List Initiated/Reviewed/Updated: Yes - Plan Plan:: This 57 year old male admitted with sepsis, bacteremia, diabetic L foot ulcer, and suspected GI bleed 1. MSSA bacteremia and osteomyelitis: Continue Cefazolin 2 gm IV Q8hrs. PICC line in place for up to 6 weeks of outpatient antibiotics. Bone culture reveals Staph aureus. 2. Infected L diabetic foot ulcer: Continue Cefazolin and Levaquin. Initial wound cultures show MSSA along with Alcaligenes species and stenotrophomonas maltophilia both gram neg species sensitive to Levaquin. Wound culture from [place] reveal MSSA plus Alcaligenes species. Remain NWB. Plan for possible wound vac. Will leave this to Dr Toribio. 3. Upper GI bleed: Resolved. Monitor Hgb. Eating well. Will stop IVFs. Continue Protonix 40 mg PO BIDAC and Carafate PO. Follow up outpatient for dual scopes with Dr Reese. 4. DM type 2: Non complaint with medication regimen. A1c 9.3. Continue Novolog SSI TIDAC. BS controlled. Lantus 10 units at bedtime. 5. Headache: Improving somewhat, waxes and wanes. CT of head revealed bilateral sinusitis, no acute intracranial process. VTE prophylaxis: SCDs only due to GI bleed Dispo: May be able to go home in next day or so. Will discuss with Dr Toribio regarding plan of care.
[2017-11-01] MEDS: Levofloxacin/Dextrose 5%-Water 750 MG in Premix Bag 1 BAG IV SCH (13:05)
--- NOTE | 2017-11-01 13:11 | PCM.CONSN ---
- General Info Date of Service: 11/01/17 Admission Dx/Problem (Free Text): diabetic ulcer left foot Subjective Update: Reports headache was better overnight, now starting this morning again. NO chest pain or SOB. Patient does not complain of foot pain at this time. His PICC line is in place. Functional Status: Reports: Pain Controlled - Review of Systems General: Reports: No Symptoms HEENT: Reports: Headaches Pulmonary: Reports: No Symptoms Cardiovascular: Reports: No Symptoms Gastrointestinal: Reports: No Symptoms Genitourinary: Reports: No Symptoms Musculoskeletal: Reports: No Symptoms Skin: Reports: No Symptoms Neurological: Reports: No Symptoms Psychiatric: Reports: No Symptoms - Patient Data Vitals - Most Recent: Last Vital Signs Temp 36.6 C 11/01/17 11:43 Pulse 76 11/01/17 11:43 Resp 20 11/01/17 11:43 BP 171/88 H 11/01/17 11:43 Pulse Ox 93 L 11/01/17 11:43 Weight - Most Recent: 97.182 kg I&O - Last 24 Hours: Intake & Output 10/31/17 11/01/17 11/01/17 22:59 06:59 14:59 Intake Total 750 2130 Output Total 1900 600 Balance -1150 1530 Lab Results Last 24 Hours: Laboratory Results - last 24 hr 10/31/17 10/31/17 10/31/17 Range/Units 11:54 16:42 20:28 WBC (4.0-11.0) K/uL RBC (4.50-5.90) M/uL Hgb (13.0-17.0) g/dL Hct (38.0-50.0) % MCV (80.0-98.0) fL MCH (27.0-32.0) pg MCHC (31.0-37.0) g/dL RDW Std Deviation (28.0-62.0) fl RDW Coeff of Krunal (11.0-15.0) % Plt Count (150-400) K/uL MPV (7.40-12.00) fL Nucleated RBC % /100WBC Nucleated RBCs # K/uL Sodium (136-148) mmol/L Potassium (3.5-5.1) mmol/L Chloride (98-107) mmol/L Carbon Dioxide (21.0-32.0) mmol/L BUN (7.0-18.0) mg/dL Creatinine (0.8-1.3) mg/dL Est Cr Clr Drug Dosing mL/min Estimated GFR (MDRD) ml/min Glucose (74-106) mg/dL POC Glucose 183 H 168 H 205 H (60-110) mg/dL Calcium (8.5-10.1) mg/dL Total Bilirubin (0.2-1.0) mg/dL AST (15-37) IU/L ALT (14-63) IU/L Alkaline Phosphatase (46-116) U/L Total Protein (6.4-8.2) g/dL Albumin (3.4-5.0) g/dL Globulin (2.0-3.5) g/dL Albumin/Globulin Ratio (1.3-2.8) 11/01/17 11/01/17 11/01/17 Range/Units 05:36 05:36 06:24 WBC 8.69 (4.0-11.0) K/uL RBC 3.07 L (4.50-5.90) M/uL Hgb 8.6 L (13.0-17.0) g/dL Hct 26.1 L (38.0-50.0) % MCV 85.0 (80.0-98.0) fL MCH 28.0 (27.0-32.0) pg MCHC 33.0 (31.0-37.0) g/dL RDW Std Deviation 39.9 (28.0-62.0) fl RDW Coeff of Kruanl 13 (11.0-15.0) % Plt Count 251 (150-400) K/uL MPV 9.00 (7.40-12.00) fL Nucleated RBC % 0.0 /100WBC Nucleated RBCs # 0 K/uL Sodium 143 (136-148) mmol/L Potassium 3.8 (3.5-5.1) mmol/L Chloride 108 H (98-107) mmol/L Carbon Dioxide 29.5 (21.0-32.0) mmol/L BUN 21 H (7.0-18.0) mg/dL Creatinine 1.1 (0.8-1.3) mg/dL Est Cr Clr Drug Dosing 78.91 mL/min Estimated GFR (MDRD) > 60.0 ml/min Glucose 129 H (74-106) mg/dL POC Glucose 120 H (60-110) mg/dL Calcium 7.9 L (8.5-10.1) mg/dL Total Bilirubin 0.2 (0.2-1.0) mg/dL AST 18 (15-37) IU/L ALT 15 (14-63) IU/L Alkaline Phosphatase 88 (46-116) U/L Total Protein 4.5 L (6.4-8.2) g/dL Albumin 1.9 L (3.4-5.0) g/dL Globulin 2.6 (2.0-3.5) g/dL Albumin/Globulin Ratio 0.7 L (1.3-2.8) 11/01/17 Range/Units 12:02 WBC (4.0-11.0) K/uL RBC (4.50-5.90) M/uL Hgb (13.0-17.0) g/dL Hct (38.0-50.0) % MCV (80.0-98.0) fL MCH (27.0-32.0) pg MCHC (31.0-37.0) g/dL RDW Std Deviation (28.0-62.0) fl RDW Coeff of Krunal (11.0-15.0) % Plt Count (150-400) K/uL MPV (7.40-12.00) fL Nucleated RBC % /100WBC Nucleated RBCs # K/uL Sodium (136-148) mmol/L Potassium (3.5-5.1) mmol/L Chloride (98-107) mmol/L Carbon Dioxide (21.0-32.0) mmol/L BUN (7.0-18.0) mg/dL Creatinine (0.8-1.3) mg/dL Est Cr Clr Drug Dosing mL/min Estimated GFR (MDRD) ml/min Glucose (74-106) mg/dL POC Glucose 110 (60-110) mg/dL Calcium (8.5-10.1) mg/dL Total Bilirubin (0.2-1.0) mg/dL AST (15-37) IU/L ALT (14-63) IU/L Alkaline Phosphatase (46-116) U/L Total Protein (6.4-8.2) g/dL Albumin (3.4-5.0) g/dL Globulin (2.0-3.5) g/dL Albumin/Globulin Ratio (1.3-2.8) Robert Results Last 24 Hours: Microbiology 10/29/17 14:52 Tissue Culture - Final Bone / Bone Biopsy - Foot, Left Staphylococcus Aureus Med Orders - Current: Current Medications Acetaminophen (Tylenol) 650 mg PO Q6H PRN PRN Reason: Headache/Pain Last Admin: 10/30/17 04:21 Dose: 650 mg Albuterol/Ipratropium (Duoneb 3.0-0.5 Mg/3 Ml) 3 ml NEB Q4HRRT PRN PRN Reason: Shortness Of Breath/wheezing Bacitracin (Bacitracin Oint) 1 gm TOP TID [facility] Last Admin: 11/01/17 06:37 Dose: 1 applic Diphenhydramine HCl (Benadryl) 50 mg IVPUSH Q6H [facility] Last Admin: 11/01/17 10:10 Dose: 50 mg Ferrous Sulfate (Ferrous Sulfate) 325 mg PO TIDMEALS [facility] Last Admin: 11/01/17 08:18 Dose: 325 mg Fluticasone Propionate (Flonase) 1 gm NASBOTH BID [facility] Last Admin: 11/01/17 08:19 Dose: 1 applic Cefazolin Sodium/Dextrose 2 gm (/ Premix) 50 mls @ 100 mls/hr IV Q8H [facility] Last Admin: 11/01/17 10:10 Dose: 100 mls/hr Levofloxacin/Dextrose 750 mg/ (Premix) 150 mls @ 100 mls/hr IV Q24H [facility] Last Admin: 11/01/17 13:05 Dose: 100 mls/hr Insulin Aspart (Novolog) 0 unit SUBCUT ACBED [facility]; Protocol Last Admin: 11/01/17 13:03 Dose: Not Given Insulin Glargine (Lantus Solostar) 10 units SUBCUT BEDTIME [facility] Last Admin: 10/31/17 20:31 Dose: 10 units Lisinopril (Prinivil) 20 mg PO DAILY [facility] Last Admin: 11/01/17 08:19 Dose: 20 mg Loperamide HCl (Imodium) 0 mg PO ASDIRECTED PRN PRN Reason: Diarrhea Last Admin: 10/28/17 09:36 Dose: 4 mg Metoclopramide HCl (Reglan) 5 mg IVPUSH Q6H PRN PRN Reason: nausea and vomiting Last Admin: 10/31/17 00:42 Dose: 5 mg Morphine Sulfate (Morphine) 4 mg IVPUSH Q4H PRN PRN Reason: Pain Last Admin: 10/31/17 00:42 Dose: 4 mg Oxycodone HCl (Oxycodone) 5 mg PO Q4H PRN PRN Reason: Pain Last Admin: 11/01/17 08:18 Dose: 5 mg Pantoprazole Sodium (Protonix) 40 mg PO BIDAC [facility] Pregabalin (Lyrica) 50 mg PO BID [facility] Last Admin: 11/01/17 08:18 Dose: 50 mg Sodium Chloride (Saline Flush) 10 ml FLUSH ASDIRECTED PRN PRN Reason: Keep Vein Open Sodium Chloride (Saline Flush) 2.5 ml FLUSH ASDIRECTED PRN PRN Reason: Keep Vein Open Sucralfate (Carafate) 1 gm PO Q6H [facility] Last Admin: 11/01/17 10:15 Dose: 1 gm Temazepam (Restoril) 15 mg PO BEDTIME PRN PRN Reason: Sleep Last Admin: 10/31/17 20:32 Dose: 15 mg Discontinued Medications Bupivacaine HCl (Marcaine 0.5%) Confirm Administered Dose 30 ml .ROUTE .STK-MED ONE Stop: 10/26/17 07:25 Bupivacaine HCl (Marcaine 0.5%) Confirm Administered Dose 30 ml .ROUTE .STK-MED ONE Stop: 10/29/17 10:10 Cefazolin Sodium (Ancef) Confirm Administered Dose 1 gm .ROUTE .STK-MED ONE Stop: 10/29/17 10:09 Chlorpromazine HCl (Chlorpromazine) 50 mg PO ONETIME ONE Stop: 10/30/17 10:13 Last Admin: 10/30/17 10:45 Dose: 50 mg Dexamethasone (Dexamethasone) 4 mg IVPUSH ONETIME ONE Stop: 10/27/17 08:38 Last Admin: 10/27/17 09:12 Dose: 4 mg Dexamethasone (Dexamethasone) 10 mg IVPUSH ONETIME ONE Stop: 10/29/17 10:36 Last Admin: 10/29/17 10:59 Dose: 10 mg Dexamethasone Sodium Phosphate (Dexamethasone Sodium Phosphate) 10 mg IVPUSH ONETIME ONE Stop: 10/30/17 14:00 Last Admin: 10/30/17 15:13 Dose: 10 mg Dihydroergotamine Mesylate (Dhe 45) 1 mg SUBCUT ONETIME ONE Stop: 10/30/17 10:09 Last Admin: 10/30/17 11:00 Dose: 1 mg Diphenhydramine HCl (Benadryl) 25 mg IVPUSH ONETIME ONE Stop: 10/27/17 08:33 Last Admin: 10/27/17 09:15 Dose: 25 mg Ephedrine Sulfate (Ephedrine Sulfate) Confirm Administered Dose 50 mg .ROUTE .STK-MED ONE Stop: 10/29/17 13:58 Fentanyl (Sublimaze) Confirm Administered Dose 100 mcg .ROUTE .STK-MED ONE Stop: 10/26/17 07:18 Fentanyl (Sublimaze) Confirm Administered Dose 100 mcg .ROUTE .STK-MED ONE Stop: 10/29/17 13:07 Fentanyl (Sublimaze) Confirm Administered Dose 250 mcg .ROUTE .STK-MED ONE Stop: 10/29/17 13:07 Fentanyl (Sublimaze) 50 mcg IVPUSH Q5M PRN PRN Reason: Pain (severe 7-10) Stop: 10/30/17 14:03 Fluticasone Propionate (Flovent Hfa 220 Mcg) 1 gm INH BID [facility] Last Admin: 10/30/17 17:42 Dose: Not Given Sodium Chloride (Normal Saline) 1,000 mls @ 999 mls/hr IV .Bolus ONE Stop: 10/24/17 08:08 Last Infusion: 10/24/17 08:22 Dose: Infused Vancomycin HCl 1 gm/ Sodium (Chloride) 250 mls @ 250 mls/hr IV ONETIME ONE Stop: 10/24/17 09:08 Last Admin: 10/24/17 08:14 Dose: 250 mls/hr Sodium Chloride (Normal Saline) 1,000 mls @ 999 mls/hr IV .Bolus ONE Stop: 10/24/17 10:00 Last Infusion: 10/24/17 09:31 Dose: 999 mls/hr Lactated Ringer's (Ringers, Lactated) 1,000 mls @ 150 mls/hr IV ASDIRECTED [facility] Last Admin: 10/27/17 21:15 Dose: 150 mls/hr Piperacillin Sod/Tazobactam (Sod 3.375 gm/ Sodium Chloride) 50 mls @ 100 mls/ hr IV ONETIME ONE Stop: 10/24/17 11:19 Last Admin: 10/24/17 11:08 Dose: 100 mls/hr Vancomycin HCl 500 mg/ Sodium (Chloride) 100 mls @ 100 mls/hr IV ONETIME [facility] Last Admin: 10/24/17 12:11 Dose: 100 mls/hr Vancomycin HCl 1,500 mg/ (Sodium Chloride) 500 mls @ 333.333 mls/hr IV Q24H [facility] Stop: 10/26/17 10:31 Last Admin: 10/26/17 10:42 Dose: Not Given Sodium Chloride (Normal Saline) 1,000 mls @ 999 mls/hr IV ASDIRECTED [facility] Last Admin: 10/24/17 11:09 Dose: 999 mls/hr Piperacillin Sod/Tazobactam (Sod 4.5 gm/ Sodium Chloride) 100 mls @ 100 mls/hr IV Q6H [facility] Last Admin: 10/26/17 05:30 Dose: 100 mls/hr Vancomycin HCl 1,500 mg/ (Sodium Chloride) 500 mls @ 333.333 mls/hr IV Q12H [facility] Albumin Human (Flexbumin 25%) 12.5 gm in 50 mls @ 100 mls/hr IV ONETIME ONE Stop: 10/26/17 09:18 Last Admin: 10/26/17 11:42 Dose: Not Given Albumin Human (Flexbumin 25%) 12.5 gm in 50 mls @ 100 mls/hr IV ONETIME ONE Stop: 10/26/17 10:44 Last Admin: 10/26/17 11:33 Dose: 100 mls/hr Albumin Human (Flexbumin 25%) 12.5 gm in 50 mls @ 100 mls/hr IV ONETIME ONE Stop: 10/26/17 11:14 Last Admin: 10/26/17 10:54 Dose: 100 mls/hr Levofloxacin/Dextrose 750 mg/ (Premix) 150 mls @ 100 mls/hr IV ONETIME ONE Stop: 10/26/17 13:30 Last Admin: 10/26/17 13:46 Dose: Not Given Acetaminophen 1,000 mg/ Premix 100 mls @ 400 mls/hr IV NOW ONE Stop: 10/27/17 13:46 Last Admin: 10/27/17 14:02 Dose: 400 mls/hr Acetaminophen 1,000 mg/ Premix 100 mls @ 400 mls/hr IV NOW ONE Stop: 10/27/17 21:37 Last Admin: 10/27/17 21:35 Dose: 400 mls/hr Lactated Ringer's (Ringers, Lactated) 1,000 mls @ 100 mls/hr IV ASDIRECTED [facility] Last Admin: 10/31/17 23:36 Dose: 100 mls/hr Albumin Human (Flexbumin 25%) 12.5 gm in 50 mls @ 100 mls/hr IV ONETIME ONE Stop: 10/28/17 20:37 Last Admin: 10/28/17 21:06 Dose: 100 mls/hr Potassium Chloride/Sodium Chloride (Normal Saline With 40 Meq Kcl) 500 mls @ 125 mls/hr IV ASDIRECTED [facility] Stop: 10/29/17 13:59 Last Admin: 10/29/17 11:16 Dose: Not Given Magnesium Sulfate 2 gm/Potassium Chloride 40 meq/Sodium Chloride 524 mls @ 131 mls/hr IV ASDIRECTED [facility] Stop: 10/29/17 14:01 Last Admin: 10/29/17 10:57 Dose: 131 mls/hr Albumin Human (Flexbumin 25%) 12.5 gm in 50 mls @ 100 mls/hr IV ONETIME ONE Stop: 10/29/17 12:59 Last Admin: 10/29/17 16:35 Dose: 100 mls/hr Albumin Human (Flexbumin 25%) 12.5 gm in 50 mls @ 100 mls/hr IV ONETIME ONE Stop: 10/29/17 13:29 Last Admin: 10/29/17 17:19 Dose: 100 mls/hr Insulin Aspart (Novolog) 0 unit SUBCUT Q6H [facility]; Protocol Last Admin: 10/25/17 05:50 Dose: Not Given Insulin Aspart (Novolog) 0 unit SUBCUT TIDAC [facility]; Protocol Last Admin: 10/29/17 18:14 Dose: 4 units Insulin Aspart (Novolog) 0 unit SUBCUT TIDAC [facility]; Protocol Insulin Glargine (Lantus Solostar) 10 units SUBCUT ONETIME ONE Stop: 10/24/17 12:01 Last Admin: 10/24/17 12:51 Dose: 10 units Insulin Glargine (Lantus Solostar) 38 units SUBCUT BEDTIME [facility] Ketorolac Tromethamine (Toradol) 30 mg IVPUSH ONETIME ONE Stop: 10/27/17 08:33 Last Admin: 10/27/17 12:05 Dose: Not Given Lidocaine (Xylocaine-Mpf 2%) Confirm Administered Dose 10 ml .ROUTE .STK-MED ONE Stop: 10/29/17 13:07 Lidocaine HCl (Xylocaine 1%) Confirm Administered Dose 20 ml .ROUTE .STK-MED ONE Stop: 10/26/17 07:25 Lidocaine HCl (Xylocaine 1%) Confirm Administered Dose 20 ml .ROUTE .STK-MED ONE Stop: 10/29/17 10:10 Lisinopril (Prinivil) 10 mg PO DAILY [facility] Lisinopril (Prinivil) 10 mg PO ONETIME ONE Stop: 10/30/17 18:28 Last Admin: 10/30/17 18:54 Dose: 10 mg Metoclopramide HCl (Reglan) 10 mg IVPUSH ONETIME ONE Stop: 10/27/17 08:33 Last Admin: 10/27/17 09:13 Dose: 10 mg Metoclopramide HCl (Reglan) 10 mg IVPUSH ONETIME ONE Stop: 10/29/17 10:37 Last Admin: 10/29/17 10:58 Dose: 10 mg Midazolam HCl (Versed 1 Mg/Ml) Confirm Administered Dose 2 mg .ROUTE .STK-MED ONE Stop: 10/26/17 07:19 Midazolam HCl (Versed 1 Mg/Ml) Confirm Administered Dose 2 mg .ROUTE .STK-MED ONE Stop: 10/29/17 13:07 Morphine Sulfate (Morphine) 4 mg IVPUSH ONETIME ONE Stop: 10/24/17 07:16 Last Admin: 10/24/17 07:42 Dose: Not Given Morphine Sulfate (Morphine) Confirm Administered Dose 4 mg .ROUTE .STK-MED ONE Stop: 10/24/17 07:20 Last Admin: 10/24/17 07:33 Dose: Not Given Morphine Sulfate (Morphine) 4 mg IVPUSH ONETIME ONE Stop: 10/24/17 07:21 Last Admin: 10/24/17 07:33 Dose: 4 mg Morphine Sulfate (Morphine) 2 mg IVPUSH Q2H PRN PRN Reason: Pain (severe 7-10) Stop: 10/25/17 10:42 Last Admin: 10/25/17 09:42 Dose: 2 mg Ondansetron HCl (Zofran) 4 mg IVPUSH ONETIME ONE Stop: 10/24/17 07:16 Last Admin: 10/24/17 07:21 Dose: 4 mg Pantoprazole Sodium (Protonix Iv) 80 mg IVPUSH .BOLUS ONE Stop: 10/24/17 07:41 Last Admin: 10/24/17 07:57 Dose: 80 mg Pantoprazole Sodium (Protonix Iv) 40 mg IV Q12H [facility] Last Admin: 10/31/17 23:32 Dose: 40 mg Potassium Chloride (Klor-Con M20) 40 meq PO ONETIME ONE Stop: 10/29/17 08:48 Last Admin: 10/29/17 11:15 Dose: Not Given Propofol (Diprivan 20 Ml) Confirm Administered Dose 200 mg .ROUTE .STK-MED ONE Stop: 10/26/17 07:19 Propofol (Diprivan 20 Ml) Confirm Administered Dose 400 mg .ROUTE .STK-MED ONE Stop: 10/29/17 13:07 Propofol (Diprivan 20 Ml) Confirm Administered Dose 200 mg .ROUTE .STK-MED ONE Stop: 10/29/17 14:49 Sodium Chloride (Saline Flush) 10 ml FLUSH ASDIRECTED PRN PRN Reason: Keep Vein Open Sodium Chloride (Saline Flush) 2.5 ml FLUSH ASDIRECTED PRN PRN Reason: Keep Vein Open Sumatriptan Succinate (Imitrex) 6 mg SUBCUT ONETIME ONE Stop: 10/27/17 21:25 Last Admin: 10/27/17 22:15 Dose: 6 mg Sumatriptan Succinate (Imitrex) 50 mg PO Q2H PRN PRN Reason: Headache Last Admin: 10/28/17 20:41 Dose: 50 mg Sumatriptan Succinate (Imitrex) Confirm Administered Dose 50 mg .ROUTE .STK-MED ONE Stop: 10/28/17 20:51 Last Admin: 10/28/17 21:10 Dose: Not Given Sumatriptan Succinate (Imitrex) 6 mg SUBCUT ONETIME ONE Stop: 10/29/17 10:28 Last Admin: 10/29/17 10:42 Dose: 6 mg Vancomycin HCl (Pharmacy To Dose - Vancomycin) 0 dose .XX ASDIRECTED [facility] - Exam Peripheral Pulses: 2+: Posterior Tibial (L), Dorsalis Pedis (L) Skin: Warm Wound/Incisions: No Drainage, Erythema Improving, Other (now little to no drainage, wound is clean, no malodor, minimal fibrotic tissue) Consult PN Assessment/Plan POD#: 3 Procedures: Procedures CULTR BACTERIA EXCEPT BLOOD (02/25/16) CULTURE OTHR SPECIMN AEROBIC (02/25/16) EMERGENCY DEPT VISIT (08/22/14) SMEAR GRAM STAIN (02/25/16) THER/PROPH/DIAG INJ SC/IM (08/22/14) TREAT FOOT BONE LESION (02/25/16) X-RAY EXAM OF SHOULDER (08/22/14) incision and drainage left foot 10/26/17 incision and drainage left foot 10/29/17 amputation second toe left foot 10/29/17 (1) Diabetic foot ulcer SNOMED Code(s): 593872736 Code(s): E11.621 - TYPE 2 DIABETES MELLITUS WITH FOOT ULCER; L97.509 - NON- PRESSURE CHRONIC ULCER OTH PRT UNSP FOOT W UNSP SEVERITY Priority: High Current Visit: Yes Onset Date: ~10/04/17 Qualifiers: Diabetic foot ulcer location: midfoot Diabetes mellitus type: type 2 Laterality: left Non-pressure ulcer stage: with bone involvement without evidence of necrosis Qualified Code(s): E11.621 - Type 2 diabetes mellitus with foot ulcer; L97.426 - Non-pressure chronic ulcer of left heel and midfoot with bone involvement without evidence of necrosis Assessment:: Left foot ulcer now chicken cleaner but with open wound with visible 2nd metatarsal head following incision and drainage and 2nd toe amputation 10/29/17 Ulceration on plantar aspect at mid foot, along incision line. Sutures on plantar aspect and single suture at proximal aspect of ulcer on dorsal foot are intact and skin at those sites is well coapted. No malodor, no active drainage, minimal fibrotic tissue returning to open dorsal wound. There is slight continued improvement from last exam two days ago. Problem List Initiated/Reviewed/Updated: Yes Plan: 1. Continue Antibiotics, now via PICC line. 2. Dressing change being performed daily by nurse. Orders are in place for daily wound care. 3. Paperwork for wound vac completed. Assuming wound vac is mad available, once obtained I will place wound vac on ulcer and patient will be discharged with wound vac in place and will need to followup on outpatient basis in my office. I will then coordinate with Home Health for necessary wound vac changes when patient is not scheduled to see me. 4. Due to osteomyelitis concerns, patient requires at least 6 weeks of IV antibiotics (via PICC line). 5. Will follow.
[2017-11-01] MEDS ORDERED: Lisinopril 10 MG Tab PO ONE (16:12)
[2017-11-01] MEDS: Pantoprazole 40 MG Tab.CR PO SCH (16:26)
--- NOTE | 2017-11-01 17:58 | CT ---
EXAM DATE: 10/24/17 PATIENT'S AGE: 57 Patient: UZAIR CHAIDEZ Facility: [place], [place] Site . Site : [id number] Study: CT Head wo cont [id number]/30/2018 3:49:29 PM Ordering Physician: Kasie Whitmore Final Report: INDICATION: Persistent headaches since foot surgery. TECHNIQUE: Noncontrast images foramen magnum to vertex. FINDINGS: Mild uniform mucosal thickening bilateral dependent maxillary sinuses. No acute fluid level. The other paranasal sinuses are appropriately aerated. Mastoids are appropriately aerated. Cerumen in the right external auditory canal. Middle ears are unremarkable. Calvarium is intact. Dystrophic likely vascular calcification through the basal ganglia bilaterally. Choroid calcification incidentally noted. No infarct or ischemic change. No intra or extra-axial hemorrhage. No mass, mass effect or midline shift. IMPRESSION: Low-grade chronic sinusitis changes in the bilateral maxillary sinuses. Please note that all CT scans at this facility use dose modulation, iterative reconstruction, and/or weight-based dosing when appropriate to reduce radiation dose to as low as reasonably achievable. Dictated by Octaviano Marsh MD @ Oct 30 2017 4:22PM (Electronic Signature) Report Signed by Proxy. NAVARRO
[2017-11-01] MEDS ORDERED: ceFAZolin/Dextrose,Iso-Osmotic 2 GM/50 ML Duplex Bag IV ONE (18:27)
[2017-11-01] MEDS: Insulin Glargine,Human Rec. Analog 100 Units/ML 3 ML Pen SUBCUT SCH (20:46)
[2017-11-02] MEDS: ceFAZolin 2 GM in Premix Bag 1 BAG IV SCH ×3 (02:07→20:33)
[2017-11-02] MEDS: Bacitracin Oint 28.35 GM Tube TOP SCH ×3 (05:20→21:54)
[2017-11-02] MEDS: diphenhydrAMINE 50 MG/ML SDV IVPUSH SCH ×4 (05:21→22:46)
[2017-11-02] MEDS: Sucralfate Suspension 1 GM/10 ML Cup PO SCH ×3 (05:21→18:04)
[2017-11-02 05:53] LABS: CHLORIDE,CL 106 mmol/L (98-107); SODIUM,NA 141 mmol/L (136-148)
[2017-11-02] MEDS: Insulin Aspart 100 Units/ML 3 ML Pen SUBCUT SCH ×4 (06:40→20:42)
[2017-11-02] MEDS: Pantoprazole 40 MG Tab.CR PO SCH ×2 (06:48→18:04)
[2017-11-02] MEDS: Ferrous Sulfate 325 MG Tab PO SCH ×3 (08:29→18:04)
[2017-11-02] MEDS: Pregabalin 50 MG Cap PO SCH ×2 (08:29→20:33)
[2017-11-02] MEDS: Lisinopril 10 MG Tab PO SCH (08:30)
[2017-11-02] MEDS: Fluticasone Propionate Nasal Spray 16 GM Bottle NASBOTH SCH ×2 (08:33→20:32)
[2017-11-02] MEDS ORDERED: Hydrochlorothiazide 12.5 MG Cap PO SCH (09:00)
--- NOTE | 2017-11-02 11:07 | PCM.PN ---
- General Info Date of Service: 11/02/17 Admission Dx/Problem (Free Text): diabetic ulcer left foot Subjective Update: Very tired of being in the hospital. Feeling ok this morning. Pain tolerable. No chest pain or shortness of breath. Headache improving, again waxes and wanes. Functional Status: Reports: Pain Controlled, Tolerating Diet, Ambulating, Urinating - Review of Systems General: Reports: No Symptoms. Denies: Fever, Weakness, Fatigue, Malaise HEENT: Reports: Headaches (improving). Denies: Sore Throat, Visual Changes Pulmonary: Reports: No Symptoms. Denies: Shortness of Breath, Cough, Sputum Cardiovascular: Reports: No Symptoms. Denies: Chest Pain, Dyspnea on Exertion, Edema Gastrointestinal: Reports: No Symptoms. Denies: Abdominal Pain, Nausea, Vomiting Genitourinary: Reports: No Symptoms. Denies: Dysuria, Frequency Musculoskeletal: Reports: Foot Pain (tolerable.) Skin: Reports: No Symptoms Neurological: Reports: No Symptoms Psychiatric: Reports: No Symptoms - Patient Data Vitals - Most Recent: Last Vital Signs Temp 97.9 F 11/02/17 08:00 Pulse 78 11/02/17 08:00 Resp 14 11/02/17 08:00 BP 179/87 H 11/02/17 08:30 Pulse Ox 92 L 11/02/17 08:00 Weight - Most Recent: 97.182 kg I&O - Last 24 Hours: Intake & Output 11/01/17 11/02/17 11/02/17 22:59 06:59 14:59 Intake Total 860 500 Output Total 1350 1425 Balance -490 -925 Lab Results Last 24 Hours: Laboratory Results - last 24 hr 11/01/17 11/01/17 11/01/17 Range/Units 06:24 12:02 16:33 WBC (4.0-11.0) K/uL RBC (4.50-5.90) M/uL Hgb (13.0-17.0) g/dL Hct (38.0-50.0) % MCV (80.0-98.0) fL MCH (27.0-32.0) pg MCHC (31.0-37.0) g/dL RDW Std Deviation (28.0-62.0) fl RDW Coeff of Krunal (11.0-15.0) % Plt Count (150-400) K/uL MPV (7.40-12.00) fL Nucleated RBC % /100WBC Nucleated RBCs # K/uL Sodium (136-148) mmol/L Potassium (3.5-5.1) mmol/L Chloride (98-107) mmol/L Carbon Dioxide (21.0-32.0) mmol/L BUN (7.0-18.0) mg/dL Creatinine (0.8-1.3) mg/dL Est Cr Clr Drug Dosing mL/min Estimated GFR (MDRD) ml/min Glucose (74-106) mg/dL POC Glucose 120 H 110 121 H (60-110) mg/dL Calcium (8.5-10.1) mg/dL 11/01/17 11/02/17 11/02/17 Range/Units 20:41 05:00 05:00 WBC 9.63 (4.0-11.0) K/uL RBC 3.30 L (4.50-5.90) M/uL Hgb 9.0 L (13.0-17.0) g/dL Hct 27.7 L (38.0-50.0) % MCV 83.9 (80.0-98.0) fL MCH 27.3 (27.0-32.0) pg MCHC 32.5 (31.0-37.0) g/dL RDW Std Deviation 39.9 (28.0-62.0) fl RDW Coeff of Krunal 13 (11.0-15.0) % Plt Count 275 (150-400) K/uL MPV 8.70 (7.40-12.00) fL Nucleated RBC % 0.0 /100WBC Nucleated RBCs # 0 K/uL Sodium 141 (136-148) mmol/L Potassium 3.6 (3.5-5.1) mmol/L Chloride 106 (98-107) mmol/L Carbon Dioxide 33.3 H (21.0-32.0) mmol/L BUN 17 (7.0-18.0) mg/dL Creatinine 1.1 (0.8-1.3) mg/dL Est Cr Clr Drug Dosing 78.91 mL/min Estimated GFR (MDRD) > 60.0 ml/min Glucose 122 H (74-106) mg/dL POC Glucose 344 H (60-110) mg/dL Calcium 7.9 L (8.5-10.1) mg/dL 11/02/17 Range/Units 05:52 WBC (4.0-11.0) K/uL RBC (4.50-5.90) M/uL Hgb (13.0-17.0) g/dL Hct (38.0-50.0) % MCV (80.0-98.0) fL MCH (27.0-32.0) pg MCHC (31.0-37.0) g/dL RDW Std Deviation (28.0-62.0) fl RDW Coeff of Krunal (11.0-15.0) % Plt Count (150-400) K/uL MPV (7.40-12.00) fL Nucleated RBC % /100WBC Nucleated RBCs # K/uL Sodium (136-148) mmol/L Potassium (3.5-5.1) mmol/L Chloride (98-107) mmol/L Carbon Dioxide (21.0-32.0) mmol/L BUN (7.0-18.0) mg/dL Creatinine (0.8-1.3) mg/dL Est Cr Clr Drug Dosing mL/min Estimated GFR (MDRD) ml/min Glucose (74-106) mg/dL POC Glucose 114 H (60-110) mg/dL Calcium (8.5-10.1) mg/dL Robert Results Last 24 Hours: Microbiology 10/29/17 14:52 Tissue Culture - Final Bone / Bone Biopsy - Foot, Left Staphylococcus Aureus Med Orders - Current: Current Medications Acetaminophen (Tylenol) 650 mg PO Q6H PRN PRN Reason: Headache/Pain Last Admin: 10/30/17 04:21 Dose: 650 mg Albuterol/Ipratropium (Duoneb 3.0-0.5 Mg/3 Ml) 3 ml NEB Q4HRRT PRN PRN Reason: Shortness Of Breath/wheezing Bacitracin (Bacitracin Oint) 1 gm TOP TID BOB Last Admin: 11/02/17 05:20 Dose: 1 applic Diphenhydramine HCl (Benadryl) 50 mg IVPUSH Q6H [facility] Last Admin: 11/02/17 05:21 Dose: 50 mg Ferrous Sulfate (Ferrous Sulfate) 325 mg PO TIDMEALS [facility] Last Admin: 11/02/17 08:29 Dose: 325 mg Fluticasone Propionate (Flonase) 1 gm NASBOTH BID [facility] Last Admin: 11/02/17 08:33 Dose: 1 applic Hydrochlorothiazide (Hydrochlorothiazide) 12.5 mg PO DAILY [facility] Last Admin: 11/02/17 08:29 Dose: 12.5 mg Cefazolin Sodium/Dextrose 2 gm (/ Premix) 50 mls @ 100 mls/hr IV Q8H [facility] Last Admin: 11/02/17 02:07 Dose: 100 mls/hr Levofloxacin/Dextrose 750 mg/ (Premix) 150 mls @ 100 mls/hr IV Q24H [facility] Last Admin: 11/01/17 13:05 Dose: 100 mls/hr Insulin Aspart (Novolog) 0 unit SUBCUT ACBED [facility]; Protocol Last Admin: 11/02/17 06:40 Dose: Not Given Insulin Glargine (Lantus Solostar) 10 units SUBCUT BEDTIME [facility] Last Admin: 11/01/17 20:46 Dose: 10 units Lisinopril (Prinivil) 20 mg PO DAILY [facility] Last Admin: 11/02/17 08:30 Dose: 20 mg Loperamide HCl (Imodium) 0 mg PO ASDIRECTED PRN PRN Reason: Diarrhea Last Admin: 10/28/17 09:36 Dose: 4 mg Metoclopramide HCl (Reglan) 5 mg IVPUSH Q6H PRN PRN Reason: nausea and vomiting Last Admin: 10/31/17 00:42 Dose: 5 mg Morphine Sulfate (Morphine) 4 mg IVPUSH Q4H PRN PRN Reason: Pain Last Admin: 10/31/17 00:42 Dose: 4 mg Oxycodone HCl (Oxycodone) 5 mg PO Q4H PRN PRN Reason: Pain Last Admin: 11/01/17 13:12 Dose: 5 mg Pantoprazole Sodium (Protonix) 40 mg PO BIDAC [facility] Last Admin: 11/02/17 06:48 Dose: 40 mg Pregabalin (Lyrica) 50 mg PO BID [facility] Last Admin: 11/02/17 08:29 Dose: 50 mg Sodium Chloride (Saline Flush) 10 ml FLUSH ASDIRECTED PRN PRN Reason: Keep Vein Open Sodium Chloride (Saline Flush) 2.5 ml FLUSH ASDIRECTED PRN PRN Reason: Keep Vein Open Sucralfate (Carafate) 1 gm PO Q6H [facility] Last Admin: 11/02/17 05:21 Dose: 1 gm Temazepam (Restoril) 15 mg PO BEDTIME PRN PRN Reason: Sleep Last Admin: 10/31/17 20:32 Dose: 15 mg Discontinued Medications Bupivacaine HCl (Marcaine 0.5%) Confirm Administered Dose 30 ml .ROUTE .STK-MED ONE Stop: 10/26/17 07:25 Bupivacaine HCl (Marcaine 0.5%) Confirm Administered Dose 30 ml .ROUTE .STK-MED ONE Stop: 10/29/17 10:10 Cefazolin Sodium (Ancef) Confirm Administered Dose 1 gm .ROUTE .STK-MED ONE Stop: 10/29/17 10:09 Cefazolin Sodium/Dextrose (Ancef) Confirm Administered Dose 2 gm IV .STK-MED ONE Stop: 11/01/17 18:28 Last Admin: 11/01/17 18:33 Dose: Not Given Chlorpromazine HCl (Chlorpromazine) 50 mg PO ONETIME ONE Stop: 10/30/17 10:13 Last Admin: 10/30/17 10:45 Dose: 50 mg Dexamethasone (Dexamethasone) 4 mg IVPUSH ONETIME ONE Stop: 10/27/17 08:38 Last Admin: 10/27/17 09:12 Dose: 4 mg Dexamethasone (Dexamethasone) 10 mg IVPUSH ONETIME ONE Stop: 10/29/17 10:36 Last Admin: 10/29/17 10:59 Dose: 10 mg Dexamethasone Sodium Phosphate (Dexamethasone Sodium Phosphate) 10 mg IVPUSH ONETIME ONE Stop: 10/30/17 14:00 Last Admin: 10/30/17 15:13 Dose: 10 mg Dihydroergotamine Mesylate (Dhe 45) 1 mg SUBCUT ONETIME ONE Stop: 10/30/17 10:09 Last Admin: 10/30/17 11:00 Dose: 1 mg Diphenhydramine HCl (Benadryl) 25 mg IVPUSH ONETIME ONE Stop: 10/27/17 08:33 Last Admin: 10/27/17 09:15 Dose: 25 mg Ephedrine Sulfate (Ephedrine Sulfate) Confirm Administered Dose 50 mg .ROUTE .STK-MED ONE Stop: 10/29/17 13:58 Fentanyl (Sublimaze) Confirm Administered Dose 100 mcg .ROUTE .STK-MED ONE Stop: 10/26/17 07:18 Fentanyl (Sublimaze) Confirm Administered Dose 100 mcg .ROUTE .STK-MED ONE Stop: 10/29/17 13:07 Fentanyl (Sublimaze) Confirm Administered Dose 250 mcg .ROUTE .STK-MED ONE Stop: 10/29/17 13:07 Fentanyl (Sublimaze) 50 mcg IVPUSH Q5M PRN PRN Reason: Pain (severe 7-10) Stop: 10/30/17 14:03 Fluticasone Propionate (Flovent Hfa 220 Mcg) 1 gm INH BID [facility] Last Admin: 10/30/17 17:42 Dose: Not Given Sodium Chloride (Normal Saline) 1,000 mls @ 999 mls/hr IV .Bolus ONE Stop: 10/24/17 08:08 Last Infusion: 10/24/17 08:22 Dose: Infused Vancomycin HCl 1 gm/ Sodium (Chloride) 250 mls @ 250 mls/hr IV ONETIME ONE Stop: 10/24/17 09:08 Last Admin: 10/24/17 08:14 Dose: 250 mls/hr Sodium Chloride (Normal Saline) 1,000 mls @ 999 mls/hr IV .Bolus ONE Stop: 10/24/17 10:00 Last Infusion: 10/24/17 09:31 Dose: 999 mls/hr Lactated Ringer's (Ringers, Lactated) 1,000 mls @ 150 mls/hr IV ASDIRECTED [facility] Last Admin: 10/27/17 21:15 Dose: 150 mls/hr Piperacillin Sod/Tazobactam (Sod 3.375 gm/ Sodium Chloride) 50 mls @ 100 mls/ hr IV ONETIME ONE Stop: 10/24/17 11:19 Last Admin: 10/24/17 11:08 Dose: 100 mls/hr Vancomycin HCl 500 mg/ Sodium (Chloride) 100 mls @ 100 mls/hr IV ONETIME [facility] Last Admin: 10/24/17 12:11 Dose: 100 mls/hr Vancomycin HCl 1,500 mg/ (Sodium Chloride) 500 mls @ 333.333 mls/hr IV Q24H [facility] Stop: 10/26/17 10:31 Last Admin: 10/26/17 10:42 Dose: Not Given Sodium Chloride (Normal Saline) 1,000 mls @ 999 mls/hr IV ASDIRECTED [facility] Last Admin: 10/24/17 11:09 Dose: 999 mls/hr Piperacillin Sod/Tazobactam (Sod 4.5 gm/ Sodium Chloride) 100 mls @ 100 mls/hr IV Q6H [facility] Last Admin: 10/26/17 05:30 Dose: 100 mls/hr Vancomycin HCl 1,500 mg/ (Sodium Chloride) 500 mls @ 333.333 mls/hr IV Q12H [facility] Albumin Human (Flexbumin 25%) 12.5 gm in 50 mls @ 100 mls/hr IV ONETIME ONE Stop: 10/26/17 09:18 Last Admin: 10/26/17 11:42 Dose: Not Given Albumin Human (Flexbumin 25%) 12.5 gm in 50 mls @ 100 mls/hr IV ONETIME ONE Stop: 10/26/17 10:44 Last Admin: 10/26/17 11:33 Dose: 100 mls/hr Albumin Human (Flexbumin 25%) 12.5 gm in 50 mls @ 100 mls/hr IV ONETIME ONE Stop: 10/26/17 11:14 Last Admin: 10/26/17 10:54 Dose: 100 mls/hr Levofloxacin/Dextrose 750 mg/ (Premix) 150 mls @ 100 mls/hr IV ONETIME ONE Stop: 10/26/17 13:30 Last Admin: 10/26/17 13:46 Dose: Not Given Acetaminophen 1,000 mg/ Premix 100 mls @ 400 mls/hr IV NOW ONE Stop: 10/27/17 13:46 Last Admin: 10/27/17 14:02 Dose: 400 mls/hr Acetaminophen 1,000 mg/ Premix 100 mls @ 400 mls/hr IV NOW ONE Stop: 10/27/17 21:37 Last Admin: 10/27/17 21:35 Dose: 400 mls/hr Lactated Ringer's (Ringers, Lactated) 1,000 mls @ 100 mls/hr IV ASDIRECTED [facility] Last Admin: 10/31/17 23:36 Dose: 100 mls/hr Albumin Human (Flexbumin 25%) 12.5 gm in 50 mls @ 100 mls/hr IV ONETIME ONE Stop: 10/28/17 20:37 Last Admin: 10/28/17 21:06 Dose: 100 mls/hr Potassium Chloride/Sodium Chloride (Normal Saline With 40 Meq Kcl) 500 mls @ 125 mls/hr IV ASDIRECTED [facility] Stop: 10/29/17 13:59 Last Admin: 10/29/17 11:16 Dose: Not Given Magnesium Sulfate 2 gm/Potassium Chloride 40 meq/Sodium Chloride 524 mls @ 131 mls/hr IV ASDIRECTED [facility] Stop: 10/29/17 14:01 Last Admin: 10/29/17 10:57 Dose: 131 mls/hr Albumin Human (Flexbumin 25%) 12.5 gm in 50 mls @ 100 mls/hr IV ONETIME ONE Stop: 10/29/17 12:59 Last Admin: 10/29/17 16:35 Dose: 100 mls/hr Albumin Human (Flexbumin 25%) 12.5 gm in 50 mls @ 100 mls/hr IV ONETIME ONE Stop: 10/29/17 13:29 Last Admin: 10/29/17 17:19 Dose: 100 mls/hr Insulin Aspart (Novolog) 0 unit SUBCUT Q6H [facility]; Protocol Last Admin: 10/25/17 05:50 Dose: Not Given Insulin Aspart (Novolog) 0 unit SUBCUT TIDAC [facility]; Protocol Last Admin: 10/29/17 18:14 Dose: 4 units Insulin Aspart (Novolog) 0 unit SUBCUT TIDAC [facility]; Protocol Insulin Glargine (Lantus Solostar) 10 units SUBCUT ONETIME ONE Stop: 10/24/17 12:01 Last Admin: 10/24/17 12:51 Dose: 10 units Insulin Glargine (Lantus Solostar) 38 units SUBCUT BEDTIME [facility] Ketorolac Tromethamine (Toradol) 30 mg IVPUSH ONETIME ONE Stop: 10/27/17 08:33 Last Admin: 10/27/17 12:05 Dose: Not Given Lidocaine (Xylocaine-Mpf 2%) Confirm Administered Dose 10 ml .ROUTE .STK-MED ONE Stop: 10/29/17 13:07 Lidocaine HCl (Xylocaine 1%) Confirm Administered Dose 20 ml .ROUTE .STK-MED ONE Stop: 06/26/18 07:25 Lidocaine HCl (Xylocaine 1%) Confirm Administered Dose 20 ml .ROUTE .STK-MED ONE Stop: 10/29/17 10:10 Lisinopril (Prinivil) 10 mg PO DAILY [facility] Lisinopril (Prinivil) 10 mg PO ONETIME ONE Stop: 10/30/17 18:28 Last Admin: 10/30/17 18:54 Dose: 10 mg Lisinopril (Prinivil) 20 mg PO ONETIME ONE Stop: 11/01/17 16:13 Last Admin: 11/01/17 16:21 Dose: 20 mg Metoclopramide HCl (Reglan) 10 mg IVPUSH ONETIME ONE Stop: 10/27/17 08:33 Last Admin: 10/27/17 09:13 Dose: 10 mg Metoclopramide HCl (Reglan) 10 mg IVPUSH ONETIME ONE Stop: 10/29/17 10:37 Last Admin: 10/29/17 10:58 Dose: 10 mg Midazolam HCl (Versed 1 Mg/Ml) Confirm Administered Dose 2 mg .ROUTE .STK-MED ONE Stop: 10/26/17 07:19 Midazolam HCl (Versed 1 Mg/Ml) Confirm Administered Dose 2 mg .ROUTE .STK-MED ONE Stop: 10/29/17 13:07 Morphine Sulfate (Morphine) 4 mg IVPUSH ONETIME ONE Stop: 10/24/17 07:16 Last Admin: 10/24/17 07:42 Dose: Not Given Morphine Sulfate (Morphine) Confirm Administered Dose 4 mg .ROUTE .STK-MED ONE Stop: 10/24/17 07:20 Last Admin: 10/24/17 07:33 Dose: Not Given Morphine Sulfate (Morphine) 4 mg IVPUSH ONETIME ONE Stop: 10/24/17 07:21 Last Admin: 10/24/17 07:33 Dose: 4 mg Morphine Sulfate (Morphine) 2 mg IVPUSH Q2H PRN PRN Reason: Pain (severe 7-10) Stop: 10/25/17 10:42 Last Admin: 10/25/17 09:42 Dose: 2 mg Ondansetron HCl (Zofran) 4 mg IVPUSH ONETIME ONE Stop: 10/24/17 07:16 Last Admin: 10/24/17 07:21 Dose: 4 mg Pantoprazole Sodium (Protonix Iv) 80 mg IVPUSH .BOLUS ONE Stop: 10/24/17 07:41 Last Admin: 10/24/17 07:57 Dose: 80 mg Pantoprazole Sodium (Protonix Iv) 40 mg IV Q12H [facility] Last Admin: 10/31/17 23:32 Dose: 40 mg Potassium Chloride (Klor-Con M20) 40 meq PO ONETIME ONE Stop: 10/29/17 08:48 Last Admin: 10/29/17 11:15 Dose: Not Given Propofol (Diprivan 20 Ml) Confirm Administered Dose 200 mg .ROUTE .STK-MED ONE Stop: 10/26/17 07:19 Propofol (Diprivan 20 Ml) Confirm Administered Dose 400 mg .ROUTE .STK-MED ONE Stop: 10/29/17 13:07 Propofol (Diprivan 20 Ml) Confirm Administered Dose 200 mg .ROUTE .STK-MED ONE Stop: 10/29/17 14:49 Sodium Chloride (Saline Flush) 10 ml FLUSH ASDIRECTED PRN PRN Reason: Keep Vein Open Sodium Chloride (Saline Flush) 2.5 ml FLUSH ASDIRECTED PRN PRN Reason: Keep Vein Open Sumatriptan Succinate (Imitrex) 6 mg SUBCUT ONETIME ONE Stop: 10/27/17 21:25 Last Admin: 10/27/17 22:15 Dose: 6 mg Sumatriptan Succinate (Imitrex) 50 mg PO Q2H PRN PRN Reason: Headache Last Admin: 10/28/17 20:41 Dose: 50 mg Sumatriptan Succinate (Imitrex) Confirm Administered Dose 50 mg .ROUTE .STK-MED ONE Stop: 10/28/17 20:51 Last Admin: 10/28/17 21:10 Dose: Not Given Sumatriptan Succinate (Imitrex) 6 mg SUBCUT ONETIME ONE Stop: 10/29/17 10:28 Last Admin: 10/29/17 10:42 Dose: 6 mg Vancomycin HCl (Pharmacy To Dose - Vancomycin) 0 dose .XX ASDIRECTED BOB - Exam General: Alert, Oriented, Cooperative, No Acute Distress Lungs: Clear to Auscultation Cardiovascular: Regular Rate, Regular Rhythm GI/Abdominal Exam: Normal Bowel Sounds, Soft, Non-Tender Extremities: Normal Range of Motion, Non-Tender, No Pedal Edema Wound/Incisions: Dressing Dry and Intact (L foot.), Erythema Improving Psy/Mental Status: Alert, Normal Affect, Normal Mood - Problem List & Annotations (1) Osteomyelitis due to Staphylococcus aureus SNOMED Code(s): 548506614 Code(s): M86.9 - OSTEOMYELITIS, UNSPECIFIED; A49.01 - METHICILLIN SUSCEP STAPH INFECTION, UNSP SITE Status: Acute Current Visit: Yes (2) MSSA bacteremia SNOMED Code(s): 331183486, 503928770 Code(s): R78.81 - BACTEREMIA Status: Acute Current Visit: Yes (3) Diabetic foot ulcer SNOMED Code(s): 634123106 Code(s): E11.621 - TYPE 2 DIABETES MELLITUS WITH FOOT ULCER; L97.509 - NON- PRESSURE CHRONIC ULCER OTH PRT UNSP FOOT W UNSP SEVERITY Status: Acute Priority: High Current Visit: Yes Onset Date: ~10/04/17 Qualifiers: Diabetic foot ulcer location: midfoot Diabetes mellitus type: type 2 Laterality: left Non-pressure ulcer stage: with bone involvement without evidence of necrosis Qualified Code(s): E11.621 - Type 2 diabetes mellitus with foot ulcer; L97.426 - Non-pressure chronic ulcer of left heel and midfoot with bone involvement without evidence of necrosis (4) GI bleed SNOMED Code(s): 19880332 Code(s): K92.2 - GASTROINTESTINAL HEMORRHAGE, UNSPECIFIED Status: Resolved Current Visit: Yes Qualifiers: GI bleed type/associated pathology: unspecified gastrointestinal hemorrhage type Qualified Code(s): K92.2 - Gastrointestinal hemorrhage, unspecified (5) Heme + stool SNOMED Code(s): 75826792, 192527367 Code(s): R19.5 - OTHER FECAL ABNORMALITIES Status: Acute Current Visit: Yes (6) DM type 2 (diabetes mellitus, type 2) SNOMED Code(s): 87796227 Code(s): E11.9 - TYPE 2 DIABETES MELLITUS WITHOUT COMPLICATIONS Status: Chronic Current Visit: Yes Qualifiers: 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: with 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 control service representative use Diabetes mellitus complication status: with skin complications Diabetes mellitus complication detail: with foot ulcer Qualified Code(s): E11.621 - Type 2 diabetes mellitus with foot ulcer; L97.509 - Non-pressure chronic ulcer of other part of unspecified foot with unspecified severity; Z79.4 - correction ( current) use of insulin (7) Non compliance w medication regimen SNOMED Code(s): 011229716 Code(s): Z91.14 - PATIENT'S OTHER NONCOMPLIANCE WITH MEDICATION REGIMEN Status: Chronic Current Visit: No (8) Migraine SNOMED Code(s): 47004107 Code(s): G43.909 - MIGRAINE, UNSP, NOT INTRACTABLE, WITHOUT STATUS MIGRAINOSUS Status: Acute Current Visit: Yes (9) Sepsis SNOMED Code(s): 15174341 Code(s): A41.9 - SEPSIS, UNSPECIFIED ORGANISM Status: Resolved Current Visit: Yes Qualifiers: Sepsis type: sepsis due to unspecified organism Qualified Code(s): A41.9 - Sepsis, unspecified organism - Problem List Review Problem List Initiated/Reviewed/Updated: Yes - My Orders Last 24 Hours: My Active Orders 11/01/17 17:00 Pantoprazole [ProTONIX] 40 mg PO BIDAC 11/02/17 09:00 Hydrochlorothiazide 12.5 mg PO DAILY 11/03/17 05:11 BMP [BASIC METABOLIC PANEL,BMP] [CHEM] AM - Plan Plan:: This 57 year old male admitted with sepsis, bacteremia, diabetic L foot ulcer, and suspected GI bleed 1. MSSA bacteremia and osteomyelitis: Continue Cefazolin 2 gm IV Q8hrs. PICC line in place for up to 6 weeks of outpatient antibiotics. Bone culture reveals Staph aureus. 2. Infected L diabetic foot ulcer: Continue Cefazolin and Levaquin. Initial wound cultures show MSSA along with Alcaligenes species and stenotrophomonas maltophilia both gram neg species sensitive to Levaquin. Wound culture from [place] reveal MSSA plus Alcaligenes species. Remain NWB. Wound vac paperwork completed , awaiting approval from [facility]. Once vac in place he will be discharged home. 4. DM type 2: Non complaint with medication regimen. A1c 9.3. Continue Novolog SSI TIDAC. BS controlled. Lantus 10 units at bedtime. Blood sugar tends to spike after supper. Will add scheduled insulin with supper. 5. Headache: Improving. waxes and wanes. CT of head revealed bilateral sinusitis , no acute intracranial process. Flonase for congestion. VTE prophylaxis: SCDs only due to recent GI bleed Dispo: May be able to go home in next day or so pending placement of wound vac
[2017-11-02] MEDS: Metoclopramide 10 MG/2 ML SDV IVPUSH PRN (11:12)
[2017-11-02] MEDS: Levofloxacin/Dextrose 5%-Water 750 MG in Premix Bag 1 BAG IV SCH (12:11)
--- NOTE | 2017-11-02 13:06 | PCM.PN ---
- General Info Date of Service: 11/02/17 Admission Dx/Problem (Free Text): diabetic ulcer left foot Subjective Update: Very tired of being in the hospital. Feeling ok this morning. Pain tolerable. No chest pain or shortness of breath. Headache improving, again waxes and wanes. Patient is happy to hear that I received call from [facility] that hardship application is approved and that wound vac will be expedited. - Review of Systems General: Reports: No Symptoms HEENT: Reports: No Symptoms Pulmonary: Reports: No Symptoms Cardiovascular: Reports: No Symptoms Gastrointestinal: Reports: No Symptoms Genitourinary: Reports: No Symptoms Musculoskeletal: Reports: No Symptoms Skin: Reports: No Symptoms Neurological: Reports: No Symptoms Psychiatric: Reports: No Symptoms - Patient Data Vitals - Most Recent: Last Vital Signs Temp 36.6 C 11/02/17 08:00 Pulse 78 11/02/17 08:00 Resp 14 11/02/17 08:00 BP 179/87 H 11/02/17 08:30 Pulse Ox 92 L 11/02/17 08:00 Weight - Most Recent: 97.182 kg I&O - Last 24 Hours: Intake & Output 11/01/17 11/02/17 11/02/17 22:59 06:59 14:59 Intake Total 860 500 Output Total 1350 1425 Balance -490 -925 Lab Results Last 24 Hours: Laboratory Results - last 24 hr 11/01/17 11/01/17 11/02/17 Range/Units 16:33 20:41 05:00 WBC 9.63 (4.0-11.0) K/uL RBC 3.30 L (4.50-5.90) M/uL Hgb 9.0 L (13.0-17.0) g/dL Hct 27.7 L (38.0-50.0) % MCV 83.9 (80.0-98.0) fL MCH 27.3 (27.0-32.0) pg MCHC 32.5 (31.0-37.0) g/dL RDW Std Deviation 39.9 (28.0-62.0) fl RDW Coeff of Krunal 13 (11.0-15.0) % Plt Count 275 (150-400) K/uL MPV 8.70 (7.40-12.00) fL Nucleated RBC % 0.0 /100WBC Nucleated RBCs # 0 K/uL Sodium (136-148) mmol/L Potassium (3.5-5.1) mmol/L Chloride (98-107) mmol/L Carbon Dioxide (21.0-32.0) mmol/L BUN (7.0-18.0) mg/dL Creatinine (0.8-1.3) mg/dL Est Cr Clr Drug Dosing mL/min Estimated GFR (MDRD) ml/min Glucose (74-106) mg/dL POC Glucose 121 H 344 H (60-110) mg/dL Calcium (8.5-10.1) mg/dL 11/02/17 11/02/17 Range/Units 05:00 05:52 WBC (4.0-11.0) K/uL RBC (4.50-5.90) M/uL Hgb (13.0-17.0) g/dL Hct (38.0-50.0) % MCV (80.0-98.0) fL MCH (27.0-32.0) pg MCHC (31.0-37.0) g/dL RDW Std Deviation (28.0-62.0) fl RDW Coeff of Krunal (11.0-15.0) % Plt Count (150-400) K/uL MPV (7.40-12.00) fL Nucleated RBC % /100WBC Nucleated RBCs # K/uL Sodium 141 (136-148) mmol/L Potassium 3.6 (3.5-5.1) mmol/L Chloride 106 (98-107) mmol/L Carbon Dioxide 33.3 H (21.0-32.0) mmol/L BUN 17 (7.0-18.0) mg/dL Creatinine 1.1 (0.8-1.3) mg/dL Est Cr Clr Drug Dosing 78.91 mL/min Estimated GFR (MDRD) > 60.0 ml/min Glucose 122 H (74-106) mg/dL POC Glucose 114 H (60-110) mg/dL Calcium 7.9 L (8.5-10.1) mg/dL Med Orders - Current: Current Medications Acetaminophen (Tylenol) 650 mg PO Q6H PRN PRN Reason: Headache/Pain Last Admin: 10/30/17 04:21 Dose: 650 mg Albuterol/Ipratropium (Duoneb 3.0-0.5 Mg/3 Ml) 3 ml NEB Q4HRRT PRN PRN Reason: Shortness Of Breath/wheezing Bacitracin (Bacitracin Oint) 1 gm TOP TID [facility] Last Admin: 11/02/17 05:20 Dose: 1 applic Diphenhydramine HCl (Benadryl) 50 mg IVPUSH Q6H [facility] Last Admin: 11/02/17 11:23 Dose: 50 mg Ferrous Sulfate (Ferrous Sulfate) 325 mg PO TIDMEALS [facility] Last Admin: 11/02/17 12:12 Dose: 325 mg Fluticasone Propionate (Flonase) 1 gm NASBOTH BID [facility] Last Admin: 11/02/17 08:33 Dose: 1 applic Hydrochlorothiazide (Hydrochlorothiazide) 12.5 mg PO DAILY [facility] Last Admin: 11/02/17 08:29 Dose: 12.5 mg Cefazolin Sodium/Dextrose 2 gm (/ Premix) 50 mls @ 100 mls/hr IV Q8H [facility] Last Admin: 11/02/17 11:24 Dose: 100 mls/hr Levofloxacin/Dextrose 750 mg/ (Premix) 150 mls @ 100 mls/hr IV Q24H [facility] Last Admin: 11/02/17 12:11 Dose: 100 mls/hr Insulin Aspart (Novolog) 0 unit SUBCUT ACBED [facility]; Protocol Last Admin: 11/02/17 11:28 Dose: Not Given Insulin Glargine (Lantus Solostar) 10 units SUBCUT BEDTIME [facility] Last Admin: 11/01/17 20:46 Dose: 10 units Lisinopril (Prinivil) 20 mg PO DAILY [facility] Last Admin: 11/02/17 08:30 Dose: 20 mg Loperamide HCl (Imodium) 0 mg PO ASDIRECTED PRN PRN Reason: Diarrhea Last Admin: 10/28/17 09:36 Dose: 4 mg Metoclopramide HCl (Reglan) 5 mg IVPUSH Q6H PRN PRN Reason: nausea and vomiting Last Admin: 11/02/17 11:12 Dose: 5 mg Morphine Sulfate (Morphine) 4 mg IVPUSH Q4H PRN PRN Reason: Pain Last Admin: 10/31/17 00:42 Dose: 4 mg Oxycodone HCl (Oxycodone) 5 mg PO Q4H PRN PRN Reason: Pain Last Admin: 11/01/17 13:12 Dose: 5 mg Pantoprazole Sodium ([facility]ix) [facility] Last Admin: 11/02/17 06:48 Dose: 40 mg Pregabalin (Lyrica) 50 mg PO BID [facility] Last Admin: 11/02/17 08:29 Dose: 50 mg Sodium Chloride (Saline Flush) 10 ml FLUSH ASDIRECTED PRN PRN Reason: Keep Vein Open Sodium Chloride (Saline Flush) 2.5 ml FLUSH ASDIRECTED PRN PRN Reason: Keep Vein Open Sucralfate (Carafate) 1 gm PO Q6H [facility] Last Admin: 11/02/17 11:28 Dose: 1 gm Temazepam (Restoril) 15 mg PO BEDTIME PRN PRN Reason: Sleep Last Admin: 10/31/17 20:32 Dose: 15 mg Discontinued Medications Bupivacaine HCl (Marcaine 0.5%) Confirm Administered Dose 30 ml .ROUTE .STK-MED ONE Stop: 10/26/17 07:25 Bupivacaine HCl (Marcaine 0.5%) Confirm Administered Dose 30 ml .ROUTE .STK-MED ONE Stop: 10/29/17 10:10 Cefazolin Sodium (Ancef) Confirm Administered Dose 1 gm .ROUTE .STK-MED ONE Stop: 10/29/17 10:09 Cefazolin Sodium/Dextrose (Ancef) Confirm Administered Dose 2 gm IV .STK-MED ONE Stop: 11/01/17 18:28 Last Admin: 11/01/17 18:33 Dose: Not Given Chlorpromazine HCl (Chlorpromazine) 50 mg PO ONETIME ONE Stop: 10/30/17 10:13 Last Admin: 10/30/17 10:45 Dose: 50 mg Dexamethasone (Dexamethasone) 4 mg IVPUSH ONETIME ONE Stop: 10/27/17 08:38 Last Admin: 10/27/17 09:12 Dose: 4 mg Dexamethasone (Dexamethasone) 10 mg IVPUSH ONETIME ONE Stop: 10/29/17 10:36 Last Admin: 10/29/17 10:59 Dose: 10 mg Dexamethasone Sodium Phosphate (Dexamethasone Sodium Phosphate) 10 mg IVPUSH ONETIME ONE Stop: 10/30/17 14:00 Last Admin: 10/30/17 15:13 Dose: 10 mg Dihydroergotamine Mesylate (Dhe 45) 1 mg SUBCUT ONETIME ONE Stop: 10/30/17 10:09 Last Admin: 10/30/17 11:00 Dose: 1 mg Diphenhydramine HCl (Benadryl) 25 mg IVPUSH ONETIME ONE Stop: 10/27/17 08:33 Last Admin: 10/27/17 09:15 Dose: 25 mg Ephedrine Sulfate (Ephedrine Sulfate) Confirm Administered Dose 50 mg .ROUTE .STK-MED ONE Stop: 10/29/17 13:58 Fentanyl (Sublimaze) Confirm Administered Dose 100 mcg .ROUTE .STK-MED ONE Stop: 10/26/17 07:18 Fentanyl (Sublimaze) Confirm Administered Dose 100 mcg .ROUTE .STK-MED ONE Stop: 10/29/17 13:07 Fentanyl (Sublimaze) Confirm Administered Dose 250 mcg .ROUTE .STK-MED ONE Stop: 10/29/17 13:07 Fentanyl (Sublimaze) 50 mcg IVPUSH Q5M PRN PRN Reason: Pain (severe 7-10) Stop: 10/30/17 14:03 Fluticasone Propionate (Flovent Hfa 220 Mcg) 1 gm INH BID [facility] Last Admin: 10/30/17 17:42 Dose: Not Given Sodium Chloride (Normal Saline) 1,000 mls @ 999 mls/hr IV .Bolus ONE Stop: 10/24/17 08:08 Last Infusion: 10/24/17 08:22 Dose: Infused Vancomycin HCl 1 gm/ Sodium (Chloride) 250 mls @ 250 mls/hr IV ONETIME ONE Stop: 10/24/17 09:08 Last Admin: 10/24/17 08:14 Dose: 250 mls/hr Sodium Chloride (Normal Saline) 1,000 mls @ 999 mls/hr IV .Bolus ONE Stop: 10/24/17 10:00 Last Infusion: 10/24/17 09:31 Dose: 999 mls/hr Lactated Ringer's (Ringers, Lactated) 1,000 mls @ 150 mls/hr IV ASDIRECTED [facility] Last Admin: 10/27/17 21:15 Dose: 150 mls/hr Piperacillin Sod/Tazobactam (Sod 3.375 gm/ Sodium Chloride) 50 mls @ 100 mls/ hr IV ONETIME ONE Stop: 10/24/17 11:19 Last Admin: 10/24/17 11:08 Dose: 100 mls/hr Vancomycin HCl 500 mg/ Sodium (Chloride) 100 mls @ 100 mls/hr IV ONETIME [facility] Last Admin: 10/24/17 12:11 Dose: 100 mls/hr Vancomycin HCl 1,500 mg/ (Sodium Chloride) 500 mls @ 333.333 mls/hr IV Q24H [facility] Stop: 10/26/17 10:31 Last Admin: 10/26/17 10:42 Dose: Not Given Sodium Chloride (Normal Saline) 1,000 mls @ 999 mls/hr IV ASDIRECTED [facility] Last Admin: 10/24/17 11:09 Dose: 999 mls/hr Piperacillin Sod/Tazobactam (Sod 4.5 gm/ Sodium Chloride) 100 mls @ 100 mls/hr IV Q6H [facility] Last Admin: 10/26/17 05:30 Dose: 100 mls/hr Vancomycin HCl 1,500 mg/ (Sodium Chloride) 500 mls @ 333.333 mls/hr IV Q12H [facility] Albumin Human (Flexbumin 25%) 12.5 gm in 50 mls @ 100 mls/hr IV ONETIME ONE Stop: 10/26/17 09:18 Last Admin: 10/26/17 11:42 Dose: Not Given Albumin Human (Flexbumin 25%) 12.5 gm in 50 mls @ 100 mls/hr IV ONETIME ONE Stop: 10/26/17 10:44 Last Admin: 10/26/17 11:33 Dose: 100 mls/hr Albumin Human (Flexbumin 25%) 12.5 gm in 50 mls @ 100 mls/hr IV ONETIME ONE Stop: 10/26/17 11:14 Last Admin: 10/26/17 10:54 Dose: 100 mls/hr Levofloxacin/Dextrose 750 mg/ (Premix) 150 mls @ 100 mls/hr IV ONETIME ONE Stop: 10/26/17 13:30 Last Admin: 10/26/17 13:46 Dose: Not Given Acetaminophen 1,000 mg/ Premix 100 mls @ 400 mls/hr IV NOW ONE Stop: 10/27/17 13:46 Last Admin: 10/27/17 14:02 Dose: 400 mls/hr Acetaminophen 1,000 mg/ Premix 100 mls @ 400 mls/hr IV NOW ONE Stop: 10/27/17 21:37 Last Admin: 10/27/17 21:35 Dose: 400 mls/hr Lactated Ringer's (Ringers, Lactated) 1,000 mls @ 100 mls/hr IV ASDIRECTED [facility] Last Admin: 10/31/17 23:36 Dose: 100 mls/hr Albumin Human (Flexbumin 25%) 12.5 gm in 50 mls @ 100 mls/hr IV ONETIME ONE Stop: 10/28/17 20:37 Last Admin: 10/28/17 21:06 Dose: 100 mls/hr Potassium Chloride/Sodium Chloride (Normal Saline With 40 Meq Kcl) 500 mls @ 125 mls/hr IV ASDIRECTED [facility] Stop: 10/29/17 13:59 Last Admin: 10/29/17 11:16 Dose: Not Given Magnesium Sulfate 2 gm/Potassium Chloride 40 meq/Sodium Chloride 524 mls @ 131 mls/hr IV ASDIRECTED [facility] Stop: 10/29/17 14:01 Last Admin: 10/29/17 10:57 Dose: 131 mls/hr Albumin Human (Flexbumin 25%) 12.5 gm in 50 mls @ 100 mls/hr IV ONETIME ONE Stop: 10/29/17 12:59 Last Admin: 10/29/17 16:35 Dose: 100 mls/hr Albumin Human (Flexbumin 25%) 12.5 gm in 50 mls @ 100 mls/hr IV ONETIME ONE Stop: 10/29/17 13:29 Last Admin: 10/29/17 17:19 Dose: 100 mls/hr Insulin Aspart (Novolog) 0 unit SUBCUT Q6H [facility]; Protocol Last Admin: 10/25/17 05:50 Dose: Not Given Insulin Aspart (Novolog) 0 unit SUBCUT TIDAC [facility]; Protocol Last Admin: 10/29/17 18:14 Dose: 4 units Insulin Aspart (Novolog) 0 unit SUBCUT TIDAC [facility]; Protocol Insulin Glargine (Lantus Solostar) 10 units SUBCUT ONETIME ONE Stop: 10/24/17 12:01 Last Admin: 10/24/17 12:51 Dose: 10 units Insulin Glargine (Lantus Solostar) 38 units SUBCUT BEDTIME B[facility] Ketorolac Tromethamine (Toradol) 30 mg IVPUSH ONETIME ONE Stop: 10/27/17 08:33 Last Admin: 10/27/17 12:05 Dose: Not Given Lidocaine (Xylocaine-Mpf 2%) Confirm Administered Dose 10 ml .ROUTE .STK-MED ONE Stop: 10/29/17 13:07 Lidocaine HCl (Xylocaine 1%) Confirm Administered Dose 20 ml .ROUTE .STK-MED ONE Stop: 10/26/17 07:25 Lidocaine HCl (Xylocaine 1%) Confirm Administered Dose 20 ml .ROUTE .STK-MED ONE Stop: 10/29/17 10:10 Lisinopril (Prinivil) 10 mg PO DAILY BOB Lisinopril (Prinivil) 10 mg PO ONETIME ONE Stop: 10/30/17 18:28 Last Admin: 10/30/17 18:54 Dose: 10 mg Lisinopril (Prinivil) 20 mg PO ONETIME ONE Stop: 11/01/17 16:13 Last Admin: 11/01/17 16:21 Dose: 20 mg Metoclopramide HCl (Reglan) 10 mg IVPUSH ONETIME ONE Stop: 10/27/17 08:33 Last Admin: 10/27/17 09:13 Dose: 10 mg Metoclopramide HCl (Reglan) 10 mg IVPUSH ONETIME ONE Stop: 10/29/17 10:37 Last Admin: 10/29/17 10:58 Dose: 10 mg Midazolam HCl (Versed 1 Mg/Ml) Confirm Administered Dose 2 mg .ROUTE .STK-MED ONE Stop: 10/26/17 07:19 Midazolam HCl (Versed 1 Mg/Ml) Confirm Administered Dose 2 mg .ROUTE .STK-MED ONE Stop: 10/29/17 13:07 Morphine Sulfate (Morphine) 4 mg IVPUSH ONETIME ONE Stop: 10/24/17 07:16 Last Admin: 10/24/17 07:42 Dose: Not Given Morphine Sulfate (Morphine) Confirm Administered Dose 4 mg .ROUTE .STK-MED ONE Stop: 10/24/17 07:20 Last Admin: 10/24/17 07:33 Dose: Not Given Morphine Sulfate (Morphine) 4 mg IVPUSH ONETIME ONE Stop: 10/24/17 07:21 Last Admin: 10/24/17 07:33 Dose: 4 mg Morphine Sulfate (Morphine) 2 mg IVPUSH Q2H PRN PRN Reason: Pain (severe 7-10) Stop: 10/25/17 10:42 Last Admin: 10/25/17 09:42 Dose: 2 mg Ondansetron HCl (Zofran) 4 mg IVPUSH ONETIME ONE Stop: 10/24/17 07:16 Last Admin: 10/24/17 07:21 Dose: 4 mg Pantoprazole Sodium (Protonix Iv) 80 mg IVPUSH .BOLUS ONE Stop: 10/24/17 07:41 Last Admin: 10/24/17 07:57 Dose: 80 mg Pantoprazole Sodium (Protonix Iv) 40 mg IV Q12H BOB Last Admin: 10/31/17 23:32 Dose: 40 mg Potassium Chloride (Klor-Con M20) 40 meq PO ONETIME ONE Stop: 10/29/17 08:48 Last Admin: 10/29/17 11:15 Dose: Not Given Propofol (Diprivan 20 Ml) Confirm Administered Dose 200 mg .ROUTE .STK-MED ONE Stop: 10/26/17 07:19 Propofol (Diprivan 20 Ml) Confirm Administered Dose 400 mg .ROUTE .STK-MED ONE Stop: 10/29/17 13:07 Propofol (Diprivan 20 Ml) Confirm Administered Dose 200 mg .ROUTE .STK-MED ONE Stop: 10/29/17 14:49 Sodium Chloride (Saline Flush) 10 ml FLUSH ASDIRECTED PRN PRN Reason: Keep Vein Open Sodium Chloride (Saline Flush) 2.5 ml FLUSH ASDIRECTED PRN PRN Reason: Keep Vein Open Sumatriptan Succinate (Imitrex) 6 mg SUBCUT ONETIME ONE Stop: 10/27/17 21:25 Last Admin: 10/27/17 22:15 Dose: 6 mg Sumatriptan Succinate (Imitrex) 50 mg PO Q2H PRN PRN Reason: Headache Last Admin: 10/28/17 20:41 Dose: 50 mg Sumatriptan Succinate (Imitrex) Confirm Administered Dose 50 mg .ROUTE .STK-MED ONE Stop: 10/28/17 20:51 Last Admin: 10/28/17 21:10 Dose: Not Given Sumatriptan Succinate (Imitrex) 6 mg SUBCUT ONETIME ONE Stop: 10/29/17 10:28 Last Admin: 10/29/17 10:42 Dose: 6 mg Vancomycin HCl (Pharmacy To Dose - Vancomycin) 0 dose .XX ASDIRECTED BOB - Exam Peripheral Pulses: 2+: Posterior Tibial (L), Dorsalis Pedis (L) Skin: Warm Wound/Incisions: Dressing Dry and Intact, Drainage, Erythema Improving Physical Findings Comments:: wound dressing is intact having just been changed. No new findings. - Problem List & Annotations (1) Diabetic foot ulcer SNOMED Code(s): 472256776 Code(s): E11.621 - TYPE 2 DIABETES MELLITUS WITH FOOT ULCER; L97.509 - NON- PRESSURE CHRONIC ULCER OTH PRT UNSP FOOT W UNSP SEVERITY Status: Acute Priority: High Current Visit: Yes Onset Date: ~10/04/17 Qualifiers: Diabetic foot ulcer location: midfoot Diabetes mellitus type: type 2 Laterality: left Non-pressure ulcer stage: with bone involvement without evidence of necrosis Qualified Code(s): E11.621 - Type 2 diabetes mellitus with foot ulcer; L97.426 - Non-pressure chronic ulcer of left heel and midfoot with bone involvement without evidence of necrosis - Problem List Review Problem List Initiated/Reviewed/Updated: Yes - Assessment Assessment:: 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 - Plan Plan:: This 57 year old male admitted with sepsis, bacteremia, diabetic L foot ulcer, and suspected GI bleed 1. MSSA bacteremia and osteomyelitis: Continue Cefazolin 2 gm IV Q8hrs. PICC line in place for up to 6 weeks of outpatient antibiotics. Bone culture reveals Staph aureus. 2. Infected L diabetic foot ulcer: Continue Cefazolin and Levaquin. Initial wound cultures show MSSA along with Alcaligenes species and stenotrophomonas maltophilia both gram neg species sensitive to Levaquin. Wound culture from [place] reveal MSSA plus Alcaligenes species. Remain NWB. Wound vac paperwork completed , awaiting approval from [facility]. Once vac in place he will be discharged home. 4. DM type 2: Non complaint with medication regimen. A1c 9.3. Continue Novolog SSI TIDAC. BS controlled. Lantus 10 units at bedtime. Blood sugar tends to spike after supper. Will add scheduled insulin with supper. 5. Headache: Improving. waxes and wanes. CT of head revealed bilateral sinusitis , no acute intracranial process. Flonase for congestion. VTE prophylaxis: SCDs only due to recent GI bleed Dispo: May be able to go home in next day or so pending placement of wound vac Update: Wound vac is approved! In coordination with GIL[facility]) I have gotten it from PT and CARMEN will replenish PT with a new one. I have applied wound vac to patient. He is ok for discharge from Podiatry standpoint. He will get his 8 pm dose of antibiotic and then be discharged. Patient will be setup with Home Health for vac change on 11/05 and 11/08. I will see patient in my office and do vac change on 11/10.
--- NOTE | 2017-11-02 15:54 | CR ---
EXAMINATION: Left foot, second digit HISTORY: Amputation COMPARISON: None TECHNIQUE: 2 views FINDINGS/IMPRESSION: Postoperative control films demonstrate soft tissue changes within the region of a second digit amputation at the MTP joint. Remaining osseous structures appear preserved.
--- NOTE | 2017-11-02 16:20 | PCM.DCSUM1 ---
Discharge Summary - Hospital Course Brief History: This 57 year old male with pmh of non-compliance with medication regimen for DM type 2 and diabetic neuropathy presented to the ED with complaints of abdominal pain, nausea, vomiting, diarrhea and coffee ground emesis with some blood streaks noted along with left foot pain. Prior to admission he was seen at Dr Indio Toribio's podiatry clinic due to L foot pain, a shard of glass was removed from the plantar surface of his foot and he was placed on Augmentin for this. He saw his PCP a few days later, labwork was good , but then shortly after he started having fever and chills and came to the ED for evaluation. On admission leukocytosis noted at 19,000, BUN 61, Cr 2.6, blood glucose over 300. He was admitted with suspected upper GI bleed and infected diabetic L foot ulcer. 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 SNOMED Code(s): 925913970 ICD Code: M86.9 - OSTEOMYELITIS, UNSPECIFIED; A49.01 - METHICILLIN SUSCEP STAPH INFECTION, UNSP SITE Status: Acute (2) MSSA bacteremia SNOMED Code(s): 340055419, 948933986 ICD Code: R78.81 - BACTEREMIA Status: Acute (3) Diabetic foot ulcer SNOMED Code(s): 658905168 ICD Code: E11.621 - TYPE 2 DIABETES MELLITUS WITH FOOT ULCER; L97.509 - NON- PRESSURE CHRONIC ULCER OTH PRT UNSP FOOT W UNSP SEVERITY Status: Acute Priority: High Onset Date: ~10/04/17 Qualifiers: Diabetic foot ulcer location: midfoot Diabetes mellitus type: type 2 Laterality: left Non-pressure ulcer stage: with bone involvement without evidence of necrosis Qualified Code(s): E11.621 - Type 2 diabetes mellitus with foot ulcer; L97.426 - Non-pressure chronic ulcer of left heel and midfoot with bone involvement without evidence of necrosis (4) GI bleed SNOMED Code(s): 39154175 ICD Code: K92.2 - GASTROINTESTINAL HEMORRHAGE, UNSPECIFIED Status: Resolved Qualifiers: GI bleed type/associated pathology: unspecified gastrointestinal hemorrhage type Qualified Code(s): K92.2 - Gastrointestinal hemorrhage, unspecified (5) Heme + stool SNOMED Code(s): 34718409, 410789817 ICD Code: R19.5 - OTHER FECAL ABNORMALITIES Status: Acute (6) DM type 2 (diabetes mellitus, type 2) SNOMED Code(s): 10688542 ICD Code: E11.9 - TYPE 2 DIABETES MELLITUS WITHOUT COMPLICATIONS Status: Chronic Qualifiers: Diabetes mellitus custodial insulin use: with intermediate card tender use Diabetes mellitus complication status: with skin complications Diabetes mellitus complication detail: with foot ulcer Qualified Code(s): E11.621 - Type 2 diabetes mellitus with foot ulcer; L97.509 - Non-pressure chronic ulcer of other part of unspecified foot with unspecified severity; Z79.4 - USP ( current) use of insulin (7) Non compliance w medication regimen SNOMED Code(s): 281627784 ICD Code: Z91.14 - PATIENT'S OTHER NONCOMPLIANCE WITH MEDICATION REGIMEN Status: Chronic (8) HTN (hypertension) SNOMED Code(s): 43247581 ICD Code: I10 - ESSENTIAL (PRIMARY) HYPERTENSION Status: Chronic Qualifiers: Hypertension type: essential hypertension Qualified Code(s): I10 - Essential (primary) hypertension - Patient Summary/Data Operative Procedure(s) Performed: 1. amputation second toe left foot. 2. incision and drainage left foot ulcer Consults: Consultations 10/24/17 11:04 Consult to Wound Care Services [CONS] Routine 10/29/17 10:09 Consult to DM [Consult to Diabetic Nurse Specialist] [CONS] Routine - Patient Instructions Diet: Diabetic Diet Activity: Non Weight Bearing (To left foot until otherwise noted. ) Driving: Do Not Drive Showering/Bathing: May Shower, No Tub Bathing/Swimming Wound/Incision Care: Keep Operative Site/Wound Site Clean and Dry Notify Provider of: Fever, Increased Pain, Swelling and Redness, Drainage, Nausea and/or Vomiting Other/Special Instructions: IV antibiotics three times daily until December 07 evening dose. Please arrive and check in at ER admission for IV therapy at 7 am , 4 pm and 10 pm daily. Home Health to assist in wound vac changes WednesdayNovember [address] Toribio to change on WednesdayNovember 10. NO NSAIDS ( Aleve, Advil, Ibuprofen, Motrin) due to GI bleeding. - Discharge Plan Prescriptions/Med Rec: ceFAZolin [Ancef] 2 gm IV Q8H #105 bag Ferrous Sulfate 325 mg PO TIDMEALS #90 tablet Hydrochlorothiazide 12.5 mg PO DAILY #30 cap Insulin Aspart [NovoLOG] See Protocol SUBCUT ACBED #1 box Insulin Glarg,Human.Rec.Analog [Lantus Solostar] 10 units SUBCUT BEDTIME #1 box Levofloxacin [Levaquin] 750 mg PO DAILY #3 tab Lisinopril [Prinivil] 20 mg PO DAILY #60 tablet oxyCODONE 5 mg PO Q4H PRN #30 tablet PRN Reason: Pain Pantoprazole [ProTONIX] 40 mg PO BIDAC #60 tab.cr Pregabalin [Lyrica] 50 mg PO BID #60 cap Home Medications: Home Meds Acetaminophen [Tylenol] 650 mg PO Q6H PRN tablet 11/02/17 [Rx] Ferrous Sulfate 325 mg PO TIDMEALS #90 tablet 11/02/17 [Rx] Fluticasone Propionate [Flonase] 1 gm NASBOTH BID bottle 11/02/17 [Rx] Hydrochlorothiazide 12.5 mg PO DAILY #30 cap 11/02/17 [Rx] Insulin Aspart [NovoLOG] See Protocol SUBCUT ACBED #1 box 11/02/17 [Rx] Insulin Glarg,Human.Rec.Analog [Lantus Solostar] 10 units SUBCUT BEDTIME #1 box 11/02/17 [Rx] Levofloxacin [Levaquin] 750 mg PO DAILY #3 tab 11/02/17 [Rx] Lisinopril [Prinivil] 20 mg PO DAILY #60 tablet 11/02/17 [Rx] Pantoprazole [ProTONIX] 40 mg PO BIDAC #60 tab.cr 11/02/17 [Rx] Pregabalin [Lyrica] 50 mg PO BID #60 cap 11/02/17 [Rx] ceFAZolin [Ancef] 2 gm IV Q8H #105 bag 11/02/17 [Rx] oxyCODONE 5 mg PO Q4H PRN #30 tablet 11/02/17 [Rx] Patient Handouts: Insulin Aspart; Insulin Aspart Protamine injection, Negative Pressure Wound Therapy Dressing Care, Cefazolin injection, Oxycodone tablets or capsules, Iron tablets, capsules, extended-release tablets, PICC Insertion, Care After, Toe Amputation, Care After, Lisinopril tablets, Pregabalin capsules , Pantoprazole tablets, Levofloxacin tablets, Insulin Glargine injection, Hydrochlorothiazide, HCTZ capsules or tablets Referrals: Dar Reese MD [Physician] - 11/10/17 9:30 am (For EGD Colonoscopy) Manav Miranda MD [Physician] - 11/11/17 10:30 am Indio Toribio DPM [Physician] - 11/10/17 5:00 pm - Discharge Summary/Plan Comment DC Time >30 min.: No Discharge Summary/Plan Comment: Discharge Diagnoses: MSSA bacteremia MSSA Osteomyelitis S/P amputation of 2nd toe on L foot Diabetic foot ulcer, Left foot, wound vac in place Upper GI bleed-resolved Anemia Heme + stools Uncontrolled Dm type 2, insulin dependent HTN Non compliance with medication regimen [place] was admitted secondary to suspected GI bleed and infected diabetic left foot ulcer. Regarding GI bleed, Dr Reese consulted but due to L foot ulcer being priority he recommended treating conservatively with Protonix IV and monitoring. If he became unstable or continued to bleed, he would recommend transfer. But if stable, he would want to see him in the clinic for dual scopes and to keep him on Protonix BID as well as no NSAIDs. Hgb remained stable around 9.0, with IVF resuscitation due to sepsis and bacteremia. He was discharge home with Protonix po BID as well as Iron supplementation. L infected diabetic foot ulcer, Dr Indio Toribio was consulted and completed I&D and then subsequent amputation of 2nd toe. Blood cultures returned positive with MSSA, repeat BC were negative. Wound culture also grew out MSSA and some gram negative species in sparse amounts. He was treated with Cefazolin and Levaquin. Bone cultures returned with positive osteomyelitis secondary to MSSA as well. PICC line was placed for 6 weeks of antibiotic treatment with Cefazolin 2 gm IV TID, last day of treatment to be December 09. Dr Indio Toribio will follow with L diabetic foot ulcer. He placed wound vac prior to discharge. Home Health consulted secondary to patient needing skill nurse assessment for wound vac dressing changes on November 05 and November 08. He is home bound due to the inability to drive with this foot and being non weight bearing status to L foot as well. he needs assistance from son to get around. He will be staying with his son at his apartment for the time being. His PCP, Dr Miranda will follow through with care plan. Abdominal pain waxed and waned during his stay, stool cultures all negative and no longer was noted to be black or bloody. Abdominal pain subsided and he was tolerating diet well. He also had persistent waxing and waning migraine, which improved during the evening and worsened during the day. He was treated with Dexamethasone and Imitrex, but nothing seemed to help much except rest. Head CT obtained which was negative, showing only some mild sinusitis. Flonase started, which was slowly helping headache. Blood pressure elevated after IVF resuscitation. He was started on Lisinopril and HCTZ due to this. BP remained slightly elevated on discharge 150/80s. He will need close follow up regarding HTN management and DM management. He was discharge home with Lantus 10 units at bedtime, morning BS with this were 120s and Novolog SSI with each meal. He was encouraged highly to be complaint with medication regimen to increase his prognosis and helping to control bacteremia. He will be set up to Dr Miranda, PCP for follow up, Dr Reese, general surgery for dual scopes secondary to GI bleed, and Dr Indio Toribio, podiatry for continued care for L diabetic foot ulcer, wound vac in place. - General Info Date of Service: 11/03/17 Admission Dx/Problem (Free Text: diabetic ulcer left foot Subjective Update: Eager to be discharge home tonight. Feeling ok. Some pain to L foot, but management. Headache good currently. Functional Status: Reports: Pain Controlled, Tolerating Diet, Ambulating, Urinating - Review of Systems General: Reports: No Symptoms. Denies: Fever, Weakness, Fatigue, Malaise HEENT: Reports: No Symptoms. Denies: Contact Lenses, Sinus Congestion, Visual Changes Pulmonary: Reports: No Symptoms. Denies: Shortness of Breath, Cough, Sputum Cardiovascular: Reports: No Symptoms. Denies: Chest Pain, Orthopnea, Edema Gastrointestinal: Reports: No Symptoms. Denies: Abdominal Pain, Nausea, Vomiting Genitourinary: Reports: No Symptoms. Denies: Dysuria, Frequency, Burning Musculoskeletal: Reports: No Symptoms Skin: Reports: Other (wound vac in place to L foot. ) Neurological: Reports: No Symptoms Psychiatric: Reports: No Symptoms - Patient Data Vitals - Most Recent: Last Vital Signs Temp 97.9 F 11/02/17 12:00 Pulse 77 11/02/17 12:00 Resp 16 11/02/17 12:00 BP 175/89 H 11/02/17 12:00 Pulse Ox 93 L 11/02/17 12:00 Weight - Most Recent: 97.182 kg I&O - Last 24 hours: Intake & Output 11/02/17 11/02/17 11/02/17 06:59 14:59 22:59 Intake Total 500 600 Output Total 1425 3292 Balance -423 -497 Lab Results - Last 24 hrs: Laboratory Results - last 24 hr 11/01/17 11/01/17 11/02/17 Range/Units 16:33 20:41 05:00 WBC 9.63 (4.0-11.0) K/uL RBC 3.30 L (4.50-5.90) M/uL Hgb 9.0 L (13.0-17.0) g/dL Hct 27.7 L (38.0-50.0) % MCV 83.9 (80.0-98.0) fL MCH 27.3 (27.0-32.0) pg MCHC 32.5 (31.0-37.0) g/dL RDW Std Deviation 39.9 (28.0-62.0) fl RDW Coeff of Krunal 13 (11.0-15.0) % Plt Count 275 (150-400) K/uL MPV 8.70 (7.40-12.00) fL Nucleated RBC % 0.0 /100WBC Nucleated RBCs # 0 K/uL Sodium (136-148) mmol/L Potassium (3.5-5.1) mmol/L Chloride (98-107) mmol/L Carbon Dioxide (21.0-32.0) mmol/L BUN (7.0-18.0) mg/dL Creatinine (0.8-1.3) mg/dL Est Cr Clr Drug Dosing mL/min Estimated GFR (MDRD) ml/min Glucose (74-106) mg/dL POC Glucose 121 H 344 H (60-110) mg/dL Calcium (8.5-10.1) mg/dL 11/02/17 11/02/17 Range/Units 05:00 05:52 WBC (4.0-11.0) K/uL RBC (4.50-5.90) M/uL Hgb (13.0-17.0) g/dL Hct (38.0-50.0) % MCV (80.0-98.0) fL MCH (27.0-32.0) pg MCHC (31.0-37.0) g/dL RDW Std Deviation (28.0-62.0) fl RDW Coeff of Krunal (11.0-15.0) % Plt Count (150-400) K/uL MPV (7.40-12.00) fL Nucleated RBC % /100WBC Nucleated RBCs # K/uL Sodium 141 (136-148) mmol/L Potassium 3.6 (3.5-5.1) mmol/L Chloride 106 (98-107) mmol/L Carbon Dioxide 33.3 H (21.0-32.0) mmol/L BUN 17 (7.0-18.0) mg/dL Creatinine 1.1 (0.8-1.3) mg/dL Est Cr Clr Drug Dosing 78.91 mL/min Estimated GFR (MDRD) > 60.0 ml/min Glucose 122 H (74-106) mg/dL POC Glucose 114 H (60-110) mg/dL Calcium 7.9 L (8.5-10.1) mg/dL Med Orders - Current: Current Medications Acetaminophen (Tylenol) 650 mg PO Q6H PRN PRN Reason: Headache/Pain Last Admin: 10/30/17 04:21 Dose: 650 mg Albuterol/Ipratropium (Duoneb 3.0-0.5 Mg/3 Ml) 3 ml NEB Q4HRRT PRN PRN Reason: Shortness Of Breath/wheezing Bacitracin (Bacitracin Oint) 1 gm TOP TID [facility] Last Admin: 11/02/17 15:21 Dose: 1 applic Diphenhydramine HCl (Benadryl) 50 mg IVPUSH Q6H [facility] Last Admin: 11/02/17 11:23 Dose: 50 mg Ferrous Sulfate (Ferrous Sulfate) 325 mg PO TIDMEALS [facility] Last Admin: 11/02/17 12:12 Dose: 325 mg Fluticasone Propionate (Flonase) 1 gm NASBOTH BID [facility] Last Admin: 11/02/17 08:33 Dose: 1 applic Hydrochlorothiazide (Hydrochlorothiazide) 12.5 mg PO DAILY [facility] Last Admin: 11/02/17 08:29 Dose: 12.5 mg Cefazolin Sodium/Dextrose 2 gm (/ Premix) 50 mls @ 100 mls/hr IV Q8H [facility] Last Admin: 11/02/17 11:24 Dose: 100 mls/hr Levofloxacin/Dextrose 750 mg/ (Premix) 150 mls @ 100 mls/hr IV Q24H [facility] Last Admin: 11/02/17 12:11 Dose: 100 mls/hr Insulin Aspart (Novolog) 0 unit SUBCUT ACBED [facility]; Protocol Last Admin: 11/02/17 11:28 Dose: Not Given Insulin Glargine (Lantus Solostar) 10 units SUBCUT BEDTIME [facility] Last Admin: 11/01/17 20:46 Dose: 10 units Lisinopril (Prinivil) 20 mg PO DAILY [facility] Last Admin: 11/02/17 08:30 Dose: 20 mg Loperamide HCl (Imodium) 0 mg PO ASDIRECTED PRN PRN Reason: Diarrhea Last Admin: 10/28/17 09:36 Dose: 4 mg Metoclopramide HCl (Reglan) 5 mg IVPUSH Q6H PRN PRN Reason: nausea and vomiting Last Admin: 11/02/17 11:12 Dose: 5 mg Morphine Sulfate (Morphine) 4 mg IVPUSH Q4H PRN PRN Reason: Pain Last Admin: 10/31/17 00:42 Dose: 4 mg Oxycodone HCl (Oxycodone) 5 mg PO Q4H PRN PRN Reason: Pain Last Admin: 11/01/17 13:12 Dose: 5 mg [facility]op[facility]ole [facility]) [facility] Admin: 11/02/17 06:48 Dose: 40 mg Pregabalin (Lyrica) 50 mg PO BID [facility] Last Admin: 11/02/17 08:29 Dose: 50 mg Sodium Chloride (Saline Flush) 10 ml FLUSH ASDIRECTED PRN PRN Reason: Keep Vein Open Sodium Chloride (Saline Flush) 2.5 ml FLUSH ASDIRECTED PRN PRN Reason: Keep Vein Open Sucralfate (Carafate) 1 gm PO Q6H BOB Last Admin: 11/02/17 11:28 Dose: 1 gm Temazepam (Restoril) 15 mg PO BEDTIME PRN PRN Reason: Sleep Last Admin: 10/31/17 20:32 Dose: 15 mg Discontinued Medications Bupivacaine HCl (Marcaine 0.5%) Confirm Administered Dose 30 ml .ROUTE .STK-MED ONE Stop: 10/26/17 07:25 Bupivacaine HCl (Marcaine 0.5%) Confirm Administered Dose 30 ml .ROUTE .STK-MED ONE Stop: 10/29/17 10:10 Cefazolin Sodium (Ancef) Confirm Administered Dose 1 gm .ROUTE .STK-MED ONE Stop: 10/29/17 10:09 Cefazolin Sodium/Dextrose (Ancef) Confirm Administered Dose 2 gm IV .STK-MED ONE Stop: 11/01/17 18:28 Last Admin: 11/01/17 18:33 Dose: Not Given Chlorpromazine HCl (Chlorpromazine) 50 mg PO ONETIME ONE Stop: 10/30/17 10:13 Last Admin: 10/30/17 10:45 Dose: 50 mg Dexamethasone (Dexamethasone) 4 mg IVPUSH ONETIME ONE Stop: 10/27/17 08:38 Last Admin: 10/27/17 09:12 Dose: 4 mg Dexamethasone (Dexamethasone) 10 mg IVPUSH ONETIME ONE Stop: 10/29/17 10:36 Last Admin: 10/29/17 10:59 Dose: 10 mg Dexamethasone Sodium Phosphate (Dexamethasone Sodium Phosphate) 10 mg IVPUSH ONETIME ONE Stop: 10/30/17 14:00 Last Admin: 10/30/17 15:13 Dose: 10 mg Dihydroergotamine Mesylate (Dhe 45) 1 mg SUBCUT ONETIME ONE Stop: 10/30/17 10:09 Last Admin: 10/30/17 11:00 Dose: 1 mg Diphenhydramine HCl (Benadryl) 25 mg IVPUSH ONETIME ONE Stop: 10/27/17 08:33 Last Admin: 10/27/17 09:15 Dose: 25 mg Ephedrine Sulfate (Ephedrine Sulfate) Confirm Administered Dose 50 mg .ROUTE .STK-MED ONE Stop: 10/29/17 13:58 Fentanyl (Sublimaze) Confirm Administered Dose 100 mcg .ROUTE .STK-MED ONE Stop: 10/26/17 07:18 Fentanyl (Sublimaze) Confirm Administered Dose 100 mcg .ROUTE .STK-MED ONE Stop: 10/29/17 13:07 Fentanyl (Sublimaze) Confirm Administered Dose 250 mcg .ROUTE .STK-MED ONE Stop: 10/29/17 13:07 Fentanyl (Sublimaze) 50 mcg IVPUSH Q5M PRN PRN Reason: Pain (severe 7-10) Stop: 10/30/17 14:03 Fluticasone Propionate (Flovent Hfa 220 Mcg) 1 gm INH BID [facility] Last Admin: 10/30/17 17:42 Dose: Not Given Sodium Chloride (Normal Saline) 1,000 mls @ 999 mls/hr IV .Bolus ONE Stop: 10/24/17 08:08 Last Infusion: 10/24/17 08:22 Dose: Infused Vancomycin HCl 1 gm/ Sodium (Chloride) 250 mls @ 250 mls/hr IV ONETIME ONE Stop: 10/24/17 09:08 Last Admin: 10/24/17 08:14 Dose: 250 mls/hr Sodium Chloride (Normal Saline) 1,000 mls @ 999 mls/hr IV .Bolus ONE Stop: 10/24/17 10:00 Last Infusion: 10/24/17 09:31 Dose: 999 mls/hr Lactated Ringer's (Ringers, Lactated) 1,000 mls @ 150 mls/hr IV ASDIRECTED [facility] Last Admin: 10/27/17 21:15 Dose: 150 mls/hr Piperacillin Sod/Tazobactam (Sod 3.375 gm/ Sodium Chloride) 50 mls @ 100 mls/ hr IV ONETIME ONE Stop: 10/24/17 11:19 Last Admin: 10/24/17 11:08 Dose: 100 mls/hr Vancomycin HCl 500 mg/ Sodium (Chloride) 100 mls @ 100 mls/hr IV ONETIME [facility] Last Admin: 10/24/17 12:11 Dose: 100 mls/hr Vancomycin HCl 1,500 mg/ (Sodium Chloride) 500 mls @ 333.333 mls/hr IV Q24H [facility] Stop: 10/26/17 10:31 Last Admin: 10/26/17 10:42 Dose: Not Given Sodium Chloride (Normal Saline) 1,000 mls @ 999 mls/hr IV ASDIRECTED [facility] Last Admin: 10/24/17 11:09 Dose: 999 mls/hr Piperacillin Sod/Tazobactam (Sod 4.5 gm/ Sodium Chloride) 100 mls @ 100 mls/hr IV Q6H [facility] Last Admin: 10/26/17 05:30 Dose: 100 mls/hr Vancomycin HCl 1,500 mg/ (Sodium Chloride) 500 mls @ 333.333 mls/hr IV Q12H [facility] Albumin Human (Flexbumin 25%) 12.5 gm in 50 mls @ 100 mls/hr IV ONETIME ONE Stop: 10/26/17 09:18 Last Admin: 10/26/17 11:42 Dose: Not Given Albumin Human (Flexbumin 25%) 12.5 gm in 50 mls @ 100 mls/hr IV ONETIME ONE Stop: 10/26/17 10:44 Last Admin: 10/26/17 11:33 Dose: 100 mls/hr Albumin Human (Flexbumin 25%) 12.5 gm in 50 mls @ 100 mls/hr IV ONETIME ONE Stop: 10/26/17 11:14 Last Admin: 10/26/17 10:54 Dose: 100 mls/hr Levofloxacin/Dextrose 750 mg/ (Premix) 150 mls @ 100 mls/hr IV ONETIME ONE Stop: 10/26/17 13:30 Last Admin: 10/26/17 13:46 Dose: Not Given Acetaminophen 1,000 mg/ Premix 100 mls @ 400 mls/hr IV NOW ONE Stop: 10/27/17 13:46 Last Admin: 10/27/17 14:02 Dose: 400 mls/hr Acetaminophen 1,000 mg/ Premix 100 mls @ 400 mls/hr IV NOW ONE Stop: 10/27/17 21:37 Last Admin: 10/27/17 21:35 Dose: 400 mls/hr Lactated Ringer's (Ringers, Lactated) 1,000 mls @ 100 mls/hr IV ASDIRECTED [facility] Last Admin: 10/31/17 23:36 Dose: 100 mls/hr Albumin Human (Flexbumin 25%) 12.5 gm in 50 mls @ 100 mls/hr IV ONETIME ONE Stop: 10/28/17 20:37 Last Admin: 10/28/17 21:06 Dose: 100 mls/hr Potassium Chloride/Sodium Chloride (Normal Saline With 40 Meq Kcl) 500 mls @ 125 mls/hr IV ASDIRECTED BOB Stop: 10/29/17 13:59 Last Admin: 10/29/17 11:16 Dose: Not Given Magnesium Sulfate 2 gm/Potassium Chloride 40 meq/Sodium Chloride 524 mls @ 131 mls/hr IV ASDIRECTED BOB Stop: 10/29/17 14:01 Last Admin: 10/29/17 10:57 Dose: 131 mls/hr Albumin Human (Flexbumin 25%) 12.5 gm in 50 mls @ 100 mls/hr IV ONETIME ONE Stop: 10/29/17 12:59 Last Admin: 10/29/17 16:35 Dose: 100 mls/hr Albumin Human (Flexbumin 25%) 12.5 gm in 50 mls @ 100 mls/hr IV ONETIME ONE Stop: 10/29/17 13:29 Last Admin: 10/29/17 17:19 Dose: 100 mls/hr Insulin Aspart (Novolog) 0 unit SUBCUT Q6H [facility]; Protocol Last Admin: 10/25/17 05:50 Dose: Not Given Insulin Aspart (Novolog) 0 unit SUBCUT TIDAC [facility]; Protocol Last Admin: 10/29/17 18:14 Dose: 4 units Insulin Aspart (Novolog) 0 unit SUBCUT TIDAC [facility]; Protocol Insulin Glargine (Lantus Solostar) 10 units SUBCUT ONETIME ONE Stop: 10/24/17 12:01 Last Admin: 10/24/17 12:51 Dose: 10 units Insulin Glargine (Lantus Solostar) 38 units SUBCUT BEDTIME [facility] Ketorolac Tromethamine (Toradol) 30 mg IVPUSH ONETIME ONE Stop: 10/27/17 08:33 Last Admin: 10/27/17 12:05 Dose: Not Given Lidocaine (Xylocaine-Mpf 2%) Confirm Administered Dose 10 ml .ROUTE .STK-MED ONE Stop: 10/29/17 13:07 Lidocaine HCl (Xylocaine 1%) Confirm Administered Dose 20 ml .ROUTE .STK-MED ONE Stop: 10/26/17 07:25 Lidocaine HCl (Xylocaine 1%) Confirm Administered Dose 20 ml .ROUTE .STK-MED ONE Stop: 10/29/17 10:10 Lisinopril (Prinivil) 10 mg PO DAILY BOB Lisinopril (Prinivil) 10 mg PO ONETIME ONE Stop: 10/30/17 18:28 Last Admin: 10/30/17 18:54 Dose: 10 mg Lisinopril (Prinivil) 20 mg PO ONETIME ONE Stop: 11/01/17 16:13 Last Admin: 11/01/17 16:21 Dose: 20 mg Metoclopramide HCl (Reglan) 10 mg IVPUSH ONETIME ONE Stop: 10/27/17 08:33 Last Admin: 10/27/17 09:13 Dose: 10 mg Metoclopramide HCl (Reglan) 10 mg IVPUSH ONETIME ONE Stop: 10/29/17 10:37 Last Admin: 10/29/17 10:58 Dose: 10 mg Midazolam HCl (Versed 1 Mg/Ml) Confirm Administered Dose 2 mg .ROUTE .STK-MED ONE Stop: 10/26/17 07:19 Midazolam HCl (Versed 1 Mg/Ml) Confirm Administered Dose 2 mg .ROUTE .STK-MED ONE Stop: 10/29/17 13:07 Morphine Sulfate (Morphine) 4 mg IVPUSH ONETIME ONE Stop: 10/24/17 07:16 Last Admin: 10/24/17 07:42 Dose: Not Given Morphine Sulfate (Morphine) Confirm Administered Dose 4 mg .ROUTE .STK-MED ONE Stop: 10/24/17 07:20 Last Admin: 10/24/17 07:33 Dose: Not Given Morphine Sulfate (Morphine) 4 mg IVPUSH ONETIME ONE Stop: 10/24/17 07:21 Last Admin: 10/24/17 07:33 Dose: 4 mg Morphine Sulfate (Morphine) 2 mg IVPUSH Q2H PRN PRN Reason: Pain (severe 7-10) Stop: 10/25/17 10:42 Last Admin: 10/25/17 09:42 Dose: 2 mg Ondansetron HCl (Zofran) 4 mg IVPUSH ONETIME ONE Stop: 10/24/17 07:16 Last Admin: 10/24/17 07:21 Dose: 4 mg Pantoprazole Sodium (Protonix Iv) 80 mg IVPUSH .BOLUS ONE Stop: 10/24/17 07:41 Last Admin: 10/24/17 07:57 Dose: 80 mg Pantoprazole Sodium (Protonix Iv) 40 mg IV Q12H BOB Last Admin: 10/31/17 23:32 Dose: 40 mg Potassium Chloride (Klor-Con M20) 40 meq PO ONETIME ONE Stop: 10/29/17 08:48 Last Admin: 10/29/17 11:15 Dose: Not Given Propofol (Diprivan 20 Ml) Confirm Administered Dose 200 mg .ROUTE .STK-MED ONE Stop: 10/26/17 07:19 Propofol (Diprivan 20 Ml) Confirm Administered Dose 400 mg .ROUTE .STK-MED ONE Stop: 10/29/17 13:07 Propofol (Diprivan 20 Ml) Confirm Administered Dose 200 mg .ROUTE .STK-MED ONE Stop: 10/29/17 14:49 Sodium Chloride (Saline Flush) 10 ml FLUSH ASDIRECTED PRN PRN Reason: Keep Vein Open Sodium Chloride (Saline Flush) 2.5 ml FLUSH ASDIRECTED PRN PRN Reason: Keep Vein Open Sumatriptan Succinate (Imitrex) 6 mg SUBCUT ONETIME ONE Stop: 10/27/17 21:25 Last Admin: 10/27/17 22:15 Dose: 6 mg Sumatriptan Succinate (Imitrex) 50 mg PO Q2H PRN PRN Reason: Headache Last Admin: 10/28/17 20:41 Dose: 50 mg Sumatriptan Succinate (Imitrex) Confirm Administered Dose 50 mg .ROUTE .STK-MED ONE Stop: 10/28/17 20:51 Last Admin: 10/28/17 21:10 Dose: Not Given Sumatriptan Succinate (Imitrex) 6 mg SUBCUT ONETIME ONE Stop: 10/29/17 10:28 Last Admin: 10/29/17 10:42 Dose: 6 mg Vancomycin HCl (Pharmacy To Dose - Vancomycin) 0 dose .XX ASDIRECTED BOB - Exam General: Reports: Alert, Oriented, Cooperative, No Acute Distress Neck: Reports: Supple Lungs: Reports: Clear to Auscultation, Normal Respiratory Effort Cardiovascular: Reports: Regular Rate, Regular Rhythm GI/Abdominal Exam: Normal Bowel Sounds, Soft, Non-Tender Extremities: Normal Range of Motion Wound/Incisions: Reports: Dressing Dry and Intact (wound vac in place to L foot. ), Erythema Improving Neurological: Reports: No New Focal Deficit Psy/Mental Status: Reports: Alert, Normal Affect, Normal Mood
[2017-11-02 20:32] VITALS: BP 175/86
[2017-11-02] MEDS: Insulin Glargine,Human Rec. Analog 100 Units/ML 3 ML Pen SUBCUT SCH (20:40)
[2017-11-02] MEDS: oxyCODONE 5 MG Tab PO PRN (21:23)
== END 2017-11-02 22:30 | disposition home health service (06) | DRG 854 ==
LOC: MW.ED 06:40 → MW.ICU 08:09 → MW.MS 20:11
PROVIDERS: ADMIT Internal Medicine; ATTEND Internal Medicine
PROC: 0JDR0ZZ Extraction of Left Foot Subcutaneous Tissue and Fascia, Open Approach (ICD-10-PCS; 2017-10-26)
PROC: 02HV33Z Insertion of Infusion Device into Superior Vena Cava, Percutaneous Approach (ICD-10-PCS; 2017-10-28)
PROC: B5181ZA Fluoroscopy of Superior Vena Cava using Low Osmolar Contrast, Guidance (ICD-10-PCS; 2017-10-28)
PROC: 0Y6S0Z0 Detachment at Left 2nd Toe, Complete, Open Approach (ICD-10-PCS; principal; 2017-10-29)
PROC: 0JDR0ZZ Extraction of Left Foot Subcutaneous Tissue and Fascia, Open Approach (ICD-10-PCS; principal; 2017-10-29)
DX: A41.01 Sepsis due to Methicillin susceptible Staphylococcus aureus (principal); L97.429 Non-pressure chronic ulcer of left heel and midfoot with unspecified severity; M86.9 Osteomyelitis, unspecified; K92.2 Gastrointestinal hemorrhage, unspecified; E11.52 Type 2 diabetes mellitus with diabetic peripheral angiopathy with gangrene; I96 Gangrene, not elsewhere classified; N17.9 Acute kidney failure, unspecified; L03.116 Cellulitis of left lower limb; E11.69 Type 2 diabetes mellitus with other specified complication; E11.621 Type 2 diabetes mellitus with foot ulcer; L97.529 Non-pressure chronic ulcer of other part of left foot with unspecified severity; G43.909 Migraine, unspecified, not intractable, without status migrainosus; E86.1 Hypovolemia; R65.20 Severe sepsis without septic shock; B96.89 Other specified bacterial agents as the cause of diseases classified elsewhere; J32.0 Chronic maxillary sinusitis; I25.10 Atherosclerotic heart disease of native coronary artery without angina pectoris; E78.00 Pure hypercholesterolemia, unspecified; E86.0 Dehydration; E11.22 Type 2 diabetes mellitus with diabetic chronic kidney disease; I12.9 Hypertensive chronic kidney disease with stage 1 through stage 4 chronic kidney disease, or unspecified chronic kidney disease; N18.9 Chronic kidney disease, unspecified; E11.42 Type 2 diabetes mellitus with diabetic polyneuropathy; H26.9 Unspecified cataract; I25.2 Old myocardial infarction; Z91.19 Patient's noncompliance with other medical treatment and regimen; Z79.4 Long term (current) use of insulin; Z91.14 Patient's other noncompliance with medication regimen; Z95.5 Presence of coronary angioplasty implant and graft; Z87.820 Personal history of traumatic brain injury; Z79.899 Other long term (current) drug therapy
CPT/HCPCS: 36415; 36569; 36600; 70450; 70450-26; 71045; 71045-26; 73630-26-LT; 73630-LT; 73718-26-LT; 73718-LT; 76000; 76000-26; 76937; 76937-26; 77001; 77001-26; 80048; 80053; 80076; 82040; 82272; 82728; 82803; 82962; 83036; 83550; 83605; 83630; 83690; 83735; 83970; 84100; 84132; 85014; 85018; 85025; 85027; 85610; 85652; 86140; 86850; 86900; 86901; 87040; 87046; 87070; 87075; 87077; 87186; 87205; 87324; 87899; 93005; 96361; 96365; 96375; 99285-25; A9270-GY; C9113; J0690; J1100; J1110; J1200; J1815-GY ×2; J1956; J2250; J2270; J2405; J2543; J2704; J2765; J3010; J3030; J3370; J3475; J3480; J7030; J7040; J7050; J7120; P9047

== ENCOUNTER 2017-12-17 15:32 | Emergency (ER) | payer MEDICAID ==
--- NOTE | 2017-12-17 15:41 | EDM.PDOC ---
ED HPI GENERAL MEDICAL PROBLEM - General Chief Complaint: Lower Extremity Injury/Pain Stated Complaint: PT SPOKE TO NURSE Time Seen by Provider: 12/17/17 15:41 Source of Information: Reports: Patient History Limitations: Reports: No Limitations - History of Present Illness INITIAL COMMENTS - FREE TEXT/NARRATIVE: HISTORY AND PHYSICAL: []57-year-old male presenting with dressing change History of Present Illness: []Patient just left Dr. Toribio's office and was told to come to the ER if the bleeding did not stop Review of Systems: As per history of present illness and below otherwise all systems reviewed and negative. Past medical history: As per history of present illness and as reviewed below otherwise noncontributory. Surgical history: As per history of present illness and as reviewed below otherwise noncontributory. Social history: No reported history of drug or alcohol abuse. Family history: As per history of present illness and as reviewed below otherwise noncontributory. Physical exam: Alert and oriented gentleman answering questions appropriately in full sentences without any shortness of breath. He is nontoxic in appearance. Vital signs are reviewed. HEENT: Atraumatic, normocehpalic, pupils reactive, negative for conjunctival pallor or scleral icterus, mucous membranes moist, throat clear, neck supple, nontender, trachea midline. Lungs: Clear to auscultation, breath sounds equal bilaterally, chest non tender. Heart: S1S2, regular, negative for clicks, rubs, or JVD. Abdomen: Soft, nondistended, nontender. Negative for masses or hepatossplenmegaly. Negative for costovertebral tenderness. Pelvis: Stable nontender. Genitourinary: Deferred. Rectal: Deferred Extremities: Bandage removed from his left foot. Amputation of the second toe wound is proximally 5 cm x 6 cm x 1 deep, negative for cords or calf pain. Neurovascular unremarkable. Neuro: Awake, alert, oriented. Cranial nerves II through XII unremarkable. Cerebellum unremarkable. Motor and sensory unremarkable throughout. Exam nonfocal. Bandage was removed and a large gush of blood was noted some pressure applied and new bandage. The pain was then noted from his foot it does look clean on observation. Continues to have this mild weeping as below distal second metatarsal. Surgicel was applied gauze pads for4x4 gauze then fluffy Kerlix. No further bleeding was noted through any of the bandages. Renaldo wrap was then applied. He is to leave this on for the next 24 hours. Diagnostics: [] Therapeutics: [] Impression: []Bandage change Plan: []Discharge home Allow at least 24 hours before changing bandage Follow-up with Dr. Toribio as you have been instructed Return to the emergency room as directed and discussed Definitive disposition and diagnosis as appropriate pending reevaluation and review of above. Onset: Today, Sudden - Related Data Allergies Allergy/AdvReac Type Severity Reaction Status Date / Time No Known Allergies Allergy Verified 11/29/17 11:10 Home Meds: Home Meds Acetaminophen [Tylenol] 650 mg PO Q6H PRN tablet 11/02/17 [Rx] Ferrous Sulfate 325 mg PO TIDMEALS #90 tablet 11/02/17 [Rx] Insulin Aspart [NovoLOG] See Protocol SUBCUT ACBED #1 box 11/02/17 [Rx] Insulin Glarg,Human.Rec.Analog [Lantus Solostar] 10 units SUBCUT BEDTIME #1 box 11/02/17 [Rx] Lisinopril [Prinivil] 20 mg PO DAILY #60 tablet 11/02/17 [Rx] Pantoprazole [ProTONIX] 40 mg PO BIDAC #60 tab.cr 11/02/17 [Rx] ceFAZolin [Ancef] 2 gm IV Q8H #105 bag 11/02/17 [Rx] hydroCHLOROthiazide [Hydrochlorothiazide] 12.5 mg PO DAILY #30 cap 11/02/17 [Rx] levoFLOXacin [Levaquin] 750 mg PO DAILY #3 tab 11/02/17 [Rx] Pregabalin [Lyrica] 50 mg PO BID 11/24/17 [History] oxyCODONE 5 mg PO Q4H PRN 11/24/17 [History] Acetaminophen/Butalbital/Caff [Fioricet 325-50-40 MG] 2 tab PO Q6H PRN #60 tablet 11/26/17 [Rx] Aspirin [Halfprin] 81 mg PO DAILY #90 tab.ec 11/26/17 [Rx] Lisinopril [Prinivil] 20 mg PO DAILY #90 tablet 11/26/17 [Rx] atorvaSTATin [Lipitor] 40 mg PO BEDTIME #90 tablet 11/26/17 [Rx] ceFAZolin [Ancef] 2 gm IV Q8H bag 11/26/17 [Rx] Past Medical History - Past Health History Medical/Surgical History: Denies Medical/Surgical History HEENT History: Reports: Impaired Vision Other HEENT History: states decreased vision since TIA 1 month ago Cardiovascular History: Reports: Hypertension Respiratory History: Reports: None Gastrointestinal History: Reports: GERD Genitourinary History: Reports: None Musculoskeletal History: Reports: Other (See Below) Other Musculoskeletal History: hx of Osteomyleitis Neurological History: Reports: Neuropathy, Diabetic, TIA, Other (See Below) Psychiatric History: Reports: None, Other (See Below) Endocrine/Metabolic History: Reports: Diabetes, Type II, Obesity/BMI 30+ Other Endocrine/Metabolic History: Ankit Miranda MD pt is a non compliant type 2 diabetic Hematologic History: Reports: Other (See Below) Other Hematologic History: hx of MSSA bacteremia Immunologic History: Reports: None Oncologic (Cancer) History: Reports: None Dermatologic History: Reports: Other (See Below) Other Dermatologic History: diabetic foot ulcers - Infectious Disease History Infectious Disease History: Reports: None - Past Surgical History Musculoskeletal Surgical History: Reports: ORIF Other Musculoskeletal Surgeries/Procedures:: hx of ORIF right ankle, debridement of left foot ulcer, amputation of left toe, debridement of right hand wound Social & Family History - Family History Family Medical History: Noncontributory HEENT: Reports: None Cardiac: Reports: None Respiratory: Reports: None GI: Reports: None : Reports: None OBGYN: Reports: None Musculoskeletal: Reports: None Neurological: Reports: None Psychiatric: Reports: None Endocrine/Metabolic: Reports: Diabetes, type II Hematologic: Reports: None Immunologic: Reports: None Dermatologic: Reports: None Oncologic: Reports: None - Caffeine Use Caffeine Use: Reports: None, Coffee Review of Systems - Review of Systems Review Of Systems: ROS reveals no pertinent complaints other than HPI. ED EXAM, GENERAL - Physical Exam Exam: See Below (see dictation) Departure - Departure Time of Disposition: 15:58 Disposition: Home, Self-Care 01 Condition: Good Clinical Impression: Dressing change - Discharge Information *PRESCRIPTION DRUG MONITORING PROGRAM REVIEWED*: Not Applicable *COPY OF PRESCRIPTION DRUG MONITORING REPORT IN PATIENT MARY JO: Not Applicable Instructions: How to Change Your Dressing Referrals: PCP,None [Primary Care Provider] - Forms: ED Department Discharge Additional Instructions: The following information is given to patients seen in the emergency department who are being discharged to home. This information is to outline your options for follow-up care. We provide all patients seen in our emergency department with a follow-up referral. The need for follow-up, as well as the timing and circumstances, are variable depending upon the specifics of your emergency department visit. If you don't have a primary care physician on staff, we will provide you with a referral. We always advise you to contact your personal physician following an emergency department visit to inform them of the circumstance of the visit and for follow-up with them and/or the need for any referrals to a consulting specialist. The emergency department will also refer you to a specialist when appropriate. This referral assures that you have the opportunity for followup care with a specialist. All of these measure are taken in an effort to provide you with optimal care, which includes your followup. Under all circumstances we always encourage you to contact your private physician who remains a resource for coordinating your care. When calling for followup care, please make the office aware that this follow-up is from your recent emergency room visit. If for any reason you are refused follow-up, please contact the [facility] emergency department at and asked to speak to the emergency department charge nurse. Discharge home Allow at least 24 hours before changing bandage Follow-up with Dr. Toribio as you have been instructed Return to the emergency room as directed and discussed
[2017-12-17 15:58] VITALS: BP 124/77
== END 2017-12-17 16:10 | disposition home or self-care (01) ==
LOC: MW.ED 15:32
DX: Z48.01 Encounter for change or removal of surgical wound dressing (principal); I10 Essential (primary) hypertension; K21.9 Gastro-esophageal reflux disease without esophagitis; E11.40 Type 2 diabetes mellitus with diabetic neuropathy, unspecified; Z79.4 Long term (current) use of insulin; Z79.82 Long term (current) use of aspirin; Z79.899 Other long term (current) drug therapy
CPT/HCPCS: 99282

== ENCOUNTER 2018-06-18 13:27 | Emergency (ER) | payer MEDICAID ==
[2018-06-18] MEDS ORDERED: Sodium Chloride 0.9% 2.5 ML Syringe FLUSH PRN (13:29)
[2018-06-18] MEDS ORDERED: Sodium Chloride 0.9% 10 ML Syringe FLUSH PRN (13:29)
[2018-06-18] MEDS ORDERED: Sodium Chloride 0.9% 1,000 ML IV STA (13:29)
--- NOTE | 2018-06-18 13:38 | EDM.PDOC ---
ED HPI GENERAL MEDICAL PROBLEM - General Stated Complaint: STROKE Time Seen by Provider: 06/18/18 13:28 Source of Information: Reports: Patient History Limitations: Reports: No Limitations - History of Present Illness INITIAL COMMENTS - FREE TEXT/NARRATIVE: HISTORY AND PHYSICAL: Stroke Code was called upon patient arrival at 1323: Dr Denson was directly involved in this case and at bedside. History of present illness: Patient is a 57-year-old male who presents to the emergency room with complaints of left sided numbness and tingling. He states approximately 30 minutes prior to arrival he had some numbness and tingling in the left hand which radiated up into the shoulder, face, and chest. States he has a generalized headache, although has a history of migraines. Patient states that he has had 3 TIAs in the past and feels his symptoms are similar. He denies hitting his head or any recent injury, trauma or falls. He denies any lower extremity weakness, slurred speech, confusion, change in vision, fever, chills, shortness of breath or cough. Denies any abdominal pain, nausea, vomiting, diarrhea, constipation or dysuria. He has been eating and drinking appropriately. Patient does have a past medical history of DM Type 2, HTN, and noncompliance with mediation regiment. Review of systems: As per history of present illness and below otherwise all systems reviewed and negative. Past medical history: As per history of present illness and as reviewed below otherwise noncontributory. Surgical history: As per history of present illness and as reviewed below otherwise noncontributory. Social history: See social history for further information Family history: As per history of present illness and as reviewed below otherwise noncontributory. Physical exam: General: Well-developed and well-nourished 57-year-old male. Alert and oriented. Nontoxic appearing and in no acute distress HEENT: Atraumatic, normocephalic, pupils equal and reactive bilaterally, negative for conjunctival pallor or scleral icterus, scleral injection noted to the left lateral eye (normal variance d/t recent surgery), mucous membranes moist, TMs normal bilaterally, throat clear, neck supple, nontender, trachea midline. No drooling or trismus noted. No meningeal signs. No hot potato voice noted. Lungs: Clear to auscultation, breath sounds equal bilaterally, chest nontender. Heart: S1S2, regular rate and rhythm without overt murmur Abdomen: Soft, nondistended, nontender. Negative for masses or hepatosplenomegaly. Negative for costovertebral tenderness. Pelvis: Stable nontender. Genitourinary: Deferred. Rectal: Deferred. Skin: Intact, warm, dry. No lesions or rashes noted. Extremities: Atraumatic, moves all per self, negative for cords or calf pain. Neurovascular unremarkable. Neuro: Awake, alert, oriented. Cranial nerves II through XII unremarkable. Cerebellum unremarkable. Motor and sensory unremarkable throughout. Exam nonfocal. Notes: GCS: 15. NIH: 0. No deficits noted. Patient going directly to CT. Head CT shows no acute findings. Remains neurologically intact. Vital signs are stable. Remaining lab work is pending. BUN is slightly elevated which is likely due to dehydration. He did receive some fluids while here. I did offer him admission which he declines. We discussed possible risks of being discharged without any definitive answers. He would prefer to be discharged and follow up with his primary care provider or return to the ER if symptoms return or new symptoms develop. Diagnostics: CBC, CMP, Troponin, EKG, Head CT, INR, TSH Therapeutics: IV fluids, ASA Impression: CVA vs TIA Plan: 1. Please take your home medications as prescribed. Please continue to take ASA daily. 2. Follow-up with your primary care provider on Wednesday. Return to the ED as needed and as discussed. Definitive disposition and diagnosis as appropriate pending reevaluation and review of above. - Related Data Allergies Allergy/AdvReac Type Severity Reaction Status Date / Time No Known Allergies Allergy Verified 06/18/18 13:32 Home Meds: Home Meds Acetaminophen [Tylenol] 650 mg PO Q6H PRN tablet 11/02/17 [Rx] Ferrous Sulfate 325 mg PO TIDMEALS #90 tablet 11/02/17 [Rx] Insulin Aspart [NovoLOG] See Protocol SUBCUT ACBED #1 box 11/02/17 [Rx] Insulin Glarg,Human.Rec.Analog [Lantus Solostar] 10 units SUBCUT BEDTIME #1 box 11/02/17 [Rx] Lisinopril [Prinivil] 20 mg PO DAILY #60 tablet 11/02/17 [Rx] Pantoprazole [ProTONIX] 40 mg PO BIDAC #60 tab.cr 11/02/17 [Rx] ceFAZolin [Ancef] 2 gm IV Q8H #105 bag 11/02/17 [Rx] hydroCHLOROthiazide [Hydrochlorothiazide] 12.5 mg PO DAILY #30 cap 11/02/17 [Rx] levoFLOXacin [Levaquin] 750 mg PO DAILY #3 tab 11/02/17 [Rx] Pregabalin [Lyrica] 50 mg PO BID 11/24/17 [History] oxyCODONE 5 mg PO Q4H PRN 11/24/17 [History] Acetaminophen/Butalbital/Caff [Fioricet 325-50-40 MG] 2 tab PO Q6H PRN #60 tablet 11/26/17 [Rx] Aspirin [Halfprin] 81 mg PO DAILY #90 tab.ec 11/26/17 [Rx] Lisinopril [Prinivil] 20 mg PO DAILY #90 tablet 11/26/17 [Rx] atorvaSTATin [Lipitor] 40 mg PO BEDTIME #90 tablet 11/26/17 [Rx] ceFAZolin [Ancef] 2 gm IV Q8H bag 11/26/17 [Rx] Past Medical History - Past Health History Medical/Surgical History: Denies Medical/Surgical History HEENT History: Reports: Impaired Vision Other HEENT History: states decreased vision since TIA 1 month ago Cardiovascular History: Reports: Hypertension Respiratory History: Reports: None Gastrointestinal History: Reports: GERD Genitourinary History: Reports: None Musculoskeletal History: Reports: Other (See Below) Other Musculoskeletal History: hx of Osteomyleitis Neurological History: Reports: Neuropathy, Diabetic, TIA, Other (See Below) Psychiatric History: Reports: None, Other (See Below) Endocrine/Metabolic History: Reports: Diabetes, Type II, Obesity/BMI 30+ Other Endocrine/Metabolic History: Ankit Miranda MD pt is a non compliant type 2 diabetic Hematologic History: Reports: Other (See Below) Other Hematologic History: hx of MSSA bacteremia Immunologic History: Reports: None Oncologic (Cancer) History: Reports: None Dermatologic History: Reports: Other (See Below) Other Dermatologic History: diabetic foot ulcers - Infectious Disease History Infectious Disease History: Reports: None - Past Surgical History Musculoskeletal Surgical History: Reports: ORIF Other Musculoskeletal Surgeries/Procedures:: hx of ORIF right ankle, debridement of left foot ulcer, amputation of left toe, debridement of right hand wound Social & Family History - Family History Family Medical History: Noncontributory HEENT: Reports: None Cardiac: Reports: None Respiratory: Reports: None GI: Reports: None : Reports: None OBGYN: Reports: None Musculoskeletal: Reports: None Neurological: Reports: None Psychiatric: Reports: None Endocrine/Metabolic: Reports: Diabetes, type II Hematologic: Reports: None Immunologic: Reports: None Dermatologic: Reports: None Oncologic: Reports: None - Caffeine Use Caffeine Use: Reports: None, Coffee ED ROS GENERAL - Review of Systems Review Of Systems: ROS reveals no pertinent complaints other than HPI. ED EXAM, NEURO - Physical Exam Exam: See Below (See dictation) Course - Vital Signs Last Recorded V/S: Last Vital Signs Temp 96.8 F 06/18/18 13:32 Pulse 94 06/18/18 13:32 Resp 18 06/18/18 13:32 BP 159/91 H 06/18/18 13:32 Pulse Ox 98 06/18/18 13:32 - Orders/Labs/Meds Orders: Active Orders 24 hr Category Date Time Status Assess Neurological Status [RC] ASDIRECTED Care 06/18/18 13:29 Active Blood Glucose Check, Bedside [RC] ONETIME Care 06/18/18 13:29 Active Cardiac Monitoring [RC] . DIRECTED Care 06/18/18 13:29 Active EKG Documentation Completion [RC] STAT Care 06/18/18 13:29 Active Height and Weight [RC] UPON Care 06/18/18 13:29 Active Initiate Acute Stroke Protocol [RC] STAT Care 06/18/18 13:29 Active NIH Stroke Scale [RC] ASDIRECTED Care 06/18/18 13:29 Active Nursing Bedside Swallow Screen [RC] ASDIRECTED Care 06/18/18 13:29 Active Oxygen Therapy [RC] ASDIRECTED Care 06/18/18 13:29 Active Vital Signs [RC] Q15M Care 06/18/18 13:29 Active Chest 1V Frontal [CR] Stat Exams 06/18/18 14:01 Ordered Sodium Chloride 0.9% [Normal Saline] 1,000 ml Med 06/18/18 13:29 Active IV NOW Sodium Chloride 0.9% [Saline Flush] Med 06/18/18 13:29 Active 10 ml FLUSH ASDIRECTED PRN Sodium Chloride 0.9% [Saline Flush] Med 06/18/18 13:29 Active 2.5 ml FLUSH ASDIRECTED PRN Peripheral IV Insertion Adult [OM.PC] Stat Oth 06/18/18 13:29 Ordered Peripheral IV Insertion Adult [OM.PC] Stat Ot 06/18/18 13:29 Ordered Medication Orders Sodium Chloride (Normal Saline) 1,000 mls @ 125 mls/hr IV NOW STA Stop: 06/18/18 21:28 Last Admin: 06/18/18 14:07 Dose: 125 mls/hr Sodium Chloride (Saline Flush) 10 ml FLUSH ASDIRECTED PRN PRN Reason: Keep Vein Open Last Admin: 06/18/18 14:08 Dose: 10 ml Sodium Chloride (Saline Flush) 2.5 ml FLUSH ASDIRECTED PRN PRN Reason: Keep Vein Open Last Admin: 06/18/18 14:08 Dose: 2.5 ml Labs: Laboratory Tests 06/18/18 06/18/18 06/18/18 Range/Units 13:28 13:28 13:28 WBC 5.49 (4.0-11.0) K/uL RBC 4.70 (4.50-5.90) M/uL Hgb 13.9 (13.0-17.0) g/dL Hct 39.8 (38.0-50.0) % MCV 84.7 (80.0-98.0) fL MCH 29.6 (27.0-32.0) pg MCHC 34.9 (31.0-37.0) g/dL RDW Std Deviation 42.7 (28.0-62.0) fl RDW Coeff of Krunal 14 (11.0-15.0) % Plt Count 215 (150-400) K/uL MPV 11.00 (7.40-12.00) fL Neut % (Auto) 59.7 (48.0-80.0) % Lymph % (Auto) 27.7 (16.0-40.0) % Bath % (Auto) 5.5 (0.0-15.0) % Eos % (Auto) 6.2 (0.0-7.0) % Baso % (Auto) 0.9 (0.0-1.5) % Neut # (Auto) 3.3 (1.4-5.7) K/uL Lymph # (Auto) 1.5 (0.6-2.4) K/uL Bath # (Auto) 0.3 (0.0-0.8) K/uL Eos # (Auto) 0.3 (0.0-0.7) K/uL Baso # (Auto) 0.1 (0.0-0.1) K/uL Nucleated RBC % 1.9 /100WBC Nucleated RBCs # 0 K/uL INR 0.96 APTT 29.1 (18.6-31.3) SEC Sodium 138 (136-148) mmol/L Potassium 4.4 (3.5-5.1) mmol/L Chloride 104 (98-107) mmol/L Carbon Dioxide 25.3 (21.0-32.0) mmol/L BUN 30 H (7.0-18.0) mg/dL Creatinine 1.1 (0.8-1.3) mg/dL Est Cr Clr Drug Dosing 78.91 mL/min Estimated GFR (MDRD) > 60.0 ml/min Glucose 189 H (74-106) mg/dL Calcium 9.4 (8.5-10.1) mg/dL Total Bilirubin 0.7 (0.2-1.0) mg/dL AST 17 (15-37) IU/L ALT 24 (14-63) IU/L Alkaline Phosphatase 89 (46-116) U/L Troponin I < 0.050 (0.000-0.056) ng/mL Total Protein 6.9 (6.4-8.2) g/dL Albumin 3.5 (3.4-5.0) g/dL Globulin 3.4 (2.6-4.0) g/dL Albumin/Globulin Ratio 1.0 (0.9-1.6) TSH 3rd Generation 2.20 (0.36-3.74) uIU/mL Meds: Medications Generic Name Dose Route Start Last Admin Trade Name Freq PRN Reason Stop Dose Admin Sodium Chloride 1,000 mls @ 125 mls/hr 06/18/18 13:29 06/18/18 14:07 Normal Saline IV 06/18/18 21:28 125 mls/hr NOW STA Administration Sodium Chloride 10 ml 06/18/18 13:29 02/16/19 14:08 Saline Flush FLUSH 10 ml ASDIRECTED PRN Administration Keep Vein Open Sodium Chloride 2.5 ml 06/18/18 13:29 06/18/18 14:08 Saline Flush FLUSH 2.5 ml ASDIRECTED PRN Administration Keep Vein Open Discontinued Medications Generic Name Dose Route Start Last Admin Trade Name Freq PRN Reason Stop Dose Admin Aspirin 324 mg 06/18/18 13:59 06/18/18 14:07 Aspirin PO 06/18/18 14:00 324 mg ONETIME ONE Administration Departure - Departure Time of Disposition: 14:22 Disposition: Home, Self-Care 01 Clinical Impression: TIA (transient ischemic attack) - Discharge Information Instructions: Transient Ischemic Attack, [id number] Referrals: PCP,None [Primary Care Provider] - Additional Instructions: The following information is given to patients seen in the emergency department who are being discharged to home. This information is to outline your options for follow-up care. We provide all patients seen in our emergency department with a follow-up referral. The need for follow-up, as well as the timing and circumstances, are variable depending upon the specifics of your emergency department visit. If you don't have a primary care physician on staff, we will provide you with a referral. We always advise you to contact your personal physician following an emergency department visit to inform them of the circumstance of the visit and for follow-up with them and/or the need for any referrals to a consulting specialist. The emergency department will also refer you to a specialist when appropriate. This referral assures that you have the opportunity for follow-up care with a specialist. All of these measure are taken in an effort to provide you with optimal care, which includes your follow-up. Under all circumstances we always encourage you to contact your private physician who remains a resource for coordinating your care. When calling for follow-up care, please make the office aware that this follow-up is from your recent emergency room visit. If for any reason you are refused follow-up, please contact the [facility] Emergency Department at and asked to speak to the emergency department charge nurse. [facility] [address] [place] [id number] [facility] [address] [place] [address] 1. Please take your home medications as prescribed. Please continue to take aspirin daily. 2. Follow-up with your primary care provider on Wednesday. Return to the ED as needed and as discussed. - My Orders Last 24 Hours: My Active Orders 06/18/18 13:29 Assess Neurological Status [RC] ASDIRECTED Blood Glucose Check, Bedside [RC] ONETIME Cardiac Monitoring [RC] . DIRECTED EKG Documentation Completion [RC] STAT Height and Weight [RC] UPON Initiate Acute Stroke Protocol [RC] STAT NIH Stroke Scale [RC] ASDIRECTED Nursing Bedside Swallow Screen [RC] ASDIRECTED Oxygen Therapy [RC] ASDIRECTED Vital Signs [RC] Q15M Sodium Chloride 0.9% [Normal Saline] 1,000 ml IV NOW Sodium Chloride 0.9% [Saline Flush] 10 ml FLUSH ASDIRECTED PRN Sodium Chloride 0.9% [Saline Flush] 2.5 ml FLUSH ASDIRECTED PRN Peripheral IV Insertion Adult [OM.PC] Stat Peripheral IV Insertion Adult [OM.PC] Stat 06/18/18 14:01 Chest 1V Frontal [CR] Stat - Assessment/Plan Last 24 Hours: My Active Orders 06/18/18 13:29 Assess Neurological Status [RC] ASDIRECTED Blood Glucose Check, Bedside [RC] ONETIME Cardiac Monitoring [RC] . DIRECTED EKG Documentation Completion [RC] STAT Height and Weight [RC] UPON Initiate Acute Stroke Protocol [RC] STAT NIH Stroke Scale [RC] ASDIRECTED Nursing Bedside Swallow Screen [RC] ASDIRECTED Oxygen Therapy [RC] ASDIRECTED Vital Signs [RC] Q15M Sodium Chloride 0.9% [Normal Saline] 1,000 ml IV NOW Sodium Chloride 0.9% [Saline Flush] 10 ml FLUSH ASDIRECTED PRN Sodium Chloride 0.9% [Saline Flush] 2.5 ml FLUSH ASDIRECTED PRN Peripheral IV Insertion Adult [OM.PC] Stat Peripheral IV Insertion Adult [OM.PC] Stat 06/18/18 14:01 Chest 1V Frontal [CR] Stat
--- NOTE | 2018-06-18 13:57 | CT ---
INDICATION: Left-sided numbness. TECHNIQUE: Noncontrast axial images through the head. Coronal and sagittal reconstructions. COMPARISON: 11/24/2017. FINDINGS: No abnormal intracranial mass effect or midline shift. No intracranial hemorrhage. Benign basal ganglia calcifications are again noted. Stable presumed small remote infarct left occipital lobe. No new areas of abnormal attenuation within the brain. CSF spaces are stable. No acute bony abnormality. Stable mild mucosal thickening in the right maxillary sinus. Paranasal sinuses and mastoids are otherwise clear. IMPRESSION: No CT evidence of an acute intracranial abnormality. Results called to Dr. Meek at 1:50 p.m. 06/18/2018. Dictated by Tay Seo MD @ 06/18/2018 1:55:31 PM Please note that all CT scans at this facility use dose modulation, iterative reconstruction, and/or weight-based dosing when appropriate to reduce radiation dose to as low as reasonably achievable. Dictated by: Tay Seo MD @ 06/18/2018 13:55:37 (Electronically Signed)
[2018-06-18] MEDS ORDERED: Aspirin 81 MG Tab.Chew PO ONE (13:59)
[2018-06-18 14:08] LABS: CHLORIDE,CL 104 mmol/L (98-107); SODIUM,NA 138 mmol/L (136-148)
[2018-06-18] MEDS ORDERED: Ketorolac 30 MG/ML SDV IVPUSH ONE (15:13)
[2018-06-18] MEDS ORDERED: Ketorolac 30 MG/ML SDV ONE (15:13)
[2018-06-18] MEDS ORDERED: traMADol 50 MG Tab PO ONE (15:14)
[2018-06-18] MEDS ORDERED: traMADol 50 MG Tab ONE (15:14)
--- NOTE | 2018-06-18 15:22 | CR ---
INDICATION: stroke code FINDINGS: A single portable chest x-ray shows a normal cardiac silhouette. The lungs show no focal pulmonary opacities. Sharp pleural margins. No pneumothorax. IMPRESSION: No evidence of acute pulmonary abnormalities. Dictated by Rivera Neil MD @ 06/18/2018 3:20:47 PM Dictated by: Rivera Neil MD @ 06/18/2018 15:20:57 (Electronically Signed)
[2018-06-18 15:29] VITALS: BP 160/90
== END 2018-06-18 15:25 | disposition home or self-care (01) ==
LOC: MW.ED 13:27
DX: G45.9 Transient cerebral ischemic attack, unspecified (principal); K21.9 Gastro-esophageal reflux disease without esophagitis; E11.9 Type 2 diabetes mellitus without complications; I10 Essential (primary) hypertension; Z79.899 Other long term (current) drug therapy; Z79.82 Long term (current) use of aspirin; Z79.4 Long term (current) use of insulin
CPT/HCPCS: 36415; 70450; 71045; 80053; 84443; 84484; 85025; 85610; 85730; 93005; 96360; 99285; A9270; J7040

== ENCOUNTER 2018-09-16 19:26 | Emergency (ER) | payer MEDICAID ==
--- NOTE | 2018-09-16 20:23 | EDM.PDOC ---
ED HPI GENERAL MEDICAL PROBLEM - General Chief Complaint: Cardiovascular Problem Stated Complaint: HIGH BLOOD PRESSURE Time Seen by Provider: 09/16/18 19:55 - History of Present Illness INITIAL COMMENTS - FREE TEXT/NARRATIVE: HISTORY AND PHYSICAL: History of present illness: Patient is a 58-year-old white male with a history of transient ischemic attacks is currently on Plavix and multiple medications for hypertension and presents with concern of episode of left-sided chest pain and headache his blood pressure was noted to be elevated at home with systolic up to 200 per son he presents now with no chest pain he still complains of mild headache and his blood pressure reevaluation was 148/78. At this time patient is declining any diagnostics for admission. Review of systems: As per history of present illness and below otherwise all systems reviewed and negative. Past medical history: As per history of present illness and as reviewed below otherwise noncontributory. Surgical history: As per history of present illness and as reviewed below otherwise noncontributory. Social history: No reported history of drug or alcohol abuse. Family history: As per history of present illness and as reviewed below otherwise noncontributory. Physical exam: HEENT: Atraumatic, normocephalic, pupils reactive, negative for conjunctival pallor or scleral icterus, mucous membranes moist, throat clear, neck supple, nontender, trachea midline. Lungs: Clear to auscultation, breath sounds equal bilaterally, chest nontender. Heart: S1S2, regular, negative for clicks, rubs, or JVD. Abdomen: Soft, nondistended, nontender. Negative for masses or hepatosplenomegaly. Negative for costovertebral tenderness. Pelvis: Stable nontender. Genitourinary: Deferred. Rectal: Deferred. Extremities: Atraumatic, negative for cords or calf pain. Neurovascular unremarkable. Neuro: Awake, alert, oriented. Cranial nerves II through XII unremarkable. Cerebellum unremarkable. Motor and sensory unremarkable throughout. Exam nonfocal. Diagnostics: CBC CMP troponin PT/INR chest x-ray EKG CT brain Therapeutics: IV O2 monitor Impression: #1 hypertension #2 cephalgia #3 history of TIA number #4 chest pain #5 AMA Definitive disposition and diagnosis as appropriate pending reevaluation and review of above. Chest Pain Score (Numeric/FACES): 3 Headache Pain Score (Numeric/FACES): 10 - Related Data Allergies Allergy/AdvReac Type Severity Reaction Status Date / Time No Known Allergies Allergy Verified 09/16/18 19:59 Home Meds: Home Meds Insulin Aspart [NovoLOG] See Protocol SUBCUT ACBED #1 box 11/02/17 [Rx] Insulin Glarg,Human.Rec.Analog [Lantus Solostar] 10 units SUBCUT BEDTIME #1 box 11/02/17 [Rx] hydroCHLOROthiazide [Hydrochlorothiazide] 12.5 mg PO DAILY #30 cap 11/02/17 [Rx] oxyCODONE 5 mg PO Q4H PRN 11/24/17 [History] Aspirin [Halfprin] 81 mg PO DAILY #90 tab.ec 11/26/17 [Rx] atorvaSTATin [Lipitor] 40 mg PO BEDTIME #90 tablet 11/26/17 [Rx] Clopidogrel [Plavix] 75 mg PO DAILY 09/16/18 [History] Lisinopril [Prinivil] 20 mg PO BID 09/16/18 [History] Past Medical History - Past Health History Medical/Surgical History: Denies Medical/Surgical History HEENT History: Reports: Impaired Vision Other HEENT History: states decreased vision since TIA 1 month ago Cardiovascular History: Reports: Hypertension Respiratory History: Reports: None Gastrointestinal History: Reports: GERD Genitourinary History: Reports: None Musculoskeletal History: Reports: Other (See Below) Other Musculoskeletal History: hx of Osteomyleitis Neurological History: Reports: Neuropathy, Diabetic, TIA, Other (See Below) Psychiatric History: Reports: None, Other (See Below) Endocrine/Metabolic History: Reports: Diabetes, Type II, Obesity/BMI 30+ Other Endocrine/Metabolic History: Ankit Miranda MD pt is a non compliant type 2 diabetic Hematologic History: Reports: Other (See Below) Other Hematologic History: hx of MSSA bacteremia Immunologic History: Reports: None Oncologic (Cancer) History: Reports: None Dermatologic History: Reports: Other (See Below) Other Dermatologic History: diabetic foot ulcers - Infectious Disease History Infectious Disease History: Reports: None - Past Surgical History Musculoskeletal Surgical History: Reports: ORIF Other Musculoskeletal Surgeries/Procedures:: hx of ORIF right ankle, debridement of left foot ulcer, amputation of left toe, debridement of right hand wound Social & Family History - Family History Family Medical History: Noncontributory HEENT: Reports: None Cardiac: Reports: None Respiratory: Reports: None GI: Reports: None : Reports: None OBGYN: Reports: None Musculoskeletal: Reports: None Neurological: Reports: None Psychiatric: Reports: None Endocrine/Metabolic: Reports: Diabetes, type II Hematologic: Reports: None Immunologic: Reports: None Dermatologic: Reports: None Oncologic: Reports: None - Caffeine Use Caffeine Use: Reports: None, Coffee ED ROS GENERAL - Review of Systems Review Of Systems: ROS reveals no pertinent complaints other than HPI. ED EXAM, GENERAL - Physical Exam Exam: See Below (See dictation) Course - Vital Signs Last Recorded V/S: Last Vital Signs Temp 36.1 C 09/16/18 19:50 Pulse 82 09/16/18 21:15 Resp 18 09/16/18 21:15 BP 156/97 H 09/16/18 21:15 Pulse Ox 96 09/16/18 21:15 - Orders/Labs/Meds Orders: Active Orders 24 hr Category Date Time Status Cardiac Monitoring [RC] . DIRECTED Care 09/16/18 20:19 Active EKG Documentation Completion [RC] STAT Care 09/16/18 20:19 Active Pulse Oximetry [RC] ASDIRECTED Care 09/16/18 20:19 Active Chest 1V Frontal [CR] Stat Exams 09/16/18 20:19 Taken Head wo Cont [CT] Stat Exams 09/16/18 20:26 Ordered Saline Lock Insert [OM.PC] Stat Oth 09/16/18 20:19 Ordered Labs: Laboratory Tests 09/16/18 09/16/18 09/16/18 Range/Units 20:34 20:34 20:34 WBC 5.73 (4.0-11.0) K/uL RBC 4.38 L (4.50-5.90) M/uL Hgb 12.8 L (13.0-17.0) g/dL Hct 37.8 L (38.0-50.0) % MCV 86.3 (80.0-98.0) fL MCH 29.2 (27.0-32.0) pg MCHC 33.9 (31.0-37.0) g/dL RDW Std Deviation 43.4 (28.0-62.0) fl RDW Coeff of Krunal 14 (11.0-15.0) % Plt Count 210 (150-400) K/uL MPV 10.90 (7.40-12.00) fL Neut % (Auto) 58.8 (48.0-80.0) % Lymph % (Auto) 26.0 (16.0-40.0) % Whitman % (Auto) 7.7 (0.0-15.0) % Eos % (Auto) 6.6 (0.0-7.0) % Baso % (Auto) 0.9 (0.0-1.5) % Neut # (Auto) 3.4 (1.4-5.7) K/uL Lymph # (Auto) 1.5 (0.6-2.4) K/uL Whitman # (Auto) 0.4 (0.0-0.8) K/uL Eos # (Auto) 0.4 (0.0-0.7) K/uL Baso # (Auto) 0.1 (0.0-0.1) K/uL Nucleated RBC % 1.3 /100WBC Nucleated RBCs # 0 K/uL INR 0.94 Sodium 141 (136-148) mmol/L Potassium 4.0 (3.5-5.1) mmol/L Chloride 105 (98-107) mmol/L Carbon Dioxide 27.0 (21.0-32.0) mmol/L BUN 24 H (7.0-18.0) mg/dL Creatinine 1.2 (0.8-1.3) mg/dL Est Cr Clr Drug Dosing 71.47 mL/min Estimated GFR (MDRD) > 60.0 ml/min Glucose 254 H (74-106) mg/dL Calcium 8.4 L (8.5-10.1) mg/dL Total Bilirubin 0.4 (0.2-1.0) mg/dL AST 16 (15-37) IU/L ALT 23 (14-63) IU/L Alkaline Phosphatase 103 (46-116) U/L Troponin I < 0.050 (0.000-0.056) ng/mL Total Protein 6.5 (6.4-8.2) g/dL Albumin 3.4 (3.4-5.0) g/dL Globulin 3.1 (2.6-4.0) g/dL Albumin/Globulin Ratio 1.1 (0.9-1.6) Departure - Departure Time of Disposition: 21:32 Disposition: Against Medical Advice 07 Condition: Undetermined Clinical Impression: Chest pain, Cephalgia Hypertension Qualifiers: Hypertension type: essential hypertension Qualified Code(s): I10 - Essential ( primary) hypertension Referrals: Manav Miranda MD [Primary Care Provider] - Forms: ED Department Discharge Additional Instructions: The following information is given to patients seen in the emergency department who are being discharged to home. This information is to outline your options for follow-up care. We provide all patients seen in our emergency department with a follow-up referral. The need for follow-up, as well as the timing and circumstances, are variable depending upon the specifics of your emergency department visit. If you don't have a primary care physician on staff, we will provide you with a referral. We always advise you to contact your personal physician following an emergency department visit to inform them of the circumstance of the visit and for follow-up with them and/or the need for any referrals to a consulting specialist. The emergency department will also refer you to a specialist when appropriate. This referral assures that you have the opportunity for followup care with a specialist. All of these measure are taken in an effort to provide you with optimal care, which includes your followup. Under all circumstances we always encourage you to contact your private physician who remains a resource for coordinating your care. When calling for followup care, please make the office aware that this follow-up is from your recent emergency room visit. If for any reason you are refused follow-up, please contact the [facility] emergency department at and asked to speak to the emergency department charge nurse. Continue current medications follow primary medical doctor as discussed return as needed as discussed - My Orders Last 24 Hours: My Active Orders 09/16/18 20:19 Cardiac Monitoring [RC] . DIRECTED EKG Documentation Completion [RC] STAT Pulse Oximetry [RC] ASDIRECTED Chest 1V Frontal [CR] Stat Saline Lock Insert [OM.PC] Stat 09/16/18 20:26 Head wo Cont [CT] Stat - Assessment/Plan Last 24 Hours: My Active Orders 09/16/18 20:19 Cardiac Monitoring [RC] . DIRECTED EKG Documentation Completion [RC] STAT Pulse Oximetry [RC] ASDIRECTED Chest 1V Frontal [CR] Stat Saline Lock Insert [OM.PC] Stat 05/17/19 20:26 Head wo Cont [CT] Stat
[2018-09-16 21:05] LABS: CHLORIDE,CL 105 mmol/L (98-107); SODIUM,NA 141 mmol/L (136-148)
[2018-09-16 21:18] VITALS: BP 156/97
--- NOTE | 2018-09-16 21:40 | CR ---
Indication: Hypertension Technique: Chest 1 view Comparison: June 18, 2018 Findings/Impression: Stable cardiomediastinal silhouette. The lungs are clear. No effusion or pneumothorax. No acute osseous abnormality. Dictated by Brandy Sam MD @ Sep 16 2018 9:37PM Signed by Dr. Brandy Sam @ Sep 16 2018 9:39PM
== END 2018-09-16 21:35 | disposition left against medical advice (07) ==
LOC: MW.ED 19:26
DX: R07.9 Chest pain, unspecified (principal); I10 Essential (primary) hypertension; K21.9 Gastro-esophageal reflux disease without esophagitis; Z86.73 Personal history of transient ischemic attack (TIA), and cerebral infarction without residual deficits; Z79.4 Long term (current) use of insulin; Z79.82 Long term (current) use of aspirin; Z79.899 Other long term (current) drug therapy; Z79.02 Long term (current) use of antithrombotics/antiplatelets
CPT/HCPCS: 36415; 71045; 71045-26; 80053; 84484; 85025; 85610; 93005; 99283; 99284-25

== ENCOUNTER 2019-02-07 14:55 | Observation (INO) | payer MEDICAID ==
[2019-02-07] MEDS ORDERED: Sodium Chloride 0.9% 1,000 ML IV ONE (15:14)
[2019-02-07] MEDS ORDERED: Sodium Chloride 0.9% 2.5 ML Syringe FLUSH PRN (15:14)
[2019-02-07] MEDS ORDERED: Sodium Chloride 0.9% 10 ML Syringe FLUSH PRN (15:14)
--- NOTE | 2019-02-07 15:32 | EDM.PDOC ---
ED HPI GENERAL MEDICAL PROBLEM - General Chief Complaint: Neuro Symptoms/Deficits Stated Complaint: DIZZY Time Seen by Provider: 02/07/19 14:58 Source of Information: Reports: Patient History Limitations: Reports: No Limitations - History of Present Illness INITIAL COMMENTS - FREE TEXT/NARRATIVE: HISTORY AND PHYSICAL: History of present illness: Patient is a 58-year-old male who presents to the emergency room today with complaints of dizziness. Patient reports he has a long standing history of vertigo and has been seen multiple times through our emergency room and at [facility] by Dr Manav Miranda. Patient reports that he saw Dr. Daily last week for his vertigo and was started on a new medication (can't recall name) but states he has no improvement of his symptoms with this. He does have a referral to be seen at [facility] for his symptoms but has yet to hear back from them regarding an appointment date/time. He states that this dizziness became worse on Wednesday (although does not report this is any worse than it can get). Over the past few days he feels like he is unable to fully function, states he will be doing something and then forget what he was doing. He denies any recent head injury, trauma or falls. He states nothing makes the dizziness better or worse. He has not had any weakness, numbness, tingling, slurred speech , visual changes or headache. Patient denies any fever, chills, headache, change in vision, syncope or near syncope. Denies any chest pain, back pain, shortness of breath or cough. Denies any abdominal pain, nausea, vomiting, diarrhea, constipation or dysuria. Has not noted any blood in urine or stool. Patient has been eating and drinking appropriately. Review of systems: As per history of present illness and below otherwise all systems reviewed and negative. Past medical history: As per history of present illness and as reviewed below otherwise noncontributory. Surgical history: As per history of present illness and as reviewed below otherwise noncontributory. Social history: See social history for further information Family history: As per history of present illness and as reviewed below otherwise noncontributory. Physical exam: General: Well-developed and well nourished 58-year-old male. Alert and oriented. Nontoxic appearing and in no acute distress. HEENT: Atraumatic, normocephalic, pupils equal and reactive bilaterally, negative for conjunctival pallor or scleral icterus, mucous membranes moist, TMs normal bilaterally, throat clear, neck supple, nontender, trachea midline. No drooling or trismus noted. No meningeal signs. No hot potato voice noted. Lungs: Clear to auscultation, breath sounds equal bilaterally, chest nontender. Heart: S1S2, regular rate and rhythm without overt murmur Abdomen: Soft, nondistended, nontender. Negative for masses or hepatosplenomegaly. Negative for costovertebral tenderness. Pelvis: Stable nontender. Skin: Intact, warm, dry. No lesions or rashes noted. Extremities: Atraumatic, moves all extremities per self without difficulty or deficits, negative for cords or calf pain. Neurovascular unremarkable. Neuro: Awake, alert, oriented. Cranial nerves II through XII unremarkable. Cerebellum unremarkable. Motor and sensory unremarkable throughout. Exam nonfocal. Notes: NIH: 0, GCS: 15. Neurologically intact. Patient refused further imaging, stating that he has had multiple head CT's and he feels claustrophobic. Did offer to give him some Ativan to help with this, he continues to decline. Lab work is unremarkable with the exception of elevated BUN and creatinine. He does appear to be dehydrated. He also had a positive orthostatic vitals with a 20 point difference from lying to standing. He was very symptomatic and felt like he could pass out as he was so dizzy from the position changes. He continues to have dizziness, I did offer him admission which he is agreeable at this time. Dr. Becker was consulted on this case and agreeable for further care and management. Diagnostics: CBC, CMP, EKG, orthostatic vital signs, chest x-ray, head CT (declined) Therapeutics: IV fluid Impression: Orthostatic hypotension Dehydration Vertigo Plan: Observation admission trachea Definitive disposition and diagnosis as appropriate pending reevaluation and review of above. Headache Pain Score (Numeric/FACES): 10 - Related Data Allergies Allergy/AdvReac Type Severity Reaction Status Date / Time No Known Allergies Allergy Verified 02/07/19 15:07 Home Meds: Home Meds Insulin Aspart [NovoLOG] See Protocol SUBCUT ACBED #1 box 11/02/17 [Rx] Insulin Glarg,Human.Rec.Analog [Lantus Solostar] 10 units SUBCUT BEDTIME #1 box 11/02/17 [Rx] hydroCHLOROthiazide [Hydrochlorothiazide] 12.5 mg PO DAILY #30 cap 11/02/17 [Rx] oxyCODONE 5 mg PO Q4H PRN 11/24/17 [History] Aspirin [Halfprin] 81 mg PO DAILY #90 tab.ec 11/26/17 [Rx] atorvaSTATin [Lipitor] 40 mg PO BEDTIME #90 tablet 11/26/17 [Rx] Clopidogrel [Plavix] 75 mg PO DAILY 09/16/18 [History] Lisinopril [Prinivil] 20 mg PO BID 09/16/18 [History] Past Medical History - Past Health History Medical/Surgical History: Denies Medical/Surgical History HEENT History: Reports: Impaired Vision Other HEENT History: states decreased vision since TIA 1 month ago Cardiovascular History: Reports: Hypertension Respiratory History: Reports: None Gastrointestinal History: Reports: GERD Genitourinary History: Reports: None Musculoskeletal History: Reports: Other (See Below) Other Musculoskeletal History: hx of Osteomyleitis Neurological History: Reports: Neuropathy, Diabetic, TIA, Other (See Below) Psychiatric History: Reports: None, Other (See Below) Endocrine/Metabolic History: Reports: Diabetes, Type II, Obesity/BMI 30+ Other Endocrine/Metabolic History: Per Ruben BRUNER pt is a non compliant type 2 diabetic Hematologic History: Reports: Other (See Below) Other Hematologic History: hx of MSSA bacteremia Immunologic History: Reports: None Oncologic (Cancer) History: Reports: None Dermatologic History: Reports: Other (See Below) Other Dermatologic History: diabetic foot ulcers - Infectious Disease History Infectious Disease History: Reports: None - Past Surgical History Head Surgeries/Procedures: Reports: None Musculoskeletal Surgical History: Reports: ORIF Other Musculoskeletal Surgeries/Procedures:: hx of ORIF right ankle, debridement of left foot ulcer, amputation of left toe, debridement of right hand wound Social & Family History - Family History Family Medical History: Noncontributory HEENT: Reports: None Cardiac: Reports: None Respiratory: Reports: None GI: Reports: None : Reports: None OBGYN: Reports: None Musculoskeletal: Reports: None Neurological: Reports: None Psychiatric: Reports: None Endocrine/Metabolic: Reports: Diabetes, type II Hematologic: Reports: None Immunologic: Reports: None Dermatologic: Reports: None Oncologic: Reports: None - Tobacco Use Smoking Status *Q: Never Smoker - Caffeine Use Caffeine Use: Reports: None - Recreational Drug Use Recreational Drug Use: No ED ROS GENERAL - Review of Systems Review Of Systems: ROS reveals no pertinent complaints other than HPI. ED EXAM, NEURO - Physical Exam Exam: See Below (See dictation) Course - Vital Signs Last Recorded V/S: Last Vital Signs Temp 97.3 F 02/07/19 15:07 Pulse 74 02/07/19 16:39 Resp 16 02/07/19 15:07 BP 136/75 02/07/19 16:39 Pulse Ox 97 02/07/19 16:39 Orthostatic Blood Pressure [ 89/58 Standing] Orthostatic Blood Pressure [ 94/61 Sitting] Orthostatic Blood Pressure [ 113/73 Supine] - Orders/Labs/Meds Orders: Active Orders 24 hr Category Date Time Status Admission Status [Patient Status] [ADT] Stat ADT 02/07/19 16:40 Active EKG Documentation Completion [RC] STAT Care 02/07/19 15:14 Active Orthostatic Vital Signs [RC] ASDIRECTED Care 02/07/19 15:15 Active UA RFX NICKI AND CULT IF INDIC [URIN] Stat Lab 02/07/19 15:14 Ordered Sodium Chloride 0.9% [Saline Flush] Med 02/07/19 15:14 Active 10 ml FLUSH ASDIRECTED PRN Sodium Chloride 0.9% [Saline Flush] Med 02/07/19 15:14 Active 2.5 ml FLUSH ASDIRECTED PRN Saline Lock Insert [OM.PC] Stat Oth 02/07/19 15:14 Ordered Medication Orders Sodium Chloride (Saline Flush) 10 ml FLUSH ASDIRECTED PRN PRN Reason: Keep Vein Open Last Admin: 02/07/19 15:28 Dose: 10 ml Sodium Chloride (Saline Flush) 2.5 ml FLUSH ASDIRECTED PRN PRN Reason: Keep Vein Open Last Admin: 02/07/19 15:28 Dose: 2.5 ml Labs: Laboratory Tests 02/07/19 02/07/19 02/07/19 Range/Units 15:03 15:22 15:22 WBC 7.21 (4.0-11.0) K/uL RBC 4.35 L (4.50-5.90) M/uL Hgb 12.8 L (13.0-17.0) g/dL Hct 37.8 L (38.0-50.0) % MCV 86.9 (80.0-98.0) fL MCH 29.4 (27.0-32.0) pg MCHC 33.9 (31.0-37.0) g/dL RDW Std Deviation 43.6 (28.0-62.0) fl RDW Coeff of Krunal 14 (11.0-15.0) % Plt Count 181 (150-400) K/uL MPV 11.60 (7.40-12.00) fL Neut % (Auto) 70.3 (48.0-80.0) % Lymph % (Auto) 19.1 (16.0-40.0) % Meigs % (Auto) 6.4 (0.0-15.0) % Eos % (Auto) 3.6 (0.0-7.0) % Baso % (Auto) 0.6 (0.0-1.5) % Neut # (Auto) 5.1 (1.4-5.7) K/uL Lymph # (Auto) 1.4 (0.6-2.4) K/uL Meigs # (Auto) 0.5 (0.0-0.8) K/uL Eos # (Auto) 0.3 (0.0-0.7) K/uL Baso # (Auto) 0.0 (0.0-0.1) K/uL Nucleated RBC % 0.8 /100WBC Nucleated RBCs # 0 K/uL Sodium 142 (136-148) mmol/L Potassium 4.2 (3.5-5.1) mmol/L Chloride 105 (98-107) mmol/L Carbon Dioxide 24.3 (21.0-32.0) mmol/L BUN 35 H (7.0-18.0) mg/dL Creatinine 1.7 H (0.8-1.3) mg/dL Est Cr Clr Drug Dosing 48.91 mL/min Estimated GFR (MDRD) 41.6 ml/min Glucose 140 H (74-106) mg/dL POC Glucose 113 H (60-110) mg/dL Calcium 8.8 (8.5-10.1) mg/dL Total Bilirubin 1.0 (0.2-1.0) mg/dL AST 15 (15-37) IU/L ALT 22 (14-63) IU/L Alkaline Phosphatase 86 (46-116) U/L Troponin I < 0.050 (0.000-0.056) ng/mL Total Protein 6.7 (6.4-8.2) g/dL Albumin 3.7 (3.4-5.0) g/dL Globulin 3.0 (2.6-4.0) g/dL Albumin/Globulin Ratio 1.2 (0.9-1.6) Meds: Medications Generic Name Dose Route Start Last Admin Trade Name Freq PRN Reason Stop Dose Admin Sodium Chloride 10 ml 02/07/19 15:14 02/07/19 15:28 Saline Flush FLUSH 10 ml ASDIRECTED PRN Administration Keep Vein Open Sodium Chloride 2.5 ml 02/07/19 15:14 02/07/19 15:28 Saline Flush FLUSH 2.5 ml ASDIRECTED PRN Administration Keep Vein Open Discontinued Medications Generic Name Dose Route Start Last Admin Trade Name Freq PRN Reason Stop Dose Admin Sodium Chloride 1,000 mls @ 999 mls/hr 02/07/19 15:14 02/07/19 15:27 Normal Saline IV 02/07/19 16:14 999 mls/hr STAT ONE Administration Departure - Departure Time of Disposition: 17:01 Disposition: Home, Self-Care 01 Clinical Impression: Orthostatic hypotension, Vertigo, Dehydration - Discharge Information Referrals: Manav Miranda MD [Primary Care Provider] - Forms: ED Department Discharge - My Orders Last 24 Hours: My Active Orders 02/07/19 15:14 EKG Documentation Completion [RC] STAT UA RFX NICKI AND CULT IF INDIC [URIN] Stat Sodium Chloride 0.9% [Saline Flush] 10 ml FLUSH ASDIRECTED PRN Sodium Chloride 0.9% [Saline Flush] 2.5 ml FLUSH ASDIRECTED PRN Saline Lock Insert [OM.PC] Stat 02/07/19 15:15 Orthostatic Vital Signs [RC] ASDIRECTED 02/07/19 16:40 Admission Status [Patient Status] [ADT] Stat - Assessment/Plan Last 24 Hours: My Active Orders 02/07/19 15:14 EKG Documentation Completion [RC] STAT UA RFX NICKI AND CULT IF INDIC [URIN] Stat Sodium Chloride 0.9% [Saline Flush] 10 ml FLUSH ASDIRECTED PRN Sodium Chloride 0.9% [Saline Flush] 2.5 ml FLUSH ASDIRECTED PRN Saline Lock Insert [OM.PC] Stat 02/07/19 15:15 Orthostatic Vital Signs [RC] ASDIRECTED 02/07/19 16:40 Admission Status [Patient Status] [ADT] Stat
[2019-02-07 16:01] LABS: BLOOD UREA NITROGEN,BUN 35 mg/dL (7.0-18.0); CARBON DIOXIDE,CO2 24.3 mmol/L (21.0-32.0); CHLORIDE,CL 105 mmol/L (98-107); GLUCOSE RANDOM 140 mg/dL (74-106); POTASSIUM,K 4.2 mmol/L (3.5-5.1); SODIUM,NA 142 mmol/L (136-148)
[2019-02-07] MEDS ORDERED: Pneumococcal Polyvalent-23 Vaccine 0.5 ML SDV IM ONE (17:22)
[2019-02-07] MEDS ORDERED: FLU Vacc QS2019-20(6MOS+)/PF 60 MCG/0.5 ML SYRINGE IM ONE (17:30)
--- NOTE | 2019-02-07 18:04 | PCM.HP.2 ---
H&P History of Present Illness - General Date of Service: 02/07/19 Admit Problem/Dx: Admission Diagnosis/Problem Admission Diagnosis/Problem Vertigo Source of Information: Patient History Limitations: Reports: No Limitations - History of Present Illness Initial Comments - Free Text/Narative: The patient is a 58-year-old gentleman who had presented to the emergency department primarily complaining of dizziness. The patient has had dizziness for approximately 8 months. Patient has a long standing history of vertigo and has been seen multiple times in the emergency department and by his primary care physician. Patient says that he has visited with neurologist Dr. Daily with regards to his vertical and is started on a new medication. The patient says that he has gotten no relief of his symptoms. The patient had been admitted to the emergency department primarily due to dehydration as well as orthostatic hypotension. He is currently pending an evaluation appointment from [facility]. The patient has denied any syncopal events. He reports that his symptoms are such that if he goes from a sitting to a standing position he'll get extremely dizzy and vomited and come close to passing out. Patient's symptoms have worsened markedly over the past several days. The patient has denied any chest pain. No shortness of breath. Onset of Symptoms: Reports: Gradual, Unknown/Unsure Duration of Symptoms: Reports: Day(s):, Getting Worse Location: Reports: Generalized Severity: Moderate Improves with: Reports: Rest Worsens with: Reports: Movement (Going from supine to standing) Associated Symptoms: Reports: No Other Symptoms Headache Pain Score (Numeric/FACES): 8 - Related Data Allergies/Adverse Reactions: Allergies Allergy/AdvReac Type Severity Reaction Status Date / Time No Known Allergies Allergy Verified 02/07/19 17:42 Home Medications: Home Meds Insulin Glarg,Human.Rec.Analog [Lantus Solostar] 10 units SUBCUT BEDTIME #1 box 11/02/17 [Rx] atorvaSTATin [Lipitor] 40 mg PO BEDTIME #90 tablet 11/26/17 [Rx] Clopidogrel [Plavix] 75 mg PO DAILY 09/16/18 [History] Amitriptyline HCl 50 mg PO BEDTIME 02/07/19 [History] Insulin Aspart [NovoLOG] See Protocol SUBCUT ASDIRECTED 02/07/19 [History] Lisinopril 40 mg PO DAILY 02/07/19 [History] Meclizine [Antivert] 25 mg PO TID 02/07/19 [History] Verapamil HCl [Verapamil ER] 120 mg PO DAILY 02/07/19 [History] hydroCHLOROthiazide [Hydrochlorothiazide] 25 mg PO DAILY 02/07/19 [History] metFORMIN [Glucophage] 500 mg PO BIDMEALS 02/07/19 [History] oxyCODONE HCl/Acetaminophen [Oxycodone-Acetaminophen 5-325] 1 each PO BID [History] Past Medical History - Past Health History Medical/Surgical History: Denies Medical/Surgical History HEENT History: Reports: Impaired Vision Other HEENT History: states decreased vision since TIA 1 month ago Cardiovascular History: Reports: Hypertension Respiratory History: Reports: None Gastrointestinal History: Reports: GERD Genitourinary History: Reports: None Musculoskeletal History: Reports: Other (See Below) Other Musculoskeletal History: hx of Osteomyleitis Neurological History: Reports: Neuropathy, Diabetic, TIA, Other (See Below) Psychiatric History: Reports: None, Other (See Below) Endocrine/Metabolic History: Reports: Diabetes, Type II, Obesity/BMI 30+ Other Endocrine/Metabolic History: Ankit Miranda MD pt is a non compliant type 2 diabetic Hematologic History: Reports: Other (See Below) Other Hematologic History: hx of MSSA bacteremia Immunologic History: Reports: None Oncologic (Cancer) History: Reports: None Dermatologic History: Reports: Other (See Below) Other Dermatologic History: diabetic foot ulcers - Infectious Disease History Infectious Disease History: Reports: None - Past Surgical History Head Surgeries/Procedures: Reports: None Musculoskeletal Surgical History: Reports: ORIF Other Musculoskeletal Surgeries/Procedures:: hx of ORIF right ankle, debridement of left foot ulcer, amputation of left toe, debridement of right hand wound Social & Family History - Family History Family Medical History: Noncontributory HEENT: Reports: None Cardiac: Reports: None Respiratory: Reports: None GI: Reports: None : Reports: None OBGYN: Reports: None Musculoskeletal: Reports: None Neurological: Reports: None Psychiatric: Reports: None Endocrine/Metabolic: Reports: Diabetes, type II Hematologic: Reports: None Immunologic: Reports: None Dermatologic: Reports: None Oncologic: Reports: None - Tobacco Use Smoking Status *Q: Never Smoker Second Hand Smoke Exposure: No - Caffeine Use Caffeine Use: Reports: None, Coffee - Recreational Drug Use Recreational Drug Use: No - Living Situation & Occupation Living situation: Reports: with Family Occupation: Employed H&P Review of Systems - Review of Systems: Review Of Systems: See Below General: Reports: Weakness HEENT: Reports: Vertigo Pulmonary: Reports: No Symptoms Cardiovascular: Reports: Blood Pressure Problem Gastrointestinal: Reports: No Symptoms Genitourinary: Reports: No Symptoms Musculoskeletal: Reports: No Symptoms Skin: Reports: No Symptoms Psychiatric: Reports: No Symptoms Neurological: Reports: Dizziness, Syncope, Weakness Hematologic/Lymphatic: Reports: No Symptoms Immunologic: Reports: No Symptoms Exam - Exam Exam: See Below - Vital Signs Vital Signs: Last Vital Signs Temp 36.8 C 02/07/19 17:32 Pulse 67 02/07/19 17:32 Resp 14 02/07/19 17:32 BP 129/84 02/07/19 17:32 Pulse Ox 97 02/07/19 16:39 Orthostatic Blood Pressure [ 89/58 Standing] Orthostatic Blood Pressure [ 94/61 Sitting] Orthostatic Blood Pressure [ 113/73 Supine] Weight: 111.72 kg - Exam Quality Assessment: Supplemental Oxygen General: Alert, Oriented, Cooperative, Mild Distress HEENT: Conjunctiva Clear, EACs Clear, EOMI, Pupils Equal, PERRLA. No: Mucosa Moist & [place] (Dry) Neck: Supple, Trachea Midline Lungs: Clear to Auscultation, Normal Respiratory Effort Cardiovascular: Regular Rate, Regular Rhythm GI/Abdominal Exam: Normal Bowel Sounds, Soft, Non-Tender, No Distention Back Exam: Normal Inspection, Full Range of Motion Extremities: Normal Inspection (Amputation toe left foot), No Pedal Edema Skin: Warm, Dry, Intact Neurological: Cranial Nerves Intact, Normal Gait, Normal Speech Neuro Extensive - Mental Status: Alert, Memory Intact Psychiatric: Alert, Normal Affect, Normal Mood - Patient Data Lab Results Last 24 hrs: Laboratory Results - last 24 hr 02/07/19 02/07/19 02/07/19 Range/Units 15:03 15:22 15:22 WBC 7.21 (4.0-11.0) K/uL RBC 4.35 L (4.50-5.90) M/uL Hgb 12.8 L (13.0-17.0) g/dL Hct 37.8 L (38.0-50.0) % MCV 86.9 (80.0-98.0) fL MCH 29.4 (27.0-32.0) pg MCHC 33.9 (31.0-37.0) g/dL RDW Std Deviation 43.6 (28.0-62.0) fl RDW Coeff of [place] 14 (11.0-15.0) % Plt Count 181 (150-400) K/uL MPV 11.60 (7.40-12.00) fL Neut % (Auto) 70.3 (48.0-80.0) % Lymph % (Auto) 19.1 (16.0-40.0) % [place] % (Auto) 6.4 (0.0-15.0) % Eos % (Auto) 3.6 (0.0-7.0) % Baso % (Auto) 0.6 (0.0-1.5) % Neut # (Auto) 5.1 (1.4-5.7) K/uL Lymph # (Auto) 1.4 (0.6-2.4) K/uL [place] # (Auto) 0.5 (0.0-0.8) K/uL Eos # (Auto) 0.3 (0.0-0.7) K/uL Baso # (Auto) 0.0 (0.0-0.1) K/uL Nucleated RBC % 0.8 /100WBC Nucleated RBCs # 0 K/uL Sodium 142 (136-148) mmol/L Potassium 4.2 (3.5-5.1) mmol/L Chloride 105 (98-107) mmol/L Carbon Dioxide 24.3 (21.0-32.0) mmol/L BUN 35 H (7.0-18.0) mg/dL Creatinine 1.7 H (0.8-1.3) mg/dL Est Cr Clr Drug Dosing 48.91 mL/min Estimated GFR (MDRD) 41.6 ml/min Glucose 140 H (74-106) mg/dL POC Glucose 113 H (60-110) mg/dL Calcium 8.8 (8.5-10.1) mg/dL Total Bilirubin 1.0 (0.2-1.0) mg/dL AST 15 (15-37) IU/L ALT 22 (14-63) IU/L Alkaline Phosphatase 86 (46-116) U/L Troponin I < 0.050 (0.000-0.056) ng/mL Total Protein 6.7 (6.4-8.2) g/dL Albumin 3.7 (3.4-5.0) g/dL Globulin 3.0 (2.6-4.0) g/dL Albumin/Globulin Ratio 1.2 (0.9-1.6) Result Diagrams: 02/07/19 15:22 02/07/19 15:22 - Problem List (1) Acute renal insufficiency SNOMED Code(s): 772765735 ICD Code: N28.9 - DISORDER OF KIDNEY AND URETER, UNSPECIFIED Status: Acute Priority: High Current Visit: Yes (2) DM type 2 (diabetes mellitus, type 2) SNOMED Code(s): 83485039 ICD Code: E11.9 - TYPE 2 DIABETES MELLITUS WITHOUT COMPLICATIONS Status: Chronic Priority: High Current Visit: Yes Qualifiers: Diabetes mellitus superintendent terminal insulin use: with custodial use Diabetes mellitus complication status: with skin complications Diabetes mellitus complication detail: with foot ulcer Qualified Code(s): E11.621 - Type 2 diabetes mellitus with foot ulcer; L97.509 - Non-pressure chronic ulcer of other part of unspecified foot with unspecified severity; Z79.4 - senior care ( current) use of insulin (3) Orthostatic hypotension SNOMED Code(s): 08777099 ICD Code: I95.1 - ORTHOSTATIC HYPOTENSION Status: Acute Priority: High Current Visit: Yes (4) Vertigo SNOMED Code(s): 859255708 ICD Code: R42 - DIZZINESS AND GIDDINESS Status: Acute Priority: High Current Visit: Yes Problem List Initiated/Reviewed/Updated: Yes Orders Last 24hrs: Active Orders 24 hr Category Date Time Status Admission Status [Patient Status] [ADT] Stat ADT 02/07/19 16:40 Active Influenza Vaccine Charge [RC] .DISCHARGE Care 02/07/19 17:23 Active Orthostatic Vital Signs [RC] ASDIRECTED Care 02/07/19 15:15 Active UA RFX NICKI AND CULT IF INDIC [URIN] Stat Lab 02/07/19 15:14 Ordered Sodium Chloride 0.9% [Saline Flush] Med 02/07/19 15:14 Active 10 ml FLUSH ASDIRECTED PRN Sodium Chloride 0.9% [Saline Flush] Med 02/07/19 15:14 Active 2.5 ml FLUSH ASDIRECTED PRN Saline Lock Insert [OM.PC] Stat Oth 02/07/19 15:14 Ordered Medication Orders Sodium Chloride (Saline Flush) 10 ml FLUSH ASDIRECTED PRN PRN Reason: Keep Vein Open Last Admin: 02/07/19 15:28 Dose: 10 ml Sodium Chloride (Saline Flush) 2.5 ml FLUSH ASDIRECTED PRN PRN Reason: Keep Vein Open Last Admin: 02/07/19 15:28 Dose: 2.5 ml Assessment/Plan Comment:: The patient is a 58-year-old gentleman who had been admitted primarily out of concern for orthostatic hypotension associated with dehydration. I've ordered IV fluid replacement with normal saline at 125 mL per hour. Patient is also to have regular diet as tolerated. The patient does have chronic dizziness that has been exacerbated over the past several days. The patient does have evidence of dehydration with his acute renal insufficiency and this should improve with hydration. Repeat laboratory studies have been ordered. The patient is also have a fall risk and SCDs would not be appropriate for this person. He is currently taking Plavix and would not recommend Lovenox as he would be at risk for bleeding. Antiembolic hose has been ordered. The patient has been encouraged to ambulate with assistance. He'll also be kept on telemetry. The patient will be continued on his antidiabetic medication and he'll be kept on Accu-Cheks before meals and at bedtime. He'll have sliding scale insulin at moderate dose. The patient should be appropriate for discharge in 1-2 days. The patient does have symptoms similar to what be expected for POTS. The patient should also have repeated orthostatic vital signs. - Mortality Measure Prognosis:: Good
[2019-02-07] MEDS ORDERED: Temazepam 15 MG Cap PO PRN (18:06)
[2019-02-07] MEDS ORDERED: Docusate Sodium 100 MG Cap PO PRN (18:06)
[2019-02-07] MEDS ORDERED: Ondansetron 4 MG Tab.DIS PO PRN (18:06)
[2019-02-07] MEDS: Sodium Chloride 0.9% 1,000 ML IV SCH (18:14)
[2019-02-07] MEDS: Acetaminophen/oxyCODONE 325-5 MG Tab PO SCH ×2 (19:05→20:21)
[2019-02-07] MEDS ORDERED: atorvaSTATin 40 MG Tab PO SCH (21:00)
[2019-02-07] MEDS ORDERED: Amitriptyline 25 MG Tab PO SCH (21:00)
[2019-02-07] MEDS: Meclizine 25 MG Tab PO SCH (22:02)
[2019-02-08] MEDS: Sodium Chloride 0.9% 1,000 ML IV SCH ×2 (01:08→07:25)
[2019-02-08] MEDS: Meclizine 25 MG Tab PO SCH (05:30)
[2019-02-08 07:26] VITALS: BP 137/80; PULSE 66
[2019-02-08] MEDS ORDERED: Insulin Aspart 100 Units/ML 3 ML Pen SUBCUT SCH (07:30)
[2019-02-08 07:37] LABS: CARBON DIOXIDE,CO2 25.4 mmol/L (21.0-32.0); POTASSIUM,K 3.9 mmol/L (3.5-5.1)
[2019-02-08] MEDS ORDERED: metFORMIN 500 MG Tab PO SCH (08:00)
[2019-02-08] MEDS: Acetaminophen/oxyCODONE 325-5 MG Tab PO SCH (08:52)
[2019-02-08] MEDS ORDERED: Hydrochlorothiazide 25 MG Tab PO SCH (09:00)
[2019-02-08] MEDS ORDERED: Lisinopril 10 MG Tab PO SCH (09:00)
[2019-02-08] MEDS ORDERED: Verapamil 180 MG Tab.ER PO SCH (09:00)
[2019-02-08] MEDS ORDERED: VERAPAMIL HCL 120 MG PO SCH (09:00)
[2019-02-08] MEDS ORDERED: Clopidogrel 75 MG Tab PO SCH (09:00)
--- NOTE | 2019-02-08 09:39 | PCM.DCSUM1 ---
Discharge Summary - Hospital Course Brief History: The patient is a 58-year-old gentleman who had presented to the emergency department primarily complaining of dizziness. The patient has had dizziness for approximately 8 months. Patient has a long standing history of vertigo and has been seen multiple times in the emergency department and by his primary care physician. Patient says that he has visited with neurologist Dr. Daily with regards to his vertical and is started on a new medication. The patient says that he has gotten no relief of his symptoms. The patient had been admitted to the emergency department primarily due to dehydration as well as orthostatic hypotension. He is currently pending an evaluation appointment from [facility]. The patient has denied any syncopal events. He reports that his symptoms are such that if he goes from a sitting to a standing position he'll get extremely dizzy and vomited and come close to passing out. Patient's symptoms have worsened markedly over the past several days. The patient has denied any chest pain. No shortness of breath. Diagnosis: Stroke: No - Discharge Data Discharge Date: 02/08/19 Discharge Disposition: Home, Self-Care 01 Condition: Good - Referral to Home Health Primary Care Physician: Manav Miranda MD - Patient Summary/Data Consults: Consultations 02/07/19 19:26 Consult to Engagement Executive [Consult to Diabetic Nurse Specialist] [CONS] Routine - Patient Instructions Diet: Heart Healthy Diet, Diabetic Diet Activity: No Strenuous Activities, Rest and Relax Today Driving: Do Not Drive Showering/Bathing: May Shower Notify Provider of: Fever, Increased Pain, Swelling and Redness, Drainage, Nausea and/or Vomiting Other/Special Instructions: Hold blood pressure medications today, restart tomorrow 02-09-2019 - Discharge Plan *PRESCRIPTION DRUG MONITORING PROGRAM REVIEWED*: Not Applicable *COPY OF PRESCRIPTION DRUG MONITORING REPORT IN PATIENT MARY JO: Not Applicable Home Medications: Home Meds Insulin Glarg,Human.Rec.Analog [Lantus Solostar] 10 units SUBCUT BEDTIME #1 box 11/02/17 [Rx] atorvaSTATin [Lipitor] 40 mg PO BEDTIME #90 tablet 11/26/17 [Rx] Clopidogrel [Plavix] 75 mg PO DAILY 09/16/18 [History] Amitriptyline HCl 50 mg PO BEDTIME 02/07/19 [History] Insulin Aspart [NovoLOG] See Protocol SUBCUT ASDIRECTED 02/07/19 [History] Lisinopril 40 mg PO DAILY 02/07/19 [History] Meclizine [Antivert] 25 mg PO TID 02/07/19 [History] Verapamil HCl [Verapamil ER] 120 mg PO DAILY 02/07/19 [History] hydroCHLOROthiazide [Hydrochlorothiazide] 25 mg PO DAILY 02/07/19 [History] metFORMIN [Glucophage] 500 mg PO BIDMEALS 02/07/19 [History] oxyCODONE HCl/Acetaminophen [Oxycodone-Acetaminophen 5-325] 1 each PO BID [History] Oxygen Therapy Mode: Room Air Patient Handouts: Orthostatic Hypotension, Vertigo, [id number], Diabetic Nephropathy, Dehydration, Adult, [id number] Referrals: Manav Miranda MD [Primary Care Provider] - 02/20/19 2:45 pm - Discharge Summary/Plan Comment DC Time >30 min.: No Discharge Summary/Plan Comment: Admitting Diagnoses: Dizziness Orthostatic hypotension Dehydration Discharge Diagnoses: Orthostatic hypotension Dehydration Chronic dizziness Other PMH: HTN DM Type 2 DARÍO Wood was admitted and treated for orthostatic hypotension. He was given IVFs overnight. This morning he is feeling improved. Denies dizziness this morning. NO chest pain. Orthostatic BP improved, no tachycardia noted with orthostasis on admission. He is very eager to be discharged home. He was instructed to hold BP medications today and to restart them in the morning. He is to return to the ED or clinic if concerns should arise. He is to follow up with PCP in 1 week. - General Info Date of Service: 02/08/19 Admission Dx/Problem (Free Text: Admission Diagnosis/Problem Admission Diagnosis/Problem Vertigo, orthostatic hypotension Subjective Update: Feels much better this morning. No dizziness and he has been up ambulating in his room per self. Denies chest pain or shortness of breath. Mild headache, but this is at baseline. - Review of Systems General: Reports: No Symptoms. Denies: Weakness, Fatigue, Malaise HEENT: Reports: Headaches (chronic) Pulmonary: Reports: No Symptoms. Denies: Shortness of Breath Cardiovascular: Reports: No Symptoms. Denies: Chest Pain Gastrointestinal: Reports: No Symptoms Genitourinary: Reports: No Symptoms Musculoskeletal: Reports: No Symptoms, Joint Swelling Neurological: Reports: No Symptoms Psychiatric: Reports: No Symptoms - Patient Data Vitals - Most Recent: Last Vital Signs Temp 97.6 F 02/08/19 07:25 Pulse 66 02/08/19 07:25 Resp 18 02/08/19 07:25 BP 137/80 02/08/19 07:25 Pulse Ox 96 02/08/19 07:25 Orthostatic Blood Pressure [ 131/73 Standing] Orthostatic Blood Pressure [ 110/64 Sitting] Orthostatic Blood Pressure [ 109/67 Supine] Weight - Most Recent: 111.72 kg I&O - Last 24 hours: Intake & Output 02/07/19 02/08/19 02/08/19 22:59 06:59 14:59 Intake Total 1976 463 Output Total 975 Balance 1001 463 Lab Results - Last 24 hrs: Laboratory Results - last 24 hr 02/07/19 02/07/19 02/07/19 Range/Units 15:03 15:22 15:22 WBC 7.21 (4.0-11.0) K/uL RBC 4.35 L (4.50-5.90) M/uL Hgb 12.8 L (13.0-17.0) g/dL Hct 37.8 L (38.0-50.0) % MCV 86.9 (80.0-98.0) fL MCH 29.4 (27.0-32.0) pg MCHC 33.9 (31.0-37.0) g/dL RDW Std Deviation 43.6 (28.0-62.0) fl RDW Coeff of Krunal 14 (11.0-15.0) % Plt Count 181 (150-400) K/uL MPV 11.60 (7.40-12.00) fL Neut % (Auto) 70.3 (48.0-80.0) % Lymph % (Auto) 19.1 (16.0-40.0) % [place] % (Auto) 6.4 (0.0-15.0) % Eos % (Auto) 3.6 (0.0-7.0) % Baso % (Auto) 0.6 (0.0-1.5) % Neut # (Auto) 5.1 (1.4-5.7) K/uL Lymph # (Auto) 1.4 (0.6-2.4) K/uL [place] # (Auto) 0.5 (0.0-0.8) K/uL Eos # (Auto) 0.3 (0.0-0.7) K/uL Baso # (Auto) 0.0 (0.0-0.1) K/uL Nucleated RBC % 0.8 /100WBC Nucleated RBCs # 0 K/uL Sodium 142 (136-148) mmol/L Potassium 4.2 (3.5-5.1) mmol/L Chloride 105 (98-107) mmol/L Carbon Dioxide 24.3 (21.0-32.0) mmol/L BUN 35 H (7.0-18.0) mg/dL Creatinine 1.7 H (0.8-1.3) mg/dL Est Cr Clr Drug Dosing 48.91 mL/min Estimated GFR (MDRD) 41.6 ml/min Glucose 140 H (74-106) mg/dL POC Glucose 113 H (60-110) mg/dL Calcium 8.8 (8.5-10.1) mg/dL Total Bilirubin 1.0 (0.2-1.0) mg/dL AST 15 (15-37) IU/L ALT 22 (14-63) IU/L Alkaline Phosphatase 86 (46-116) U/L Troponin I < 0.050 (0.000-0.056) ng/mL Total Protein 6.7 (6.4-8.2) g/dL Albumin 3.7 (3.4-5.0) g/dL Globulin 3.0 (2.6-4.0) g/dL Albumin/Globulin Ratio 1.2 (0.9-1.6) Urine Color Urine Appearance Urine pH (5.0-8.0) Ur Specific [place] (1.001-1.035) Urine Protein (NEGATIVE) mg/dL Urine Glucose (UA) (NEGATIVE) mg/dL Urine Ketones (NEGATIVE) mg/dL Urine Occult Blood (NEGATIVE) Urine Nitrite (NEGATIVE) Urine Bilirubin (NEGATIVE) Urine Urobilinogen (<2.0) EU/dL Ur Leukocyte Esterase (NEGATIVE) Urine RBC (0-2/HPF) Urine WBC (0-5/HPF) Ur Epithelial Cells (NONE-FEW) Urine Bacteria (NEGATIVE) Urine Mucus (NONE-MOD) 02/07/19 02/07/19 02/08/19 Range/Units 18:48 20:35 06:09 WBC 5.13 (4.0-11.0) K/uL RBC 4.06 L (4.50-5.90) M/uL Hgb 11.9 L (13.0-17.0) g/dL Hct 35.6 L (38.0-50.0) % MCV 87.7 (80.0-98.0) fL MCH 29.3 (27.0-32.0) pg MCHC 33.4 (31.0-37.0) g/dL RDW Std Deviation 42.9 (28.0-62.0) fl RDW Coeff of Krunal 14 (11.0-15.0) % Plt Count 167 (150-400) K/uL MPV 11.20 (7.40-12.00) fL Neut % (Auto) 58.0 (48.0-80.0) % Lymph % (Auto) 28.7 (16.0-40.0) % [place] % (Auto) 7.6 (0.0-15.0) % Eos % (Auto) 4.9 (0.0-7.0) % Baso % (Auto) 0.8 (0.0-1.5) % Neut # (Auto) 3.0 (1.4-5.7) K/uL Lymph # (Auto) 1.5 (0.6-2.4) K/uL [place] # (Auto) 0.4 (0.0-0.8) K/uL Eos # (Auto) 0.3 (0.0-0.7) K/uL Baso # (Auto) 0.0 (0.0-0.1) K/uL Nucleated RBC % 1.0 /100WBC Nucleated RBCs # 0 K/uL Sodium (136-148) mmol/L Potassium (3.5-5.1) mmol/L Chloride (98-107) mmol/L Carbon Dioxide (21.0-32.0) mmol/L BUN (7.0-18.0) mg/dL Creatinine (0.8-1.3) mg/dL Est Cr Clr Drug Dosing mL/min Estimated GFR (MDRD) ml/min Glucose (74-106) mg/dL POC Glucose 101 (60-110) mg/dL Calcium (8.5-10.1) mg/dL Total Bilirubin (0.2-1.0) mg/dL AST (15-37) IU/L ALT (14-63) IU/L Alkaline Phosphatase (46-116) U/L Troponin I (0.000-0.056) ng/mL Total Protein (6.4-8.2) g/dL Albumin (3.4-5.0) g/dL Globulin (2.6-4.0) g/dL Albumin/Globulin Ratio (0.9-1.6) Urine Color YELLOW Urine Appearance CLEAR Urine pH 5.5 (5.0-8.0) Ur Specific [place] >= 1.030 (1.001-1.035) Urine Protein 30 H (NEGATIVE) mg/dL Urine Glucose (UA) NEGATIVE (NEGATIVE) mg/dL Urine Ketones NEGATIVE (NEGATIVE) mg/dL Urine Occult Blood TRACE-INTACT H (NEGATIVE) Urine Nitrite NEGATIVE (NEGATIVE) Urine Bilirubin NEGATIVE (NEGATIVE) Urine Urobilinogen 0.2 (<2.0) EU/dL Ur Leukocyte Esterase NEGATIVE (NEGATIVE) Urine RBC 0-2 (0-2/HPF) Urine WBC 1-2 (0-5/HPF) Ur Epithelial Cells RARE (NONE-FEW) Urine Bacteria RARE (NEGATIVE) Urine Mucus RARE (NONE-MOD) 02/08/19 02/08/19 Range/Units 06:09 06:34 WBC (4.0-11.0) K/uL RBC (4.50-5.90) M/uL Hgb (13.0-17.0) g/dL Hct (38.0-50.0) % MCV (80.0-98.0) fL MCH (27.0-32.0) pg MCHC (31.0-37.0) g/dL RDW Std Deviation (28.0-62.0) fl RDW Coeff of Krunal (11.0-15.0) % Plt Count (150-400) K/uL MPV (7.40-12.00) fL Neut % (Auto) (48.0-80.0) % Lymph % (Auto) (16.0-40.0) % [place] % (Auto) (0.0-15.0) % Eos % (Auto) (0.0-7.0) % Baso % (Auto) (0.0-1.5) % Neut # (Auto) (1.4-5.7) K/uL Lymph # (Auto) (0.6-2.4) K/uL [place] # (Auto) (0.0-0.8) K/uL Eos # (Auto) (0.0-0.7) K/uL Baso # (Auto) (0.0-0.1) K/uL Nucleated RBC % /100WBC Nucleated RBCs # K/uL Sodium 141 (136-148) mmol/L Potassium 3.9 (3.5-5.1) mmol/L Chloride 107 (98-107) mmol/L Carbon Dioxide 25.4 (21.0-32.0) mmol/L BUN 30 H (7.0-18.0) mg/dL Creatinine 1.5 H (0.8-1.3) mg/dL Est Cr Clr Drug Dosing 55.43 mL/min Estimated GFR (MDRD) 48.1 ml/min Glucose 155 H (74-106) mg/dL POC Glucose 128 H (60-110) mg/dL Calcium 8.0 L (8.5-10.1) mg/dL Total Bilirubin 0.5 (0.2-1.0) mg/dL AST 13 L (15-37) IU/L ALT 20 (14-63) IU/L Alkaline Phosphatase 78 (46-116) U/L Troponin I (0.000-0.056) ng/mL Total Protein 6.0 L (6.4-8.2) g/dL Albumin 3.0 L (3.4-5.0) g/dL Globulin 3.0 (2.6-4.0) g/dL Albumin/Globulin Ratio 1.0 (0.9-1.6) Urine Color Urine Appearance Urine pH (5.0-8.0) Ur Specific [place] (1.001-1.035) Urine Protein (NEGATIVE) mg/dL Urine Glucose (UA) (NEGATIVE) mg/dL Urine Ketones (NEGATIVE) mg/dL Urine Occult Blood (NEGATIVE) Urine Nitrite (NEGATIVE) Urine Bilirubin (NEGATIVE) Urine Urobilinogen (<2.0) EU/dL Ur Leukocyte Esterase (NEGATIVE) Urine RBC (0-2/HPF) Urine WBC (0-5/HPF) Ur Epithelial Cells (NONE-FEW) Urine Bacteria (NEGATIVE) Urine Mucus (NONE-MOD) Med Orders - Current: Current Medications Amitriptyline HCl (Elavil) 50 mg PO BEDTIME [facility] Last Admin: 02/07/19 20:21 Dose: 50 mg Atorvastatin Calcium (Lipitor) 40 mg PO BEDTIME [facility] Last Admin: 02/07/19 20:21 Dose: 40 mg Clopidogrel Bisulfate (Plavix) 75 mg PO DAILY [facility] Last Admin: 02/08/19 08:52 Dose: 75 mg Docusate Sodium (Colace) 100 mg PO BID PRN PRN Reason: Constipation Sodium Chloride (Normal Saline) 1,000 mls @ 125 mls/hr IV ASDIRECTED [facility] Last Admin: 02/08/19 07:25 Dose: 125 mls/hr Insulin Aspart (Novolog) 0 unit SUBCUT TIDAC [facility]; Protocol Last Admin: 02/08/19 06:49 Dose: Not Given Meclizine HCl (Antivert) 25 mg PO TID [facility] Last Admin: 02/08/19 05:30 Dose: 25 mg Metformin HCl (Glucophage) 500 mg PO BIDMEALS [facility] Last Admin: 02/08/19 07:28 Dose: 500 mg Ondansetron HCl (Zofran Odt) 4 mg PO Q6H PRN PRN Reason: nausea, able to take PO Oxycodone/Acetaminophen (Percocet 325-5 Mg) 1 tab PO BID [facility] Last Admin: 02/08/19 08:52 Dose: 1 tab Sodium Chloride (Saline Flush) 10 ml FLUSH ASDIRECTED PRN PRN Reason: Keep Vein Open Last Admin: 02/07/19 15:28 Dose: 10 ml Sodium Chloride (Saline Flush) 2.5 ml FLUSH ASDIRECTED PRN PRN Reason: Keep Vein Open Last Admin: 02/07/19 15:28 Dose: 2.5 ml Temazepam (Restoril) 15 mg PO BEDTIME PRN PRN Reason: Sleep Verapamil HCl (Calan Sr) 180 mg PO DAILY [facility] Last Admin: 02/08/19 08:54 Dose: 180 mg Discontinued Medications Hydrochlorothiazide (Hydrochlorothiazide) 25 mg PO DAILY [facility] Sodium Chloride (Normal Saline) 1,000 mls @ 999 mls/hr IV STAT ONE Stop: 02/07/19 16:14 Last Admin: 02/07/19 15:27 Dose: 999 mls/hr Influenza Virus Vaccine (Pharmacy To Dose - Influenza Vaccine) 1 each IM ONETIME ONE Stop: 02/07/19 17:23 Influenza Virus Vaccine (Fluzone Quad [id number] Syringe) 60 mcg IM .ONCE ONE Stop: 02/07/19 17:31 Lisinopril (Prinivil) 40 mg PO DAILY [facility] Non-Formulary Medication (Verapamil Hcl) 120 mg PO DAILY [facility] Pneumococcal Polyvalent Vaccine (Pneumovax 23) 0.5 ml IM .ONCE ONE Stop: 02/07/19 17:23 - Exam General: Reports: Alert, Oriented Lungs: Reports: Clear to Auscultation, Normal Respiratory Effort Cardiovascular: Reports: Regular Rate, Regular Rhythm Neurological: Reports: No New Focal Deficit Psy/Mental Status: Reports: Alert, Normal Affect *Q Meaningful Use (DIS) - VTE *Q VTE Mechanical Contraindications *Q: At Risk for Falls VTE Pharmacological Contraindications *Q: Risk of Bleeding
== END 2019-02-08 10:30 | disposition home or self-care (01) ==
LOC: MW.ED 14:55 → MW.MS 16:44
PROVIDERS: ADMIT Internal Medicine; ATTEND Internal Medicine
DX: I95.1 Orthostatic hypotension (principal); E86.0 Dehydration; K21.9 Gastro-esophageal reflux disease without esophagitis; I10 Essential (primary) hypertension; E11.40 Type 2 diabetes mellitus with diabetic neuropathy, unspecified; N28.9 Disorder of kidney and ureter, unspecified; E11.621 Type 2 diabetes mellitus with foot ulcer; L97.509 Non-pressure chronic ulcer of other part of unspecified foot with unspecified severity; Z79.4 Long term (current) use of insulin; Z79.02 Long term (current) use of antithrombotics/antiplatelets; Z79.899 Other long term (current) drug therapy
CPT/HCPCS: 36415; 80053; 81001; 82962; 84484; 85025; 90471; 90686; 90732; 93005; 96360; 96361; 99284; A9270; G0378; J7040; G0008; G0009

== ENCOUNTER 2020-09-30 18:57 | Emergency (ER) | payer OTHER, MEDICAID ==
[2020-09-30] MEDS ORDERED: Morphine 4 MG/ML Syringe IVPUSH ONE (19:02)
[2020-09-30] MEDS ORDERED: Sodium Chloride 0.9% 2.5 ML Syringe FLUSH PRN (19:02)
[2020-09-30] MEDS ORDERED: Sodium Chloride 0.9% 10 ML Syringe FLUSH PRN (19:02)
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
[2020-09-30 19:35] LABS: BLOOD UREA NITROGEN,BUN 24 mg/dL (7.0-18.0); CARBON DIOXIDE,CO2 27.6 mmol/L (21.0-32.0); CHLORIDE,CL 102 mmol/L (98-107); GLUCOSE RANDOM 203 mg/dL (74-106); POTASSIUM,K 4.5 mmol/L (3.5-5.1); SODIUM,NA 138 mmol/L (136-148)
[2020-09-30] MEDS ORDERED: Midazolam 1 MG/ML 2 ML SDV IVPUSH ONE (19:35)
[2020-09-30] MEDS ORDERED: Midazolam 1 MG/ML 2 ML SDV ONE (19:37)
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
[2020-10-01 02:44] VITALS: BP 110/58; PULSE 71
== END 2020-09-30 20:44 | disposition left against medical advice (07) ==
LOC: MW.ED 18:57
DX: M54.2 Cervicalgia (principal); M54.5 Low back pain; E11.9 Type 2 diabetes mellitus without complications; I10 Essential (primary) hypertension; I25.2 Old myocardial infarction; E66.9 Obesity, unspecified; Z79.4 Long term (current) use of insulin; Z79.02 Long term (current) use of antithrombotics/antiplatelets; V49.40XA Driver injured in collision with unspecified motor vehicles in traffic accident, initial encounter
CPT/HCPCS: 71045; 72170; 80053; 84484; 85025; 85610; 85730; 93005; 96374; 99284; J2270

== ENCOUNTER 2021-05-23 19:43 | Emergency (ER) | payer MEDICAID ==
[2021-05-23 21:58] LABS: CORONAVIRUS COVID-19 NAA POSITIVE (NEGATIVE); INFLUENZA A NAA NEGATIVE (NEGATIVE); INFLUENZA B NAA NEGATIVE (NEGATIVE)
[2021-05-23] MEDS ORDERED: Acetaminophen/Codeine 120-12 MG/5 ML Soln 5 ML UD Cup PO ONE (22:11)
[2021-05-23 22:18] VITALS: BP 142/82; PULSE 92
== END 2021-05-23 22:18 | disposition home or self-care (01) ==
LOC: MW.ED 19:43
DX: U07.1 COVID-19 (principal); E11.9 Type 2 diabetes mellitus without complications; I10 Essential (primary) hypertension; K21.9 Gastro-esophageal reflux disease without esophagitis; E66.9 Obesity, unspecified; Z68.33 Body mass index [BMI] 33.0-33.9, adult; Z79.4 Long term (current) use of insulin; Z79.899 Other long term (current) drug therapy
CPT/HCPCS: 0240U; 71045; 99283; A9270

== ENCOUNTER 2022-06-23 17:43 | Emergency (ER) | payer MEDICAID ==
[2022-06-23 18:31] LABS: CARBON DIOXIDE,CO2 27.6 mmol/L (21.0-32.0); POTASSIUM,K 4.1 mmol/L (3.5-5.1)
[2022-06-23] MEDS ORDERED: LORazepam 2 MG/ML SDV IVPUSH ONE ×2 (18:50→22:07)
[2022-06-23] MEDS ORDERED: Iopamidol 755 MG/ML 500 ML Multipack Bottle IVPUSH STA (20:14)
[2022-06-23] MEDS ORDERED: Aspirin 81 MG Tab.Chew PO ONE (21:00)
[2022-06-23 22:01] VITALS: BP 156/94; PULSE 82
== END 2022-06-23 22:50 ==
LOC: MW.ED 17:43
DX: I63.9 Cerebral infarction, unspecified (principal); I10 Essential (primary) hypertension; E11.40 Type 2 diabetes mellitus with diabetic neuropathy, unspecified; E66.9 Obesity, unspecified; Z68.30 Body mass index [BMI] 30.0-30.9, adult; Z79.4 Long term (current) use of insulin; Z79.02 Long term (current) use of antithrombotics/antiplatelets; Z79.899 Other long term (current) drug therapy; Z20.822 Contact with and (suspected) exposure to COVID-19
CPT/HCPCS: 36415; 70450; 70496; 70498; 80053; 85025; 85610; 85730; 87635; 93005; 96374; 96376; 99285; A9270; J2060; Q9967; U0002

== ENCOUNTER 2023-10-27 08:38 | Emergency (ER) | payer MEDICAID ==
[2023-10-27 11:41] VITALS: BP 155/98; PULSE 78
== END 2023-10-27 11:41 | disposition home or self-care (01) ==
LOC: MW.ED 08:38
DX: M25.562 Pain in left knee (principal); M79.672 Pain in left foot; I10 Essential (primary) hypertension; E11.21 Type 2 diabetes mellitus with diabetic nephropathy; E66.9 Obesity, unspecified; Z75.8 Other problems related to medical facilities and other health care; Z79.899 Other long term (current) drug therapy; Z79.891 Long term (current) use of opiate analgesic
CPT/HCPCS: 73562-26-LT; 73562-LT; 73620-26-LT; 73620-LT; 93971-26-LT; 93971-LT; 99283; 99284

== ENCOUNTER 2023-12-23 19:30 | Emergency (ER) | payer MEDICAID ==
[2023-12-23 20:25] VITALS: BP 176/79; PULSE 95
[2023-12-23 21:10] LABS: CORONAVIRUS COVID-19 NAA POSITIVE (NEGATIVE); INFLUENZA A NAA NEGATIVE (NEGATIVE); INFLUENZA B NAA NEGATIVE (NEGATIVE); RESPIRATORY SYNCYTIAL VIR NAA NEGATIVE (NEGATIVE)
== END 2023-12-23 21:14 | disposition home or self-care (01) ==
LOC: MW.ED 19:30
DX: U07.1 COVID-19 (principal); J06.9 Acute upper respiratory infection, unspecified; I10 Essential (primary) hypertension; E11.9 Type 2 diabetes mellitus without complications; E66.9 Obesity, unspecified; Z86.73 Personal history of transient ischemic attack (TIA), and cerebral infarction without residual deficits; Z79.4 Long term (current) use of insulin; Z79.02 Long term (current) use of antithrombotics/antiplatelets; Z79.899 Other long term (current) drug therapy; Z75.8 Other problems related to medical facilities and other health care
CPT/HCPCS: 0241U; 99283

== ENCOUNTER 2024-05-12 21:16 | Emergency (ER) | payer MEDICAID ==
[2024-05-12 23:02] LABS: BASOPHILS PERCENT AUTO 1.1 % (0.0-1.0); EOSINOPHILS ABSOLUTE AUTO 0.23 K/uL (0.00-0.45); EOSINOPHILS PERCENT AUTO 2.6 % (0.0-6.0); HEMATOCRIT 39.2 % (42.0-52.0); HEMOGLOBIN 13.5 g/dL (14.0-18.0); IMMATURE GRAN ABSOLUTE AUTO 0.02 K/uL (0.00-0.05); IMMATURE GRAN PERCENT AUTO 0.2 % (0.0-0.4); LYMPHOCYTES ABSOLUTE AUTO 2.13 K/uL (1.00-4.80); LYMPHOCYTES PERCENT AUTO 23.7 % (24.0-44.0); MEAN CORPUSCULAR HEMOGLOBIN 30.9 pg (28.0-32.0); MEAN CORPUSCULAR HGB CONC 34.4 g/dL (32.0-36.0); MEAN CORPUSCULAR VOLUME 89.7 fL (83.0-99.0); MEAN PLATELET VOLUME 10.3 fL (9.4-12.4); MONOCYTES ABSOLUTE AUTO 0.68 K/uL (0.00-0.80); MONOCYTES PERCENT AUTO 7.6 % (0.0-8.0); NEUTROPHILS ABSOLUTE AUTO 5.83 K/uL (1.80-7.70); NEUTROPHILS PERCENT AUTO 64.8 % (41.0-71.0); PLATELET COUNT,PLT 192 K/uL (150-400); RED BLOOD CELL COUNT 4.37 M/uL (4.52-5.90); WHITE BLOOD CELL COUNT,WBC 8.99 K/uL (3.9-11.3)
[2024-05-12 23:20] VITALS: BP 109/66; PULSE 63
[2024-05-12 23:30] LABS: CALCIUM 9.2 mg/dL (8.5-10.1); CARBON DIOXIDE,CO2 25.7 mmol/L (21.0-32.0); CREATININE 1.5 mg/dL (0.8-1.3); EST CRCL DRUG DOSING (CG) 53.69 mL/min; POTASSIUM,K 4.2 mmol/L (3.5-5.1)
== END 2024-05-13 01:52 | disposition home or self-care (01) ==
LOC: MW.ED 21:16
DX: R07.9 Chest pain, unspecified (principal); I12.9 Hypertensive chronic kidney disease with stage 1 through stage 4 chronic kidney disease, or unspecified chronic kidney disease; N18.9 Chronic kidney disease, unspecified; E11.40 Type 2 diabetes mellitus with diabetic neuropathy, unspecified; E11.22 Type 2 diabetes mellitus with diabetic chronic kidney disease; E66.9 Obesity, unspecified; Z79.891 Long term (current) use of opiate analgesic; Z79.899 Other long term (current) drug therapy; Z79.4 Long term (current) use of insulin; Z68.32 Body mass index [BMI] 32.0-32.9, adult
CPT/HCPCS: 36415; 71046; 71046-26; 80048; 84484; 85025; 93005; 99285